=== PATIENT | female | born 1965 | race Caucasian/White ===

== ENCOUNTER → 2018-07-16 17:11 | Outpatient (CLI) | payer MEDICARE, MEDICAID, SELFPAY | PROVIDERS: Visit Provider Podiatrist | DX: B35.1 Tinea unguium (principal); M79.609 Pain in unspecified limb | CPT/HCPCS: 87102; 87206; 87220 ==

== ENCOUNTER → 2018-08-07 10:14 | Outpatient (CLI) | payer MEDICARE, SELFPAY ==
[2018-08-07 10:52] LABS: Basophils % 0.3 % (0.1-2.0); Eosinophils # 9.1 K/mm3 (0.0-0.4); Eosinophils % 65.6 % (0.1-12.0); Hematocrit 45.4 % (37.0-47.0); Hemoglobin 15.2 g/dL (12.2-16.2); Lymphocytes # 1.5 K/mm3 (0.7-4.5); Lymphocytes % 10.9 % (10-50); Mean Corpuscular HGB Conc 33.4 g/dL (31.8-35.4); Mean Corpuscular Volume 92.8 fl (81-99); Mean Platelet Volume 7.5 fl (7.4-10.4); Monocytes # 0.3 K/mm3 (0.1-1.0); Monocytes % 1.9 % (1.7-9.3); Neutrophils % 21.3 % (37.0-80.0); Platelet Count 271 K/mm3 (142-424); Red Cell Distribution Width 15.2 % (11.5-17.5); White Blood Count 13.9 K/mm3 (4.8-10.8)
[2018-08-07 11:43] LABS: Blood Urea Nitrogen 20 mg/dL (7-18); Calcium 9.1 mg/dL (8.5-10.1); Carbon Dioxide 28 mmol/L (21.0-32.0); Chloride 104 mmol/L (98-107); Creatinine,Serum 1.28 mg/dL (0.55-1.02); Estimated Glomerular Filt Rate 44 ml/min (>60); GFR (African American) 53 ML/MIN (>60); Glucose 157 mg/dL (74-106); Sodium 140 mmol/L (136-145)
== END ==
PROVIDERS: Visit Provider Nurse Practitioner Adult Health
DX: Q21.1 Atrial septal defect (principal); R06.09 Other forms of dyspnea
CPT/HCPCS: 36415; 80048; 83880; 85025

== ENCOUNTER → 2019-04-27 10:40 | Outpatient (POV) | payer MEDICARE, SELFPAY ==
[2019-04-27 11:08] VITALS: BP 133/68; PULSE 92; RESP 18; O2SAT 98; BMI 46.2
--- NOTE | 2019-04-27 12:56 | HMH.PMCON ---
Assessment and Plan (1) Degenerative disc disease Current visit: Yes Status: Chronic Qualifiers: Spinal region: lumbar Qualified Code(s): M51.36 - Other intervertebral disc degeneration, lumbar region Category: Medical - Assessment and plan all Dx Assessment and Plan for all problems:: We will see the patient can come off of her Eliquis for an L4-L5 lumbar epidural steroid injection. I do believe it would be beneficial for her. Patient has been instructed to call the office if she has any issues prior to her next appointment. I will follow-up with her after injection reassess her symptoms at that time. Dr. Wright has reviewed this note and agrees with this plan of care. This note was dictated using voice recognition software and may contain errors or omissions HPI - Data of Consult Consult date: 04/27/19 Requesting Physician: Ruby Austin APRN Primary Care Provider: Mali Rivera - Consult Narrative Reason for consult: Sciatica History of present illness: Ms. Dale is a 53 year old female who presents today with low back and radiating pain. Its radiating down her right leg. Patient has had several bouts of sciatica in the past. She rates her pain today at 7 out of 10 she is quite uncomfortable. She is currently on Lyrica and has had several rounds of steroids which have been slightly beneficial however it is not completely taken away her pain. Patient is on Eliquis. She has a Chemo-Port in place however she not currently doing chemo. At this point patient would like to just get some comfort in regards to her low back and her leg pain. CC: Ruby Austin APRN [facility] History I have reviewed the patient's past medical history: Yes Medical History: Reports:: Asthma, Cancer, Depression, Diabetes Mellitus Type 2, Hyperlipidemia, Hypertension *Have you ever received a pneumonia vaccine?: Yes *Have you received a flu vaccine this season?: Yes Other Medical History: Reports: Chemotherapy, Hypothyroidism Other Surgeries: Yes: BSO, Cardiac Catheterization, Colonoscopy, Hysterectomy-Total, Tubal Ligation, Other Amputation: No Fractures: No - *Social History Smoking Status: Never smoker Alcohol Intake: never Substance Use Type: denies use *Occupational Status:: disabled Housing: house Household Members: family *Travel in the last 8 weeks: None - Psychiatric History Pschychiatric History:: Reports:: Depression Family Hx:: Diabetes, Heart Attack, Hyperlipidemia, Hypertension, Cancer Review of Systems - Review of Systems ROS General: no recent weight change, no fever, no sleep disturbances Respiratory: no cough, no shortness of air, no recurring pulmonary infections Cardiovascular/Peripheral Vascular: No chest pain, No palpitations, no edema, no shortness of breath. Gastrointestinal: no new onset incontinence, normal bowel movements reported Genitourinary: no new onset incontinence Musculoskeletal: Back pain, leg pain Psychiatric: normal mood/ affect Neurological: [denies new onset weakness in extremities], [denies new onset balance issues] Meds Home Medications Medication Instructions Recorded Confirmed Type bupropion HCl 300 mg 24 hr tablet, PO 90 Days #90 08/30/17 04/12/19 History extended release canagliflozin 300 mg tablet PO 90 Days #90 08/30/17 04/12/19 History diltiazem HCl 120 mg PO 90 Days #90 08/30/17 04/12/19 History capsule,extended release 24 hr levothyroxine 125 mcg tablet PO 30 Days #30 08/30/17 04/12/19 History metformin 500 mg tablet PO BID 30 Days #60 tab 08/30/17 04/12/19 History potassium chloride 10 mEq PO 90 Days #180 08/30/17 04/12/19 History capsule,extended release pregabalin 150 mg capsule PO 30 Days #90 08/30/17 04/12/19 History rosuvastatin 20 mg tablet PO 30 Days #30 08/30/17 04/12/19 History atorvastatin 20 mg tablet 20 mg PO 90 Days tab 07/16/18 04/12/19 History bumetanide 2 mg tablet 2 mg PO 90 Days tab 07/16/18 04/12/19 Histor
== END ==
PROVIDERS: PCP Nurse Practitioner Family; Visit Provider Clinical Nurse Specialist Family Health
DX: M51.36 Other intervertebral disc degeneration, lumbar region (principal)
CPT/HCPCS: 99202

== ENCOUNTER → 2020-03-10 14:59 | Outpatient (CLI) | payer MEDICARE, SELFPAY ==
[2020-03-10 16:25] LABS: Anion Gap 15.2 mEq/L (5-15); Blood Urea Nitrogen 33 mg/dl (7-17); Calcium 9.5 mg/dl (8.4-10.2); Carbon Dioxide 33 mmol/L (22.0-30.0); Chloride 88 mmol/L (98-107); Estimated Glomerular Filt Rate 26 ml/min (>60); GFR (African American) 32 ML/MIN (>60); Glucose 79 mg/dl (74-100); Potassium 3.2 mmoL/L (3.5-5.1); Sodium 133 mmol/L (136-145)
== END ==
PROVIDERS: Visit Provider Nurse Practitioner Adult Health
DX: Q21.1 Atrial septal defect (principal)
CPT/HCPCS: 36415; 80048

== ENCOUNTER → 2020-03-27 12:41 | Outpatient (CLI) | payer MEDICARE, SELFPAY ==
[2020-03-27 14:20] LABS: Chloride 105 mmol/L (98-107)
[2020-03-27 14:21] LABS: Potassium 4.5 mmoL/L (3.5-5.1); Sodium 141 mmol/L (136-145)
[2020-03-27 14:24] LABS: Anion Gap 10.5 mEq/L (5-15); Blood Urea Nitrogen 15 mg/dl (7-17); Calcium 9.3 mg/dl (8.4-10.2); Carbon Dioxide 30 mmol/L (22.0-30.0); Estimated Glomerular Filt Rate 36 ml/min (>60); GFR (African American) 44 ML/MIN (>60); Glucose 68 mg/dl (74-100)
== END ==
PROVIDERS: Visit Provider Nurse Practitioner Adult Health
DX: Q21.1 Atrial septal defect (principal)
CPT/HCPCS: 36415; 80048

== ENCOUNTER 2020-09-09 20:37 | Emergency (ER) | payer MEDICARE, SELFPAY ==
[2020-09-09] VITALS (7 sets, daily range): BP systolic 129–155; BP diastolic 58–67; PULSE 72–78; RESP 19–20; TEMP 37; O2SAT 90–96; BMI 41.5
--- NOTE | 2020-09-09 21:11 | HMH.EDUTC ---
[facility] Disposition Clinical Impression: Nausea and vomiting Qualifiers: Vomiting type: unspecified Vomiting Intractability: non-intractable Qualified Code(s): R11.2 - Nausea with vomiting, unspecified Diabetes type 2, uncontrolled Qualifiers: Glycemic state: with hyperglycemia Qualified Code(s): E11.65 - Type 2 diabetes mellitus with hyperglycemia Leukemia Qualifiers: Leukemia type: unspecified Leukemia Active/Remission status: without remission Qualified Code(s): C95.90 - Leukemia, unspecified not having achieved remission Disposition: Still a Patient Condition on Discharge: Fair Referrals: Mali Rivera [Primary Care Provider] - Medical Decision Making - Medical Records Medical records reviewed: No: I reviewed the patient's medical records. - Enrique Inquiry Pt receiving controlled substance: No Vital Signs: 09/09/20 20:39 Temperature 98.6 F Temperature Source Oral Pulse Rate [Left] 78 Respiratory Rate 19 Blood Pressure [Right Arm] 135/66 Blood Pressure Mean [Right Arm] 89 02 Sat by Pulse Oximetry 95 Medical Decision Narrative: She was transferred to the ER due to her symptoms and her history of diabetes and leukemia. [facility] HPI - General Stated complaint: diarrhea vomitting Time Seen by Provider: 09/09/20 21:00 Mode of Arrival: Ambulatory Source of Information: Patient Limitations: No Limitations Description of Symptoms (Recalled from Triage Doc. by RN): Pt states that she has had diarrhea one day and vomiting the next for a week. Pt states that she has seem her PCP twice for it and her PCP tells her she doesn't know what it is . HEENT Symptoms (Recalled from RN notes): No Resp Symptoms (Recalled from RN notes): No Skin Symptoms (Recalled from RN notes): No MS Symptoms (Recalled from RN notes): No Functional Status (Recalled from RN notes): wnl - History of Present Illness Provider Complaint: She states that she has been having nausea/vomiting/diarrhea for the past 1 week. She has a history of leukemia. She was prescribed zofran by her Hemotologist. She states that this did not help. Then she was prescribed promethazine by her pcp. She states this has not helped either. She denies abdominal pain. She still has her appendix. She has history of diabetes type 2 also. - Related Data Home Medications Medication Instructions Recorded Confirmed bupropion HCl 300 mg 24 hr tablet, 300 mg PO DAILY 90 Days #90 08/30/17 07/04/19 extended release canagliflozin 300 mg tablet 300 mg PO DAILY 90 Days #90 08/30/17 07/04/19 diltiazem HCl 120 mg 120 mg PO DAILY 90 Days #90 08/30/17 07/04/19 capsule,extended release 24 hr levothyroxine 125 mcg tablet 125 meq PO DAILY 30 Days #30 08/30/17 07/04/19 metformin 500 mg tablet 500 mg PO BID 30 Days #60 tab 08/30/17 07/04/19 potassium chloride 10 mEq 10 meq PO DAILY 90 Days #180 08/30/17 07/04/19 capsule,extended release rosuvastatin 20 mg tablet 20 mg PO DAILY 30 Days #30 08/30/17 07/04/19 atorvastatin 20 mg tablet 20 mg PO DAILY 90 Days tab 07/16/18 07/04/19 bumetanide 2 mg tablet 2 mg PO DAILY 90 Days tab 07/16/18 07/04/19 insulin human U-100 NPH-regulr 52 unit SUB-Q BID 30 Days ml 07/16/18 07/04/19 70-30 mix 100 unit/mL subcutaneous susp losartan 25 mg tablet 25 mg PO DAILY 90 Days tab 07/16/18 07/04/19 metolazone 10 mg tablet 10 mg PO DAILY 07/16/18 07/04/19 sildenafil 25 mg tablet 25 mg PO DAILY PRN 09/24/18 07/04/19 Apixaban [Eliquis] 5 mg PO BID 05/07/19 07/04/19 albuterol sulfate 90 mcg/actuation INHALATION 07/04/19 07/04/19 aerosol inhaler fluoxetine 20 mg capsule mg PO 07/04/19 07/04/19 macitentan 10 mg tablet mg PO 07/04/19 07/04/19 potassium chloride 20 mEq meq PO 07/04/19 07/04/19 tablet,extended release(part/cryst) pregabalin 300 mg capsule PO 07/04/19 07/04/19 Previous Rx's Medication Instructions Recorded urea 39 % topical cream 39 % TOPICAL BID #227 g 07/16/18 cyclobenzaprine 10 mg tablet 10 mg PO TID PRN #90 tab 11
--- NOTE | 2020-09-09 21:15 | CT_ITS ---
PROCEDURE INFORMATION: Exam: CT Abdomen And Pelvis With Contrast Exam date and time: 09/09/2020 9:15 PM Age: 54 years old Clinical indication: Nausea and vomiting; Patient HX: N/v/d for 1 week; Additional info: N/v/d for one week TECHNIQUE: Imaging protocol: Computed tomography of the abdomen and pelvis with contrast. Total images: 353 Radiation optimization: All CT scans at this facility use at least one of these dose optimization techniques: automated exposure control; mA and/or kV adjustment per patient size (includes targeted exams where dose is matched to clinical indication); or iterative reconstruction. Contrast material: ISOVUE; Contrast volume: 75 ml; Contrast route: IV; COMPARISON: No relevant prior studies available. FINDINGS: Lungs: Visualized lung bases are clear. Heart: Heart size normal. There is mild calcification of the aortic valve. Prior ASD repair noted. Mediastinal space: The visualized distal esophagus is normal. Liver: Normal contour. No mass lesions. No intrahepatic biliary ductal dilatation. Granulomatous calcifications in the liver. Gallbladder and bile ducts: The gallbladder is contracted but otherwise unremarkable. Nondilated biliary system. Pancreas: Normal. No inflammatory changes or ductal dilation. Spleen: Granulomatous calcifications in the spleen without acute splenic abnormality. Adrenal glands: The right adrenal gland is normal. 18 mm fat density lesion in the left adrenal gland is consistent with an incidental myelolipoma that does not require further evaluation. Kidneys and ureters: No acute abnormalities. No hydronephrosis or hydroureter. No urinary tract stones are identified. There is a low-density circumscribed right renal cortical lesion suggesting renal cyst. No further imaging evaluation is required. Stomach and bowel: The stomach is unremarkable. The small bowel is nondilated with no gross abnormality. Question mild colonic wall thickening and adjacent stranding in the cecum and ascending colon suspicious for mild colitis. Submucosal fatty transformation in this region suggests underlying chronic changes of prior colitis as well. No evidence of perforation or abscess. Appendix: The appendix is normal in caliber and demonstrates no evidence of appendicitis. Intraperitoneal space: No free fluid or air. Vasculature: No acute process. No abdominal aortic aneurysm. Mild calcific atherosclerosis. Lymph nodes: No adenopathy. Urinary bladder: The urinary bladder is largely contracted without gross abnormality. Reproductive: Prior hysterectomy. Bones/joints: No acute osseous abnormalities. Soft tissues: Very small fatty umbilical hernia . No evidence of associated bowel herniation or strangulation. Mild soft tissue edema/stranding in the posterior and bilateral posterolateral subcutaneous tissues suggesting mild anasarca or volume overload. IMPRESSION: 1. Question mild colitis involving the proximal colon. No evidence of perforation or abscess. 2. Question mild anasarca or volume overload. 3. Additional non-emergent findings detailed above. COMMENTS: Consistent with the [employer]'s Incidental Findings Committee white paper (J Am Jenniffer Radiol 2018): Any incidental renal lesion less than 1 cm or classified as too small to characterize, or any incidental cystic renal lesion characterized as simple-appearing, is likely benign. No follow-up imaging is recommended for these lesions per consensus recommendations based on imaging criteria.
--- NOTE | 2020-09-09 21:20 | XR_ITS ---
PROCEDURE INFORMATION: Exam: XR Chest Exam date and time: 09/09/2020 9:20 PM Age: 54 years old Clinical indication: Prior surgery; Surgery date: 1-6 months; Patient HX: N/v/d, port in chest, no chest symptoms, nonsmoker; Additional info: Nausea/vomiting/diarrhea TECHNIQUE: Imaging protocol: XR of the chest. Views: 1 view. Total images: 1 COMPARISON: CR CXR CHEST(2 VIEWS-NOT PORTABLE) 08/06/2014 10:17 PM FINDINGS: Tubes, catheters and devices: Right jugular port with catheter tip in the mid to distal SVC unchanged. Lungs: Normal pulmonary expansion. Mild central vascular congestion. Question mild interstitial and alveolar density in the right base with mild indistinctness of the pulmonary vasculature and slight minor fissural thickening. This could relate to mild edema or pneumonia. Pleural spaces: No pleural effusion. No pneumothorax. Heart/Mediastinum: Heart size within normal limits for portable AP technique. No tracheal/mediastinal shift. Bones/joints: No acute osseous abnormalities are identified. IMPRESSION: Question faint interstitial and alveolar densities in the right base suspicious for mild pneumonia or edema.
[2020-09-09 21:27] LABS: POC Glucose,Bedside 106 (70-110)
[2020-09-09 21:38] LABS: Adenovirus,PCR Not Detected (NotDetected); Bordetella Pertussis Not Detected (NotDetected); Chlamydophila Pneumoniae, PCR Not Detected (NotDetected); Coronavirus 19, PCR Not Detected (NotDetected); Coronavirus 229E Not Detected (NotDetected); Coronavirus NL63 Not Detected (NotDetected); Coronavirus OC43 Not Detected (NotDetected); Coronovirus HKU1,PCR Not Detected (NotDetected); Human Metapneumovirus Not Detected (NotDetected); Influenza A, PCR Not Detected (NotDetected); Influenza AH1, 2009 Not Detected (NotDetected); Influenza AH1, PCR Not Detected (NotDetected); Influenza AH3,PCR Not Detected (NotDetected); Influenza B, PCR Not Detected (NotDetected); Mycoplasma Pneumoniae, PCR Not Detected (NotDetected); Parainfluenza 1, PCR Not Detected (NotDetected); Parainfluenza 2, PCR Not Detected (NotDetected); Parainfluenza 3, PCR Not Detected (NotDetected); Parainfluenza 4, PCR Not Detected (NotDetected); Respiratory Syncytial Virus Not Detected (NotDetected); Rhinovirus/Enterovirus Not Detected (NotDetected)
[2020-09-09 21:53] LABS: Basophils # 0.1 K/mm3 (0-0.2); Basophils % 0.6 % (0.1-2.0); Eosinophils # 15.2 K/mm3 (0.0-0.4); Hematocrit 41.3 % (37.0-47.0); Hemoglobin 13.5 g/dL (12.2-16.2); Lymphocytes # 2.4 K/mm3 (0.7-4.5); Lymphocytes % 10.1 % (10-50); Mean Corpuscular HGB Conc 32.7 g/dL (31.8-35.4); Mean Corpuscular Hemoglobin 28.9 pg (27.0-31.2); Mean Corpuscular Volume 88.4 fl (81-99); Mean Platelet Volume 7.2 fl (7.4-10.4); Monocytes # 0.7 K/mm3 (0.1-1.0); Monocytes % 2.9 % (1.7-9.3); Neutrophils % 21.4 % (37.0-80.0); Platelet Count 286 K/mm3 (142-424); Red Blood Count 4.68 M/mm3 (4.20-5.40); Red Cell Distribution Width 16.9 % (11.5-17.5)
[2020-09-09 21:54] LABS: White Blood Count 23.4 K/mm3 (4.8-10.8)
[2020-09-09 21:56] LABS: MANUAL DIFFERENTIAL MANUAL DIFFERENTIAL (MANUAL DIFF)
[2020-09-09 22:05] LABS: Microscopic, Urine URINE MICROSCOPIC (MICROSCOPIC)
[2020-09-09 22:06] LABS: Anion Gap 8.1 mEq/L (5-15); Blood Urea Nitrogen 16 mg/dl (7-17); Carbon Dioxide 31 mmol/L (22.0-30.0); Chloride 101 mmol/L (98-107); Creatinine Clearance Estimated 49 mL/min (50-200); Estimated Glomerular Filt Rate 47 ml/min (>60); Potassium 3.1 mmoL/L (3.5-5.1); Sodium 137 mmol/L (136-145)
[2020-09-09 22:07] LABS: Alanine Aminotransferase 10 U/L (12-78); Albumin Level 3.8 g/dl (3.5-5.0); Alkaline Phosphatase 150 U/L (38-126); Amylase 97 U/L (30-110); Aspartate Amino Transferase 18 U/L (14-36); Bilirubin,Direct 0.4 mg/dl (0.0-0.4); Bilirubin,Indirect 0.2 mg/dL (0.0-0.9); Bilirubin,Total 0.6 mg/dl (0.2-1.3); Bilirubin,Unconjugated 0.2 mg/dL (0.0-1.1); Calcium 8.6 mg/dl (8.4-10.2); GFR (African American) 57 ML/MIN (>60); Glucose 114 mg/dl (74-100); Lactic Acid 0.7 mmol/L (0.7-2.1); Lipase 197 U/L (23-300); Total Protein,Serum 6.4 g/dl (6.3-8.2)
[2020-09-09 22:10] LABS: Appearance,Urine CLEAR (Clear); Bilirubin,Urine Negative (Negative); Blood, Urine Negative (Negative); Color,Urine YELLOW (Yellow); Glucose,Urine (UA) 3+ (Negative); Ketones,Urine Negative (Negative); Leukocyte Esterase,Urine Negative (Negative); Nitrate,Urine Negative (Negative); Protein,Urine Negative (Negative); Urobilinogen,Urine 0.2 EU/dl (0.2)
[2020-09-09 22:12] LABS: C-Reactive Protein 2.3 mg/L (0-4)
[2020-09-09 22:23] LABS: Squamous Epithelial Cell,Urine Occasional #/hpf (0-5)
[2020-09-09 22:28] LABS: Erythrocyte Sedimentation Rate 11 mm/hr (0-30)
[2020-09-09 22:32] LABS: Troponin I < 0.01 ng/ml (0.00-0.034)
--- NOTE | 2020-09-09 22:32 | PC.NURSE ---
pt gone to radiology
[2020-09-09 22:53] LABS: Eosinophils % 65 % (0-3); Lymphocytes % 13 % (10-50); Monocytes % 3 % (2-9); Neutrophils % 19 % (42-76); Platelet Estimate Normal; RBC Morphology Normal; Total Cells Counted 100
--- NOTE | 2020-09-09 23:44 | HMH.EDNVD ---
ED Disposition Clinical Impression: Gastroenteritis Nausea and vomiting Qualifiers: Vomiting type: unspecified Vomiting Intractability: non-intractable Qualified Code(s): R11.2 - Nausea with vomiting, unspecified Diabetes type 2, uncontrolled Qualifiers: Glycemic state: with hyperglycemia Qualified Code(s): E11.65 - Type 2 diabetes mellitus with hyperglycemia Leukemia Qualifiers: Leukemia type: unspecified Leukemia Active/Remission status: without remission Qualified Code(s): C95.90 - Leukemia, unspecified not having achieved remission Disposition: Home, Self-Care Condition on Discharge: Good Instructions: DI for Nausea -- Adult Additional Instructions: fluids and see pcp for follow up Prescriptions: ondansetron HCL [Zofran 4mg Tab] 4 mg PO TID #21 tab Transmission Status: Pending to [id number] Referrals: Mali Rivera [Primary Care Provider] - - Critical Care Critical Care Time: No Attestation: On 09/09/20, the high probability of a clinically significant, sudden or life threatening deterioration of the following system(s) required my full and direct attention, intervention and personal management. The time I documented below is in addition to time spent performing reported procedures but includes the following listed in this critical care notation. Medical Decision Making - Medical Records Medical records reviewed: Yes: I reviewed the patient's medical records. - Enrique Inquiry Pt receiving controlled substance: No Vital Signs: 09/09/20 20:39 09/09/20 21:11 09/09/20 21:32 Temperature 98.6 F 98.6 F Temperature Source Oral Oral Pulse Rate 76 Pulse Rate [Left] 78 78 Respiratory Rate 19 19 Blood Pressure 136/67 Blood Pressure [Right Arm] 135/66 135/66 Blood Pressure Mean [Right Arm] 89 89 Blood Pressure Source [Right Arm] Automatic Cuff Blood Pressure Position [Right Arm] Sitting 02 Sat by Pulse Oximetry 95 95 91 L Oxygen Delivery Method Room Air 09/09/20 22:05 09/09/20 23:01 09/09/20 23:37 Temperature Temperature Source Pulse Rate 74 76 74 Pulse Rate [Left] Respiratory Rate Blood Pressure 129/61 133/58 L 135/62 Blood Pressure [Right Arm] Blood Pressure Mean [Right Arm] Blood Pressure Source [Right Arm] Blood Pressure Position [Right Arm] 02 Sat by Pulse Oximetry 90 L 96 96 Oxygen Delivery Method - Lab Data Lab results reviewed: Yes: I reviewed the patient's lab results. Lab Results 09/09/20 21:20: POC Glucose 106 09/09/20 21:26: Chlamy pneumoniae PCR Not detected, Adenovirus (PCR) Not detected, B. pertussis DNA (PCR) Not detected, Coronavirus OC43 (PCR) Not detected, Coronavirus HKU1 (PCR) Not detected, Coronavirus 229E (PCR) Not detected, SARS-CoV-2 (PCR) Not detected, Coronavirus NL63 (PCR) Not detected, Human Metapneumovir PCR Not detected, Influenza A (H1) PCR Not detected, Influ A (H1N1/09) PCR Not detected, Influenza A (H3) PCR Not detected, Influenza Type A (PCR) Not detected, Influenza Type B (PCR) Not detected, M. pneumoniae (PCR) Not detected, Parainfluenza 1 (PCR) Not detected, Parainfluenza 2 (PCR) Not detected, Parainfluenza 3 (PCR) Not detected, Parainfluenza 4 (PCR) Not detected, RSV (PCR) Not detected, Entero/Rhino (PCR) Not detected 09/09/20 21:30: WBC 23.4 H*, RBC 4.68, Hgb 13.5, Hct 41.3, MCV 88.4, MCH 28.9, MCHC 32.7, RDW 16.9, Plt Count 286, MPV 7.2 L, Neut % (Auto) 21.4 L, Lymph % (Auto) 10.1, [place] % (Auto) 2.9, Eos % (Auto) 65.0 H, Baso % (Auto) 0.6, Neut # (Auto) 5.0, Lymph # (Auto) 2.4, [place] # (Auto) 0.7, Eos # (Auto) 15.2 H, Baso # (Auto) 0.1, Total Counted 100, Neutrophils % (Manual) 19 L, Lymphocytes % (Manual) 13, Monocytes % (Manual) 3, Eosinophils % (Manual) 65 H, Platelet Estimate Normal, RBC Morphology Normal 09/09/20 21:30: Sodium 137, Potassium 3.1 L, Chloride 101, Carbon Dioxide 31 H, Anion Gap 8.1, BUN 16, Creatinine 1.20 H, Estimated Creat Clear 49, Estimated GFR 47 L, Est GFR ( Amer) 57
== END 2020-09-10 00:02 | disposition home or self-care (01) ==
LOC: UTC 20:39 → ER 21:09
PROVIDERS: Emergency Provider Emergency Medicine; PCP Nurse Practitioner Family
DX: K52.9 Noninfective gastroenteritis and colitis, unspecified (principal); E11.65 Type 2 diabetes mellitus with hyperglycemia; C95.90 Leukemia, unspecified not having achieved remission; I10 Essential (primary) hypertension; E78.5 Hyperlipidemia, unspecified; E03.9 Hypothyroidism, unspecified; Z79.899 Other long term (current) drug therapy
CPT/HCPCS: 71045; 74177; 80048; 80076; 81001; 82150; 82962; 83605; 83690; 84145; 84484; 85007; 85025; 85651; 86140; 87040; 87581; 87633; 87798; 93005; 96365; 96375; 99284; J2405; Q9967

== ENCOUNTER → 2020-09-15 10:15 | Outpatient (CLI) | payer MEDICARE, SELFPAY ==
[2020-09-15 10:45] LABS: Alanine Aminotransferase 15 U/L (12-78); Albumin Level 4.1 g/dl (3.5-5.0); Albumin/Globulin Ratio 1.6 (1.1-1.8); Alkaline Phosphatase 145 U/L (38-126); Anion Gap 12.2 mEq/L (5-15); Aspartate Amino Transferase 20 U/L (14-36); Bilirubin,Total 0.7 mg/dl (0.2-1.3); Blood Urea Nitrogen 16 mg/dl (7-17); Calcium 9.1 mg/dl (8.4-10.2); Carbon Dioxide 29 mmol/L (22.0-30.0); Chloride 96 mmol/L (98-107); Estimated Glomerular Filt Rate 39 ml/min (>60); GFR (African American) 48 ML/MIN (>60); Globulin 2.6 g/dL (1.3-3.2); Glucose 265 mg/dl (74-100); Potassium 3.2 mmoL/L (3.5-5.1); Sodium 134 mmol/L (136-145); Total Protein,Serum 6.7 g/dl (6.3-8.2)
== END ==
PROVIDERS: Visit Provider Nurse Practitioner Adult Health
DX: Q21.1 Atrial septal defect (principal); R11.0 Nausea
CPT/HCPCS: 36415; 80053

== ENCOUNTER → 2021-01-25 08:59 | Outpatient (CLI) | payer MEDICARE, SELFPAY | PROVIDERS: Visit Provider Internal Medicine | DX: Z01.812 Encounter for preprocedural laboratory examination (principal); Z11.52 Encounter for screening for COVID-19 | CPT/HCPCS: C9803; U0003; U0005 ==

== ENCOUNTER 2021-03-08 13:25 | Outpatient (CLI) | payer MEDICARE, SELFPAY | END 2021-03-08 13:40 | disposition home or self-care (01) | LOC: INF 13:26 | PROVIDERS: PCP Nurse Practitioner Family; Visit Provider Internal Medicine Medical Oncology | DX: Z45.2 Encounter for adjustment and management of vascular access device (principal); D72.10 Eosinophilia, unspecified | CPT/HCPCS: 96523; J1642 ==

== ENCOUNTER 2021-06-07 12:54 | Outpatient (CLI) | payer MEDICARE, SELFPAY | END 2021-06-07 13:08 | disposition home or self-care (01) | LOC: INF 12:56 | PROVIDERS: PCP Nurse Practitioner Family; Visit Provider Internal Medicine Medical Oncology | DX: Z45.2 Encounter for adjustment and management of vascular access device (principal); D72.10 Eosinophilia, unspecified | CPT/HCPCS: 96523; J1642 ==

== ENCOUNTER 2021-08-09 09:32 | Emergency (ER) | payer MEDICARE, SELFPAY ==
[2021-08-09 09:32] VITALS: BP 120/69; PULSE 85; RESP 17; TEMP 36.6; O2SAT 98; BMI 42.5
--- NOTE | 2021-08-09 10:40 | HMH.EDUTC ---
[facility] [place] Clinical Impression: Sinusitis Qualifiers: Sinusitis location: unspecified location Chronicity: unspecified Qualified Code(s): J32.9 - Chronic sinusitis, unspecified Disposition: Home, Self-Care Condition on Discharge: Good Instructions: Sinusitis, DI for Sinusitis, Azithromycin, DI for Thrush Additional Instructions: ? Start antibiotic today. Be sure to complete entire prescription even if feeling better ? Monitor temp. Tylenol every 4 hours as needed and / or ibuprofen every 6 hours as needed ( As long as your primary care physician has told you that it ok to take both. For fever/aches/pains ER if no less than 101 despite Tylenol or Motrin ? Humidifier/vaporizer or hot steamy shower ? Inhaler every 4-6 hours as needed like we discussed. If unsure how to use it, ask pharmacist to demonstrate how. Should help open airways and improve cough, wheezing, and shortness of breath *Tessalon Perles will not cause drowsiness but use at bedtime to help stop cough so that you may get some rest. Follow up IMMEDIATELY for new or worsening of symptoms OR no noticeable improvement over the next 48-72 hours. 911 immediately for any life threatening symptoms such as chest pain or difficulty breathing Prescriptions: Fluconazole [Diflucan 150mg tab] 150 mg PO DAILY 3 Days #3 tab [facility] Azithromycin [Z-Jarret 250mg Tab] 250 mg PO DIRECTED #6 tab [facility]: [facility] Ondansetron [Zofran 4mg ODT] 4 mg PO TIDP PRN #15 tab PRN Reason: Nausea Transmission Status[facility] Referrals: Mali Rivera [Primary Care Provider] - As needed Time of Disposition: 11:01 Medical Decision Making - Enrique Inquiry Pt receiving controlled substance: No Enrique was queried for this patient: No Vital Signs: 08/09/21 09:32 Temperature 98 F Temperature Source Oral Pulse Rate [Left Radial] 85 Respiratory Rate 17 Blood Pressure [Right Arm] 120/69 Blood Pressure Mean [Right Arm] 86 02 Sat by Pulse Oximetry 98 Oxygen Delivery Method Room Air Medical Decision Narrative: Patient states that she has taken azithromycin, diflucan and zofran in the past without complications or reactions [facility] [place] - General Stated complaint: chest congestion, cough Time Seen by Provider: 08/09/21 10:41 Mode of Arrival: Ambulatory Source of Information: Patient Limitations: No Limitations Description of Symptoms (Recalled from Triage Doc. by RN): COUGH, CONGESTION, NAUSEA, THRUSH, YEAST X 1 WEEK HEENT Symptoms (Recalled from RN notes): No Resp Symptoms (Recalled from RN notes): Yes Skin Symptoms (Recalled from RN notes): No MS Symptoms (Recalled from RN notes): Yes Functional Status (Recalled from RN notes): N/A - History of Present Illness Provider Complaint: Patient states that she has been having sinus congestion and drainage along with cough States that she feels like it is trying to move into her chest States that also she noticed she has a white film like area on her tongue like she gets when she gets oral thrush and she wanted to get it looked at too - Related Data Home Medications Medication Instructions Recorded Confirmed bupropion HCl 300 mg 24 hr tablet, 300 mg PO DAILY 90 Days #90 08/30/17 02/22/21 extended release canagliflozin 300 mg tablet 300 mg PO DAILY 90 Days #90 08/30/17 02/22/21 diltiazem HCl 120 mg 120 mg PO DAILY 90 Days #90 08/30/17 02/22/21 capsule,extended release 24 hr levothyroxine 125 mcg tablet 125 meq PO DAILY 30 Days #30 08/30/17 02/22/21 metformin 500 mg tablet 500 mg PO BID 30 Days #60 tab 08/30/17 02/22/21 potassium chloride 10 mEq 10 meq PO DAILY 90 Days #180 08/30/17 02/22/21 capsule,extended release rosuvastatin 20 mg tablet 20 mg PO DAILY 30 Days #30 08/30/17 02/22/21 atorvastatin 20 mg tablet 20 mg PO DAILY 90 Days tab 07/16/18 02/22/21 bumetanide 2 mg tablet 2 mg PO DAILY 90 Days tab 03
[2021-08-09 11:36] VITALS: BP 120/69; PULSE 85; RESP 17; TEMP 36.6; O2SAT 98
== END 2021-08-09 11:36 | disposition home or self-care (01) ==
PROVIDERS: Emergency Provider Nurse Practitioner; PCP Nurse Practitioner Family
DX: J32.9 Chronic sinusitis, unspecified (principal); I10 Essential (primary) hypertension; E78.5 Hyperlipidemia, unspecified; E11.9 Type 2 diabetes mellitus without complications; F32.A Depression, unspecified; F41.9 Anxiety disorder, unspecified; Z79.1 Long term (current) use of non-steroidal anti-inflammatories (NSAID); Z79.4 Long term (current) use of insulin; Z79.84 Long term (current) use of oral hypoglycemic drugs; Z79.51 Long term (current) use of inhaled steroids; Z79.899 Other long term (current) drug therapy; Z79.01 Long term (current) use of anticoagulants; Z85.9 Personal history of malignant neoplasm, unspecified; Z90.711 Acquired absence of uterus with remaining cervical stump; Z82.49 Family history of ischemic heart disease and other diseases of the circulatory system; Z83.438 Family history of other disorder of lipoprotein metabolism and other lipidemia; Z80.9 Family history of malignant neoplasm, unspecified; Z83.3 Family history of diabetes mellitus
CPT/HCPCS: 99213; G0463

== ENCOUNTER 2022-04-24 12:35 | Outpatient (CLI) | payer MEDICARE, SELFPAY | END 2022-04-24 12:45 | disposition home or self-care (01) | LOC: INF 12:37 | PROVIDERS: PCP Nurse Practitioner Family; Visit Provider Internal Medicine Medical Oncology | DX: Z45.2 Encounter for adjustment and management of vascular access device (principal) | CPT/HCPCS: 96523; J1642 ==

== ENCOUNTER 2022-05-13 10:48 | Emergency (ER) | payer MEDICARE, SELFPAY ==
[2022-05-13 11:05] VITALS: BP 139/66; PULSE 82; RESP 20; TEMP 36.8; O2SAT 94; BMI 48.4
--- NOTE | 2022-05-13 11:13 | EXP.UTC ---
Discharge Plan Disposition Patient Disposition: Home, Self-Care Condition: Good Prescriptions Prescriptions: New prednisone 10 mg tablet 10 mg PO BID 5 Days Qty: 10 0RF amoxicillin [amoxicillin] 500 mg tablet 500 mg PO TID 10 Days Qty: 30 0RF benzonatate [benzonatate] 100 mg capsule 100 mg PO TIDP PRN (Reason: Cough) Qty: 30 0RF ofloxacin 0.3 % drops See Rx Instructions .ROUTE .COMPLEX Qty: 5 0RF Rx Instructions: put 1 drp into both eyes every 4 h x 2 days, then 1 drp 4 times/day days 3-7 No Action atorvastatin 20 mg tablet 20 mg PO DAILY 90 Days bumetanide 2 mg tablet 2 mg PO DAILY 90 Days metolazone 10 mg tablet 10 mg PO DAILY sildenafil [Viagra] 25 mg tablet 25 mg PO DAILY albuterol sulfate 90 mcg/actuation HFA aerosol inhaler INHALATION potassium chloride 20 mEq tablet,ER particles/crystals PO pregabalin 300 mg capsule PO Label Comments: TAKE 1 CAPSULE BY MOUTH TWICE DAILY macitentan 10 mg tablet PO fluoxetine 20 mg capsule PO Label Comments: TAKE 1 CAPSULE BY MOUTH ONCE DAILY levothyroxine 125 mcg tablet 125 meq PO DAILY 30 Days Qty: 30 metformin 500 mg tablet 500 mg PO BID 30 Days Qty: 60 canagliflozin 300 mg tablet 300 mg PO DAILY 90 Days Qty: 90 bupropion HCl 300 mg tablet extended release 24 hr 300 mg PO DAILY 90 Days Qty: 90 diltiazem HCl 120 mg capsule,extended release 24hr 120 mg PO DAILY 90 Days Qty: 90 insulin NPH and regular human 100 unit/mL (70-30) suspension 31 unit SQ BID 30 Days Qty: 18.6 atenolol 50 mg tablet 50 mg PO DAILY omeprazole 10 mg capsule,delayed release(DR/EC) 10 mg PO DAILY spironolactone 50 mg tablet 50 mg PO DAILY fluconazole 150 MG tablet 150 mg PO DAILY 3 Days Qty: 3 0RF ondansetron 4 MG tablet,disintegrating 4 mg PO TIDP PRN (Reason: Nausea) Qty: 15 0RF apixaban 5 MG tablet 5 mg PO BID Label Comments: TAKE 1 TABLET BY MOUTH TWICE DAILY DIRECTED Referrals Follow up/Referrals: Mali Rivera [Primary Care Provider] - See instructions Activity Restrictions/Add. Instructions Additional Instructions/Restrictions: Take tylenol or ibuprofen for pain or fever. Take the medications as directed. Follow up with your regular doctor. GO TO THE ER FOR ANY WORSENING SYMPTOMS Clinical Impressions Clinical Impression: Pharyngitis, Bilateral conjunctivitis Instructions Patient Instructions: Sore Throat, DI for Pharyngitis/Tonsillopharyngitis -- Adult Discharge ED Provider: Cash Ly [facility] General Stated complaint: sore throat,fever Time Seen by Provider: 05/13/22 11:13 History of Present Illness Provider Complaint: She states that for the past 2 days she has had sore throat, ear pain, and sinus congestion. She has also had bilateral eye redness, irritation, and matting for the past 1 day. Related Data Home Medications Medication Instructions Recorded Confirmed bupropion HCl 300 mg 24 hr tablet, 300 mg PO DAILY fibromyalgia 90 08/30/17 10/03/21 extended release days ##90 canagliflozin 300 mg tablet 300 mg PO DAILY Diabetes 90 days 08/30/17 10/03/21 ##90 diltiazem HCl 120 mg 120 mg PO DAILY Heartburn 90 days 08/30/17 10/03/21 capsule,extended release 24 hr ##90 levothyroxine 125 mcg tablet 125 meq PO DAILY hypothyroidism 30 08/30/17 10/03/21 days ##30 metformin 500 mg tablet 500 mg PO BID Diabetes 30 days #60 08/30/17 10/03/21 tabs atorvastatin 20 mg tablet 20 mg PO DAILY Cholesterol 90 days 07/16/18 10/03/21 bumetanide 2 mg tablet 2 mg PO DAILY swelling 90 days 07/16/18 10/03/21 metolazone 10 mg tablet 10 mg PO DAILY Fluid 07/16/18 10/03/21 apixaban 5 mg tablet 5 mg PO BID Blood thinner 05/07/19 10/03/21 albuterol sulfate 90 mcg/actuation inhalation 07/04/19 10/03/21 aerosol inhaler fluoxetine 20 mg capsule mg PO 07/04/1910/03
[2022-05-13 11:23] LABS: UTC Strep Screen (Rapid) Negative (Negative)
[2022-05-13 11:43] VITALS: BP 139/66; PULSE 82; RESP 20; TEMP 36.8; O2SAT 94
== END 2022-05-13 11:43 | disposition home or self-care (01) ==
PROVIDERS: Emergency Provider Nurse Practitioner Family; PCP Nurse Practitioner Family
DX: H10.9 Unspecified conjunctivitis (principal); J02.9 Acute pharyngitis, unspecified
CPT/HCPCS: 87880; 99212; 99213; G0463

== ENCOUNTER 2022-08-22 11:04 | Outpatient (CLI) | payer MEDICARE, SELFPAY | END 2022-08-22 11:15 | disposition home or self-care (01) | LOC: INF 11:05 | PROVIDERS: PCP Nurse Practitioner Family; Visit Provider Physician Assistant Medical | DX: D72.19 Other eosinophilia (principal); Z45.2 Encounter for adjustment and management of vascular access device | CPT/HCPCS: 96523; J1642 ==

== ENCOUNTER → 2022-09-18 23:31 | Outpatient (CLI) | payer MEDICARE, SELFPAY | PROVIDERS: PCP Nurse Practitioner Family; Visit Provider Nurse Practitioner Family | DX: B35.1 Tinea unguium (principal); E11.40 Type 2 diabetes mellitus with diabetic neuropathy, unspecified; Z79.4 Long term (current) use of insulin | CPT/HCPCS: 87102; 87206; 87220 ==

== ENCOUNTER 2023-03-18 17:50 | Emergency (ER) | payer MEDICARE, SELFPAY ==
[2023-03-18 19:00] VITALS: BP 0/0; PULSE 0; RESP 0; TEMP -17.7; TEMP 0
== END 2023-03-18 19:00 | disposition home or self-care (01) ==
PROVIDERS: Emergency Provider Nurse Practitioner Family; PCP Nurse Practitioner Family
DX: Z53.21 Procedure and treatment not carried out due to patient leaving prior to being seen by health care provider (principal)

== ENCOUNTER 2023-07-21 14:42 | Emergency (ER) | payer MEDICARE, SELFPAY ==
[2023-07-21 15:00] VITALS: BP 155/69; PULSE 87; RESP 18; TEMP 36.8; O2SAT 95; BMI 49.2
--- NOTE | 2023-07-21 15:12 | ED_ITS ---
Discharge Plan Disposition Patient Disposition: Home, Self-Care Condition: Good Prescriptions Prescriptions: New fluconazole 150 mg tablet 150 mg PO ONCE Qty: 1 3RF cephalexin 500 mg capsule 500 mg PO QID Qty: 40 0RF mupirocin 2 % ointment 1 applic topical TID 7 Days Qty: 15 0RF No Action atorvastatin 20 mg tablet 20 mg PO DAILY 90 Days bumetanide 2 mg tablet 2 mg PO DAILY 90 Days metolazone 10 mg tablet 10 mg PO DAILY sildenafil [Viagra] 25 mg tablet 25 mg PO DAILY albuterol sulfate 90 mcg/actuation HFA aerosol inhaler See Rx Instructions .ROUTE .COMPLEX Rx Instructions: see rx potassium chloride 20 mEq tablet,ER particles/crystals 20 meq PO DAILY pregabalin 300 mg capsule 150 mg PO BID Patient Comments: TAKE 1 CAPSULE BY MOUTH TWICE DAILY Opsumit 10 mg tablet 10 mg PO DAILY fluoxetine 20 mg capsule 20 mg PO DAILY Patient Comments: TAKE 1 CAPSULE BY MOUTH ONCE DAILY levothyroxine 125 mcg tablet 125 meq PO DAILY 30 Days Qty: 30 metformin 500 mg tablet 500 mg PO BID 30 Days Qty: 60 bupropion HCl 300 mg tablet extended release 24 hr 300 mg PO DAILY 90 Days Qty: 90 diltiazem HCl 120 mg capsule,extended release 24hr 120 mg PO DAILY 90 Days Qty: 90 insulin NPH and regular human 100 unit/mL (70-30) suspension 31 unit SQ BID 30 Days Qty: 18.6 omeprazole 10 mg capsule,delayed release(DR/EC) 10 mg PO DAILY spironolactone 50 mg tablet 50 mg PO DAILY apixaban 5 MG tablet 5 mg PO BID Patient Comments: TAKE 1 TABLET BY MOUTH TWICE DAILY DIRECTED Referrals Follow up/Referrals: Mali Rivera [Primary Care Provider] - See instructions Activity Restrictions/Add. Instructions Additional Instructions/Restrictions: Keep the wound clean and dry. Keep a dressing on it if you are going to be getting it dirty. Watch the wound for signs of infection, such as redness, swelling, drainage, fever. etc. Take tylenol for pain. Follow up with your regular doctor for a wound recheck within the next 48 to 72 hours. GO TO THE ER FOR ANY WORSENING SYMPTOMS OR CONCERNS. Clinical Impressions Clinical Impression: Laceration of right leg excluding thigh, Diabetes, Need for Tdap vaccination Instructions Patient Instructions: DI for Avulsion Laceration (Not Requiring Sutures), Tetanus, Diphtheria, Pertussis (Tdap) Vaccine Discharge ED Provider: Cash Ly [facility] General Stated complaint: AO 07/19/23 Hit right calf with truck door Time Seen by Provider: 07/21/23 15:12 History of Present Illness Provider Complaint: She states that 2 days ago she was closing her truck door when the corner of the door hit her on the right lower leg. She has a skin tear in the area now. She is a diabetic. Her tetanus immunization is not up to date. Related Data Home Medications Medication Instructions Recorded Confirmed bupropion HCl 300 mg 24 hr tablet, 300 mg PO DAILY fibromyalgia 90 08/30/17 07/21/23 extended release days ##90 diltiazem HCl 120 mg 120 mg PO DAILY Heartburn 90 days 08/30/17 07/21/23 capsule,extended release 24 hr ##90 levothyroxine 125 mcg tablet 125 meq PO DAILY hypothyroidism 30 08/30/17 07/21/23 days ##30 metformin 500 mg tablet 500 mg PO BID Diabetes 30 days #60 08/30/17 07/21/23 tabs atorvastatin 20 mg tablet 20 mg PO DAILY Cholesterol 90 days 07/16/18 07/21/23 bumetanide 2 mg tablet 2 mg PO DAILY swelling 90 days 07/16/18 07/21/23 metolazone 10 mg tablet 10 mg PO DAILY Fluid 07/16/18 07/21/23 apixaban 5 mg tablet 5 mg PO BID Blood thinner 05/07/19 07/21/23 albuterol sulfate 90 mcg/actuation See Rx Instructions .Route .COMPLEX 07/04/19 07/21/23 aerosol inhaler fluoxetine 20 mg capsule 20 mg PO DAILY 07/04/19 07/21/23 macitentan 10 mg tablet (Opsumit) 10 mg PO DAILY 07/04/19 07/21/23 potassium chloride 20 mEq 20 meq PO DAILY 07/04/19 07/21/23 tablet,extended release(part/cryst) pregabalin 300 mg capsule 150 mg PO BID 07/04/19 07/21/23 insulin human U-100 NPH-regulr 31 unit SQ BID Diabetes 30 days 10/03/21 07/21/23 70-30 mix 100 unit/mL subcutaneous #18.6 mL susp omeprazole 10 mg capsule,delayed 10 mg PO DAILY 10/03/21 07/21/23 release sildenafil 25 mg tablet (Viagra) 25 mg PO DAILY Pulmonary HTN 10/03/21 07/21/23 spironolactone 50 mg tablet 50 mg PO DAILY 10/03/21 07/21/23 Previous Rx's Medication Instructions Recorded cephalexin 500 mg capsule 500 mg PO QID #40 caps 07/21/23 fluconazole 150 mg tablet 150 mg PO ONCE 1 dose #1 tab 07/21/23 mupirocin 2 % topical ointment 1 applic topical TID 7 days #15 07/21/23 grams Allergies Allergy/AdvReac Type Severity Reaction Status Date / Time No Known Allergies Allergy Verified 07/21/23 15:17 [facility] Disclaimer: The information contained in this section may have been updated after the patient was seen, as this information can be updated by other users. Social History Smoking Status: Never smoker second hand exposure: No alcohol intake: never substance use type: denies use current occupational status: other Travel in the last 8 weeks: None household members: family housing: house caffeine: Yes ROS Obtained: Yes All systems reviewed & no additional complaints except as documented Constitutional Constitutional: Denies chills and Denies fever(s) Eyes Eyes: Denies eye discharge ENT Ears, Nose, Mouth, and Throat: Denies dizziness, Denies otalgia and Denies sore throat Cardiovascular Cardiovascular: Denies chest pain Respiratory Respiratory: Denies shortness of breath, Denies chest congestion, Denies cough, Denies stridor and Denies wheezing Gastrointestinal Gastrointestingal: Denies nausea or vomiting Musculoskeletal Musculoskeletal: Reports system reviewed and no additional complaints, except as documented and Denies arthralgias Integumentary/Breasts Skin/Breast: Reports as per HPI and Reports wounds Neurologic Neurologic: Denies dizziness and Denies paresthesias Allergic/Immunologic Allergic/Immunologic: Denies wheezing Physical Exam General General appearance: alert and in no apparent distress Head Head exam: atraumatic, normocephalic and normal inspection Eye Eye exam: Present normal appearance, PERRL and EOMI ENT ENT exam: Present normal exam, normal oropharynx, mucous membranes moist, TM's normal bilaterally and normal external ear exam Neck Neck exam: Present normal inspection, full ROM and trachea midline; Absent meningismus or lymphadenopathy Chest Chest inspection: Present normal inspection and symmetric chest wall rise; Abs ent tenderness Respiratory Respiratory exam: Present normal lung sounds bilaterally; Absent respiratory distress Cardiovascular Cardiovascular exam: Present regular rate and normal rhythm; Absent JVD Abdominal Exam Abdominal exam: Present soft and normal bowel sounds; Absent distention, tenderness or guarding Extremities Exam Extremities exam: Present normal inspection, full ROM and normal capillary r efill; Absent calf tenderness Back Exam Back exam: Present normal inspection; Absent tenderness Neurological Exam Neurological exam: Present alert and oriented X3 Psychiatric Psychiatric exam: Present normal affect and normal mood Skin Skin exam: Present other (on the anterior surface of her right lower leg (mid- guzman area) there is a skin tear and abrasion that measures 1.5 cm length. no deep tissue damage, no foreign body noted. ) Lymphatic Lymphatic Findings: no adenopathy Medical Decision Making Medical Records Medical records reviewed: No I reviewed the patient's medical records. Enrique Inquiry Pt receiving controlled substance: No
[2023-07-21] MEDS: TET/DIPHTH/PERT-ADULT 0.5ML SYRINGE 0.5 ML IM (16:00)
[2023-07-21 16:15] VITALS: BP 155/69; PULSE 87; RESP 18; TEMP 36.8; O2SAT 95
== END 2023-07-21 16:14 | disposition home or self-care (01) ==
PROVIDERS: Emergency Provider Nurse Practitioner Family; PCP Nurse Practitioner Family
DX: S81.811A Laceration without foreign body, right lower leg, initial encounter (principal); E11.9 Type 2 diabetes mellitus without complications; E03.9 Hypothyroidism, unspecified; Z23 Encounter for immunization; Z79.4 Long term (current) use of insulin; Z79.84 Long term (current) use of oral hypoglycemic drugs
CPT/HCPCS: 90471; 90715; 99212; 99214; G0463

== ENCOUNTER 2023-11-04 11:44 | Outpatient (CLI) | payer MEDICARE, SELFPAY ==
[2023-11-04] MEDS: SODIUM CHLORIDE 0.9% 10ML FLUSH SYRINGE 10 ML IV (13:21)
== END 2023-11-04 13:35 | disposition home or self-care (01) ==
LOC: INF 11:45
PROVIDERS: PCP Physician Assistant Medical; Visit Provider Physician Assistant Medical
DX: Z45.2 Encounter for adjustment and management of vascular access device (principal)
CPT/HCPCS: 96523; J1642

== ENCOUNTER 2023-11-04 16:00 | Outpatient (CLI) | payer MEDICARE, SELFPAY | END 2023-11-04 23:59 | disposition home or self-care (01) | LOC: LAB.DROPOF 16:00 | PROVIDERS: PCP Nurse Practitioner; Visit Provider Nurse Practitioner | DX: B35.1 Tinea unguium (principal); Z45.2 Encounter for adjustment and management of vascular access device | CPT/HCPCS: 87102; 87206; 87220; 96523; J1642 ==

== ENCOUNTER 2023-12-07 15:00 | Emergency (ER) | payer MEDICARE, SELFPAY ==
[2023-12-07 15:40] VITALS: BP 124/70; PULSE 76; RESP 23; TEMP 36.5; O2SAT 95; BMI 49.1
--- NOTE | 2023-12-07 16:08 | EXP.UTC ---
Discharge Plan Disposition Patient Disposition: Home, Self-Care Condition: Good Prescriptions Prescriptions: New nystatin 100,000 unit/mL suspension 4 ml buccal Q6H 10 Days Qty: 160 0RF Rx Instructions: administer 1/2 of dose in each side of the mouth swish and spit No Action fluoxetine 40 mg capsule 40 mg PO DAILY metolazone 2.5 mg tablet 2.5 mg PO DAILY metformin 500 mg tablet 500 mg PO DAILY atorvastatin 20 mg tablet 20 mg PO DAILY bumetanide 2 mg tablet 2 mg PO DAILY Novolin 70/30 U-100 Insulin 100 unit/mL (70-30) suspension See Rx Instructions .ROUTE .COMPLEX Rx Instructions: . fexofenadine 180 mg tablet 180 mg PO DAILY omeprazole 40 mg capsule,delayed release(DR/EC) 40 mg PO DAILY potassium chloride 20 mEq tablet,ER particles/crystals 20 meq PO DAILY amitriptyline 10 mg tablet 10 mg PO DAILY levothyroxine 125 mcg tablet 125 mcg PO DAILY diltiazem HCl 120 mg capsule,extended release 24hr 120 mg PO DAILY spironolactone 50 mg tablet 50 mg PO DAILY aripiprazole 5 mg tablet 5 mg PO DAILY sildenafil (pulm.hypertension) 20 mg tablet 20 mg PO DAILY glucosamine stewart 2KCl-chondroit 500-400 mg tablet 1 tab PO DAILY Eliquis 5 mg tablet 5 mg PO DAILY Opsumit 10 mg tablet 10 mg PO DAILY Ozempic 1 mg/dose (4 mg/3 mL) pen injector 1 mg SQ WEEKLY Patient Comments: INJECT 1MG SUBCUTANEOUSLY ONCE WEEKLY Referrals Follow up/Referrals: Mali Rivera [Primary Care Provider] - See instructions Activity Restrictions/Add. Instructions Additional Instructions/Restrictions: Swish and spit medication as prescribed Follow up with your Family Doctor if no improvement or any worsening of symptoms Return if needed Straight to ER if any life threatening symptoms Clinical Impressions Clinical Impression: Oral thrush Instructions Patient Instructions: Nystatin, DI for Thrush Print Language Print Language: [place] Discharge ED Provider: Teena Andre [facility] [place] General Stated complaint: sore throat Mode of Arrival: Ambulatory Source of Information: Patient Limitations: No Limitations Time Seen by Provider: 12/07/23 16:08 Description of Symptoms (Recalled from Triage Doc. by RN): PATIENT C/O ORAL THRUSH THAT STARTED FRIDAY HEENT Symptoms (Recalled from RN notes): Yes Resp Symptoms (Recalled from RN notes): No Skin Symptoms (Recalled from RN notes): No MS Symptoms (Recalled from RN notes): No Functional Status (Recalled from RN notes): WNL History of Present Illness Provider Complaint: Patient states that she is a diabetic and she was recenlty on steriods and when she does that it causes her sugar to go up and then she gets thrush States that she has thrush on her tongue that started on Fri and continued to get worse Related Data Home Medications ?Medication ?Instructions ?Recorded ?Confirmed amitriptyline 10 mg tablet 10 mg PO DAILY 12/07/23 12/07/23 apixaban 5 mg tablet (Eliquis) 5 mg PO DAILY 12/07/23 12/07/23 aripiprazole 5 mg tablet 5 mg PO DAILY 12/07/23 12/07/23 atorvastatin 20 mg tablet 20 mg PO DAILY 12/07/23 12/07/23 bumetanide 2 mg tablet 2 mg PO DAILY 12/07/23 12/07/23 diltiazem HCl 120 mg 120 mg PO DAILY 12/07/23 12/07/23 capsule,extended release 24 hr fexofenadine 180 mg tablet 180 mg PO DAILY 12/07/23 12/07/23 fluoxetine 40 mg capsule 40 mg PO DAILY 12/07/23 12/07/23 glucosamine sulf dipotassium Cl 1 tab PO DAILY 12/07/23 12/07/23 500 mg-chondroitin sulf 400 mg tablet insulin human U-100 NPH-regulr See Rx Instructions .Route .COMPLEX 12/07/23 12/07/23 70-30 mix 100 unit/mL subcutaneous susp (Novolin 70/30 U-100 Insulin) levothyroxine 125 mcg tablet 125 mcg PO DAILY 12/07/23 12/07/23 macitentan 10 mg tablet (Opsumit) 10 mg PO DAILY 12/07/23 12/07/23 metformin 500 mg tablet 500 mg PO DAILY 12/07/23 12/07/23 metolazone 2.5 mg tablet 2.5 mg PO DAILY 12/07/23 12/07/23 omeprazole 40 mg capsule,delayed 40 mg PO DAILY 12/07/23 12/07/23 release potassium chloride 20 mEq 20 meq PO DAILY 12/07/23 12/07/23 tablet,extended release(part/cryst) semaglutide 1 mg/dose (4 mg/3 mL) 1 mg SQ WEEKLY 12/07/23 12/07/23 subcutaneous pen injector (Ozempic) sildenafil (pulm.hypertension) 20 20 mg PO DAILY 12/07/23 12/07/23 mg tablet spironolactone 50 mg tablet 50 mg PO DAILY 12/07/23 12/07/23 Previous Rx's ?Medication ?Instructions ?Recorded nystatin 100,000 unit/mL oral 4 ml buccal Q6H 10 days #160 mL 12/07/23 suspension Allergies Allergy/AdvReac Type Severity Reaction Status Date / Time No Known Allergies Allergy Verified 11/04/23 12:26 Worker's Comp Is this a Worker's Comp case?: [facility]: The information contained in this section may have been updated after the patient was seen, as this information can be updated by other users. Medical History (Updated 12/07/23 @ 16:20 by Teena Andre APRN) Thyroid disease UTI (urinary tract infection) Depression Asthma History of heart attack Hyperlipidemia Hypertension Surgical History (Updated 12/07/23 @ 15:49 by Carole Laurent RN) History of section History of hysterectomy History of tubal ligation History of cardiac cath Social History Smoking Status: Never smoker second hand exposure: No alcohol intake: never substance use type: denies use current occupational status: other Travel in the last 8 weeks: None household members: family housing: house caffeine: Yes ROS Obtained: Yes All systems reviewed & no additional complaints except as documented and Yes Systems reviewed as appropriate & no additional complaints except as documented Constitutional Constitutional: Reports system reviewed and no additional complaints, except as documented and Reports as per HPI ENT Ears, Nose, Mouth, and Throat: Reports system reviewed and no additional complaints, except as documented and Reports as per HPI Comments: thrush on his tongue Cardiovascular Cardiovascular: Reports system reviewed and no additional complaints, except as documented and Reports as per HPI Respiratory Respiratory: Reports system reviewed and no additional complaints, except as documented and Reports as per HPI Physical Exam General General appearance: alert and in no apparent distress ENT ENT exam: Present mucous membranes moist Expanded ENT Exam Mouth exam: Present other (thrush noted on tip of tongue) Respiratory Respiratory exam: Present normal lung sounds bilaterally; Absent respiratory distress or wheezes Cardiovascular Cardiovascular exam: Present regular rate, normal rhythm and normal heart sounds Neurological Exam Neurological exam: Present alert, oriented X3 and normal gait Medical Decision Making Enrique Inquiry Pt receiving controlled substance: No Enrique was queried for this patient: No Vital Signs: 12/07/23 15:40 Temperature 97.7 F Temperature Source Oral Pulse Rate [Left Brachial] 76 Respiratory Rate 23 Blood Pressure [Left Arm] 124/70 Blood Pressure Mean [Left Arm] 88 Blood Pressure Source [Left Arm] Automatic Cuff Blood Pressure Position [Left Arm] Sitting 02 Sat by Pulse Oximetry 95 Oxygen Delivery Method Room Air
[2023-12-07 16:26] VITALS: BP 124/70; PULSE 76; RESP 23; TEMP 36.5; O2SAT 95
== END 2023-12-07 16:28 | disposition home or self-care (01) ==
PROVIDERS: Emergency Provider Nurse Practitioner; PCP Nurse Practitioner Family
DX: B37.0 Candidal stomatitis (principal); E11.9 Type 2 diabetes mellitus without complications; Z79.4 Long term (current) use of insulin; Z79.84 Long term (current) use of oral hypoglycemic drugs; Z79.85 Long-term (current) use of injectable non-insulin antidiabetic drugs
CPT/HCPCS: 99212; 99214; G0463

== ENCOUNTER 2024-01-18 00:35 | Emergency (ER) | payer MEDICARE, SELFPAY ==
[2024-01-18 00:42] VITALS: BP 161/133; PULSE 89; RESP 16; O2SAT 93; BMI 49.1
--- NOTE | 2024-01-18 00:45 | ED_ITS ---
Discharge Plan Disposition Patient Disposition: Home, Self-Care Prescriptions Prescriptions: No Action fluoxetine 40 mg capsule 40 mg PO DAILY metolazone 2.5 mg tablet 2.5 mg PO DAILY metformin 500 mg tablet 500 mg PO DAILY atorvastatin 20 mg tablet 20 mg PO DAILY bumetanide 2 mg tablet 2 mg PO DAILY Novolin 70/30 U-100 Insulin 100 unit/mL (70-30) suspension See Rx Instructions .ROUTE .COMPLEX Rx Instructions: . fexofenadine 180 mg tablet 180 mg PO DAILY omeprazole 40 mg capsule,delayed release(DR/EC) 40 mg PO DAILY potassium chloride 20 mEq tablet,ER particles/crystals 20 meq PO DAILY amitriptyline 10 mg tablet 10 mg PO DAILY levothyroxine 125 mcg tablet 125 mcg PO DAILY diltiazem HCl 120 mg capsule,extended release 24hr 120 mg PO DAILY spironolactone 50 mg tablet 50 mg PO DAILY aripiprazole 5 mg tablet 5 mg PO DAILY sildenafil (pulm.hypertension) 20 mg tablet 20 mg PO DAILY glucosamine stewart 2KCl-chondroit 500-400 mg tablet 1 tab PO DAILY Eliquis 5 mg tablet 5 mg PO DAILY Opsumit 10 mg tablet 10 mg PO DAILY Ozempic 1 mg/dose (4 mg/3 mL) pen injector 1 mg SQ WEEKLY Patient Comments: INJECT 1MG SUBCUTANEOUSLY ONCE WEEKLY nystatin 100,000 unit/mL suspension 4 ml buccal Q6H 10 Days Qty: 160 0RF Rx Instructions: administer 1/2 of dose in each side of the mouth swish and spit Referrals Follow up/Referrals: Mali Rivera [Primary Care Provider] - See instructions Activity Restrictions/Add. Instructions Additional Instructions/Restrictions: Please use triple antibiotic ointment as discussed. Please follow-up with your primary care provider. Please return to the emergency department if you develop any new or worsening symptoms or become concerned for your health. Clinical Impressions Clinical Impression: Superficial burn of left hand Qualifiers: Encounter type: initial encounter Burn of hand location: multiple fingers including thumb Qualified Code(s): T23.142A - Burn of first degree of multiple left fingers (nail), including thumb, initial encounter Print Language Print Language: [place] Discharge ED Provider: Adriano Montiel Adult HPI General Stated complaint: [place] 0030 burn on left hand Time Seen by Provider: 01/18/24 00:40 History of Present Illness HPI narrative: 54-year-old female with a variety of comorbidities presents for a burn on the left hand. She reports that she was getting up some soup in the microwave when the lid popped and she got hot soup on her left hand. She reports no other injuries. It happened shortly prior to arrival. Related Data Home Medications ?Medication ?Instructions ?Recorded ?Confirmed amitriptyline 10 mg tablet 10 mg PO DAILY 12/07/23 12/07/23 apixaban 5 mg tablet (Eliquis) 5 mg PO DAILY 12/07/23 12/07/23 aripiprazole 5 mg tablet 5 mg PO DAILY 12/07/23 12/07/23 atorvastatin 20 mg tablet 20 mg PO DAILY 12/07/23 12/07/23 bumetanide 2 mg tablet 2 mg PO DAILY 12/07/23 12/07/23 diltiazem HCl 120 mg 120 mg PO DAILY 12/07/23 12/07/23 capsule,extended release 24 hr fexofenadine 180 mg tablet 180 mg PO DAILY 12/07/23 12/07/23 fluoxetine 40 mg capsule 40 mg PO DAILY 12/07/23 12/07/23 glucosamine sulf dipotassium Cl 1 tab PO DAILY 12/07/23 12/07/23 500 mg-chondroitin sulf 400 mg tablet insulin human U-100 NPH-regulr See Rx Instructions .Route .COMPLEX 12/07/23 12/07/23 70-30 mix 100 unit/mL subcutaneous susp (Novolin 70/30 U-100 Insulin) levothyroxine 125 mcg tablet 125 mcg PO DAILY 12/07/23 12/07/23 macitentan 10 mg tablet (Opsumit) 10 mg PO DAILY 12/07/23 12/07/23 metformin 500 mg tablet 500 mg PO DAILY 12/07/23 12/07/23 metolazone 2.5 mg tablet 2.5 mg PO DAILY 12/07/23 12/07/23 omeprazole 40 mg capsule,delayed 40 mg PO DAILY 12/07/23 12/07/23 release potassium chloride 20 mEq 20 meq PO DAILY 12/07/23 12/07/23 tablet,extended release(part/cryst) semaglutide 1 mg/dose (4 mg/3 mL) 1 mg SQ WEEKLY 12/07/23 12/07/23 subcutaneous pen injector (Ozempic) sildenafil (pulm.hypertension) 20 20 mg PO DAILY 12/07/23 12/07/23 mg tablet spironolactone 50 mg tablet 50 mg PO DAILY 12/07/23 12/07/23 Previous Rx's ?Medication ?Instructions ?Recorded nystatin 100,000 unit/mL oral 4 ml buccal Q6H 10 days #160 mL 12/07/23 suspension Allergies Allergy/AdvReac Type Severity Reaction Status Date / Time No Known Allergies Allergy Verified 11/04/23 12:26 [facility] Disclaimer: The information contained in this section may have been updated after the patient was seen, as this information can be updated by other users. Medical History (Updated 01/18/24 @ 00:45 by Adriano Montiel MD) Thyroid disease UTI (urinary tract infection) Depression Asthma History of heart attack Hyperlipidemia Hypertension Surgical History (Updated 12/07/23 @ 15:49 by Carole Laurent RN) History of section History of hysterectomy History of tubal ligation History of cardiac cath Social History Smoking Status: Never smoker second hand exposure: No alcohol intake: never substance use type: denies use current occupational status: other Travel in the last 8 weeks: None household members: family housing: house caffeine: Yes ROS Obtained: Yes All systems reviewed & no additional complaints except as documented Physical Exam General General appearance: alert and in no apparent distress Head Head exam: atraumatic and normocephalic Eye Eye exam: Present normal appearance, PERRL and EOMI ENT ENT exam: Present normal oropharynx and normal external ear exam Neck Neck exam: Present normal inspection and full ROM Chest Chest inspection: Present normal inspection and symmetric chest wall rise; Absent tenderness Respiratory Respiratory exam: Present normal lung sounds bilaterally; Absent respiratory distress Cardiovascular Cardiovascular exam: Present regular rate and normal rhythm Abdominal Exam Abdominal exam: Present soft; Absent distention, tenderness or guarding Extremities Exam Extremities exam: Present other (Mild erythema over the palmar surface of the left thumb, thenar eminence, second digit. No blisters, normal sensation with tenderness to palpation); Absent edema or joint swelling Back Exam Back exam: Present normal inspection; Absent tenderness Neurological Exam Neurological exam: Present alert and oriented X3; Absent motor sensory deficit Psychiatric Psychiatric exam: Present normal affect and normal mood Skin Skin exam: Present warm, dry and normal color Lymphatic Lymphatic Findings: no adenopathy Medical Decision Making Medical Records Medical records reviewed: Yes I reviewed the patient's medical records. Screening: Per USPSTF and CDC recommendations, given the prevalence of disease in our region, it is our hospital?s policy to screen for HIV and viral Hepatitis for all patients aged 18 and over and those with ongoing risk factors. Enrique Inquiry Pt receiving controlled substance: No Enrique was queried for this patient: No Lab Data Lab results reviewed: Yes I reviewed the patient's lab results. Medical Decision Narrative: 58-year-old female with a variety of medical conditions presents for burn to the left hand. History was obtained via interactive discussion with patient. On arrival, patient is [afebrile, hemodynamically stable, satting appropriately, alert, oriented x4, GCS 15], moving all extremities spontaneously. Full physical exam performed and significant for findings consistent with a superficial burn of the palm of the left hand. Differential includes but is not limited to superficial, partial-thickness, full-thickness burn. Given patient history, exam and workup, patient's presentation most likely represents superficial burn of the palmar surface of the left thumb and second digit. Patient was given instructions regarding symptomatic care and return precautions. Patient discharged in stable condition. Procedures Risk/Benefits of Procedure(s) Were Explained: Yes Critical Care Critical Care Time Critical Care Time: No
[2024-01-18 00:47] VITALS: BP 142/96; PULSE 82; RESP 16; TEMP 36.7; O2SAT 98
== END 2024-01-18 00:51 | disposition home or self-care (01) ==
LOC: ER 00:46
PROVIDERS: Emergency Provider Emergency Medicine; PCP Nurse Practitioner Family
DX: T23.142A Burn of first degree of multiple left fingers (nail), including thumb, initial encounter (principal); X10.1XXA Contact with hot food, initial encounter
CPT/HCPCS: 99283

== ENCOUNTER 2024-02-06 12:11 | Emergency (ER) | payer MEDICARE, SELFPAY ==
[2024-02-06 12:27] VITALS: BP 159/57; PULSE 76; RESP 20; TEMP 36.8; O2SAT 96; BMI 49.1
--- NOTE | 2024-02-06 12:27 | EXP.UTC ---
Discharge Plan Disposition Patient Disposition: Home, Self-Care Condition: Good Prescriptions Prescriptions: New benzonatate 100 mg capsule 100 mg PO TIDP PRN (Reason: Cough) Qty: 30 0RF azithromycin [Zithromax] 250 mg tablet 250 mg PO UD DOSE PK Qty: 6 0RF Rx Instructions: Take two (2) tablets today, then one (1) tablet days #2 thru #5 methylprednisolone 4 mg Tablets,Dose Pack 4 mg PO DIRECTED 6 Days Qty: 21 0RF Rx Instructions: Take 1 pack as directed for 6 days polymyxin B sulf-trimethoprim 10,000 unit- 1 mg/mL drops 1 drp Eye-Left Q3H 7 Days Qty: 10 0RF Rx Instructions: while awake; do not exceed 6 doses in 24 hours No Action fluoxetine 40 mg capsule 40 mg PO DAILY metolazone 2.5 mg tablet 2.5 mg PO DAILY metformin 500 mg tablet 500 mg PO DAILY atorvastatin 20 mg tablet 20 mg PO DAILY bumetanide 2 mg tablet 2 mg PO DAILY Novolin 70/30 U-100 Insulin 100 unit/mL (70-30) suspension See Rx Instructions .ROUTE .COMPLEX Rx Instructions: . fexofenadine 180 mg tablet 180 mg PO DAILY omeprazole 40 mg capsule,delayed release(DR/EC) 40 mg PO DAILY potassium chloride 20 mEq tablet,ER particles/crystals 20 meq PO DAILY amitriptyline 10 mg tablet 10 mg PO DAILY levothyroxine 125 mcg tablet 125 mcg PO DAILY diltiazem HCl 120 mg capsule,extended release 24hr 120 mg PO DAILY spironolactone 50 mg tablet 50 mg PO DAILY aripiprazole 5 mg tablet 5 mg PO DAILY sildenafil (pulm.hypertension) 20 mg tablet 20 mg PO DAILY glucosamine stewart 2KCl-chondroit 500-400 mg tablet 1 tab PO DAILY Eliquis 5 mg tablet 5 mg PO DAILY Opsumit 10 mg tablet 10 mg PO DAILY Ozempic 1 mg/dose (4 mg/3 mL) pen injector 1 mg SQ WEEKLY Patient Comments: INJECT 1MG SUBCUTANEOUSLY ONCE WEEKLY nystatin 100,000 unit/mL suspension 4 ml buccal Q6H 10 Days Qty: 160 0RF Rx Instructions: administer 1/2 of dose in each side of the mouth swish and spit Referrals Follow up/Referrals: Mali Rivera [Primary Care Provider] - See instructions Activity Restrictions/Add. Instructions Additional Instructions/Restrictions: Drink plenty of fluids. Take tylenol or ibuprofen for pain or fever. Take the medications as directed. Follow up with your regular doctor. GO TO THE ER FOR ANY WORSENING SYMPTOMS Clinical Impressions Clinical Impression: Allergic rhinitis, Conjunctivitis of left eye Instructions Patient Instructions: How to Instill Eye Drops, DI for Allergic Rhinitis Print Language Print Language: Yi Discharge ED Provider: Cash Ly [facility] General Stated complaint: body aches, diarrhea Time Seen by Provider: 02/06/24 12:27 History of Present Illness Provider Complaint: She states that for the past 2 days she has had sinus congestion, sinus pressure, sore throat. She has also had left eye redness with matting. She denies any eye injury or foreign body. Related Data Home Medications ?Medication ?Instructions ?Recorded ?Confirmed amitriptyline 10 mg tablet 10 mg PO DAILY 12/07/23 12/07/23 apixaban 5 mg tablet (Eliquis) 5 mg PO DAILY 12/07/23 12/07/23 aripiprazole 5 mg tablet 5 mg PO DAILY 12/07/23 12/07/23 atorvastatin 20 mg tablet 20 mg PO DAILY 12/07/23 12/07/23 bumetanide 2 mg tablet 2 mg PO DAILY 12/07/23 12/07/23 diltiazem HCl 120 mg 120 mg PO DAILY 12/07/23 12/07/23 capsule,extended release 24 hr fexofenadine 180 mg tablet 180 mg PO DAILY 12/07/23 12/07/23 fluoxetine 40 mg capsule 40 mg PO DAILY 12/07/23 12/07/23 glucosamine sulf dipotassium Cl 1 tab PO DAILY 12/07/23 12/07/23 500 mg-chondroitin sulf 400 mg tablet insulin human U-100 NPH-regulr See Rx Instructions .Route .COMPLEX 12/07/23 12/07/23 70-30 mix 100 unit/mL subcutaneous susp (Novolin 70/30 U-100 Insulin) levothyroxine 125 mcg tablet 125 mcg PO DAILY 12/07/23 12/07/23 macitentan 10 mg tablet (Opsumit) 10 mg PO DAILY 12/07/23 12/07/23 metformin 500 mg tablet 500 mg PO DAILY 12/07/23 12/07/23 metolazone 2.5 mg tablet 2.5 mg PO DAILY 12/07/23 12/07/23 omeprazole 40 mg capsule,delayed 40 mg PO DAILY 12/07/23 12/07/23 release potassium chloride 20 mEq 20 meq PO DAILY 12/07/23 12/07/23 tablet,extended release(part/cryst) semaglutide 1 mg/dose (4 mg/3 mL) 1 mg SQ WEEKLY 12/07/23 12/07/23 subcutaneous pen injector (Ozempic) sildenafil (pulm.hypertension) 20 20 mg PO DAILY 12/07/23 12/07/23 mg tablet spironolactone 50 mg tablet 50 mg PO DAILY 12/07/23 12/07/23 Previous Rx's ?Medication ?Instructions ?Recorded nystatin 100,000 unit/mL oral 4 ml buccal Q6H 10 days #160 mL 12/07/23 suspension azithromycin 250 mg tablet 250 mg PO UD DOSE PK #6 tabs 02/06/24 (Zithromax) benzonatate 100 mg capsule 100 mg PO TIDP PRN Cough #30 caps 02/06/24 methylprednisolone 4 mg tablets in 4 mg PO DIRECTED 6 days #21 tabs 02/06/24 a dose pack polymyxin B sulfate 10,000 1 drp Eye-Left Q3H 7 days #10 mL 02/06/24 unit-trimethoprim 1 mg/mL eye drops Allergies Allergy/AdvReac Type Severity Reaction Status Date / Time No Known Allergies Allergy Verified 11/04/23 12:26 [facility] Disclaimer: The information contained in this section may have been updated after the patient was seen, as this information can be updated by other users. Medical History (Updated 02/06/24 @ 13:02 by Cash Ly APRN) Thyroid disease UTI (urinary tract infection) Depression Asthma History of heart attack Hyperlipidemia Hypertension Surgical History (Updated 12/07/23 @ 15:49 by Carole Laurent RN) History of section History of hysterectomy History of tubal ligation History of cardiac cath Social History Smoking Status: Never smoker second hand exposure: No alcohol intake: never substance use type: denies use current occupational status: other Travel in the last 8 weeks: None household members: family housing: house caffeine: Yes ROS Obtained: Yes All systems reviewed & no additional complaints except as documented Constitutional Constitutional: Reports poor appetite Eyes Eyes: Reports as per HPI, Denies change in vision and Reports eye discharge ENT Ears, Nose, Mouth, and Throat: Reports as per HPI Cardiovascular Cardiovascular: Reports system reviewed and no additional complaints, except as documented and Denies chest pain Respiratory Respiratory: Denies shortness of breath, Denies chest congestion, Reports cough, Denies stridor and Denies wheezing Gastrointestinal Gastrointestingal: Reports system reviewed and no additional complaints, except as documented; Denies abdominal pain, diarrhea or vomiting Musculoskeletal Musculoskeletal: Reports system reviewed and no additional complaints, except as documented and Denies arthralgias Integumentary/Breasts Skin/Breast: Reports system reviewed and no additional complaints, except as documented and Denies rash Neurologic Neurologic: Denies paresthesias Allergic/Immunologic Allergic/Immunologic: Denies wheezing Physical Exam General General appearance: alert and in no apparent distress Eye Eye exam: Present PERRL, EOMI, conjunctival injection and discharge ENT ENT exam: Present mucous membranes moist and normal external ear exam Expanded ENT Exam External ear exam: Present normal external inspection TM/Canal exam: Bilateral TM: erythema and bulging Nose exam: Absent sinus tenderness Nasal speculum exam: Bilateral: normal Mouth exam: Present normal external inspection; Absent drooling Teeth exam: Present normal inspection Throat exam: Present tonsillar erythema and tonsillomegaly Neck Neck exam: Present normal inspection, full ROM and trachea midline; Absent tenderness, lymphadenopathy or thyromegaly Chest Chest inspection: Present normal inspection and symmetric chest wall rise; Absent tenderness or rash Respiratory Respiratory exam: Present normal lung sounds bilaterally; Absent respiratory distress, wheezes, stridor or accessory muscle use Cardiovascular Cardiovascular exam: Present regular rate, normal rhythm and normal heart sounds Abdominal Exam Abdominal exam: Present soft; Absent distention, tenderness, guarding, rebound or rigidity Extremities Exam Extremities exam: Present normal inspection, full ROM and normal capillary refill; Absent tenderness or calf tenderness Back Exam Back exam: Present normal inspection and full ROM; Absent tenderness Neurological Exam Neurological exam: Present alert and oriented X3 Psychiatric Psychiatric exam: Present normal affect and normal mood Skin Skin exam: Present warm, dry, intact and normal color Lymphatic Lymphatic Findings: no adenopathy Medical Decision Making Medical Records Medical records reviewed: No I reviewed the patient's medical records. Screening: Per USPSTF and CDC recommendations, given the prevalence of disease in our region, it is our hospital?s policy to screen for HIV and viral Hepatitis for all patients aged 18 and over and those with ongoing risk factors. Enrique Inquiry Pt receiving controlled substance: No
[2024-02-06 13:07] VITALS: BP 159/57; PULSE 76; RESP 20; TEMP 36.8
== END 2024-02-06 13:07 | disposition home or self-care (01) ==
PROVIDERS: Emergency Provider Nurse Practitioner Family; PCP Nurse Practitioner Family
DX: J30.9 Allergic rhinitis, unspecified (principal); H10.32 Unspecified acute conjunctivitis, left eye
CPT/HCPCS: 99213; G0381

== ENCOUNTER 2024-03-24 13:46 | Emergency (ER) | payer MEDICARE, SELFPAY ==
[2024-03-24 14:30] VITALS: BP 145/58; PULSE 80; RESP 18; TEMP 37.2; O2SAT 94; BMI 47.7
--- NOTE | 2024-03-24 14:40 | ED_ITS ---
Discharge Plan Disposition Patient Disposition: Home, Self-Care Condition: Good Prescriptions Prescriptions: New azithromycin [Zithromax] 250 mg tablet 250 mg PO UD DOSE PK Qty: 6 0RF Rx Instructions: Take two (2) tablets today, then one (1) tablet days #2 thru #5 methylprednisolone 4 mg Tablets,Dose Pack 4 mg PO DIRECTED 6 Days Qty: 21 0RF Rx Instructions: Take 1 pack as directed for 6 days cafpgjpenjajjch-lxduwumxo-SD [Bromfed DM] 2-30-10 mg/5 mL Syrup 5 ml PO Q6H PRN (Reason: Cough) Qty: 240 0RF No Action fluoxetine 40 mg capsule 40 mg PO DAILY metolazone 2.5 mg tablet 2.5 mg PO DAILY metformin 500 mg tablet 500 mg PO DAILY atorvastatin 20 mg tablet 20 mg PO DAILY bumetanide 2 mg tablet 2 mg PO DAILY Novolin 70/30 U-100 Insulin 100 unit/mL (70-30) suspension See Rx Instructions .ROUTE .COMPLEX Rx Instructions: . fexofenadine 180 mg tablet 180 mg PO DAILY omeprazole 40 mg capsule,delayed release(DR/EC) 40 mg PO DAILY potassium chloride 20 mEq tablet,ER particles/crystals 20 meq PO DAILY amitriptyline 10 mg tablet 10 mg PO DAILY levothyroxine 125 mcg tablet 125 mcg PO DAILY diltiazem HCl 120 mg capsule,extended release 24hr 120 mg PO DAILY ammonium lactate 12 % cream 1 applic TOPICAL BID Patient Comments: APPLY CREAM TOPICALLY TWICE DAILY spironolactone 50 mg tablet 50 mg PO DAILY aripiprazole 5 mg tablet 5 mg PO DAILY sildenafil (pulm.hypertension) 20 mg tablet 20 mg PO DAILY glucosamine stewart 2KCl-chondroit 500-400 mg tablet 1 tab PO DAILY Eliquis 5 mg tablet 5 mg PO DAILY Opsumit 10 mg tablet 10 mg PO DAILY Ozempic 1 mg/dose (4 mg/3 mL) pen injector 1 mg SQ WEEKLY Patient Comments: INJECT 1 MG SUBCUTANEOUSLY ONCE A WEEK Referrals Follow up/Referrals: Mali Rivera [Primary Care Provider] - See instructions Activity Restrictions/Add. Instructions Additional Instructions/Restrictions: Drink plenty of fluids. Take tylenol or ibuprofen for pain or fever. Take the medications as directed. Follow up with your regular doctor. GO TO THE ER FOR ANY WORSENING SYMPTOMS Clinical Impressions Clinical Impression: Sinusitis Instructions Patient Instructions: Sinusitis, DI for Sinusitis Print Language Print Language: Polish Discharge ED Provider: Cash Ly [facility] HPI General Stated complaint: drainage, stuffy head Mode of Arrival: Ambulatory Source of Information: Patient Limitations: No Limitations Time Seen by Provider: 03/24/24 14:39 Description of Symptoms (Recalled from Triage Doc. by RN): PATIENT C/O SINUS DRAINAGE SINCE FRIDAY HEENT Symptoms (Recalled from RN notes): Yes Resp Symptoms (Recalled from RN notes): No Skin Symptoms (Recalled from RN notes): No MS Symptoms (Recalled from RN notes): No Functional Status (Recalled from RN notes): WNL Related Data Home Medications ?Medication ?Instructions ?Recorded ?Confirmed amitriptyline 10 mg tablet 10 mg PO DAILY 03/24/24 03/24/24 ammonium lactate 12 % topical cream 1 applic topical BID 03/24/24 03/24/24 apixaban 5 mg tablet (Eliquis) 5 mg PO DAILY 03/24/24 03/24/24 aripiprazole 5 mg tablet 5 mg PO DAILY 03/24/24 03/24/24 atorvastatin 20 mg tablet 20 mg PO DAILY 03/24/24 03/24/24 bumetanide 2 mg tablet 2 mg PO DAILY 03/24/24 03/24/24 diltiazem HCl 120 mg 120 mg PO DAILY 03/24/24 03/24/24 capsule,extended release 24 hr fexofenadine 180 mg tablet 180 mg PO DAILY 03/24/24 03/24/24 fluoxetine 40 mg capsule 40 mg PO DAILY 03/24/24 03/24/24 glucosamine sulf dipotassium Cl 1 tab PO DAILY 03/24/24 03/24/24 500 mg-chondroitin sulf 400 mg tablet insulin human U-100 NPH-regulr See Rx Instructions .Route .COMPLEX 03/24/24 03/24/24 70-30 mix 100 unit/mL subcutaneous susp (Novolin 70/30 U-100 Insulin) levothyroxine 125 mcg tablet 125 mcg PO DAILY 03/24/24 03/24/24 macitentan 10 mg tablet (Opsumit) 10 mg PO DAILY 03/24/24 03/24/24 metformin 500 mg tablet 500 mg PO DAILY 03/24/24 03/24/24 metolazone 2.5 mg tablet 2.5 mg PO DAILY 03/24/24 03/24/24 omeprazole 40 mg capsule,delayed 40 mg PO DAILY 03/24/24 03/24/24 release potassium chloride 20 mEq 20 meq PO DAILY 03/24/24 03/24/24 tablet,extended release(part/cryst) semaglutide 1 mg/dose (4 mg/3 mL) 1 mg SQ WEEKLY 03/24/24 03/24/24 subcutaneous pen injector (Ozempic) sildenafil (pulm.hypertension) 20 20 mg PO DAILY 03/24/24 03/24/24 mg tablet spironolactone 50 mg tablet 50 mg PO DAILY 03/24/24 03/24/24 Previous Rx's ?Medication ?Instructions ?Recorded azithromycin 250 mg tablet 250 mg PO UD DOSE PK #6 tabs 03/24/24 (Zithromax) kdwzsodprnhvdyn-vaiadvzhitoqhrh-AV 5 ml PO Q6H PRN Cough #240 mL 03/24/24 2 mg-30 mg-10 mg/5 mL oral syrup (Bromfed DM) methylprednisolone 4 mg tablets in 4 mg PO DIRECTED 6 days #21 tabs 03/24/24 a dose pack Allergies Allergy/AdvReac Type Severity Reaction Status Date / Time No Known Allergies Allergy Verified 02/10/24 10:27 Worker's Comp Is this a Worker's Comp case?: No [facility] Disclaimer: The information contained in this section may have been updated after the patient was seen, as this information can be updated by other users. Medical History Thyroid disease UTI (urinary tract infection) Depression Asthma History of heart attack Hyperlipidemia Hypertension Surgical History History of section History of hysterectomy History of tubal ligation History of cardiac cath Social History Smoking Status: Never smoker second hand exposure: No alcohol intake: never substance use type: denies use current occupational status: other Travel in the last 8 weeks: None household members: family housing: house caffeine: Yes ROS Obtained: Yes All systems reviewed & no additional complaints except as documented Constitutional Constitutional: Reports poor appetite Eyes Eyes: Reports system reviewed and no additional complaints, except as documented ENT Ears, Nose, Mouth, and Throat: Reports as per HPI Cardiovascular Cardiovascular: Reports system reviewed and no additional complaints, except as documented and Denies chest pain Respiratory Respiratory: Denies shortness of breath, Denies chest congestion, Reports cough, Denies stridor and Denies wheezing Gastrointestinal Gastrointestingal: Reports system reviewed and no additional complaints, except as documented; Denies abdominal pain, diarrhea or vomiting Musculoskeletal Musculoskeletal: Reports system reviewed and no additional complaints, except as documented and Denies arthralgias Integumentary/Breasts Skin/Breast: Reports system reviewed and no additional complaints, except as documented and Denies rash Neurologic Neurologic: Denies paresthesias Allergic/Immunologic Allergic/Immunologic: Denies wheezing Physical Exam General General appearance: alert and in no apparent distress Eye Eye exam: Present normal appearance, PERRL and EOMI ENT ENT exam: Present mucous membranes moist and normal external ear exam Expanded ENT Exam External ear exam: Present normal external inspection TM/Canal exam: Bilateral TM: erythema and bulging Nose exam: Absent sinus tenderness Nasal speculum exam: Bilateral: normal Mouth exam: Present normal external inspection; Absent drooling Teeth exam: Present normal inspection Throat exam: Present tonsillar erythema and tonsillomegaly Neck Neck exam: Present normal inspection, full ROM and trachea midline; Absent tenderness, lymphadenopathy or thyromegaly Chest Chest inspection: Present normal inspection and symmetric chest wall rise; Absent tenderness or rash Respiratory Respiratory exam: Present normal lung sounds bilaterally; Absent respiratory distress, wheezes, stridor or accessory muscle use Cardiovascular Cardiovascular exam: Present regular rate, normal rhythm and normal heart sounds Abdominal Exam Abdominal exam: Present soft; Absent distention, tenderness, guarding, rebound or rigidity Extremities Exam Extremities exam: Present normal inspection, full ROM and normal capillary refill; Absent tenderness or calf tenderness Back Exam Back exam: Present normal inspection and full ROM; Absent tenderness Neurological Exam Neurological exam: Present alert and oriented X3 Psychiatric Psychiatric exam: Present normal affect and normal mood Skin Skin exam: Present warm, dry, intact and normal color Lymphatic Lymphatic Findings: no adenopathy Medical Decision Making Medical Records Medical records reviewed: No I reviewed the patient's medical records. Screening: Per USPSTF and CDC recommendations, given the prevalence of disease in our region, it is our hospital?s policy to screen for HIV and viral Hepatitis for all patients aged 18 and over and those with ongoing risk factors. Enrique Inquiry Pt receiving controlled substance: No Vital Signs: 03/24/24 14:30 Temperature 99.0 F Temperature Source Oral Pulse Rate [Left Brachial] 80 Respiratory Rate 18 Blood Pressure [Left Arm] 145/58 H Blood Pressure Mean [Left Arm] 87 Blood Pressure Source [Left Arm] Automatic Cuff Blood Pressure Position [Left Arm] Sitting 02 Sat by Pulse Oximetry 94 L Oxygen Delivery Method Room Air
[2024-03-24 15:11] VITALS: BP 145/58; PULSE 80; RESP 18; TEMP 37.2; O2SAT 94
== END 2024-03-24 15:13 | disposition home or self-care (01) ==
PROVIDERS: Emergency Provider Nurse Practitioner Family; PCP Nurse Practitioner Family
DX: J32.9 Chronic sinusitis, unspecified (principal); R05.9 Cough, unspecified; R09.81 Nasal congestion; R63.8 Other symptoms and signs concerning food and fluid intake
CPT/HCPCS: 99212; G0381

== ENCOUNTER 2024-04-30 10:58 | Emergency (ER) | payer MEDICARE, SELFPAY ==
[2024-04-30] VITALS (13 sets, daily range): BP systolic 150–188; BP diastolic 75–96; PULSE 64–78; RESP 18–19; TEMP 37.2; O2SAT 89–99; BMI 46.5
--- NOTE | 2024-04-30 11:32 | XR_ITS ---
FINAL REPORT CLINICAL HISTORY: RUQ and back pain COMPARISON: None FINDINGS: A single view of the chest was obtained. The heart size is normal. A chest port tip is in the SVC. The mediastinum is normal. Atelectasis is noted at the right base. There are no pleural effusions. There is no pneumothorax. There is no osseous abnormality. IMPRESSION: Right base atelectasis. Reviewed, Interpreted and Dictated by Solitario Lai MD Transcribed by Kemi Ochoa Authenticated and [facility]
[2024-04-30 11:37] LABS: Basophils % 0.5 % (0.1-2.0); Eosinophils # 2.3 K/mm3 (0.0-0.4); Eosinophils % 27.1 % (0.1-12.0); Hematocrit 39.6 % (37.0-47.0); Hemoglobin 11.8 g/dL (12.2-16.2); Lymphocytes # 1.3 K/mm3 (0.7-4.5); Mean Corpuscular HGB Conc 29.8 g/dL (31.8-35.4); Mean Corpuscular Hemoglobin 24.2 pg (27.0-31.2); Mean Corpuscular Volume 81.1 fl (81-99); Mean Platelet Volume 9.1 fl (7.4-10.4); Monocytes # 0.5 K/mm3 (0.1-1.0); Monocytes % 6.3 % (1.7-9.3); Neutrophils # 4.3 K/mm3 (1.8-7.8); Neutrophils % 50.7 % (37.0-80.0); Platelet Count 324 K/mm3 (142-424); Red Blood Count 4.88 M/mm3 (4.20-5.40); White Blood Count 8.5 K/mm3 (4.8-10.8)
--- NOTE | 2024-04-30 11:40 | ECG_ITS ---
APPROVED REPORT Exam: Resting ECG HR:67 bpm ECG Measurements Heart Rate 67 AXES KS 154 P 43 QRSd 144 QRS 72 QT 484 T 19 QTc 500 Conclusion SINUS RHYTHM RIGHT BUNDLE BRANCH BLOCK Electronically signed by : MAGED SMITH, 05/01/2024 10:00:06
[2024-04-30] MEDS: KETOROLAC 30MG/ML VIAL 15 MG IV (11:42)
[2024-04-30] MEDS: ONDANSETRON 4MG/2ML VIAL 4 MG IV (11:42)
[2024-04-30 11:48] LABS: Chloride 101 mmol/L (98-107)
[2024-04-30 11:49] LABS: Potassium 4.4 mmoL/L (3.5-5.1); Sodium 133 mmol/L (136-145)
[2024-04-30 11:50] LABS: Activated Partial Thrombo Time 23.7 seconds (22.5-28.5)
[2024-04-30 11:51] LABS: Alanine Aminotransferase 16 U/L (12-78); Anion Gap 8.4 mEq/L (5-15); Aspartate Amino Transferase 22 U/L (14-36); Blood Urea Nitrogen 20 mg/dl (7-17); Carbon Dioxide 28 mmol/L (22.0-30.0); Creatinine Clearance Estimated 56 mL/min (50-200); Estimated Glomerular Filt Rate 57 ml/min (>60); GFR (African American) 69 ML/MIN (>60)
[2024-04-30 11:52] LABS: Alkaline Phosphatase 109 U/L (38-126); Bilirubin,Total 0.8 mg/dl (0.2-1.3); Calcium 8.7 mg/dl (8.4-10.2); Cholesterol 181 mg/dl (140-200); Glucose 101 mg/dl (74-100); Lipase 132 U/L (23-300); Total Protein,Serum 6.3 g/dl (6.3-8.2); Triglycerides 114 mg/dl (30-150); VLDL Cholesterol 23 mg/dL (0-40)
[2024-04-30 12:01] LABS: Lactic Acid 0.8 mmol/L (0.7-2.1)
[2024-04-30 12:03] LABS: Direct LDL Cholesterol 113.21 mg/dL (100-129)
[2024-04-30 12:04] LABS: NT Pro Brain Natriuretic Pep. 342 pg/mL (0-125)
--- NOTE | 2024-04-30 12:04 | ED_ITS ---
Discharge Plan Disposition Patient Disposition: Home, Self-Care Condition: Good Prescriptions Prescriptions: New methocarbamol 750 mg tablet 750 mg PO Q8H Qty: 90 0RF oxycodone 5 mg tablet 5 mg PO Q8H PRN (Reason: pain) Qty: 7 0RF No Action fluoxetine 40 mg capsule 40 mg PO DAILY metolazone 2.5 mg tablet 2.5 mg PO DAILY metformin 500 mg tablet 500 mg PO DAILY atorvastatin 20 mg tablet 20 mg PO DAILY bumetanide 2 mg tablet 2 mg PO DAILY Novolin 70/30 U-100 Insulin 100 unit/mL (70-30) suspension See Rx Instructions .ROUTE .COMPLEX Rx Instructions: . fexofenadine 180 mg tablet 180 mg PO DAILY omeprazole 40 mg capsule,delayed release(DR/EC) 40 mg PO DAILY potassium chloride 20 mEq tablet,ER particles/crystals 20 meq PO DAILY amitriptyline 10 mg tablet 10 mg PO DAILY levothyroxine 125 mcg tablet 125 mcg PO DAILY diltiazem HCl 120 mg capsule,extended release 24hr 120 mg PO DAILY ammonium lactate 12 % cream 1 applic TOPICAL BID Patient Comments: APPLY CREAM TOPICALLY TWICE DAILY spironolactone 50 mg tablet 50 mg PO DAILY aripiprazole 5 mg tablet 5 mg PO DAILY sildenafil (pulm.hypertension) 20 mg tablet 20 mg PO DAILY glucosamine stewart 2KCl-chondroit 500-400 mg tablet 1 tab PO DAILY Eliquis 5 mg tablet 5 mg PO DAILY Opsumit 10 mg tablet 10 mg PO DAILY Ozempic 1 mg/dose (4 mg/3 mL) pen injector 1 mg SQ WEEKLY Patient Comments: INJECT 1 MG SUBCUTANEOUSLY ONCE A WEEK azithromycin [Zithromax] 250 mg tablet 250 mg PO UD DOSE PK Qty: 6 0RF Rx Instructions: Take two (2) tablets today, then one (1) tablet days #2 thru #5 methylprednisolone 4 mg Tablets,Dose Pack 4 mg PO DIRECTED 6 Days Qty: 21 0RF Rx Instructions: Take 1 pack as directed for 6 days eefibdxopzcovku-lfcxeptyi-LT [Bromfed DM] 2-30-10 mg/5 mL Syrup 5 ml PO Q6H PRN (Reason: Cough) Qty: 240 0RF Referrals Follow up/Referrals: Mali Rivera [Primary Care Provider] - See instructions Activity Restrictions/Add. Instructions Additional Instructions/Restrictions: As we discussed, your ultrasound and ct scan did no show any surgical problems, and your urinalysis did not show convincing evidence that your pain would be due to a kidney infection. We discussed that it is also unlikely that your pain is due to a blood clot in your lungs with your ongoing use of blood thinners, but please return with any new or worsening symptoms. Clinical Impressions Clinical Impression: Right-sided thoracic back pain Print Language Print Language: Tongan Discharge ED Provider: Jeffrey Warren General Adult HPI <Jeffrey Warren MD - Last Filed: 04/30/24 15:20> General Chief complaint: PAIN Stated complaint: Pain in middle back Time Seen by Provider: 04/30/24 11:09 Mode of Arrival: Ambulatory Source of Information: Patient Limitations: No Limitations Description of Symptoms (Recalled from ER Triage Doc. by RN): pt presents to ED with c/o right sided back/flank pain. and vomitting. pt reports symptoms ongoing for the past week. pt reports she thought it was msucle spasm in the begginning but otc medications have not been helping. History of Present Illness HPI narrative: Please note that above description of symptoms, in this electronic medical record under categorization of recalled from ER triage doctor by RN are reflective of an initial nursing assessment, however, is not reflective of my full history and physical exam that was personally taken and clarified. Consequentially, this preceding description of symptoms, which may include the patient's categorized chief complaint in the EMR, do not reflect my personal clinical impression, and the ultimate description of history of present illness and patient stated complaints should be deferred to this section of the note. Unless stated otherwise or congruent with this section of the note, additional signs, symptoms, or incongruence should be interpreted as inaccurate with my clinical impression. Related Data Home Medications ?Medication ?Instructions ?Recorded ?Confirmed amitriptyline 10 mg tablet 10 mg PO DAILY 03/24/24 03/24/24 ammonium lactate 12 % topical cream 1 applic topical BID 03/24/24 03/24/24 apixaban 5 mg tablet (Eliquis) 5 mg PO DAILY 03/24/24 03/24/24 aripiprazole 5 mg tablet 5 mg PO DAILY 03/24/24 03/24/24 atorvastatin 20 mg tablet 20 mg PO DAILY 03/24/24 03/24/24 bumetanide 2 mg tablet 2 mg PO DAILY 03/24/24 03/24/24 diltiazem HCl 120 mg 120 mg PO DAILY 03/24/24 03/24/24 capsule,extended release 24 hr fexofenadine 180 mg tablet 180 mg PO DAILY 03/24/24 03/24/24 fluoxetine 40 mg capsule 40 mg PO DAILY 03/24/24 03/24/24 glucosamine sulf dipotassium Cl 1 tab PO DAILY 03/24/24 03/24/24 500 mg-chondroitin sulf 400 mg tablet insulin human U-100 NPH-regulr See Rx Instructions .Route .COMPLEX 03/24/24 03/24/24 70-30 mix 100 unit/mL subcutaneous susp (Novolin 70/30 U-100 Insulin) levothyroxine 125 mcg tablet 125 mcg PO DAILY 03/24/24 03/24/24 macitentan 10 mg tablet (Opsumit) 10 mg PO DAILY 03/24/24 03/24/24 metformin 500 mg tablet 500 mg PO DAILY 03/24/24 03/24/24 metolazone 2.5 mg tablet 2.5 mg PO DAILY 03/24/24 03/24/24 omeprazole 40 mg capsule,delayed 40 mg PO DAILY 03/24/24 03/24/24 release potassium chloride 20 mEq 20 meq PO DAILY 03/24/24 03/24/24 tablet,extended release(part/cryst) semaglutide 1 mg/dose (4 mg/3 mL) 1 mg SQ WEEKLY 03/24/24 03/24/24 subcutaneous pen injector (Ozempic) sildenafil (pulm.hypertension) 20 20 mg PO DAILY 03/24/24 03/24/24 mg tablet spironolactone 50 mg tablet 50 mg PO DAILY 03/24/24 03/24/24 Previous Rx's ?Medication ?Instructions ?Recorded azithromycin 250 mg tablet 250 mg PO UD DOSE PK #6 tabs 03/24/24 (Zithromax) xkdywoixeiukbgc-useowjyuyviabfm-UX 5 ml PO Q6H PRN Cough #240 mL 03/24/24 2 mg-30 mg-10 mg/5 mL oral syrup (Bromfed DM) methylprednisolone 4 mg tablets in 4 mg PO DIRECTED 6 days #21 tabs 03/24/24 a dose pack methocarbamol 750 mg tablet 750 mg PO Q8H #90 tabs 04/30/24 oxycodone 5 mg tablet 5 mg PO Q8H PRN pain #7 tabs 04/30/24 Allergies Allergy/AdvReac Type Severity Reaction Status Date / Time No Known Allergies Allergy Verified 02/10/24 10:27 PFS <Jeffrey Warren MD - Last Filed: 04/30/24 15:20> [facility] Disclaimer: The information contained in this section may have been updated after the patient was seen, as this information can be updated by other users. Medical History Thyroid disease UTI (urinary tract infection) Depression Asthma History of heart attack Hyperlipidemia Hypertension Surgical History History of section History of hysterectomy History of tubal ligation History of cardiac cath Social History Smoking Status: Never smoker second hand exposure: No alcohol intake: never substance use type: denies use current occupational status: other Travel in the last 8 weeks: None household members: family housing: house caffeine: Yes Have you lived/traveled outside [place] in past 30 days?: No Contact w/someone who lives/traveled outside US past 30 days?: No Exposure to someone with infectious disease in past 14 days?: No Do you have a fever (greater than 100.4 F or 38 C)?: No Have you tested positive for COVID-19: No Exposed to someone with COVID-19 in past 14 days?: No Do you have a sore throat?: No Do you have a cough?: No Do you have any weakness?: No Do you have any diarrhea?: No Are you experiencing any unusual bleeding?: No Do you have any muscle aches/pain?: No Do you have any abdominal pain?: No Are you experiencing loss of taste or smell?: No Other Medical History Have you received the Flu Vaccine for this season: No Have you received the Pneumonia Vaccine: No <Jeffrey Warren MD - Last Filed: 04/30/24 15:20> ROS Obtained: Yes All systems reviewed & no additional complaints except as documented Physical Exam <Jeffrey Warren MD - Last Filed: 04/30/24 15:20> General General appearance: alert Head Head exam: atraumatic and normocephalic Eye Eye exam: Present normal appearance, PERRL and EOMI Neck Neck exam: Present normal inspection, full ROM and trachea midline Respiratory Respiratory exam: Absent respiratory distress, wheezes, stridor, accessory muscle use or prolonged expiratory phase Cardiovascular Cardiovascular exam: Present other (Pulses equal symmetric in upper and lower extremities) Abdominal Exam Abdominal exam: Present soft and tenderness; Absent distention, guarding, rebound or pulsatile mass Abdominal tenderness: Present RUQ Extremities Exam Extremities exam: Absent edema Back Exam Back exam: Present CVA tenderness (R); Absent CVA tenderness (L) Neurological Exam Neurological exam: Present alert, oriented X3 and CN II-XII intact; Absent motor sensory deficit Skin Skin exam: Present warm and dry; Absent diaphoresis or erythema Medical Decision Making <Jeffrey Warren MD - Last Filed: 04/30/24 15:20> Medical Records Medical records reviewed: Yes I reviewed the patient's medical records. Screening: Per USPSTF and CDC recommendations, given the prevalence of disease in our region, it is our hospital?s policy to screen for HIV and viral Hepatitis for all patients aged 18 and over and those with ongoing risk factors. Enrique Inquiry Pt receiving controlled substance: No Enrique was queried for this patient: No Vital Signs: 04/30/24 10:59 04/30/24 11:05 04/30/24 11:30 Temperature 98.9 F Temperature Source Oral Pulse Rate 71 64 Pulse Rate [Left Radial] 73 Respiratory Rate 19 Blood Pressure 182/75 H 158/83 H Blood Pressure [Right Arm] 182/75 H Blood Pressure Mean [Right Arm] 110 02 Sat by Pulse Oximetry 97 99 98 Oxygen Delivery Method Room Air Room Air Room Air 04/30/24 11:45 04/30/24 13:23 04/30/24 14:00 Temperature Temperature Source Pulse Rate 68 67 69 Pulse Rate [Left Radial] Respiratory Rate Blood Pressure 164/82 H 170/84 H 159/78 H Blood Pressure [Right Arm] Blood Pressure Mean [Right Arm] 02 Sat by Pulse Oximetry 98 95 94 L Oxygen Delivery Method Room Air Room Air Room Air 04/30/24 14:15 04/30/24 14:30 04/30/24 14:45 Temperature Temperature Source Pulse Rate 74 65 67 Pulse Rate [Left Radial] Respiratory Rate Blood Pressure 167/81 H 169/76 H 161/90 H Blood Pressure [Right Arm] Blood Pressure Mean [Right Arm] 02 Sat by Pulse Oximetry 93 L 94 L 91 L Oxygen Delivery Method Room Air Room Air Room Air 04/30/24 15:00 04/30/24 15:15 04/30/24 15:30 Temperature Temperature Source Pulse Rate 69 78 71 Pulse Rate [Left Radial] Respiratory Rate Blood Pressure 186/92 H 177/96 H 188/87 H Blood Pressure [Right Arm] Blood Pressure Mean [Right Arm] 02 Sat by Pulse Oximetry 89 L 97 98 Oxygen Delivery Method Room Air Room Air Room Air 04/30/24 15:56 Temperature 98.9 F Temperature Source Pulse Rate 72 Pulse Rate [Left Radial] Respiratory Rate 18 Blood Pressure 150/87 H Blood Pressure [Right Arm] Blood Pressure Mean [Right Arm] 02 Sat by Pulse Oximetry Oxygen Delivery Method Room Air Lab Data Lab Results 04/30/24 11:04: WBC 8.5, RBC 4.88, Hgb 11.8 L, Hct 39.6, MCV 81.1, MCH 24.2 L, M CHC 29.8 L, RDW 20.0 H, Plt Count 324, MPV 9.1, Neut % (Auto) 50.7, Lymph % (Auto) 15.0, [place] % (Auto) 6.3, Eos % (Auto) 27.1 H, Baso % (Auto) 0.5, Neut # (Auto) 4.3, Lymph # (Auto) 1.3, [place] # (Auto) 0.5, Eos # (Auto) 2.3 H, Baso # (Auto) 0.0, PT 11.0, INR 1.00, APTT 23.7, Sodium 133 L, Potassium 4.4, Chloride 101, Carbon Dioxide 28, Anion Gap 8.4, BUN 20 H, Creatinine 1.00, Estimated Creat Clear 56, Estimated GFR 57 L, Est GFR ( Amer) 69, Glucose 101 H, Calcium 8.7, Magnesium 2.0, Total Bilirubin 0.8, AST 22, ALT 16, Alkaline Phosphatase 109, Troponin I < 0.01, NT-Pro-B Natriuret Pep 342 H, Total Protein 6.3, Albumin 3.9, Globulin 2.4, Albumin/Globulin Ratio 1.6, Triglycerides 114, Cholesterol 181, LDL Cholesterol Direct 113.21, VLDL Cholesterol 23, HDL Cholesterol 42, Cholesterol/HDL Ratio 4.3 H, Lipase 132, HCV Ab BOB w/Rflx PCR Qn Negative, HIV Ag/Ab Combo Qual Negative 04/30/24 11:47: Lactate 0.8 04/30/24 : Urine Color Lilia, Urine Appearance Clear, Urine pH 6.0, Ur Specific [place] 1.025, Urine Protein Trace, Urine Glucose (UA) Negative, Urine Ketones Trace, Urine Blood Negative, Urine Nitrate Negative, Urine Bilirubin 1+ A, Urine Urobilinogen 0.2, Ur Leukocyte Esterase Negative, Urine RBC None, Urine WBC 3-5, Ur Squamous Epith Cells 3-5, Urine Bacteria Trace 04/30/24 11:04 04/30/24 11:04 Orders (Tests/Meds): ED MEDICATIONS Discontinued Medications Generic Name Dose Route Start Last Admin Trade Name Goq PRN Reason Stop Dose Admin Iopamidol 75 ml 04/30/24 13:30 04/30/24 13:36 Iopamidol-370 (76%);100ml Bottle IV 04/30/24 13:31 75 ml ONCE ONE Administration Ketorolac Tromethamine 15 mg 04/30/24 11:32 04/30/24 11:42 Ketorolac 30mg/Ml Vial IV 04/30/24 11:33 15 mg ONCE ONE Administration Morphine Sulfate 4 mg 04/30/24 13:24 04/30/24 13:33 Morphine 4mg/Ml Syringe IV 04/30/24 13:25 4 mg ONCE ONE Administration Ondansetron HCl 4 mg 04/30/24 11:32 04/30/24 11:42 Ondansetron 4mg/2ml Vial IV 04/30/24 11:33 4 mg ONCE ONE Administration Sodium Chloride 10 ml 04/30/24 13:30 04/30/24 13:36 Sodium Chloride 0.9% 10ml Syr (Rad Only) IV 04/30/24 13:31 10 ml ONCE ONE Administration ORDERS Category Date Time Status CT abdomen pelvis w con Stat Cat Scan 04/30/24 12:45 Completed POCUS Point of Care (ER Only) Stat Exams 04/30/24 11:31 Completed XR chest portable Stat Exams 04/30/24 11:32 Completed Complete Blood Count Auto Diff Stat Lab 04/30/24 11:04 Completed Comprehensive Metabolic Panel Stat Lab 04/30/24 11:04 Completed HIV Combo Stat Lab 04/30/24 11:04 Completed Hepatitis C Ab Qual. W/ RFX Stat Lab 04/30/24 11:04 Completed Lactic Acid Stat Lab 04/30/24 11:47 Completed Lipase Stat Lab 04/30/24 11:04 Completed Lipid Panel Stat Lab 04/30/24 11:04 Completed Magnesium Stat Lab 04/30/24 11:04 Completed NT Pro Brain Natriuretic Pep. 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 States it has been going on for 3 to 4 days at this point, getting worse. Not related to food intake, but associate with vomiting that is nonbloody, nonbilious. No fevers or chills, urinary symptoms. Has not had any abdominal surgeries. Last bowel movement yesterday, normal for her. Came in for further evaluation. Currently 4 out of 10 mostly in her right flank, but does intermittently have pains in her right upper quadrant. History was obtained via conversation with patient. On arrival, patient hemodynamically stable, alert, oriented x4, appropriate, GCS 15, moving all extremities spontaneously, pupils equal and reactive to light. Full physical exam performed and significant for very well-appearing female no acute distress right upper quadrant pain with very deep palpation, but no evidence of peritonitis. Howe sign positive. Patient does have right flank tenderness as well. No overlying skin changes, but she does have Delmi rash underneath right breast. Cardiopulmonary exam normal. Differential includes cholecystitis, nephrolithiasis, choledocholithiasis, PUD, gastritis, ACS NH, diabetic emergency, pancreatitis, among others. Patient placed on continuous cardiac monitoring and continuous pulse ox with initial blood pressure 182/75, heart rate 73, saturation 97% on room air. Independent interpretation of EKG shows sinus rhythm 67 bpm with right bundle branch block morphology. No NV prolonged with interval 154, QRS 144, QTc prolonged at 500. No acute ischemic change with rightward axis. Patient was given Toradol for symptomatic management and correction of underlying abnormalities. Workup independently interpreted and significant for nonactionable CBC or chemistry. Kidney function normal. Troponin and BNP nonactionable. Lipase negative. Bedside ynagi-rf-mmid ultrasound performed, negative for any acute findings of the right upper quadrant. On my reevaluation, patient still stating that she is having pain, morphine was ordered As well as ondansetron. On independent interpretation of imaging, patient has now acute intra-abdominal abnormality. I feel the gallbladder distention is secondary to the fact the patient has not eaten in over 14 hours at this point. See radiology read for full review of final results. Urinalysis pending at time of handoff to oncoming physician. Interactive Producer disclaimer Much of this encounter note is an electronic fancy packer spoken language to printed text. Electronic fancy packer of the spoken language may permit errors. Although I have reviewed the note, some errors may still exist. <Yimi Fowler MD - Last Filed: 04/30/24 22:12> Vital Signs: 04/30/24 10:59 04/30/24 11:05 04/30/24 11:30 Temperature 98.9 F Temperature Source Oral Pulse Rate 71 64 Pulse Rate [Left Radial] 73 Respiratory Rate 19 Blood Pressure 182/75 H 158/83 H Blood Pressure [Right Arm] 182/75 H Blood Pressure Mean [Right Arm] 110 02 Sat by Pulse Oximetry 97 99 98 Oxygen Delivery Method Room Air Room Air Room Air 04/30/24 11:45 04/30/24 13:23 04/30/24 14:00 Temperature Temperature Source Pulse Rate 68 67 69 Pulse Rate [Left Radial] Respiratory Rate Blood Pressure 164/82 H 170/84 H 159/78 H Blood Pressure [Right Arm] Blood Pressure Mean [Right Arm] 02 Sat by Pulse Oximetry 98 95 94 L Oxygen Delivery Method Room Air Room Air Room Air 04/30/24 14:15 04/30/24 14:30 04/30/24 14:45 Temperature Temperature Source Pulse Rate 74 65 67 Pulse Rate [Left Radial] Respiratory Rate Blood Pressure 167/81 H 169/76 H 161/90 H Blood Pressure [Right Arm] Blood Pressure Mean [Right Arm] 02 Sat by Pulse Oximetry 93 L 94 L 91 L Oxygen Delivery Method Room Air Room Air Room Air 04/30/24 15:00 04/30/24 15:15 04/30/24 15:30 Temperature Temperature Source Pulse Rate 69 78 71 Pulse Rate [Left Radial] Respiratory Rate Blood Pressure 186/92 H 177/96 H 188/87 H Blood Pressure [Right Arm] Blood Pressure Mean [Right Arm] 02 Sat by Pulse Oximetry 89 L 97 98 Oxygen Delivery Method Room Air Room Air Room Air 04/30/24 15:56 Temperature 98.9 F Temperature Source Pulse Rate 72 Pulse Rate [Left Radial] Respiratory Rate 18 Blood Pressure 150/87 H Blood Pressure [Right Arm] Blood Pressure Mean [Right Arm] 02 Sat by Pulse Oximetry Oxygen Delivery Method Room Air Lab Data Lab Results 04/30/24 11:04: WBC 8.5, RBC 4.88, Hgb 11.8 L, Hct 39.6, MCV 81.1, MCH 24.2 L, M CHC 29.8 L, RDW 20.0 H, Plt Count 324, MPV 9.1, Neut % (Auto) 50.7, Lymph % (Auto) 15.0, [place] % (Auto) 6.3, Eos % (Auto) 27.1 H, Baso % (Auto) 0.5, Neut # (Auto) 4.3, Lymph # (Auto) 1.3, [place] # (Auto) 0.5, Eos # (Auto) 2.3 H, Baso # (Auto) 0.0, PT 11.0, INR 1.00, APTT 23.7, Sodium 133 L, Potassium 4.4, Chloride 101, Carbon Dioxide 28, Anion Gap 8.4, BUN 20 H, Creatinine 1.00, Estimated Creat Clear 56, Estimated GFR 57 L, Est GFR ( Amer) 69, Glucose 101 H, Calcium 8.7, Magnesium 2.0, Total Bilirubin 0.8, AST 22, ALT 16, Alkaline Phosphatase 109, Troponin I < 0.01, NT-Pro-B Natriuret Pep 342 H, Total Protein 6.3, Albumin 3.9, Globulin 2.4, Albumin/Globulin Ratio 1.6, Triglycerides 114, Cholesterol 181, LDL Cholesterol Direct 113.21, VLDL Cholesterol 23, HDL Cholesterol 42, Cholesterol/HDL Ratio 4.3 H, Lipase 132, HCV Ab BOB w/Rflx PCR Qn Negative, HIV Ag/Ab Combo Qual Negative 04/30/24 11:47: Lactate 0.8 04/30/24 : Urine Color Lilia, Urine Appearance Clear, Urine pH 6.0, Ur Specific [place] 1.025, Urine Protein Trace, Urine Glucose (UA) Negative, Urine Ketones Trace, Urine Blood Negative, Urine Nitrate Negative, Urine Bilirubin 1+ A, Urine Urobilinogen 0.2, Ur Leukocyte Esterase Negative, Urine RBC None, Urine WBC 3-5, Ur Squamous Epith Cells 3-5, Urine Bacteria Trace Orders (Tests/Meds): ED MEDICATIONS Discontinued Medications Generic Name Dose Route Start Last Admin Trade Name Goq PRN Reason Stop Dose Admin Iopamidol 75 ml 04/30/24 13:30 04/30/24 13:36 Iopamidol-370 (76%);100ml Bottle IV 04/30/24 13:31 75 ml ONCE ONE Administration Ketorolac Tromethamine 15 mg 04/30/24 11:32 04/30/24 11:42 Ketorolac 30mg/Ml Vial IV 04/30/24 11:33 15 mg ONCE ONE Administration Morphine Sulfate 4 mg 04/30/24 13:24 04/30/24 13:33 Morphine 4mg/Ml Syringe IV 04/30/24 13:25 4 mg ONCE ONE Administration Ondansetron HCl 4 mg 04/30/24 11:32 04/30/24 11:42 Ondansetron 4mg/2ml Vial IV 04/30/24 11:33 4 mg ONCE ONE Administration Sodium Chloride 10 ml 04/30/24 13:30 04/30/24 13:36 Sodium Chloride 0.9% 10ml Syr (Rad Only) IV 04/30/24 13:31 10 ml ONCE ONE Administration ORDERS Category Date Time Status CT abdomen pelvis w con Stat Cat Scan 04/30/24 12:45 Completed POCUS Point of Care (ER Only) Stat Exams 04/30/24 11:31 Completed XR chest portable Stat Exams 04/30/24 11:32 Completed Complete Blood Count Auto Diff Stat Lab 04/30/24 11:04 Completed Comprehensive Metabolic Panel Stat Lab 04/30/24 11:04 Completed HIV Combo Stat Lab 04/30/24 11:04 Completed Hepatitis C Ab Qual. W/ RFX Stat Lab 04/30/24 11:04 Completed Lactic Acid Stat Lab 04/30/24 11:47 Completed Lipase Stat Lab 04/30/24 11:04 Completed Lipid Panel Stat Lab 04/30/24 11:04 Completed Magnesium Stat Lab 04/30/24 11:04 Completed NT Pro Brain Natriuretic Pep. 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 States it has been going on for 3 to 4 days at this point, getting worse. Not related to food intake, but associate with vomiting that is nonbloody, nonbilious. No fevers or chills, urinary symptoms. Has not had any abdominal surgeries. Last bowel movement yesterday, normal for her. Came in for further evaluation. Currently 4 out of 10 mostly in her right flank, but does intermittently have pains in her right upper quadrant. History was obtained via conversation with patient. On arrival, patient hemodynamically stable, alert, oriented x4, appropriate, GCS 15, moving all extremities spontaneously, pupils equal and reactive to light. Full physical exam performed and significant for very well-appearing female no acute distress right upper quadrant pain with very deep palpation, but no evidence of peritonitis. Howe sign positive. Patient does have right flank tenderness as well. No overlying skin changes, but she does have Delmi rash underneath right breast. Cardiopulmonary exam normal. Differential includes cholecystitis, nephrolithiasis, choledocholithiasis, PUD, gastritis, ACS NH, diabetic emergency, pancreatitis, among others. Patient placed on continuous cardiac monitoring and continuous pulse ox with initial blood pressure 182/75, heart rate 73, saturation 97% on room air. Independent interpretation of EKG shows sinus rhythm 67 bpm with right bundle branch block morphology. No NV prolonged with interval 154, QRS 144, QTc prolonged at 500. No acute ischemic change with rightward axis. Patient was given Toradol for symptomatic management and correction of underlying abnormalities. Workup independently interpreted and significant for nonactionable CBC or chemistry. Kidney function normal. Troponin and BNP nonactionable. Lipase negative. Bedside [id number]-[id number] ultrasound performed, negative for any acute findings of the right upper quadrant. On my reevaluation, patient still stating that she is having pain, morphine was ordered As well as ondansetron. On independent interpretation of imaging, patient has now acute intra-abdominal abnormality. I feel the gallbladder distention is secondary to the fact the patient has not eaten in over 14 hours at this point. See radiology read for full review of final results. Urinalysis pending at time of handoff to oncoming physician. Interactive Producer disclaimer Much of this encounter note is an electronic fancy packer spoken language to printed text. Electronic fancy packer of the spoken language may permit errors. Although I have reviewed the note, some errors may still exist. Yimi Fowler MD AUSTYN: I assumed care of this patient from the previous emergency medicine physician. Upon repeat evaluation patient reports some improvement of symptoms. Urinalysis with no evidence of acute cystitis when clinically correlated with symptoms. Ultrasound is distended on CT scan and reported to be without evidence of cholelithiasis or cholecystitis by previous physician. Pain is reproducible, with associated dyspnea. I have a low clinical index of suspicion for referred pain secondary to pulmonary embolism although I did discuss this possibility with the patient and after shared decision making we will forego further workup at this time. Return precautions were given. Procedures <Jeffrey Warren MD - Last Filed: 04/30/24 15:20> Limited Ultrasound Indication:: Limited RUQ ultrasound Indication: Abdominal/right flank pain Identified structures: -Gallbladder -Gallbladder wall -Common bile duct -Liver Findings: Sonographic Howe sign: Absent Gallstones: Absent Sludge: Absent Pericholecystic fluid: Absent Maximal GB wall thickness (mm) (normal is </= 3mm): Normal Common bile duct width (mm) (normal is </= 6mm): Normal Gallbladder width (cm) (normal is < 4cm): Normal Gallbladder length (cm) (normal is < 10cm): Just over 10 cm Impression: Mildly distended gallbladder, patient has not eaten in over 14 hours, likely secondary to that. Normal otherwise right upper quadrant ultrasound Images were saved to permanent archive The study was technically adequate CPT 42871-90 This study was performed by me, and I personally interpreted all images/videos. Based on my clinical judgement, these images were adequate and did not necessitate further imaging. Critical Care <Jeffrey Warren MD - Last Filed: 04/30/24 15:20> Critical Care Time Critical Care Time: No
[2024-04-30 12:07] LABS: Troponin I < 0.01 ng/ml (0.00-0.034)
[2024-04-30 12:36] LABS: HIV Combo NEGATIVE (Negative)
[2024-04-30 12:44] LABS: Hepatitis C Ab Qual. W/ RFX NEGATIVE (Negative)
[2024-04-30 12:45] LABS: Chol/HDL Ratio 4.3 (1-3.5)
--- NOTE | 2024-04-30 12:45 | CT_ITS ---
FINAL REPORT TECHNIQUE: After the administration of oral and intravenous contrast, axial images were obtained through the abdomen and pelvis by computed tomography. The study was performed with techniques to keep radiation dose as low as reasonably achievable, (ALARA). Individual dose reduction techniques using automated exposure control or adjustment of mA and/or kV according to the patient's size were employed. CLINICAL HISTORY: RUQ and R flank pain FINDINGS: Abdomen: The lung bases are clear. The liver parenchyma is homogeneous. The gallbladder is distended. The spleen, pancreas, adrenals and kidneys appear unremarkable. The aorta is normal in caliber. There is no free fluid or adenopathy. Pelvis: The appendix is unremarkable. The urinary bladder is decompressed. There is no free fluid or adenopathy. IMPRESSION: Distended gallbladder. Otherwise, no acute process. Reviewed, Interpreted and Dictated by Solitario Lai MD Transcribed by Luiza Brady Authenticated and [facility]
[2024-04-30 12:46] LABS: Albumin Level 3.9 g/dl (3.5-5.0); Albumin/Globulin Ratio 1.6 (1.1-1.8); Globulin 2.4 g/dL (1.3-3.2); HDL Cholesterol 42 mg/dl (40-60)
[2024-04-30] MEDS: MORPHINE 4MG/ML SYRINGE 4 MG IV (13:33)
[2024-04-30] MEDS: SODIUM CHLORIDE 0.9% 10ML SYR (RAD ONLY) 10 ML IV (13:36)
[2024-04-30] MEDS: IOPAMIDOL-370 (76%);100ML BOTTLE 75 ML IV (13:36)
--- NOTE | 2024-04-30 14:46 | PC.NURSE ---
Rounded on patient; lights turned off in room for patients comfort. pt watching tv and has no other needs at this time. Call juan within reach
[2024-04-30 15:07] LABS: Microscopic, Urine URINE MICROSCOPIC (MICROSCOPIC)
[2024-04-30 15:08] LABS: Appearance,Urine CLEAR (Clear); Blood, Urine Negative (Negative); Color,Urine AMBER (Yellow); Glucose,Urine (UA) Negative (Negative); Ketones,Urine TRACE (Negative); Leukocyte Esterase,Urine Negative (Negative); Nitrate,Urine Negative (Negative); Protein,Urine TRACE (Negative); Specific Gravity, Urine 1.025 (1.005-1.030); Urobilinogen,Urine 0.2 EU/dl (0.2)
[2024-04-30 15:22] LABS: Bilirubin,Urine 1+ (Negative)
[2024-04-30 15:28] LABS: Bacteria,Urine Trace /lpf
== END 2024-04-30 15:57 | disposition home or self-care (01) ==
PROVIDERS: Emergency Provider Emergency Medicine; PCP Nurse Practitioner Family
DX: M54.6 Pain in thoracic spine (principal); R11.10 Vomiting, unspecified
CPT/HCPCS: 71045; 74177; 80053; 80061; 81001; 83605; 83690; 83735; 83880; 84484; 85025; 85610; 85730; 86803; 87389; 93005; 96374; 96375; 99285; J1885; J2270; J2405; Q9967

== ENCOUNTER 2024-05-02 09:42 | Emergency (ER) | payer MEDICARE, SELFPAY ==
[2024-05-02 09:43] VITALS: BP 150/67; PULSE 88; RESP 17; TEMP 36.9; O2SAT 98; BMI 46.5
--- NOTE | 2024-05-02 09:46 | PC.NURSE ---
dr palacio at bedside
[2024-05-02] MEDS: ACYCLOVIR 400MG TAB 800 MG PO (10:02)
--- NOTE | 2024-05-02 10:02 | ED_ITS ---
Discharge Plan Disposition Patient Disposition: Home, Self-Care Prescriptions Prescriptions: New acyclovir 800 mg tablet 800 mg PO .Five times daily 10 Days Qty: 50 1RF lidocaine 5 % ointment 1 applic topical BID 7 Days Qty: 50 0RF No Action fluoxetine 40 mg capsule 40 mg PO DAILY metolazone 2.5 mg tablet 2.5 mg PO DAILY metformin 500 mg tablet 500 mg PO DAILY atorvastatin 20 mg tablet 20 mg PO DAILY bumetanide 2 mg tablet 2 mg PO DAILY Novolin 70/30 U-100 Insulin 100 unit/mL (70-30) suspension See Rx Instructions .ROUTE .COMPLEX Rx Instructions: . fexofenadine 180 mg tablet 180 mg PO DAILY omeprazole 40 mg capsule,delayed release(DR/EC) 40 mg PO DAILY potassium chloride 20 mEq tablet,ER particles/crystals 20 meq PO DAILY amitriptyline 10 mg tablet 10 mg PO DAILY levothyroxine 125 mcg tablet 125 mcg PO DAILY diltiazem HCl 120 mg capsule,extended release 24hr 120 mg PO DAILY ammonium lactate 12 % cream 1 applic TOPICAL BID Patient Comments: APPLY CREAM TOPICALLY TWICE DAILY spironolactone 50 mg tablet 50 mg PO DAILY aripiprazole 5 mg tablet 5 mg PO DAILY sildenafil (pulm.hypertension) 20 mg tablet 20 mg PO DAILY glucosamine stewart 2KCl-chondroit 500-400 mg tablet 1 tab PO DAILY Eliquis 5 mg tablet 5 mg PO DAILY Opsumit 10 mg tablet 10 mg PO DAILY Ozempic 1 mg/dose (4 mg/3 mL) pen injector 1 mg SQ WEEKLY Patient Comments: INJECT 1 MG SUBCUTANEOUSLY ONCE A WEEK azithromycin [Zithromax] 250 mg tablet 250 mg PO UD DOSE PK Qty: 6 0RF Rx Instructions: Take two (2) tablets today, then one (1) tablet days #2 thru #5 methylprednisolone 4 mg Tablets,Dose Pack 4 mg PO DIRECTED 6 Days Qty: 21 0RF Rx Instructions: Take 1 pack as directed for 6 days [id number]-fxuiojqzl-VF [Bromfed DM] 2-30-10 mg/5 mL Syrup 5 ml PO Q6H PRN (Reason: Cough) Qty: 240 0RF methocarbamol 750 mg tablet 750 mg PO Q8H Qty: 90 0RF oxycodone 5 mg tablet 5 mg PO Q8H PRN (Reason: pain) Qty: 7 0RF Referrals Follow up/Referrals: Sanya Wright MD [Staff Physician] - See instructions Mali Rivera [Primary Care Provider] - See instructions Activity Restrictions/Add. Instructions Additional Instructions/Restrictions: 800 mg of acyclovir 5 times daily for 10 days. Lidocaine ointment for symptomatic treatment. Be sure to avoid women and people at the extremes of age (very young or very old). Call your family doctor to establish care for this visit to the emergency department and schedule follow-up within 48 hours to ensure improvement. If you have any worsening of your condition or any other concerning signs or symptoms, return to the emergency department or your primary care doctor for further evaluation. If you continue having further pain, talk to your family doctor about referral to Dr. Wright for pain control. Information listed here if you need. Clinical Impressions Clinical Impression: Herpes zoster dermatitis Instructions Patient Instructions: DI for Shingles Print Language Print Language: Algerian Discharge ED Provider: Jeffrey Warren General Adult HPI General Chief complaint: Skin/Abscess/Foreign Body Stated complaint: pain in back/right side w/rash vomiting Time Seen by Provider: 05/02/24 09:46 History of Present Illness HPI narrative: Please note that above description of symptoms, in this electronic medical record under categorization of recalled from ER triage doctor by RN are reflective of an initial nursing assessment, however, is not reflective of my full history and physical exam that was personally taken and clarified. Consequentially, this preceding description of symptoms, which may include the patient's categorized chief complaint in the EMR, do not reflect my personal clinical impression, and the ultimate description of history of present illness and patient stated complaints should be deferred to this section of the note. Unless stated otherwise or congruent with this section of the note, additional signs, symptoms, or incongruence should be interpreted as inaccurate with my clinical impression. Related Data Home Medications ?Medication ?Instructions ?Recorded ?Confirmed amitriptyline 10 mg tablet 10 mg PO DAILY 03/24/24 03/24/24 ammonium lactate 12 % topical cream 1 applic topical BID 03/24/24 03/24/24 apixaban 5 mg tablet (Eliquis) 5 mg PO DAILY 03/24/24 03/24/24 aripiprazole 5 mg tablet 5 mg PO DAILY 03/24/24 03/24/24 atorvastatin 20 mg tablet 20 mg PO DAILY 03/24/24 03/24/24 bumetanide 2 mg tablet 2 mg PO DAILY 03/24/24 03/24/24 diltiazem HCl 120 mg 120 mg PO DAILY 03/24/24 03/24/24 capsule,extended release 24 hr fexofenadine 180 mg tablet 180 mg PO DAILY 03/24/24 03/24/24 fluoxetine 40 mg capsule 40 mg PO DAILY 03/24/24 03/24/24 glucosamine sulf dipotassium Cl 1 tab PO DAILY 03/24/24 03/24/24 500 mg-chondroitin sulf 400 mg tablet insulin human U-100 NPH-regulr See Rx Instructions .Route .COMPLEX 03/24/24 03/24/24 70-30 mix 100 unit/mL subcutaneous susp (Novolin 70/30 U-100 Insulin) levothyroxine 125 mcg tablet 125 mcg PO DAILY 03/24/24 03/24/24 macitentan 10 mg tablet (Opsumit) 10 mg PO DAILY 03/24/24 03/24/24 metformin 500 mg tablet 500 mg PO DAILY 03/24/24 03/24/24 metolazone 2.5 mg tablet 2.5 mg PO DAILY 03/24/24 03/24/24 omeprazole 40 mg capsule,delayed 40 mg PO DAILY 03/24/24 03/24/24 release potassium chloride 20 mEq 20 meq PO DAILY 03/24/24 03/24/24 tablet,extended release(part/cryst) semaglutide 1 mg/dose (4 mg/3 mL) 1 mg SQ WEEKLY 03/24/24 03/24/24 subcutaneous pen injector (Ozempic) sildenafil (pulm.hypertension) 20 20 mg PO DAILY 03/24/24 03/24/24 mg tablet spironolactone 50 mg tablet 50 mg PO DAILY 03/24/24 03/24/24 Previous Rx's ?Medication ?Instructions ?Recorded azithromycin 250 mg tablet 250 mg PO UD DOSE PK #6 tabs 03/24/24 (Zithromax) [id number]-PD 5 ml PO Q6H PRN Cough #240 mL 03/24/24 2 mg-30 mg-10 mg/5 mL oral syrup (Bromfed DM) methylprednisolone 4 mg tablets in 4 mg PO DIRECTED 6 days #21 tabs 03/24/24 a dose pack methocarbamol 750 mg tablet 750 mg PO Q8H #90 tabs 04/30/24 oxycodone 5 mg tablet 5 mg PO Q8H PRN pain #7 tabs 04/30/24 acyclovir 800 mg tablet 800 mg PO .Five times daily 10 05/02/24 days #50 tabs lidocaine 5 % topical ointment 1 applic topical BID 7 days #50 05/02/24 grams Allergies Allergy/AdvReac Type Severity Reaction Status Date / Time No Known Allergies Allergy Verified 02/10/24 10:27 [facility] Disclaimer: The information contained in this section may have been updated after the patient was seen, as this information can be updated by other users. Medical History Thyroid disease UTI (urinary tract infection) Depression Asthma History of heart attack Hyperlipidemia Hypertension Surgical History History of section History of hysterectomy History of tubal ligation History of cardiac cath Social History Smoking Status: Never smoker second hand exposure: No alcohol intake: never substance use type: denies use current occupational status: other Travel in the last 8 weeks: None household members: family housing: house caffeine: Yes Have you lived/traveled outside [place] in past 30 days?: No Contact w/someone who lives/traveled outside US past 30 days?: No Exposure to someone with infectious disease in past 14 days?: No Do you have a fever (greater than 100.4 F or 38 C)?: No Have you tested positive for COVID-19: No Exposed to someone with COVID-19 in past 14 days?: No Do you have a sore throat?: No Do you have a cough?: No Do you have any weakness?: No Do you have any diarrhea?: No Are you experiencing any unusual bleeding?: No Do you have any muscle aches/pain?: No Do you have any abdominal pain?: Yes Are you experiencing loss of taste or smell?: No Other Medical History Have you received the Flu Vaccine for this season: No Have you received the Pneumonia Vaccine: No ROS Obtained: Yes All systems reviewed & no additional complaints except as documented Physical Exam General General appearance: alert Head Head exam: atraumatic and normocephalic Eye Eye exam: Present normal appearance, PERRL and EOMI Neck Neck exam: Present normal inspection, full ROM and trachea midline Respiratory Respiratory exam: Absent respiratory distress, wheezes, stridor, accessory muscle use or prolonged expiratory phase Cardiovascular Cardiovascular exam: Present other (Pulses equal symmetric in upper and lower extremities) Abdominal Exam Abdominal exam: Present soft; Absent distention, tenderness or pulsatile mass Extremities Exam Extremities exam: Absent edema Neurological Exam Neurological exam: Present alert, oriented X3 and CN II-XII intact; Absent motor sensory deficit Skin Skin exam: Present warm, dry and rash; Absent diaphoresis or erythema Medical Decision Making Medical Records Medical records reviewed: Yes I reviewed the patient's medical records. Screening: Per USPSTF and CDC recommendations, given the prevalence of disease in our region, it is our hospital?s policy to screen for HIV and viral Hepatitis for all patients aged 18 and over and those with ongoing risk factors. Enrique Inquiry Pt receiving controlled substance: No Enrique was queried for this patient: No Vital Signs: 05/02/24 09:43 05/02/24 10:09 Temperature 98.5 F 98.5 F Temperature Source Oral Oral Pulse Rate 80 Pulse Rate [Right] 88 Respiratory Rate 17 18 Blood Pressure 140/65 Blood Pressure [Right Arm] 150/67 H Blood Pressure Mean [Right Arm] 94 Blood Pressure Source Automatic Cuff Blood Pressure Source [Right Arm] Automatic Cuff 02 Sat by Pulse Oximetry 98 Oxygen Delivery Method Room Air Room Air Orders (Tests/Meds): ED MEDICATIONS Discontinued Medications Generic Name Dose Route Start Last Admin Trade Name Freq PRN Reason Stop Dose Admin Acyclovir 800 mg 05/02/24 09:54 05/02/24 10:02 Acyclovir 400mg Tab PO 05/02/24 09:55 800 mg ONCE ONE Administration Medical Decision Narrative: 58-year-old female seen by me yesterday presenting with similar pain and rash. Patient states that pain got worse throughout the day yesterday. States that she noticed that she had a rash breaking out on her back and starting to come around to her breast. Came in for further evaluation given concern for shingles. Patient clinically has shingles on my evaluation. She has erythematous flat lesions that are starting to form raised papules versus pustules, no evidence of drainage or heads at this time. Because patient had large workup yesterday, I do not feel another large workup today is clinically appropriate. Patient was given first dose of acyclovir and sent home with acyclovir and pain management referral as well as topical lidocaine ointment. [employer] disclaimer Much of this encounter note is an electronic client care representative spoken language to printed text. Electronic client care representative of the spoken language may permit errors. Although I have reviewed the note, some errors may still exist. Critical Care Critical Care Time Critical Care Time: No
[2024-05-02 10:09] VITALS: BP 140/65; PULSE 80; RESP 18; TEMP 36.9; O2SAT 98
== END 2024-05-02 10:12 | disposition home or self-care (01) ==
PROVIDERS: Emergency Provider Emergency Medicine; PCP Nurse Practitioner Family
DX: B02.8 Zoster with other complications (principal); M54.9 Dorsalgia, unspecified; R21 Rash and other nonspecific skin eruption; R11.10 Vomiting, unspecified
CPT/HCPCS: 99283

== ENCOUNTER 2024-05-07 14:13 | Outpatient (POV) | payer MEDICARE, SELFPAY ==
--- NOTE | 2024-05-07 14:52 | EXP.PAIN.OV ---
HPI Data of Consult Patient: new to practice Consult date: 05/07/24 Requesting Physician: Lilia Villavicencio APRN Primary Care Provider: Mali Rivera Consult Narrative Reason for consult: Acute shingles outbreak History of present illness: Ms. Dale is a 58 year old female who presents today as a new patient. She rates her pain today a 5 out of 10. Patient states her pain is all related to an acute shingles outbreak along her right abdomen that does radiate to her mid back. She describes it as an aching, burning sensation. Patient states she has had shingles in the past and this episode just started this past Friday. Patient states that she does feel the burning sensation even where she does not have some of the rash. Patient denies any recent shingles vaccine. Patient states that she was given lidocaine patches and acyclovir from her PCP along with an oral steroid and IM steroid that has helped some. Patient is interested in any help we may be able to provide as it is interfering with her ability perform activities of daily living such as cooking and cleaning. Patient was also given an short-term dose of oral oxycodone for pain from an outside provider. Her Enrique has been reviewed and is appropriate. CC: Lilia Villavicencio APRN [facility] Disclaimer: The information contained in this section may have been updated after the patient was seen, as this information can be updated by other users. Medical History Thyroid disease UTI (urinary tract infection) Depression Asthma History of heart attack Hyperlipidemia Hypertension Surgical History History of section History of hysterectomy History of tubal ligation History of cardiac cath Social History Smoking Status: Never smoker second hand exposure: No alcohol intake: never substance use type: denies use current occupational status: other Travel in the last 8 weeks: None household members: family housing: house caffeine: Yes Review of Systems Review of Systems Review of systems:: pertinent systems reviewed and negative unless documented below Review of systems (narrative): Review of Systems: General: No recent weight changes, no fever, no sleep disturbances Respiratory: No cough, no shortness of air, no recurring pulmonary infections Cardiovascular/peripheral vascular: No chest pain, no palpitations, no edema, no shortness of breath Gastrointestinal: No new onset incontinence, normal bowel movements reported Genitourinary: No new onset incontinence Musculoskeletal: Right abdomen, right mid back pain Psychiatric: [Normal mood/affect] Neurological: [Denies weakness in extremities], [denies balance issues] Meds Home Medications and Allergies Home Medications ?Medication ?Instructions ?Recorded ?Confirmed ?Type amitriptyline 10 mg tablet 10 mg PO DAILY 03/24/24 03/24/24 History ammonium lactate 12 % topical cream 1 applic topical BID 03/24/24 03/24/24 History apixaban 5 mg tablet (Eliquis) 5 mg PO DAILY 03/24/24 03/24/24 History aripiprazole 5 mg tablet 5 mg PO DAILY 03/24/24 03/24/24 History atorvastatin 20 mg tablet 20 mg PO DAILY 03/24/24 03/24/24 History azithromycin 250 mg tablet 250 mg PO UD DOSE PK #6 tabs 03/24/24 Rx (Zithromax) [id number]-hhyejhcdgknhwxv-KX 5 ml PO Q6H PRN Cough #240 mL 03/24/24 Rx 2 mg-30 mg-10 mg/5 mL oral syrup (Bromfed DM) bumetanide 2 mg tablet 2 mg PO DAILY 03/24/24 03/24/24 History diltiazem HCl 120 mg 120 mg PO DAILY 03/24/24 03/24/24 History capsule,extended release 24 hr fexofenadine 180 mg tablet 180 mg PO DAILY 03/24/24 03/24/24 History fluoxetine 40 mg capsule 40 mg PO DAILY 03/24/24 03/24/24 History glucosamine sulf dipotassium Cl 1 tab PO DAILY 03/24/24 03/24/24 History 500 mg-chondroitin sulf 400 mg tablet insulin human U-100 NPH-regulr See Rx Instructions .Route .COMPLEX 03/24/24 03/24/24 History 70-30 mix 100 unit/mL subcutaneous susp (Novolin 70/30 U-100 Insulin) levothyroxine 125 mcg tablet 125 mcg PO DAILY 03/24/24 03/24/24 History macitentan 10 mg tablet (Opsumit) 10 mg PO DAILY 03/24/24 03/24/24 History metformin 500 mg tablet 500 mg PO DAILY 03/24/24 03/24/24 History methylprednisolone 4 mg tablets in 4 mg PO DIRECTED 6 days #21 tabs 03/24/24 Rx a dose pack metolazone 2.5 mg tablet 2.5 mg PO DAILY 03/24/24 03/24/24 History omeprazole 40 mg capsule,delayed 40 mg PO DAILY 03/24/24 03/24/24 History release potassium chloride 20 mEq 20 meq PO DAILY 03/24/24 03/24/24 History tablet,extended release(part/cryst) semaglutide 1 mg/dose (4 mg/3 mL) 1 mg SQ WEEKLY 03/24/24 03/24/24 History subcutaneous pen injector (Ozempic) sildenafil (pulm.hypertension) 20 20 mg PO DAILY 03/24/24 03/24/24 History mg tablet spironolactone 50 mg tablet 50 mg PO DAILY 03/24/24 03/24/24 History methocarbamol 750 mg tablet 750 mg PO Q8H #90 tabs 04/30/24 Rx oxycodone 5 mg tablet 5 mg PO Q8H PRN pain #7 tabs 04/30/24 Rx acyclovir 800 mg tablet 800 mg PO .Five times daily 05/02/24 Rx days #50 tabs lidocaine 5 % topical ointment 1 applic topical BID 7 days #50 05/02/24 Rx grams New Prescriptions to Start Prescriptions: Allergies Allergy/AdvReac Type Severity Reaction Status Date / Time No Known Allergies Allergy Verified 02/10/24 10:27 Objective Narrative: Physical Exam: General: Alert and oriented x3, no acute distress, pleasant and cooperative Lungs: Respirations even and unlabored, symmetrical chest expansion Eyes: PERRL Musculoskeletal: Flexion and extension of thoracic [spine] somewhat guarded secondary to pain, [antalgic gait noted] point tenderness around right abdomen following dermatome to right thoracic paraspinous muscles Neurological: Speech clear, no gross sensory deficit Skin: Diffuse rash across right abdomen with radiating rash to right thoracic paraspinous muscles Assessment and Plan *Assessment and plan (1) Herpes zoster dermatitis: Status: Acute Category: Medical Code(s): B02.8 - Zoster with other complications; L30.8 - Other specified dermatitis (2) Right-sided thoracic back pain: Status: Acute Category: Medical Code(s): M54.6 - Pain in thoracic spine (3) Myofascial pain on right side: Status: Acute Category: Medical Code(s): M79.18 - Myalgia, other site Plan Patient is experiencing an acute shingles outbreak along her right abdomen that does radiate to her right mid back. I did discuss with the patient that she may benefit from trigger point injections along the rash site. Risk and benefits were discussed with the patient and she would like to proceed forward with this plan of care. I will also order the patient a shingles compound cream and send in a prescription of gabapentin 100 mg 3 times daily. Patient will be scheduled for trigger point injections of her right abdomen and right thoracic paraspinous muscles. These will be done without fluoroscopic guidance or ultrasound. Patient has been instructed to contact the clinic with any concerns before the next appointment. Dr. Wright has reviewed this note and agrees with this plan of care. This note was dictated using voice recognition software and make contain errors or omissions. All injections are used with Lidocaine, Bupivacaine and Depo Medrol. Occasionally urine drug screen is needed to verify patient's compliance with our office pain contract. This is ordered based off specific treatments related to chronic pain with the potential to abuse certain medications.
[2024-05-07 15:48] VITALS: BP 173/76; PULSE 86; RESP 18; O2SAT 95; BMI 47.4
== END 2024-05-07 23:59 | disposition home or self-care (01) ==
PROVIDERS: PCP Nurse Practitioner Family; Visit Provider Nurse Practitioner Family
DX: B02.8 Zoster with other complications (principal); L30.8 Other specified dermatitis; M54.6 Pain in thoracic spine; M79.18 Myalgia, other site; Z73.89 Other problems related to life management difficulty; Z79.899 Other long term (current) drug therapy
CPT/HCPCS: 99202; G0463

== ENCOUNTER 2024-05-11 08:46 | Day surgery (SDC) | payer MEDICARE, SELFPAY ==
[2024-05-11 09:15] VITALS: BP 181/76; PULSE 67; RESP 18; O2SAT 96; BMI 47.4
[2024-05-11 10:00] VITALS: BP 175/85; PULSE 74; RESP 18; O2SAT 96
[2024-05-11] MEDS: LIDOCAINE 1% 5ML PF VIAL 5 ML (10:05)
[2024-05-11] MEDS: BUPIVACAINE 0.25% 10ML INJ 25 MG IJ (10:05)
[2024-05-11 10:06] VITALS: BP 170/77; PULSE 69; RESP 18; O2SAT 93
[2024-05-11] MEDS: methylPREDNISolone ACETATE 80MG/ML VIAL 80 MG (10:06)
[2024-05-11 10:07] VITALS: BP 170/77; PULSE 69; RESP 18; O2SAT 93
--- NOTE | 2024-05-11 10:14 | EXP.PAIN.PRO ---
Procedure Date: 05/11/24 Time: 10:00 Anesthesiologist:: Gus Scott CRNA Complications:: None Pre-procedure Diagnosis:: Herpes zoster. Postherpetic neuralgia. Right thoracolumbar spine. Right abdomen. Post-procedure Diagnosis:: Same. Indications for Procedure:: Patient is a pleasant 58-year-old female who comes our clinic today for trigger point injections of the right thoracolumbar area as well as right abdomen. This is due to herpes zoster outbreak. Patient has visible lesions in these areas. Procedure Details:: Details of procedure explained the patient. The patient taken procedure room placed in sitting position. The area over the right thoracolumbar was cleansed using chlorhexidine as a cleansing solution. Using a 25-gauge inch and half needle multiple areas were infiltrated in a fanning fashion with 0.25% Marcaine +1% lidocaine and Depo-Medrol. Also the right abdomen in the same fashion. Patient tolerated procedure without difficulty. No complications. Plan and Disposition:: I advised the patient to have this done weekly until her symptoms subside. She was discharged without incident.
== END 2024-05-11 10:00 | disposition home or self-care (01) ==
LOC: SC.PAINP 08:47
PROVIDERS: PCP Nurse Practitioner Family; Visit Provider Nurse Anesthetist, Certified Registered
DX: B02.8 Zoster with other complications (principal); M54.6 Pain in thoracic spine; M79.18 Myalgia, other site; B02.22 Postherpetic trigeminal neuralgia
CPT/HCPCS: 20552; J1010

== ENCOUNTER 2024-05-18 11:26 | Outpatient (POV) | payer MEDICARE, SELFPAY ==
[2024-05-18 11:54] VITALS: BP 139/87; PULSE 74; RESP 18; TEMP 36.6; O2SAT 95; BMI 47.4
[2024-05-18 12:08] VITALS: BP 135/64; PULSE 76; RESP 18; O2SAT 99
[2024-05-18] MEDS: BUPIVACAINE 0.25% 10ML INJ 25 MG IJ (12:08)
[2024-05-18] MEDS: LIDOCAINE 1% 5ML PF VIAL 5 ML (12:08)
[2024-05-18] MEDS: methylPREDNISolone ACETATE 80MG/ML VIAL 80 MG (12:08)
[2024-05-18 12:14] VITALS: BP 135/64; PULSE 76; RESP 18; O2SAT 99
[2024-05-18 12:21] VITALS: BP 148/77; PULSE 76; RESP 18; TEMP 36.6; O2SAT 93
--- NOTE | 2024-05-18 13:13 | EXP.PAIN.PRO ---
Procedure Date: 05/18/24 Time: 12:15 Anesthesiologist:: Gus Scott CRNA Complications:: None Pre-procedure Diagnosis:: Herpes zoster. Postherpetic neuralgia. Post-procedure Diagnosis:: Same Indications for Procedure:: Patient is a very pleasant 58-year-old female comes our clinic today for repeat right thoracolumbar and right side trigger point injections including the right upper abdomen due to postherpetic neuralgia and herpes zoster outbreak. Patient was injected 1 week ago today. She reports 50% improvement in terms of her postherpetic neuralgia symptoms. Procedure Details:: Details of procedure explained the patient. The patient taken procedure room placed in sitting position. The area over the right thoracolumbar was cleansed using chlorhexidine as a cleansing solution. Using a 25-gauge inch and half needle multiple areas were infiltrated in a fanning fashion with 0.25% Marcaine +1% lidocaine and Depo-Medrol. Also the right abdomen in the same fashion. Patient tolerated procedure without difficulty. No complications Plan and Disposition:: Patient was discharged without incident.
[2024-05-18] MEDS: SODIUM CHLORIDE 0.9% 10ML FLUSH SYRINGE 10 ML IV (13:15)
[2024-05-18 14:13] LABS: POC Glucose,Bedside 93 (70-110)
== END 2024-05-18 12:21 | disposition home or self-care (01) ==
LOC: SC.PAIN 11:27
PROVIDERS: Physician Assistant Medical; PCP Nurse Practitioner Family; Visit Provider Nurse Anesthetist, Certified Registered
DX: B02.8 Zoster with other complications (principal); M79.18 Myalgia, other site; B02.22 Postherpetic trigeminal neuralgia
CPT/HCPCS: 20552; 82962; 96523; 99212; G0463; J1010; J1642

== ENCOUNTER 2025-01-05 08:42 | Outpatient (CLI) | payer MEDICARE, SELFPAY ==
--- OUTSIDE RECORDS SUMMARY | 2024-12-15 15:00 | XMS_ITS | Encounter Summary ---
Author Organization [facility] Address [address] [place] [address] Care Team Providers Care Glove Maker Name Role Phone Mali Rivera INJURY/SAFETY HAZARD ASSESSMENT Primary Care Provider [phone] Cindi Shepherd RN Unavailable Unavailab Gema Lee RN Unavailable Unavailable Shraddha Paulson INJURY/SAFETY HAZARD ASSESSMENT Unavailable [phone] Shannan Oropeza RN Unavailable Unavailable Anibal Leahy MD Unavailable Harry Logan MD Unavailable [phone] Slime Clark RN Unavailable Unavailable Violette Ray Unavailable Unavaillucero e Reason for Visit * Reason Comments Depression Declines mammogram , declines colonoscopy Encounter Details Date Type Department Care Team (Late st Contact Info) Description 12/15/2024 3:00 PM EDT Office Visit [facility] [address] [place] [address] Mali Rivera, INJURY/SAFETY HAZARD ASSESSMENT [address] [place] [address] Severe episode of recurrent major depressive disorder, without psychotic features (CMS/HCC) (Primary Dx); Drug-induced insomnia (CMS/HCC) Social History Tobacco Use Types Packs/Day Years Used Date Smoking Tobacco: Former Cigarettes 0.5 10 1 998 - 2007 Passive Smoke Exposure: Past Smokeless Tobacco: Never Alcohol Use Standard Drinks/Week Comments Not Currently 0 (1 standard drink = 0.6 oz pur e alcohol) Social Social Connection and Isolation Panel Answer Date Recorded In a typical week, how many times do you talk on the phone with family, friends, or neighbors? More than three times a week 11/10/2023 How often do you get togethe r with friends or relatives? More than three times a week 11/10/2023 How often do you attend chur ch or rastafari services? More than 4 times per year 11/10/2023 Do you belong to any clubs o r organizations such as presybeterian groups, unions, fraternal or athletic groups, or school groups? Yes 11/10/2023 How often do you attend meet ings of the clubs or organizations you belong to? More than 4 times per year 11/10/2023 Are you , , di vorced, , never , or living with a partner? 11/10/2023 AUDIT-C Answer Date Recorded Q1: How often do you have a drink containing alcohol? Never 11/10/2023 Q2: How many drinks containi ng alcohol do you have on a typical day when you are drinking? Patient does not drink Q3: How often do you have si x or more drinks on one occasion? Never 11/10/2023 Overall Financial Resource Strain (CARDIA) Answe r Date Recorded How hard is it for you to pa y for the very basics like food, housing, medical care, and heating? Somewhat hard 01/02/2024 PHQ-2 Answer Date Recorded Patient Health Questionnaire-2 Score 6 12/15/2024 [facility] - Occupational Stress Questionnaire Answer Date Recorded Do you feel stress - tense, restless, nervous, or anxious, or unable to sleep at night because your mind is troubled all the time - these days? Not at all 11/10/2023 Exercise Vital Sign Answer Date Recorde d On average, how many days pe r week do you engage in moderate to strenuous exercise (like a brisk walk)? 0 days 11/10/2023 On average, how many minutes do you engage in exercise at this level? 0 min 11/10/2023 PHQ-9 Answer Date Recorded Patient Health Questionnaire-9 Score 18 12/15/2024 Humiliation, Afraid, Rape, and Kick questionnair e Answer Date Recorded Within the last year, have y ou been afraid of your partner or ex-partner? No 12/15/2024 Within the last year, have y ou been humiliated or emotionally abused in other ways by your partner or ex-partner? No Within the last year, have y ou been kicked, hit, slapped, or otherwise physically hurt by your partner or ex-partner? No 12/15/2024 Within the last year, have y ou been raped or forced to have any kind of sexual activity by your partner or ex-partner? No 12/15/2024 AUDIT-C Answer Date Recorded Q1: How often do you have a drink containing alcohol? Never 12/15/2024 Q2: How many drinks containi ng alcohol do you have on a typical day when you are drinking? Patient does not drink Q3: How often do you have si x or more drinks on one occasion? Never 12/15/2024 Hunger Vital Sign Answer Date Recorded Within the past 12 months, y ou worried that your food would run out before you got the money to buy more. Never true 12/16/19 25 Within the past 12 months, t he food you bought just didn't last and you didn't have money to get more. Never true 12/15/2024 [facility] - Transportation Answer Date Re corded In the past 12 months, has l ack of transportation kept you from medical appointments or from getting medications? No 11/20 In the past 12 months, has l ack of transportation kept you from meetings, work, or from getting things needed for daily living? No 12/15/2024 Housing Stability Vital Sign Answer Vipul e Recorded In the last 12 months, was t here a time when you were not able to pay the mortgage or rent on time? No 12/15/2024 In the past 12 months, how m any times have you moved where you were living? 0 12/15/2024 At any time in the past 12 m [facility], were you homeless or living in a skilled nursing (including now)? No 12/15/2024 [facility] Utilities Answer Date Recorded In the past 12 months has th e [employer], gas, oil, or water company threatened to shut off services in your home? No 12/15/2024 Safety and Environment Answer Date Bradly rded Do you worry that your child may have been physically abused? No 03/31/2024 Do you worry that your child may have been sexua lly abused? No 03/31/2024 Are there any guns kept in o r around your home or where your child spends time? No 03/31/2024 Guns Unloaded or Locked Away Not on file 02/2024 PHQ-2A Answer Date Recorded Patient Health Questionnaire-2 Score 2 12/11/2022 Comments No Sex and Gender Information Value Date Recorded Sex Assigned at Not on file Legal Sex Female 8:46 PM EDT Gender Identity Not on file Sexual Orientation Not on file documented as of this encounter Last Filed Vital Signs Vital Sign Reading Time Taken Comments Blood Pressure 112/64 12/15/2024 2:49 PM EDT Pulse 84 12/15/2024 2:49 PM EDT Temperature 37.4 C (99.3 F) 12/15/2024 2:49 PM EDT Respiratory Rate 18 12/15/2024 2:49 PM EDT Oxygen Saturation 95% 12/15/2024 2:49 PM EDT Inhaled Oxygen Concentration - - Weight 132 kg (290 lb) 12/15/2024 2:49 PM EDT Height 165.1 cm (5' 5 ) 12/15/2024 2:49 PM EDT Body Mass Index 48.26 12/15/2024 2:49 PM EDT documented in this encounter Functional Status * AUDIT-C Score Answer Date of Assessment Author 0 12/15/2024 2:53 PM EDT Simran Haley * Question Answer Date of Assessment Author Q1: How often do you have a drink containing alcohol? Never 12/15/2024 2:53 PM EDT Simran Haley Q2: How many drinks containing alcohol do you have on a typical day when you are drinking? Patient does not drink 12/15/2024 2:53 PM EDT Simran Haley Q3: How often do you have six or more drinks on one occasion? Never 12/15/2024 2:53 PM EDT Simran Haley * Over the past 2 weeks, how often have you been bothered by any of the following problems? Question Answer Date of Assessment Author Little interest or pleasure in doing things Nearly every day 12/15/2024 3:01 PM Simran Han Feeling down, depressed, or hopeless Nearly every day 12/15/2024 3:01 PM Simran aHn Patient Health Questionnaire-2 Score 6 12/15/2024 3:01 PM Simran Han * Question Answer Date of Assessment Author Trouble falling or staying asleep, or sleeping too much More than half the days 12/15/2024 3:01 PM Simran Han Feeling tired or having little energy Nearly every day 12/15/2024 3:01 PM Simran Han Poor appetite or overeating Nearly every day 12/15/2024 3:01 PM Simran Han Feeling bad about yourself - or that you are a failure or have let yourself or your family down Several days 12/15/2024 3:01 PM Simran Han Trouble concentrating on things, such as reading the newspaper or watching television More than half the days 12/15/2024 3:01 PM Simran Han Moving or speaking so slowly that other people could have noticed? Or the opposite - being so fidgety or restless that you have been moving around a lot more than usual. Several days 12/15/2024 3:01 PM Simran Han Thoughts that you would be better off or hurting yourself in some way Not at all 12/15/2024 3:01 PM Simran Han Patient Health Questionnaire-9 Score 18 12/15/2024 3:01 PM Simran Han * If you checked off any problems on this questionnaire so far, Question Answer Date of Assessment Author How difficult have these problems made it for you to do your work, take care of things at home, or get along with other people? Somewhat difficult 12/15/2024 3:01 PM Michael Han * How difficult have these problems made it for you to do your work, take care of things at home, or get along with other people? Answer Date of Assessment Author Somewhat difficult 12/15/2024 3:01 PM EDT Simran Dinh documented as of this encounter Miscellaneous Notes * Progress Notes - Mali Rivera, INJURY/SAFETY HAZARD ASSESSMENT - 12/15/2024 3:00 PM EDT Subjective Patient ID: Shannon Dale is a 59 y.o. female. History of Present Illness The patient presents for evaluation of depression and sleep issues. 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 She is currently on Wellbutrin 300 mg, Prozac 40 mg, and Abilify 10 mg, but these medications do not seem to alleviate her symptoms. She is not currently experiencing suicidal thoughts. Her sleep quality is poor, and she is not taking any medication to address this issue. She has been experiencing hoarseness in her voice since this morning, which she believes may be dueto allergies. HPI Review of Systems Constitutional: Positive for fatigue. Respiratory: Negative. Cardiovascular: Negative. Neurological: Negative. Psychiatric/Behavioral: Positive for decreased concentration and sleep disturbance. Objective Visit Vitals BP 112/64 (BP Location: Left arm, Patient Position: Sitting, BP Cuff Size: Adult) Pulse 84 Temp 37.4 ??C (99.3 ??F) (Oral) Ht 1.651 m (5' 5 ) Wt 132 kg (290 lb) SpO2 95% BMI 48.26 kg/m?? Physical Exam Vitals and nursing note reviewed. Constitutional: Appearance: She is obese. Cardiovascular: Rate and Rhythm: Normal rate and regular rhythm. Pulses: Normal pulses. Heart sounds: Normal heart sounds. Pulmonary: Effort: Pulmonary effort is normal. Breath sounds: Normal breath sounds. Neurological: General: No focal deficit present. Mental Status: She is alert and oriented to person, place, and time. Psychiatric: Mood and Affect: Mood normal. Behavior: Behavior normal. Thought Content: Thought content normal. Judgment: Judgment normal. Physical Exam General: Appears distressed. Mouth/Throat: Hoarse voice, vocal cords inflamed. Results Assessment/Plan Assessment & Plan 1. Moderate depressive episode: - Symptoms persist despite being on Wellbutrin 300 mg, Prozac 40 mg, and Abilify 10 mg. - Referral to a psychiatrist for further evaluation and potential adjustment of medication regimen.A list of psychiatrists who offer telehealth visits, including those at [facility] and [facility], will be provided. She is advised to check with her insurance for coverage options. 2. Sleep issues: - Trazodone will be added to her current regimen to help improve sleep quality. She is advised to take trazodone at bedtime until she sees the psychiatrist. 3. Hoarseness: - Vocal cords are inflamed, but it is unclear whether this is due to drainage or allergies. Occurs only occasionally. Verbal consent was obtained to use ambient listening technology to assist in the documentation of the encounter: yes documented in this encounter Plan of Treatment Upcoming Encounters Date Type Department Care Team (Late st Contact Info) Description 01/20/2025 8:00 AM EDT Office Visit [facility] [place] [address] [place] [address] Harry Villar MD [address] [place] [address] documented as of this encounter Visit Diagnoses Diagnosis Severe episode of recurrent major depressive disorder, without psychotic features (CMS/HCC)- Primary Drug-induced insomnia (CMS/HCC) documented in this encounter Additional Health Concerns Assessment Noted Time PHQ-9 Depression Total Score: 18 025 3:01 PM EDT A fall risk assessment has been complete d for the patient 11/11/2023 10:52 AM EDT A Body Mass Index follow-up plan has been documented for the patient 12/15/2024 3:16 PM EDT documented as of this encounter Care Teams Glove Maker Relationship Specialty Start Date End Date Mali Rivera APRN [address] [place] [address] PCP - General 09/01/20 Cindi Shepherd RN [facility] Registered Nurse Cardiology 11/05/21 Gema Walter RN [facility] Registered Nurse Cardiology 11/21/21 Shraddha Paulson APRN [address] [place] [address] Nurse Practitioner Internal Medicine 11/21/21 Shannan Oropeza, RN [facility] Registered Nurse 01/14/22 Anibal Leahy MD [address] [place] [address] Consulting Physician Pediatric Cardiology 02/21/22 Harry Logan MD [address] [place] [address] Consulting Physician Cardiology 07/02/22 Slime Clark, [place] [address] Registered Nurse Cardiology 04/17/23 Violette Ray Clinical Continuity Tester 12/07/24 documented as of this encounter
--- OUTSIDE RECORDS SUMMARY | 2025-01-05 09:07 | XMS_ITS | Encounter Summary ---
Author Organization [facility] Address [address] [place] [address] Care Team Providers Care Publication Designer Name Role Phone Mali Rivera APRN Primary Care Provider [phone] Cindi Shepherd RN Unavailable Unavailab Gema Lee RN Unavailable Unavailable Shraddha Paulson APRN Unavailable [phone] Shannan Oropeza RN Unavailable Unavailable Anibal Leahy MD Unavailable Harry Logan MD Unavailable [phone] Slime Clark RN Unavailable Unavailable Reason for Visit * Reason Comments Med Refill Encounter Details Date Type Department Care Team (Late st Contact Info) Description 12/03/2024 Refill [facility] [address] [place] [address] Mali Rivera APRN [address] [place] [address] Social History Tobacco Use Types Packs/Day Years Used Date Smoking Tobacco: Former Cigarettes 0.5 10 1 - 2007 Passive Smoke Exposure: Past Smokeless [...] 11/10/2023 How often do you attend chur or anabaptist services? More than 4 times per year 11/10/2023 Do you belong to any clubs o r organizations such as nondenominational groups, unions, fraternal or athletic groups, or [...] Answer Date Recorded Patient Health Questionnaire-2 Score 0 03/31/2024 [facility] - Occupational Stress Questionnaire Answer Date Recorded [...] Answer Date Recorded Patient Health Questionnaire-9 Score 0 03/31/2024 Humiliation, Afraid, Rape, and Kick questionnair e Answer Date Recorded Within the last year, have y ou been afraid of your partner or ex-partner? No 09/30/2024 Within the last year, have y ou been humiliated or emotionally abused in other ways by your partner or ex-partner? No Within the last year, have y ou been kicked, hit, slapped, or otherwise physically hurt by your partner or ex-partner? No 09/30/2024 Within the last year, have y ou been raped or forced to have any kind of sexual activity by your partner or ex-partner? No 09/30/2024 Hunger Vital Sign Answer Date Recorded Within the past 12 months, y ou worried that your food would run out before you got the money to buy more. Never true 10/01/19 25 Within the past 12 months, t he food you bought just didn't last and you didn't have money to get more. Never true 09/30/2024 PRAPARE - Transportation Answer Date Re corded In the past 12 months, has l ack of transportation kept you from medical appointments or from getting medications? No 09/19 In the past 12 months, has l ack of transportation kept you from meetings, work, or from getting things needed for daily living? No 09/30/2024 Housing Stability Vital Sign Answer Vipul e Recorded In the last 12 months, was t here a time when you were not able to pay the mortgage or rent on time? No 09/30/2024 In the past 12 months, how m any times have you moved where you were living? 1 09/30/2024 At any time in the past 12 m [facility], were you homeless or living in a half-way (including now)? No 09/30/2024 Safety and Environment Answer Date Bradly rded Do you worry that your child may have been physically abused? No 03/31/2024 Do you worry that your child may have been sexua lly abused? No 03/31/2024 Are there any guns kept in o r around your home or where your child spends time? No 03/31/2024 Guns Unloaded or Locked Away Not on file 02/2024 Utilities Answer Date Recorded In the past 12 months has th e electric, gas, oil, or water company threatened to shut off services in your home? No 09/30/2024 PHQ-2A Answer Date Recorded Patient Health Questionnaire-2 Score 2 12/11/2022 Comments No Sex and Gender Information Value Date Recorded Sex Assigned at Not on file Legal Sex Female 8:46 PM EDT Gender Identity Not on file Sexual Orientation Not on file documented as of this encounter Miscellaneous Notes * Telephone Encounter - Cecile Rodriguez, PharmD - 12/06/2024 1:54 PM EDT 1 medication(s) has been approved per protocol. documented in this encounter Plan of Treatment Upcoming Encounters Date Type Department Care Team (Late st Contact Info) Description 01/20/2025 8:00 AM EDT Office Visit [facility] [place] [address] [facility] [place] [address] Harry Villar MD [address] [place] [address] documented as of this encounter Visit Diagnoses Not on filedocumented in this encounter Additional Health Concerns Assessment Noted Time PHQ-9 Depression Total Score: 0 03/31/20 24 10:59 AM EST A fall risk assessment has been complete d for the patient 11/11/2023 10:52 AM EDT A Body Mass Index follow-up plan has been documented for the patient 03/31/2024 11:51 AM EST documented as of this encounter Care Teams Publication Designer Relationship Specialty Start Date End Date Mali Rivera APRN [address] [place] [address] PCP - General 09/01/20 Cindi Shpeherd, RN [facility] Registered Nurse Cardiology 11/05/21 Gema Walter, RN [facility] Registered Nurse Cardiology 11/21/21 Shraddha Paulson APRN [address] [place] [phone] Nurse Practitioner Internal Medicine 11/21/21 Shannan Oropeza RN [facility] Registered Nurse 01/14/22 Anibal Leahy MD [address] [place] [address] Consulting Physician Pediatric Cardiology 02/21/22 Harry Logan MD [address] [place] [address] Consulting Physician Cardiology 07/02/22 Slime Clark, [place] [address] Registered Nurse Cardiology 04/17/23 documented as of this encounter
--- OUTSIDE RECORDS SUMMARY | 2025-01-05 09:07 | XMS_ITS | Encounter Summary ---
Author Organization [facility] Address [address] [place] [address] Care Team Providers Care Ecosystem Ecology Professor Name Role Phone Mali Rivera ERIC Primary Care Provider [phone] Cindi Shepherd RN Unavailable Unavailab Gema Lee RN Unavailable Unavailable Shraddha Paulson APRN Unavailable [phone] Shannan Oropeza RN Unavailable Unavailable Anibal Leahy MD Unavailable Harry Logan MD Unavailable [phone] Slime Clark RN Unavailable Unavailable Reason for Visit * Reason Comments Med Refill Encounter Details Date Type Department Care Team (Late st Contact Info) Description 11/25/2024 Refill [facility] [place] [address] [facility] [place] [address] Harry Villar MD [address] [place] [address] Hyperlipidemia, unspecified hyperlipidemia type Social History Tobacco Use Types Packs/Day Years [...] How often do you attend chur or protestant services? More than 4 times per year 11/10/2023 Do you belong to any clubs o r organizations such as druze groups, unions, fraternal or athletic groups, or [...] Recorded Patient Health Questionnaire-2 Score 0 03/31/2024 [facility] [place] [facility] - Occupational Stress [...] any time in the past 12 m [facility], were you homeless or living in a nursing home (including now)? No 09/30/2024 Safety and Environment [...] encounter Miscellaneous Notes * Telephone Encounter - Samantha Cordova - 11/30/2024 10:20 AM EDT Patient scheduled for 01/20/25 at 8 am. 1 month supply sent. documented in this encounter Plan of Treatment Upcoming Encounters Date Type Department Care Team (Late st Contact Info) Description 01/20/2025 8:00 AM EDT Office Visit [facility] [place] [address] [facility] [place] [address] Harry Villar MD [address] [place] [phone] documented as of this encounter Visit Diagnoses Diagnosis Hyperlipidemia, unspecified hyperlipidemia type documented in this encounter Additional Health Concerns Assessment Noted Time PHQ-9 Depression Total Score: 0 03/31/20 24 10:59 AM EST A fall risk assessment has been complete d for the patient 11/11/2023 10:52 AM EDT A Body Mass Index follow-up plan has been documented for the patient 03/31/2024 11:51 AM EST documented as of this encounter Care Teams Ecosystem Ecology Professor Relationship Specialty Start Date End Date Mali Rivera APRN [address] [place] [address] PCP - General 09/01/20 Cindi Shepherd, RN [facility] Registered Nurse Cardiology 11/05/21 Gema Walter, RN [facility] Registered Nurse Cardiology 11/21/21 Shraddha Paulson APRN [address] [place] [phone] Nurse Practitioner Internal Medicine 11/21/21 Shannan Oropeza, RN [facility] Registered Nurse 01/14/22 Anibal Leahy MD [address] [place] [address] Consulting Physician Pediatric Cardiology 02/21/22 Harry Logan MD [address] [place] [address] Consulting Physician Cardiology 07/02/22 [place] [address] Registered Nurse Cardiology 04/17/23 documented as of this encounter
--- OUTSIDE RECORDS SUMMARY | 2025-01-05 09:07 | XMS_ITS | Encounter Summary ---
Author Organization [facility] Address [address] [place] [address] Care Team Providers Care Diffuser Operator Name Role Phone Mali Rivera RADIO MECHANIC APPRENTICE Primary Care Provider [phone] Cindi Shepherd RN Unavailable Unavailab Gema Lee RN Unavailable Unavailable Shraddha Paulson RADIO MECHANIC APPRENTICE Unavailable [phone] Shannan Oropeza RN Unavailable Unavailable Anibal Leahy MD Unavailable Harry Logan MD Unavailable [phone] Slime Clark RN Unavailable Unavailable Violette Ray Unavailable Unavailabl e Reason for Visit * Reason Comments Med Refill Encounter Details Date Type Department Care Team (Late st Contact Info) Description 08/17/2024 Refill [facility] [address] [place] [address] Evangelina Bello, RADIO MECHANIC APPRENTICE [address] [place] [address] Social History Tobacco Use Types Packs/Day Years Used Date Smoking Tobacco: Former Cigarettes 0.5 10 1 998 - 2007 Passive Smoke Exposure: Past Smokeless Tobacco: Never Alcohol Use Standard Drinks/Week Comments Not Currently 0 (1 standard drink = 0.6 oz pur e alcohol) Social Humiliation, Afraid, Rape, and Kick questionnair e Answer Date Recorded Within the last year, have y ou been afraid of your partner or ex-partner? No 03/31/2024 Within the last year, have y ou been humiliated or emotionally abused in other ways by your partner or ex-partner? No Within the last year, have y ou been kicked, hit, slapped, or otherwise physically hurt by your partner or ex-partner? No 03/31/2024 Within the last year, have y ou been raped or forced to have any kind of sexual activity by your partner or ex-partner? No 03/31/2024 Social Connection and Isolation Panel Answer Date Recorded In a typical week, how many times do you talk on the phone with family, friends, or neighbors? More than three times a week 11/10/2023 How often do you get togethe r with friends or relatives? More than three times a week 11/10/2023 How often do you attend chur or roman catholic services? More than 4 times per year 11/10/2023 Do you belong to any clubs o r organizations such as cheondoism groups, unions, fraternal or athletic groups, or [...] Recorded Patient Health Questionnaire-2 Score 0 03/31/2024 [facility] - Occupational Stress Questionnaire Answer Date Recorded [...] exercise at this level? 0 min 11/10/2023 Hunger Vital Sign Answer Date Recorded Within the past 12 months, y ou worried that your food would run out before you got the money to buy more. Never true 03/31/20 24 Within the past 12 months, t he food you bought just didn't last and you didn't have money to get more. Never true 03/31/2024 PRAPARE - Transportation Answer Date Re corded In the past 12 months, has l ack of transportation kept you from medical appointments or from getting medications? No 03/21 In the past 12 months, has l ack of transportation kept you from meetings, work, or from getting things needed for daily living? No 03/31/2024 Housing Stability Vital Sign Answer Vipul e Recorded In the last 12 months, was t here a time when you were not able to pay the mortgage or rent on time? No 11/10/2023 In the last 12 months, how many places have you lived? 1 11/10/2023 In the last 12 months, was t here a time when you did not have a steady place to sleep or slept in a snf (including now)? No 11/10/2023 PHQ-9 Answer Date Recorded Patient Health Questionnaire-9 Score 0 03/31/2024 Housing Stability Vital Sign Answer Vipul e Recorded In the last 12 months, was t here a time when you were not able to pay the mortgage or rent on time? No 03/31/2024 In the past 12 months, how m any times have you moved where you were living? 1 03/31/2024 At any time in the past [address] [facility], were you homeless or living in a snf (including now)? No 03/31/2024 Safety and Environment Answer Date Bradly rded [...] shut off services in your home? No 03/31/2024 PHQ-2A Answer Date Recorded Patient Health Questionnaire-2 Score 2 12/11/2022 Comments No Sex and Gender Information Value Date Recorded Sex Assigned at Not on file Legal Sex Female 8:46 PM EDT Gender Identity Not on file Sexual Orientation Not on file documented as of this encounter Plan of Treatment Upcoming Encounters Date Type Department Care Team (Late st Contact Info) Description 01/20/2025 8:00 AM EDT Office Visit [facility] [place] [address] [facility] [place] [address] Harry Villar MD [address] [place] [address] documented as of this encounter Visit Diagnoses Not on filedocumented in this encounter Additional Health Concerns Assessment Noted Time PHQ-9 Depression Total Score: 0 03/31/20 10:59 AM EST A fall risk assessment has been complete d for the patient 11/11/2023 10:52 AM EDT A Body Mass Index follow-up plan has been documented for the patient 03/31/2024 11:51 AM EST documented as of this encounter Care Teams Diffuser Operator Relationship Specialty Start Date End Date Mali Rivera APRN [address] [place] [phone] PCP - General 09/01/20 Cindi Shepherd, RN [facility] Registered Nurse Cardiology 11/05/21 Gema Walter RN [facility] Registered Nurse Cardiology 11/21/21 Shraddha Paulson APRN [address] [place] [address] Nurse Practitioner Internal Medicine 11/21/21 Shannan Oropeza, [facility] Registered Nurse 01/14/22 Anibal Leahy MD [address] [place] [address] Consulting Physician Pediatric Cardiology 02/21/22 Harry Logan MD [address] [place] [address] Consulting Physician Cardiology 07/02/22 Slime Clark, [place] [address] Registered Nurse Cardiology 04/17/23 Violette Ray Clinical Site Specialist 12/07/24 documented as of this encounter
--- OUTSIDE RECORDS SUMMARY | 2025-01-05 09:07 | XMS_ITS | Encounter Summary ---
Author Organization [facility] Address [address] [place] [address] Care Team Providers Care Packaging Clerk Name Role Phone Mali Rivera Liz REYES Primary Care Provider [phone] Cindi Shepherd RN Unavailable Unavailab Gema Lee RN Unavailable Unavailable Shraddha Paulson APRN Unavailable [phone] Shannan Oropeza RN Unavailable Unavailable Anibal Leahy MD Unavailable Harry Logan MD Unavailable [phone] Slime Clark RN Unavailable Unavailable Reason for Visit * Reason Comments Med Refill Encounter Details Date Type Department Care Team (Late st Contact Info) Description 11/30/2024 Refill [facility] [place] [address] [facility] [place] [address] Harry Villar MD [address] [place] [address] Social History Tobacco Use Types Packs/Day Years [...] How often do you attend chur or religion services? More than 4 times per year 11/10/2023 Do you belong to any clubs o r organizations such as faith groups, unions, fraternal or athletic groups, or [...] Recorded Patient Health Questionnaire-2 Score 0 03/31/2024 [facility] of Occupat ional [facility] - Occupational Stress Questionnaire Answer Date Recorded [...] any time in the past [address] [facility], were you homeless or living in a custodial (including now)? No 09/30/2024 Safety and Environment [...] Description 01/20/2025 8:00 AM EDT Office Visit [facility] [place] [address] [facility] [place] [address] Harry Villar MD [address] [place] [address] documented as of this encounter [...] documented as of this encounter Care Teams Packaging Clerk Relationship Specialty Start Date End Date Mali Rivera, LOCAL DRIVER [address] [place] [address] PCP - General 09/01/20 Cindi Shepherd RN [facility] Registered Nurse Cardiology 11/05/21 Gema Walter RN [facility] Registered Nurse Cardiology 11/21/21 Shraddha Paulson, LOCAL DRIVER [address] [place] [address] Nurse Practitioner Internal Medicine 11/21/21 Shannan Oropeza RN [facility] Registered Nurse 01/14/22 Anibal Leahy MD [address] [place] [address] Consulting Physician Pediatric Cardiology 02/21/22 Harry Logna MD [address] [place] [address] Consulting Physician Cardiology 07/02/22 Slime Clark, [place] [address] Registered Nurse Cardiology 04/17/23 documented as of this encounter
--- OUTSIDE RECORDS SUMMARY | 2025-01-05 09:07 | XMS_ITS | Encounter Summary ---
Author Organization [facility] Address [address] [place] [address] Care Team Providers Care [employer] Division Manager Name Role Phone Mali Rivera EMERGENCY MANAGEMENT CONSULTANT Primary Care Provider [phone] Cindi Shepherd RN Unavailable Unavailab Gema Lee RN Unavailable Unavailable Shraddha Paulson EMERGENCY MANAGEMENT CONSULTANT Unavailable [phone] Shannan Oropeza RN Unavailable Unavailable Anibal Leahy MD Unavailable Harry Logan MD Unavailable [phone] Slime Clark RN Unavailable Unavailable Violette Ray Unavailable Unavaillucero e Reason for Visit * Reason Comments Med Refill Encounter Details Date Type Department Care Team (Late st Contact Info) Description 12/25/2024 Refill [facility] [address] [place] [address] Mali Rivera, EMERGENCY MANAGEMENT CONSULTANT [address] [place] [address] Social History Tobacco Use Types [...] How often do you attend chur or scientology services? More than 4 times per year 11/10/2023 Do you belong to any clubs o r organizations such as sikhism groups, unions, fraternal or athletic groups, or [...] Recorded Patient Health Questionnaire-2 Score 6 12/15/2024 [facility] - Occupational [...] any time in the past 12 m [facility], were you homeless or living in a detention (including now)? No 12/15/2024 [facility] Utilities Answer Date Recorded In the [...] encounter Miscellaneous Notes * Telephone Encounter - Marce Gonzalez RP - 12/25/2024 3:43 PM EDT 1 medication(s) has been approved per protocol. documented in this encounter Plan of Treatment Upcoming Encounters Date Type Department Care Team (Late st Contact Info) Description 01/20/2025 8:00 AM EDT Office Visit [facility] [place] [address] [facility] [place] [address] Harry Villar MD [address] [place] [address] documented as of this encounter [...] documented as of this encounter Care Teams [employer] Division Manager Relationship Specialty Start Date End Date Mali Rivera APRN [address] [place] [phone] PCP - General 09/01/20 Cindi Shepherd RN [facility] Registered Nurse Cardiology 11/05/21 Gema Walter, RN [facility] Registered Nurse Cardiology 11/21/21 Shraddha Paulson APRN [address] [place] [address] Nurse Practitioner Internal Medicine 11/21/21 Shannan Oropeza RN [facility] Registered Nurse 01/14/22 Anibal Leahy MD [address] [place] [address] Consulting Physician Pediatric Cardiology 02/21/22 Harry Logan MD [address] [place] [address] Consulting Physician Cardiology 07/02/22 Slime Clark, [place] [address] Registered Nurse Cardiology 04/17/23 Violette Ray Clinical Manager Administration 12/07/24 documented as of this encounter
--- OUTSIDE RECORDS SUMMARY | 2025-01-05 09:07 | XMS_ITS | Encounter Summary ---
Author Organization [facility] Address [address] [place] [address] Care Team Providers Care Light Industrial Name Role Phone Mali Rivera VFX ARTIST Primary Care Provider [phone] Cindi Shepherd RN Unavailable Unavailab Gema Lee RN Unavailable Unavailable Shraddha Paulson VFX ARTIST Unavailable [phone] Shannan Oropeza RN Unavailable Unavailable Anibal Leahy MD Unavailable Harry Logan MD Unavailable [phone] Slime Clark RN Unavailable Unavailable Violette Ray Unavailable Unavailabl e Reason for Visit * Reason Comments Med Refill Encounter Details Date Type Department Care Team (Late st Contact Info) Description 08/17/2024 [facility]ill [facility] [address] [place] [address] Mali Rivera, VFX ARTIST [address] [place] [address] Depression, unspecified depression type Social History Tobacco Use Types Packs/Day [...] week 11/10/2023 How often do you attend [facility] or orthodoxy services? More than 4 times per year 11/10/2023 Do you belong to any clubs o r organizations such as holiness groups, unions, fraternal or athletic groups, or [...] Recorded Patient Health Questionnaire-2 Score 0 03/31/2024 [facility] - Occupational Stress Questionnaire Answer Date [...] place to sleep or slept in a halfway (including now)? No 11/10/2023 PHQ-9 Answer Date [...] any time in the past 12 m [facility], were you homeless or living in a halfway (including now)? No 03/31/2024 Safety and Environment [...] encounter Miscellaneous Notes * Telephone Encounter - Mikayla Castañeda, PharmD - 08/19/2024 9:58 AM EDT 1 medication(s) has been approved per protocol. documented in this encounter Plan of Treatment Upcoming Encounters Date Type Department Care Team (Late st Contact Info) Description 01/20/2025 8:00 AM EDT Office Visit [facility] [place] [address] [facility] [place] [address] Harry Villar MD [address] [place] [address] documented as of this encounter Visit Diagnoses Diagnosis Depression, unspecified depression type documented in this encounter Additional Health Concerns Assessment Noted Time PHQ-9 Depression Total Score: 0 03/31/20 10:59 AM EST A fall risk assessment has been complete d for the patient 11/11/2023 10:52 AM EDT A Body Mass Index follow-up plan has been documented for the patient 03/31/2024 11:51 AM EST documented as of this encounter Care Teams Light Industrial Relationship Specialty Start Date End Date Mali Rivera APRN [address] [place] [address] [place] [address] PCP - General 09/01/20 Cindi Shepherd, RN [facility] Registered Nurse Cardiology 11/05/21 Gema Walter, RN [facility] Registered Nurse Cardiology 11/21/21 Shraddha Paulson APRN [address] [place] [address] Nurse Practitioner Internal Medicine 11/21/21 Shannan Oropeza, RN [facility] Registered Nurse 01/14/22 Anibal Leahy MD [address] [place] [address] Consulting Physician Pediatric Cardiology 02/21/22 Harry Logan MD [address] [place] [address] Consulting Physician Cardiology 07/02/22 Slime Clark, [place] [address] Registered Nurse Cardiology 04/17/23 Violette Ray Clinical Optomechanical Technician 12/07/24 documented as of this encounter
--- OUTSIDE RECORDS SUMMARY | 2025-01-05 09:07 | XMS_ITS | Encounter Summary ---
Author Organization [facility] Address [address] [place] [address] Care Team Providers Care Mcat Tutor Name Role Phone Mali Rivera ERIC Primary Care Provider [phone] Cindi Shepherd RN Unavailable Unavailab Gema Lee RN Unavailable Unavailable Shraddha Paulson APRN Unavailable [phone] Shannan Oropeza RN Unavailable Unavailable Anibal Leahy MD Unavailable Harry Logan MD Unavailable [phone] Slime Clark RN Unavailable Unavailable Violette Ray Unavailable Unavailabl e Reason for Visit * Reason Onset Date Comments Medication Therapy Management 12/23/2024 Encounter Details Date Type Department Care Team (Late st Contact Info) Description 12/23/2024 Telephone [facility] [address] [place] [address] Lissette Fay, [place] [address] Medication Therapy Management Social History Tobacco Use Types Packs/Day Years Used Date Smoking Tobacco: Former Cigarettes 0.5 10 1 8 - 2007 Passive Smoke Exposure: Past Smokeless [...] any clubs o r organizations such as judaism groups, unions, fraternal or athletic groups, or [...] Recorded Patient Health Questionnaire-2 Score 6 12/15/2024 [facility] Occupat ional Health - Occupational [...] any time in the past [address] [facility], were you homeless or living in a fci (including now)? No 12/15/2024 [facility] Utilities Answer Date Recorded In the past [...] encounter Miscellaneous Notes * Telephone Encounter - Lissette Fay, PharmD - 01/04/2025 9:08 AM EDT Medication Therapy Management team attempted to reach Patient, however unable to reach patient after 3 attempts MT Platform: [place] Adherence documented in this encounter Plan of Treatment Upcoming Encounters Date Type Department Care Team (Late st Contact Info) Description 01/20/2025 8:00 AM EDT Office Visit [facility] [place] [address] [facility] [place] [address] Harry Villar MD [address] [place] [address] documented as of this encounter [...] documented as of this encounter Care Teams Mcat Tutor Relationship Specialty Start Date End Date Mali Rivera [place]N [facility] [place] [phone] PCP - General 09/01/20 Cindi Shepherd RN [facility] Registered Nurse Cardiology 11/05/21 Gema Walter, RN [facility] Registered Nurse Cardiology 11/21/21 Shraddha Paulson APRN [address] [place] [address] Nurse Practitioner Internal Medicine 11/21/21 hSannan Oropeza RN [facility] Registered Nurse 01/14/22 Anibal Leahy MD [address] [place] [address] Consulting Physician Pediatric Cardiology 02/21/22 Harry Logan MD [address] [place] [address] Consulting Physician Cardiology 07/02/22 Slime Clark, [place] [address] Registered Nurse Cardiology 04/17/23 Violette Ray Clinical Network Associate 12/07/24 documented as of this encounter
--- OUTSIDE RECORDS SUMMARY | 2025-01-05 09:07 | XMS_ITS | Encounter Summary ---
Author Organization [facility] Address [address] [place] [address] Care Team Providers Care Purification Director Name Role Phone Mali Rivera SET DESIGNER Primary Care Provider [phone] Cindi Shepherd RN Unavailable Unavailab Gema Lee RN Unavailable Unavailable Shraddha Paulson SET DESIGNER Unavailable [phone] Shannan Oropeza RN Unavailable Unavailable Anibal Leahy MD Unavailable Harry Logan MD Unavailable [phone] Slime Clark RN Unavailable Unavailable Mellisa Byrnes LPN Unavailable Unavailab Violette Caraballo Unavailable Unavailabl e Reason for Visit * Reason Comments Med Refill Encounter Details Date Type Department Care Team (Late st Contact Info) Description 02/05/2023 Refill [facility] [place] [address] [facility] [place] [address] Harry Villar MD [address] [place] [phone] Hyperlipidemia, unspecified hyperlipidemia type Social History Tobacco Use Types Packs/Day Years Used Date Smoking Tobacco: Former Cigarettes 0.5 10 - 2007 Passive Smoke Exposure: Past Smokeless Tobacco: Never Alcohol Use Standard Drinks/Week Comments Not Currently 0 (1 standard drink = 0.6 oz pur e alcohol) Social PHQ-2 Answer Date Recorded Patient Health Questionnaire-2 Score 2 12/11/2022 PHQ-9 Answer Date Recorded Patient Health Questionnaire-9 Score 16 12/09/2022 PHQ-2A Answer Date Recorded Patient Health Questionnaire-2 [...] Description 01/20/2025 8:00 AM EDT Office Visit [facility] [place] [address] [facility] [place] [address] Harry Villar MD [address] [place] [address] documented as of this encounter Visit Diagnoses Diagnosis Hyperlipidemia, unspecified hyperlipidemia type documented in this encounter Additional Health Concerns Assessment Noted Time PHQ-9 Depression Total Score: 16 023 2:11 PM EDT A fall risk assessment has been complete d for the patient 04/17/2022 9:19 AM EST A Body Mass Index follow-up plan has been documented for the patient 12/11/2022 4:48 PM EDT documented as of this encounter Care Teams Purification Director Relationship Specialty Start Date End Date Mali Rivera APRN [address] [place] [address] PCP - General 09/01/20 Cindi Shepherd, RN [facility] Registered Nurse Cardiology 11/05/21 Gema Walter, RN [facility] Registered Nurse Cardiology 11/21/21 Shraddha Paulson, SET DESIGNER [address] [place] [address] Nurse Practitioner Internal Medicine 11/21/21 Shannan Oropeza RN [facility] Registered Nurse 01/14/22 Anibal Leahy MD [address] [place] [address] Consulting Physician Pediatric Cardiology 02/21/22 Harry Logan MD [address] [place] [address] Consulting Physician Cardiology 07/02/22 Slime Clark, [place] [address] Registered Nurse Cardiology 04/17/23 Mellisa Byrnes LPN VALUE-BASED TRANSFORMATION PROGRAM Licensed Practical Nurse 11/03/23 12/12/23 Violette Ray Clinical Iron Melter 12/07/24 documented as of this encounter
--- OUTSIDE RECORDS SUMMARY | 2025-01-05 09:07 | XMS_ITS | Encounter Summary ---
Author Organization [facility] Address [address] [place] [address] Care Team Providers Care Technical Assistance Consultant Name Role Phone Mali Rivera Liz REYES Primary Care Provider [phone] Cindi Shepherd RN Unavailable Unavailab Gema Lee RN Unavailable Unavailable Shraddha Paulson APRN Unavailable [phone] Shannan Oropeza RN Unavailable Unavailable Anibal Leahy MD Unavailable Harry Logan MD Unavailable [phone] Slime Clark RN Unavailable Unavailable Encounter Details Date Type Department Care Team (Late st Contact Info) Description 11/09/2024 Orders Only [facility] Hematology/BMT and Cellular Therapy Program [address] [place] [phone] Hortensia Brooke APRN 800 [facility] Lelo Cadena [facility] [address] [place] [address] Leukocytosis, unspecified type (Primary Dx) Social History Tobacco Use Types Packs/Day Years [...] How often do you attend chur or catholic services? More than 4 times per year 11/10/2023 Do you belong to any clubs o r organizations such as worship groups, unions, fraternal or athletic groups, or [...] Recorded Patient Health Questionnaire-2 Score 0 03/31/2024 [facility] of Occupat ional Health - Occupational Stress [...] time in the past 12 m [facility], were you homeless or living in a group home (including now)? No 09/30/2024 Safety and [...] Description 01/20/2025 8:00 AM EDT Office Visit [facility] [place] [address] [facility]. [address] [place] [address] Harry Villar MD [address] [place] [phone] documented as of this encounter Visit Diagnoses Diagnosis Leukocytosis, unspecified type- Primary documented in this encounter Additional Health Concerns Assessment Noted Time PHQ-9 Depression Total Score: 0 03/31/20 10:59 AM EST A fall risk assessment has been complete d for the patient 11/11/2023 10:52 AM EDT A Body Mass Index follow-up plan has been documented for the patient 03/31/2024 11:51 AM EST documented as of this encounter Care Teams Technical Assistance Consultant Relationship Specialty Start Date End Date Mali Rivera TRANSIT SPECIALIST [address] [place] [address] PCP - General 09/01/20 Cindi Shepherd RN [facility] Registered Nurse Cardiology 11/05/21 Gema Walter RN [facility] Registered Nurse Cardiology 11/21/21 Shraddha Paulson, TRANSIT SPECIALIST [address] [place] [phone] Nurse Practitioner Internal Medicine 11/21/21 hSannan Oropeza, RN [facility] Registered Nurse 01/14/22 Anibal Leahy MD [address] [place] [phone] Consulting Physician Pediatric Cardiology 02/21/22 Harry Logan MD [address] [place] [address] Consulting Physician Cardiology 07/02/22 Slime Clark, [place] [address] Registered Nurse Cardiology 04/17/23 documented as of this encounter
--- OUTSIDE RECORDS SUMMARY | 2025-01-05 09:07 | XMS_ITS | Encounter Summary ---
Author Organization [facility] Address [address] [place] [address] Care Team Providers Care Manager Zone Name Role Phone Mali Rivera Liz REYES Primary Care Provider [phone] Cindi Shepherd RN Unavailable Unavailab Gema Lee RN Unavailable Unavailable Shraddha Paulson APRN Unavailable [phone] Shannan Oropeza RN Unavailable Unavailable Anibal Leahy MD Unavailable Harry Logan MD Unavailable [phone] Slime Clark RN Unavailable Unavailable Reason for Visit * Reason Comments Med Refill Encounter Details Date Type Department Care Team (Late st Contact Info) Description 11/12/2024 Refill [facility] Endocrinology [address] [place] [address] Gisselle Carmona MD [address] [place] [address] Type 2 diabetes mellitus with diabetic polyneuropathy, with long-term current use of insulin ([facility]) Social History Tobacco Use Types Packs/Day Years [...] any clubs o r organizations such as pentecostalism groups, unions, fraternal or athletic groups, or [...] Recorded Patient Health Questionnaire-2 Score 0 03/31/2024 [facility] [place] of Occupat ional Health - Occupational Stress [...] time in the past 12 m [facility], were you homeless or living in a long term (including now)? No 09/30/2024 Safety and Environment [...] encounter Miscellaneous Notes * Telephone Encounter - Eva Lema, Gurwinder - 11/12/2024 10:31 AM EDT Refill request does not meet protocol. Sending to clinic for review. Additional info: Appointment compliance - Patient hasn't been seen in clinic in > 1.5 years. Please review for scheduling and if refills are appropriate. documented in this encounter Plan of Treatment Upcoming Encounters Date Type Department Care Team (Late st Contact Info) Description 01/20/2025 8:00 AM EDT Office Visit [facility] [place] [address] [facility]. [address] [place] [address] Harry Villar MD [address] [place] [address] documented as of this encounter Visit Diagnoses Diagnosis Type 2 diabetes mellitus with diabetic polyneuropathy, with long-term current use of insulin ([facility]) documented in this encounter Additional Health Concerns Assessment Noted Time PHQ-9 Depression Total Score: 0 03/31/20 24 10:59 AM EST A fall risk assessment has been complete d for the patient 11/11/2023 10:52 AM EDT A Body Mass Index follow-up plan has been documented for the patient 03/31/2024 11:51 AM EST documented as of this encounter Care Teams Manager Zone Relationship Specialty Start Date End Date Mali Rivera [facility]N [facility] [place] [address] PCP - General 09/01/20 Cindi Shepherd RN [facility] Registered Nurse Cardiology 11/05/21 Gema Walter RN [facility] Registered Nurse Cardiology 11/21/21 Shraddha Paulson APRN [address] [place] [address] Nurse Practitioner Internal Medicine 11/21/21 Shannan Oropeza RN [facility] Registered Nurse 01/14/22 Anibal Leahy MD [address] [place] [address] Consulting Physician Pediatric Cardiology 02/21/22 Harry Logan MD [address] [place] [address] Consulting Physician Cardiology 07/02/22 Slime Clark, [place] [address] Registered Nurse Cardiology 04/17/23 documented as of this encounter
--- OUTSIDE RECORDS SUMMARY | 2025-01-05 09:07 | XMS_ITS | Encounter Summary ---
Author Organization [facility] Address [address] [place] [address] Care Team Providers Care Business Advisor Name Role Phone Mali Rivera ERIC Primary Care Provider [phone] Cindi Shepherd RN Unavailable Unavailab Gema Lee RN Unavailable Unavailable Shraddha Paulson APRN Unavailable [phone] Shannan Oropeza RN Unavailable Unavailable Anibal Leahy MD Unavailable Harry Logan MD Unavailable [phone] Slime Clark RN Unavailable Unavailable Violette Ray Unavailable Unavailabl e Reason for Visit * Reason Comments Health Maint. Care Gaps Encounter Details Date Type Department Care Team (Late st Contact Info) Description 12/22/2024 Patient Outreach POPULATION HEALTH [address] [place] [address] Violette Ray Health Maint. (Care Gaps) Social History Tobacco Use Types Packs/Day Years [...] Recorded Patient Health Questionnaire-2 Score 6 12/15/2024 [facility] [place] of Occupat ional Health - Occupational Stress [...] any time in the past 12 m [facility], were you homeless or living in a prison (including now)? No 12/15/2024 [facility] Utilities Answer Date Recorded In the past [...] encounter Miscellaneous Notes * Progress Notes - Violette Ray - 12/22/2024 8:27 AM EDT Care Gap Outreach Chart reviewed on 12/22/2024 Shannon Dale is due/overdue for the following preventive services:Colorectal Cancer Screening,Mammography Screening Compliance Auditor Needed: No Compliance Auditor ID: [Insert] Action Plan Outreach completed:3rd Attempt Outcome: Reminder Letter sent Contact again in 1 - 3 months Additional information: Colorectal testing due. No order in place. Not completed. Cologuard Eligible Mammography testing due. No order in place. Not completed. Follow-up scheduled for 01/25/2025 For transportation questions, concerns, and/or assistance, please contact our main Population Health line at [phone]. Completed by: Violette Ray [facility] - Population Health [address] [facility], [address] [place] [id number] documented in this encounter Plan of Treatment Upcoming Encounters Date Type Department Care Team (Late st Contact Info) Description 01/20/2025 8:00 AM EDT Office Visit [facility] [place] [address] [facility]. [address] [place] [address] Harry Villar MD [address] [place] [address] documented as of this encounter Visit Diagnoses Not on filedocumented in this encounter Additional Health Concerns Assessment Noted Time PHQ-9 Depression Total Score: 18 2 025 3:01 PM EDT A fall risk assessment has been complete d for the patient 11/11/2023 10:52 AM EDT A Body Mass Index follow-up plan has been documented for the patient 12/15/2024 3:16 PM EDT documented as of this encounter Care Teams Business Advisor Relationship Specialty Start Date End Date Mali Rivera, NEUROBIOLOGIST [address] [place] [address] PCP - General 09/01/20 Cindi Shepherd, RN [facility] Registered Nurse Cardiology 11/05/21 Gema Walter, RN [facility] Registered Nurse Cardiology 11/21/21 Shraddha Paulson, NEUROBIOLOGIST [address] [place] [address] Nurse Practitioner Internal Medicine 11/21/21 Shannan Oropeza RN [facility] Registered Nurse 01/14/22 Anibal Leahy MD [address] [place] [address] Consulting Physician Pediatric Cardiology 02/21/22 Harry Logan MD [address] [place] [address] Consulting Physician Cardiology 07/02/22 Slime Clark, [place] [address] Registered Nurse Cardiology 04/17/23 Violette Ray Clinical Core Machine Operator 12/07/24 documented as of this encounter
--- OUTSIDE RECORDS SUMMARY | 2025-01-05 09:07 | XMS_ITS | Encounter Summary ---
Author Organization [facility] Address [address] [place] [address] Care Team Providers Care Coat Checker Name Role Phone Mali Rivera ERIC Primary Care Provider [phone] Cindi Shepherd RN Unavailable Unavailab Gema Lee RN Unavailable Unavailable Shraddha Paulson APRN Unavailable [phone] Shannan Oropeza RN Unavailable Unavailable Anibal Leahy MD Unavailable Harry Logan MD Unavailable [phone] Slime Clark RN Unavailable Unavailable Reason for Visit * Reason Onset Date Comments Med Refill 11/09/2024 Encounter Details Date Type Department Care Team (Late st Contact Info) Description 11/09/2024 [facility] End[facility]ology [address] [place] [address] Gisselle Carmona MD [address] [place] [address] Type 2 diabetes mellitus with diabetic polyneuropathy, with long-term current use of insulin ([facility]) (Primary Dx) Social History Tobacco Use Types [...] How often do you attend chur or amish services? More than 4 times per year 11/10/2023 Do you belong to any clubs o r organizations such as caodaism groups, unions, fraternal or athletic groups, or [...] Recorded Patient Health Questionnaire-2 Score 0 03/31/2024 [facility] - Occupational Stress Questionnaire Answer [...] any time in the past 12 m [facility], were you homeless or living in a chcf (including now)? No 09/30/2024 Safety and Environment [...] encounter Miscellaneous Notes * Telephone Encounter - vEa Lema PharmD - 11/09/2024 11:38 AM EDT 1 medication(s) has been denied per protocol due to: Duplicate request documented in this encounter Plan of Treatment Upcoming Encounters Date Type Department Care Team (Late st Contact Info) Description 01/20/2025 8:00 AM EDT Office Visit [facility] [place] [address] [facility] [place] [address] Harry Villar MD [address] [place] [address] documented as of this encounter Visit Diagnoses Diagnosis Type 2 diabetes mellitus with diabetic polyneuropathy, with long-term current use of insulin ([facility])- Primary documented in this encounter Additional Health Concerns Assessment Noted Time PHQ-9 Depression Total Score: 0 03/31/20 24 10:59 AM EST A fall risk assessment has been complete d for the patient 11/11/2023 10:52 AM EDT A Body Mass Index follow-up plan has been documented for the patient 03/31/2024 11:51 AM EST documented as of this encounter Care Teams Coat Checker Relationship Specialty Start Date End Date Mali Rivera APRN [address] [place] [phone] PCP - General 09/01/20 Cindi Shepherd RN [facility] Registered Nurse Cardiology 11/05/21 Gema Walter RN [facility] Registered Nurse Cardiology 11/21/21 Shraddha Paulson APRN [address] [place] [address] Nurse Practitioner Internal Medicine 11/21/21 Shannan Oropeza RN [facility] Registered Nurse 01/14/22 Anibal Leahy MD [address] [place] [address] Consulting Physician Pediatric Cardiology 02/21/22 Harry Logan MD [address] [place] [address] Consulting Physician Cardiology 07/02/22 Slime Clark, [place] [address] Registered Nurse Cardiology 04/17/23 documented as of this encounter
--- OUTSIDE RECORDS SUMMARY | 2025-01-05 09:07 | XMS_ITS | Encounter Summary ---
Author Organization [facility] Address [address] [place] [address] Care Team Providers Care Guyline Operator Name Role Phone Mali Rivera ERIC Primary Care Provider [phone] Cindi Shepherd RN Unavailable Unavailab Gema Lee RN Unavailable Unavailable Shraddha Paulson APRN Unavailable [phone] Shannan Oropeza RN Unavailable Unavailable Anibal Leahy MD Unavailable Harry Logan MD Unavailable [phone] Slime Clark RN Unavailable Unavailable Violette Ray Unavailable Unavailabl e Reason for Visit * Reason Comments Med Refill Encounter Details Date Type Department Care Team (Late st Contact Info) Description 12/05/2024 Refill [facility] Endocrinology [address] [place] [address] Gisselle Carmona MD [address] [place] [address] Type 2 diabetes mellitus with diabetic polyneuropathy, with long-term current use of insulin ([facility]) Social History Tobacco Use Types Packs/Day Years [...] How often do you attend chur or zoroastrian services? More than 4 times per year 11/10/2023 Do you belong to any clubs o r organizations such as muslim groups, unions, fraternal or athletic groups, or [...] Recorded Patient Health Questionnaire-2 Score 0 03/31/2024 [facility] - Occupational Stress Questionnaire Answer Date [...] any time in the past 12 m [facility], were you homeless or living in [...] encounter Miscellaneous Notes * Telephone Encounter - Sanaz Montelongo - 12/07/2024 10:28 AM EDT 1 medication(s) has been approved per protocol. documented in this encounter Plan of Treatment Upcoming Encounters Date Type Department Care Team (Late st Contact Info) Description 01/20/2025 8:00 AM EDT Office Visit [facility] [place] [address] [facility] [place] [address] Harry Villar MD [address] [place] [address] documented as of this encounter Visit Diagnoses Diagnosis Type 2 diabetes mellitus with diabetic polyneuropathy, with long-term current use of insulin ([facility]) documented in this encounter Additional Health Concerns Assessment Noted Time PHQ-9 Depression Total Score: 0 03/31/20 10:59 AM EST A fall risk assessment has been complete d for the patient 11/11/2023 10:52 AM EDT A Body Mass Index follow-up plan has been documented for the patient 03/31/2024 11:51 AM EST documented as of this encounter Care Teams Guyline Operator Relationship Specialty Start Date End Date Mali Rivera APRN [address] [place] [phone] PCP - General 09/01/20 Cindi Shepherd RN [facility] Registered Nurse Cardiology 11/05/21 Gema Walter RN [facility] Registered Nurse Cardiology 11/21/21 Shraddha Paulson APRN [address] [place] [address] Nurse Practitioner Internal Medicine 11/21/21 Shannan Oropeza, [facility] Registered Nurse 01/14/22 Anibal Leahy MD [address] [place] [address] Consulting Physician Pediatric Cardiology 02/21/22 Harry Logan MD [address] [place] [address] Consulting Physician Cardiology 07/02/22 Slime Clark, [place] [address] Registered Nurse Cardiology 04/17/23 Violette Ray Clinical Agriculture Worker 12/07/24 documented as of this encounter
--- OUTSIDE RECORDS SUMMARY | 2025-01-05 09:07 | XMS_ITS | Clinical Summary ---
Author Organization [facility] Address [address] [place] [address] Care Team Providers Care Head Mixer Name Role Phone Mali Rivera CAREER TRANSITION SPECIALIST Primary Care Provider [phone] Cindi Shepherd RN Unavailable Unavailab Gema Lee RN Unavailable Unavailable Shraddha Paulson APRN Unavailable [phone] Shannan Oropeza RN Unavailable Unavailable Anibal Leahy MD Unavailable Haryr Logan MD Unavailable [phone] Slime Clark RN Unavailable Unavailable Violette Ray Unavailable Unavailabl e Allergies Active Allergy Reactions Criticality Noted Date Comments Oxycodone-Acetaminoph en Unknown - Patient states they do not know rxn details Low 11/07/2020 Vomiting per pt Medications Blood Glucose Monitoring Suppl (Blood Glucose Monitor System) w/Device kit USE DIRECTED DX Code E 11.9 for testing 3 times a day 020 Active Lancets Thin misc 3 per day Dx E 11.9 020 Active pregabalin (Lyrica) 150 MG capsule Take 1 capsule (150 mg) by mouth 2 (two) times a day. 018 Active Blood Glucose Monitoring Suppl (Blood Glucose Monitor System) w/Device kitIndications:Ty pe 2 diabetes mellitus with diabetic polyneuropathy, with long-term current use of insulin ([facility]) Use as directed twice daily 1 kit 10/26/2 021 Active fluticasone (Flonase) 50 MCG/ACT nasal sprayIndications: Allergic rhinitis, unspecified seasonality, unspecified trigger Administer 1 spray into each nostril 1 (one) time each day. Shake gently. Before first use, prime pump. After use, clean tip and replace cap. 16 g 12 023 Active Additional Information Patient not taking.Reported on 12/15/2024 omeprazole (PriLOSEC) [address] capsuleIndication s:Gastroesophagea l reflux disease with esophagitis without hemorrhage TAKE 1 CAPSULE ONE TIME DAILY. DO NOT CRUSH OR CHEW 90 capsule 3 024 Active atorvastatin (Lipitor) 20 MG tablet TAKE 1 TABLET AT BEDTIME 90 tablet 3 024 Active FLUoxetine (PROzac) 40 MG capsule TAKE 1 CAPSULE EVERY DAY 90 capsule 3 024 Active spironolactone (Aldactone) 50 MG tablet TAKE 1 TABLET EVERY DAY 90 tablet 3 024 Active sildenafil (Revatio) 20 MG tablet TAKE 3 TABLETS THREE TIMES DAILY 810 tablet 3 024 Active Eliquis 5 MG tablet TAKE 1 TABLET TWICE DAILY 180 tablet 3 024 Active ketoconazole (NIZOral) 2 % shampooIndication s:Seborrheic dermatitis of scalp Apply shampoo 2x/week x 8 weeks then prn. 120 mL 2 024 Active metOLazone (Zaroxolyn) 2.5 MG tablet TAKE 1 TABLET ONE TIME DAILY IF NEEDED FOR WEIGHT GAIN 30 tablet 11 Active metFORMIN (Glucophage) 500 MG tabletIndications :Type 2 diabetes mellitus with diabetic polyneuropathy, with long-term current use of insulin ([facility]) Take 1 tablet (500 mg) by mouth 2 (two) times a day with meals. TAKE 1 TABLET TWICE DAILY PATIENT NEEDS TO SCHEDULE AN APPOINTMENT TO RECEIVE FURTHER REFILLS 180 tablet 024 Active glucose blood (Accu-Chek Erika Plus) test stripIndications: Type 2 diabetes mellitus with diabetic polyneuropathy, with long-term current use of insulin (CMS/HCC) TEST BLOOD SUGAR THREE TIMES DAILY 300 strip Active ammonium lactate (Amlactin) 12 % cream Apply topically 2 (two) times a day. Active ondansetron ODT (Zofran-ODT) 4 MG disintegrating tabletIndications :Nausea and vomiting, unspecified vomiting type Take 1 tablet (4 mg) by mouth every 8 (eight) hours if needed for nausea or vomiting. 20 tablet Active amitriptyline (Elavil) 10 MG tabletIndications :Depression, unspecified depression type TAKE 1 TABLET EVERY NIGHT 90 tablet 1 Active buPROPion XL (Wellbutrin XL) 300 MG 24 hr tabletIndications :Severe episode of recurrent major depressive disorder, without psychotic features (CMS/HCC) Take 1 tablet by mouth daily. Do not crush, chew, or split. 90 tablet 3 025 2025 Active ARIPiprazole (Abilify) 5 MG tabletIndications :Severe episode of recurrent major depressive disorder, without psychotic features (CMS/HCC) Take 2 tablets by mouth daily. 90 tablet 3 Active glucosamine-chond roitin (Max Glucosamine Chondroitin) 500-400 MG tablet Take 1 tablet by mouth 2 times a day. 180 tablet 025 Active potassium chloride CR (Klor-Con M20) 20 MEQ ER tablet TAKE 3 TABLETS THREE TIMES DAILY. DO NOT CRUSH OR CHEW OR SPLIT. 810 tablet 2 Active insulin NPH-insulin regular (INSULIN NPH ISOPHANE & REGULAR HUMAN INJ) (70-30) 100 UNIT/ML SC injection vialIndications:T ype 2 diabetes mellitus with diabetic polyneuropathy, with long-term current use of insulin ([facility]) INJECT 32 UNITS UNDER THE SKIN BEFORE BREAKFAST AND 32 UNITS BEFORE DINNER (NEEDS TO ATTEND 12/14/24 APPOINTMENT FOR REFILLS) 30 mL Active Droplet Insulin Syringe 31G X 16 1 ML miscIndications:T ype 2 diabetes mellitus with diabetic polyneuropathy, with long-term current use of insulin ([facility]) USE DIRECTED TWICE DAILY 100 each Active Opsumit 10 MG tablet TAKE 1 TABLET (10MG) BY MOUTH ONCE DAILY 30 tablet 2 Active dilTIAZem CD (Cardizem CD) 120 MG 24 hr capsule Take 1 capsule by mouth daily. 90 capsule 2 Active levothyroxine (Synthroid, Levoxyl) 125 MCG tabletIndications :Type 2 diabetes mellitus with diabetic polyneuropathy, with long-term current use of insulin (CMS/HCC) TAKE 1 TABLET EVERY DAY BEFORE BREAKFAST 34 tablet Active folic acid (Folvite) 1 MG tablet Take 1 tablet by mouth daily. Active cyanocobalamin 1000 MCG tablet Take 1 tablet by mouth daily. Active traZODone (Desyrel) 50 MG tabletIndications :Drug-induced insomnia (CMS/HCC) Take 1 tablet by mouth at night as needed for sleep. 30 tablet 5 025 2025 Active famotidine (Pepcid) 20 MG tabletIndications :Gastroesophageal reflux disease without esophagitis Take 1 tablet by mouth 2 times a day. 180 tablet 3 Active bumetanide (Bumex) 2 MG tabletIndications :Hyperlipidemia, unspecified hyperlipidemia type Take 1 tablet by mouth 2 times a day. Patient must be seen for further refills. 60 tablet Active fexofenadine (Julieta) 180 MG tablet Take 1 tablet by mouth daily as needed (allergies). 90 tablet 3 025 2025 Active fluconazole (Diflucan) 150 MG tabletIndications :Delmi infection Take one now repeat in 4 days and then weekly for 12 weekly 5 tablet 3 022 2024 Discontinued atenolol (Tenormin) 50 MG tablet 1 (one) time each day. 2024 Discontinued albuterol 108 (90 Base) MCG/ACT inhaler INHALE 2 PUFFS EVERY 4 TO 6 HOURS NEEDED (SPACED 60 SECONDS APART) 3 each 1 024 2024 Discontinued Semaglutide, 1 MG/DOSE, (Ozempic, 1 MG/DOSE,) 4 MG/3ML solution pen-injector INJECT 1 MG SUBCUTANEOUSLY ONCE A WEEK Must have appointment for further refills 3 mL 2024 Discontinued trimethoprim-poly myxin b (Polytrim) ophthalmic solution Administer 1 drop into the left eye every 4 (four) hours. 2024 Discontinued acyclovir (Zovirax) 5 % ointmentIndicatio ns:Fever blister APPLY OINTMENT TO AFFECTED AREA 5 TIMES DAILY FOR 4 DAYS 30 g 11 025 2024 Discontinued famotidine (Pepcid) 20 MG tabletIndications :Gastroesophageal reflux disease without esophagitis Take 1 tablet by mouth 2 times a day. 60 tablet 2 025 2024 Discontinued fexofenadine (Julieta) 180 MG tablet Take 1 tablet by mouth daily as needed (allergies). 90 tablet 025 2024 Discontinued levothyroxine (Synthroid, Levoxyl) 125 MCG tabletIndications :Type 2 diabetes mellitus with diabetic polyneuropathy, with long-term current use of insulin ([facility]) Take 1 tablet by mouth daily before breakfast. 34 tablet 025 2024 Discontinued bumetanide (Bumex) 2 MG tabletIndications :Hyperlipidemia, unspecified hyperlipidemia type TAKE 1 TABLET TWICE DAILY 60 tablet 025 2024 Discontinued Cyanocobalamin (VITAMIN B 12 PO) Take by mouth. 2024 Discontinued Active Problems Problem Noted Date Diagnosed Date Daytime sleepiness 04/29/2022 Class 3 severe obesity due t o excess calories with serious comorbidity and body mass index (BMI) of 45.0 to 49.9 in adult 04/29/2022 Morbid obesity with body mass index (BMI) of 40. 0 or higher 09/11/2021 Acute bronchitis 03/14/2020 Candidiasis 03/14/2020 GERD (gastroesophageal reflux disease) 0 Function kidney decreased 01/20/2020 Hypokalemia 01/19/2020 Bilateral low back pain with right-sided sciatic a 12/09/2019 Cervical radicular pain 12/09/2019 Generalized anxiety disorder 12/09/2019 Constipation, chronic 06/11/2019 Right ventricular dilation 07/10/2018 ASD (atrial septal defect) 02/09/2018 Pulmonary hypertension 12/23/2017 Controlled type 2 diabetes mellitus without comp lication 03/26/2017 Fibromyalgia syndrome 12/05/2015 Asthma, moderate persistent 01/02/2015 Depression 01/02/2015 Hypothyroidism 01/02/2015 HTN (hypertension) 09/23/2014 Hyperlipidemia 09/23/2014 Obesity 09/23/2014 Eosinophilic syndrome 09/07/2014 Peripheral neuropathy 07/16/2014 Sleep apnea 07/16/2014 Encounters Date Type Department Care Team Description 01/01/2025 Refill [facility] [address] [place] [address] Gisselle Carmona MD Type 2 diabetes mellitus with diabetic polyneuropathy, with long-term current use of insulin ([facility]) 12/30/2024 Refill [facility] [address] [place] [address] Gisselle Carmona MD Type 2 diabetes mellitus with diabetic polyneuropathy, with long-term current use of insulin ([facility]) 12/25/2024 Refill [facility] [address] [place] [address] Mali Rivera APRN 12/23/2024 Telephone [facility] [address] [place] [phone] Lissette Fay, PharmD Medication Therapy Management 12/22/2024 Patient Outreach [facility] [address] [place], [address] [place] [address] Violette Ray [facility] (Care Gaps) 12/21/2024 Refill [facility] [address] [place] [address] Harry Villar MD Hyperlipidemia, unspecified hyperlipidemia type 12/19/2024 Refill [facility] [address] [place] [address] Sherri Means APRN, DNP Gastroesophageal reflux disease without esophagitis 12/15/2024 3:00 PM EDT Office Visit [facility] [address] [place] [address] Mali Rivera APRN Severe episode of recurrent major depressive disorder, without psychotic features ([facility]) (Primary Dx); Drug-induced insomnia (CMS/HCC) 12/15/2024 Travel 12/13/2024 Patient Outreach [address], [address] [place] [address] Violette Ray [facility]. (Care Gaps) 12/07/2024 Telephone [facility] [address] [place] [address] Gisselle Carmoan MD 12/07/2024 Patient Outreach [facility] [address], [address] [place] [address] Violette Ray [facility]. (Care Gaps) 12/07/2024 Orders Only [facility] [address] [place] [address] Mali Rivera APRN Controlled type 2 diabetes mellitus without complication, with long-term current use of insulin (Primary Dx) 12/06/2024 Telephone [facility] [address] [place] [address] Gisselle Carmona MD 12/06/2024 Telephone [facility] [address] [place] [address] Mali Rivera APRN HCN Clinical Concern/Question 12/05/2024 Refill [facility] [address] [place] [address] Gisselle Carmona MD Type 2 diabetes mellitus with diabetic polyneuropathy, with long-term current use of insulin ([facility]) 12/03/2024 Refill [facility] [address] [place] [address] Mali Rivera APRN 11/30/2024 Refill [facility] [place] [address] [place] [address] Harry Villar MD 11/25/2024 Refill [facility] [place] [address] [facility] [place] [address] Harry Villar MD Hyperlipidemia, unspecified hyperlipidemia type 11/12/2024 Refill [facility] [address] [place] [address] Gisselle Carmona MD Type 2 diabetes mellitus with diabetic polyneuropathy, with long-term current use of insulin ([facility]) 11/09/2024 Orders Only [facility] Cellular Therapy [facility] [address] [facility] [place] [address] Hortensia Brooke, CAREER TRANSITION SPECIALIST Leukocytosis, unspecified type (Primary Dx) 11/09/2024 Refill [facility] [address] [place] [address] Gisselle Carmona MD Type 2 diabetes mellitus with diabetic polyneuropathy, with long-term current use of insulin ([facility]) (Primary Dx) 11/04/2024 Refill [facility] [place] [address] [facility] [place] [address] Hrary Villar MD 11/04/2024 Refill [facility] [address] [place] [address] Gisselle Carmona MD 10/13/2024 Orders Only External Location [address] [place] [address] Christopher Paiz MD 10/08/2024 Telephone [facility] [address] [place] [address] Gisselle Carmona MD 10/08/2024 Refill [facility] [address] [place] [address] Mali Rivera APRN 10/05/2024 Refill [facility] [address] [place] [address] Mali Rivera APRN Gastroesophageal reflux disease with esophagitis without hemorrhage from Last 3 Months Immunizations Immunization Administration Dates Next Due Tdap 07/21/2023 Family History Medical History Relation Name Comments Lung disease Father Arthritis Maternal Grandmother Breast cancer Maternal Grandmother Cirrhosis Mother Diabetes Mother Cardiac disorder Other 1 Hypertension Other 2 Obesity Other 3 Thyroid disease Other 4 Hyperlipidemia Other 5 Relation Name Status Comments Father Maternal Grandmother Mother Other 1 Other 2 Other 3 Other 4 Other 5 Social History Tobacco Use Types Packs/Day Years Used Date Smoking Tobacco: Former Cigarettes 0.5 10 1 2007 Passive Smoke Exposure: Past Smokeless Tobacco: Never Tobacco Cessation:Counseling Given: Not Answered Alcohol Use Standard Drinks/Week Comments Not Currently [...] often do you attend chur ch or yarsanism services? More than 4 times per year 11/10/2023 Do you belong to any clubs o r organizations such as sabianist groups, unions, fraternal or athletic groups, or [...] Recorded Patient Health Questionnaire-2 Score 6 12/15/2024 [facility] - Occupational Stress Questionnaire Answer Date [...] any time in the past 12 m [facility], were you homeless or living in a residential (including now)? No 12/15/2024 [facility] Utilities Answer Date Recorded In the [...] on file Sexual Orientation Not on file Last Filed Vital Signs Vital Sign Reading [...] Mass Index 48.26 12/15/2024 2:49 PM EDT Plan of Treatment Upcoming Encounters Date Type Department Care Team (Late st Contact Info) Description 01/20/2025 8:00 AM EDT Office Visit [facility] [place] [address] [place] [address] Harry Villar MD [address] [place] [address] Health Maintenance Due Date Last Done Comments [facility]-HIV Screening 1966 [facility]-Hepatitis C Screening 1966 OCM-UTXOP-10 Vaccine (#1) 11/30/1971 Diabetes: Dental Exam 1976 [facility]-Hepatitis B Vaccines (1 of 3 - 19+ 3-dose series) 1985 [facility]-Pneumococcal Vaccine: 50+ Years (1 of 2 - PCV) 1985 CT Colonography 11/30/2011 FIT-DNA 11/30/2011 FIT 11/30/2011 FOBT 11/30/2011 Sigmoidoscopy 11/30/2011 [facility]-Breast Cancer Screening 11/27/2020 08/0 12/2018, 11/27/2017, 11/27/2017, Additional history exists Colonoscopy 04/06/2024 04/06/2014 [facility]-Colorectal Cancer Screening 04/06/2024 [facility]-Diabetes: Hemoglobin A1C 05/10/2024 11/11/2023, 05/21/2023, 12/11/2022, Additional history exists [facility]-/Child/Adol SDOH Screenings 09/29/2024 03/31/2024 [facility]-Medicare Annual Wellness (AWV) 11/10/2024 11/11/2023 [facility]-Influenza Vaccine (#1) 2024 [facility]-Zoster Vaccines (1 of 2) 03/31/2025 Postponed from 2016 (Patient Refused) [facility]- SDOH Screenings 06/17/2025 [facility]-Adult SDOH Screenings 06/17/2025 12/15/2024 [facility]-Depression Screening 12/15/2025 12/15/2024, 11/20 [facility]-DTaP,Tdap,and Td Vaccines (2 - Td or Tdap) 07/20/2033 07/21/2023 [facility]-Obesity Intervention Completed 025, 03/31/2024, 01/02/2024, Additional history exists HPV Vaccines Aged Out No longer eligi ble based on patient's age to complete this topic [facility]-HIB Vaccines Aged Out No longer e ligible based on patient's age to complete this topic [facility]-Hepatitis A Vaccines Aged Out No longer eligible based on patient's age to complete this topic [facility]-IPV Vaccines Aged Out No longer e ligible based on patient's age to complete this topic [facility]-Rotavirus Vaccines Aged Out No lo nger eligible based on patient's age to complete this topic Procedures Procedure Name Priority Date/Time Associated Diagnosis Comments EXTERNAL BCR-ABL1 RT-PCR Routine 10/13/2024 1:55 PM EDT IMMUNOFIXATION ELECTROPHORESIS Routine 10/13/2024 1:55 PM EDT STRONGYLOIDES ANTIBODY, IGG BY BRIANA, SERUM (SO) Routine 10/13/2024 1:55 PM EDT TRYPTASE (SO) Routine 10/13/2024 1:55 PM EDT LACTATE DEHYDROGENASE, PLASMA Routine 10/13/2024 1:55 PM EDT VITAMIN B12, SERUM Routine 10/13/2024 1: 55 PM EDT C-REACTIVE PROTEIN, PLASMA Routine 10/13/2024 1:55 PM EDT COMPREHENSIVE METABOLIC PANEL, PLASMA Routine 10/13/2024 1:55 PM EDT CBC WITH AUTO DIFFERENTIAL Routine 10/13/2024 1:55 PM EDT HEMOGLOBIN A1C Routine 11/11/2023 11:30 AM EDT Controlled type 2 diabetes mellitus without complication, with long-term current use of insulin ([facility]) MAMMOGRAPHY EXTERNAL RESULTS 11/27/2018 COLONOSCOPY Routine 04/06/2014 Encounter for screening for malignant neoplasm of colon from Last 3 Months or Most Recently Relevant to Health Maintenance Results * External BCR-ABL1 RT-PCR (10/13/2024 1:55 PM EDT) EXTERNAL METHOD Comment [facility] Comment: . Total RNA is isolated from the sample and subject to a real-time, reverse transcriptase polymerase chain reaction (RT-PCR). The PCR primers and probes are specific for BCR- ABL1 e13a2, e14a2 and e1a2 fusion transcripts. The ABL1 transcript is amplified as the control for cDNA quantity and quality. Serial dilutions of a validated positive control RNA with known t(9;22) BCR-ABL1 are used as reference for quantification of BCR-ABL1 relative to ABL1. The numeric BCR-ABL1 level is reported as % BCR- ABL1/ABL1 and the detection sensitivity is 4.5 log below the standard baseline (<0.0032%). . This test was developed and its performance characteristics determined by [employer]. It has not been cleared or approved by the Food and Drug Administration. External Interpretation Negative [facility] Comment: NEGATIVE for the BCR-ABL1 e1a2 (p190), e13a2 (b2a2, p210) and e14a2 (b3a2, p210) fusion transcripts. These results do not rule out the presence of rare BCR-ABL1 transcripts not detected by this assay. External B2A2 Transcript <0.0032 % % [facility] External B3A2 Transcript <0.0032 % % [facility] External E1A2 Transcript <0.0032 % % [facility] External PDF Image . [facility] Comment: Performed at: [place] - [facility] [place] [address] [facility], [place], [place] [id number] Oil Field Worker: Vish Mao [facility], Phone: [phone] Performed at: - [facility] [place] [address], [place], [place] [id number] Oil Field Worker: Vish Mao [facility], Phone: [phone] EXTERNAL BACKGROUND Comment [facility] Comment: . This assay can detect three different types of BCR-ABL1 fusion transcripts associated with CML, ALL, and AML: e13a2 (previously b2a2) and e14a2 (previously b3a2) (major breakpoint, p210), as well as e1a2 (minor breakpoint, p190). The e13a2 and e14a2 transcript values are titrated to the current International Scale (IS). The standardized baseline is 100% BCR-ABL1 (IS) and major molecular response (MMR) is equivalent to 0.1% BCR-ABL1 (IS) corresponding to a 3-log reduction. Results should be correlated with appropriate clinical and laboratory information as indicated. External References: Comment [facility] Comment: . 1) Zbigniew Cho. Molecular monitoring of chronic myeloid leukemia. Semin Hematol. 2003 Apr; 40(2 Suppl 2):62-68. . 2) NCCN Clinical Practice Guidelines in Oncology Chronic Myeloid Leukemia Version 1.2024 - November 27, 2023 . 3) Pepper Carranza, Enrico P, et al. Establishment of the of the first World Health Organization International Genetic Reference Panel for quantitation of BCR-ABL mRNA. Blood. 2010 25; 116(22):d783-816. EXTERNAL DIRECTOR REVIEW Comment [facility] Comment: Ariel Campbell, PhD, FACMG Director, Molecular Oncology [facility] [place] [address] 10/13/2024 1:55 PM EDT 10/13/2024 4:31 PM EDT us Christopher Paiz MD LAB REF LAB BLOOD AND FLUID ORD Final Result [facility] * Strongyloides Antibody (10/13/2024 1:55 PM EDT) External Strongyloides Antibody Negative Negative [facility] Comment: Performed at: [address] [id number] Oil Field Worker: Brandt Dominguez MD, Phone: [phone] 10/13/2024 1:55 PM EDT 10/13/2024 4:31 PM EDT us Christopher Paiz MD LAB BLOOD ORDERABLES Final Resu lt [facility] * Tryptase (10/13/2024 1:55 PM EDT) Pathologist [facility] External Tryptase 10.1 2.2 - 13.2 ug/L [facility] Comment: Performed at: [address] [id number] Oil Field Worker: Brandt Dominguez MD, Phone: [phone] 10/13/2024 1:55 PM EDT 10/13/2024 4:31 PM EDT us Christopher Paiz MD LAB BLOOD ORDERABLES Final Resu lt Performing Organization Address City/[facility]/ZIP Co de Phone Number [facility] * (ABNORMAL) CBC and Differential (10/13/2024 1:55 PM EDT) Pathologist [facility] External WBC 11.8(H) 4.0 - 10.5 K/ul [facility] External Red Blood Cell (RBC) 4.6 4.2 - 6.4 M/mm3 [facility] External Hemoglobin 11.1(L) 12.5 - 16.0 gm/dl [facility] External Hematocrit 38.5 37.0 - 47.0 % [facility] External MCV 83.3 78 - 100 fl [facility] External MCH 24.0(L) 27 - 31 pg [facility] External MCHC 28.8(L) 32 - 36 g/dl [facility] External RDW 17.0(H) 11.5 - 14.0 % [facility] External Platelets 385 150 - 450 K/ul [facility] External MPV 9.1 6 - 9.5 [facility] External Neutrophils % 48.8 43 - 65 % [facility] External Lymphocyte % 10.4(L) 20.5 - 45.5 % [facility] External Monocyte % 4.7(L) 5.5 - 11.7 % [facility] External Eosinophil% 35.5(H) 0.9 - 2.9 % [facility] External Basophil % 0.3 0.2 - 1.0 % [facility] External Immature Granulocyte% 0.3 0.0 - 0.8 % [facility] External Nucleated RBC % 0.0 % [facility] External Neutrophil# 5.8(H) 2.2 - 4.8 K/uL [facility] External Lymphocyte# 1.2(L) 1.3 - 2.9 [facility] External Monocyte# 0.6 0.3 - 0.8 [facility] External Eosinophils# 4.2(H) 0 - 0.2 [facility] External Baso# 0.0 0.0 - 1.0 [facility] External Immature Granulocyte Abs 0.03 K/ul [facility] External Nucleated RBC Absolute 0.00 K/uL [facility] External Manual Differential NO [facility] 10/13/2024 1:55 PM EDT 10/13/2024 4:31 PM EDT us Christopher Paiz MD LAB BLOOD ORDERABLES Final Resu lt [facility] * Immunofixation Electrophoresis (10/13/2024 1:55 PM EDT) External IgA Quant 160 87 - 352 mg/dL [facility] External IgM Quant 28 26 - 217 mg/dL [facility] Comment: Performed at: [facility] [address] [id number] Oil Field Worker: Jose Lopez PhD, Phone: [phone] External IgG, Serum 622 586 - 1602 mg/dL [facility] External Immunofixation Interpretation Comment [facility] Comment:No monoclonality det ected. 10/13/2024 1:55 PM EDT 10/13/2024 4:31 PM EDT us Christopher Paiz MD LAB BLOOD ORDERABLES Final Resu lt Performing Organization Address [facility] Phone Number [facility] * (ABNORMAL) C-Reactive Protein, Plasma (10/13/2024 1:55 PM EDT) External C-Reactive Protein 0.4(H) 0.05 - 0.300 mg/dL [facility] 10/13/2024 1:55 PM EDT 10/13/2024 4:31 PM EDT us Christopher Paiz MD LAB BLOOD ORDERABLES Final Resu Performing Organization Address [place] Phone Number [facility] * Lactate Dehydrogenase, Plasma (10/13/2024 1:55 PM EDT) External LDH Lactate Dehydrogenase 186 0 - 190 U/L [facility] 10/13/2024 1:55 PM EDT 10/13/2024 4:31 PM EDT us Christopher Paiz MD LAB BLOOD ORDERABLES Final Resu Performing Organization Address [place] Phone Number [facility] * (ABNORMAL) Vitamin B12, Serum (10/13/2024 1:55 PM EDT) External Vitamin B12 265 193 - 986 pg/mL [facility] Comment:*Note: Reference Int erval Change. New Test Method in use. External Folate, Serum 5.4(L) 8.6 - 58.9 ng/mL [facility] Comment:*Note: Reference Int erval Change. New Test Method in use. 10/13/2024 1:55 PM EDT 10/13/2024 4:31 PM EDT us Christopher Paiz MD LAB BLOOD ORDERABLES Final Resu lt [facility] * (ABNORMAL) Comprehensive Metabolic Panel, Plasma (10/13/2024 1:55 PM EDT) External Sodium 140 136 - 145 mmol/L [facility] External Potassium 4.2 3.6 - 5.0 mmol/L [facility] External Chloride 101 98 - 107 mmol/L [facility] External Carbon Dioxide 30.7 21.0 - 32.0 mmol/L [facility] External Anion Gap (AG) 12.5 [facility] External Glucose 149(H) 70 - 120 mg/dl [facility] External BUN 14 7 - 18 mg/dL [facility] External Creatinine Blood 1.3 0.6 - 1.3 mg/dL [facility] External Estimated GFR 48(L) 60- mlpermin [facility] Comment: GFR LIMITATION: The eGFR equation CKD-EPI 2020 is not applicable for pediatric patients or greater than 90 years of age. The following conditions may alter the GFR result: extremes in body size, malnutrition or obesity, skeletal muscle disease, paraplegia or quadriplegia, vegetarian diet or rapidly changing kiney function. External Osmolality (Calculated) 294 275 - 301 mosm/kg [facility] Comment: OSMOLALITY IS A CALCULATION UTILIZING THE SERUM/PLASMA SODIUM, GLUCOSE AND UREA NITROGEN (BUN) LEVELS. FOR THE MOST ACCURATE RESULT A MEASURED SERUM OSMOLALITY IS SUGGESTED. External Total Protein 7.0 6.4 - 8.2 g/dl [facility] External Albumin 3.4 3.4 - 5.0 g/dl [facility] External Globulin 3.6 [facility] External Albumin/Globuli n Ratio 0.9 0.7 - 2 [facility] External Calcium 9.1 8.5 - 10.5 mg/dl [facility] External Bilirubin Total 0.50 0.10 - 1.00 mg/dL [facility] External AST (SGOT) 6 0 - 37 U/L [facility] External ALT (SGPT) 15 0 - 65 U/L [facility] External Alkaline Phosphatase 176(H) 46 - 116 U/L [facility] 10/13/2024 1:55 PM EDT 10/13/2024 4:31 PM EDT us Christopher Paiz MD LAB BLOOD ORDERABLES Final Resu lt [facility] * (ABNORMAL) Hemoglobin A1c (11/11/2023 11:30 AM EDT) Hemoglobin A1c 6.3(H) <5.7 % 11/11/2023 8:31 PM EDT [facility] Blood Venous blood specimen / Unknown Venipuncture / Unknown 11/11/2023 11:30 AM EDT 11/11/2023 11:30 AM EDT Narrative [facility] - 11/11/2023 8:31 PM EDT HA1C Interpretive Data: Diagnosis of Diabetes: Diabetic > or = 6.5% Pre-diabetic 5.7 to 6.4% Non-diabetic < or = 5.6% Glycemic Targets for Type I and Type II Diabetics: Non- Adults <7.0% Adults <6.0% Children and Adolescents <7.5% Source: [place] [employer]. Standards of medical care in diabetes,2017. Diabetes Care.2017:40 (suppl 1):S1-S135. HbA1c assay performed by an ion-exchange chromatography method that is certified traceable to the DCCT. us Mali Rivera APRN LAB BLOOD ORDERABLES Final Result [facility] [address] [place] [address] * MAMMOGRAPHY EXTERNAL RESULTS (11/27/2018) Anatomical Region Laterality Modality Mammography Narrative 11/27/2018 Ordered by an unspecified provider. us External Provider IMG BI PROCEDURES Final Result * Colonoscopy (04/06/2014) Anatomical Region Laterality Modality Endoscopy 04/06/2014 Impressions 11/30/2020 3:07 PM EDT Outside records from [facility] dated 04/06/2014. Diagnosis: A. Duodenum Biopsy - Preserved villous architecture with no significant histopathologic change. No parasites noted. No increase in intraepithelial lymphocytes or villous blunting suggestive of Celiac Disease. B. Gastric Biopsy - Chronic gastritis without activity. C. Bone Marrow Core Biopsy - Hypercellular bone marrow with marked eosinophilia. D. Biopsies from Colonoscopy show normal Tissue. Mild inflammation in the stomach not concerning. Mali Rivera APRN GI PROCEDURE ORDERABLES Fin al Result from Last 3 Months or Most Recently Relevant to Health Maintenance Insurance [place] [address] [employer] Care Teams Head Mixer Relationship Specialty Start Date End Date Mali Rivera APRN [facility] [place] [address] PCP - General 09/01/20 Cindi Shepherd, RN [facility] Registered Nurse Cardiology 11/05/21 Gema Walter, RN [facility] Registered Nurse Cardiology 11/21/21 Shraddha Paulson, CAREER TRANSITION SPECIALIST [address] [place] [address] Nurse Practitioner Internal Medicine 11/21/21 Shannan Oropeza RN [facility] Registered Nurse 01/14/22 Anibal Leahy MD [address] [place] [address] Consulting Physician Pediatric Cardiology 02/21/22 Harry Logan MD [address] [place] [address] Consulting Physician Cardiology 07/02/22 Slime Clark, [place] [address] Registered Nurse Cardiology 04/17/23 Violette Ray Clinical Director Workers Compensation 12/07/24
--- OUTSIDE RECORDS SUMMARY | 2025-01-05 09:07 | XMS_ITS | Encounter Summary ---
Author Organization [facility] Address [address] [place] [address] Care Team Providers Care Cafe Manager Name Role Phone Mali Rivera ERIC Primary Care Provider [phone] Cindi Shepherd RN Unavailable Unavailab Gema Lee RN Unavailable Unavailable Shraddha Paulson APRN Unavailable [phone] Shannan Oropeza RN Unavailable Unavailable Anibal Leahy MD Unavailable Harry Logan MD Unavailable [phone] Slime Clark RN Unavailable Unavailable Violette Ray Unavailable Unavailabl e Reason for Visit * Reason Comments Med Refill Encounter Details Date Type Department Care Team (Late st Contact Info) Description 11/04/2024 Refill [facility] Education [address] [place] [address] Gisselle Carmona MD [address] [place] [address] Social History Tobacco Use Types Packs/Day Years [...] How often do you attend chur or bahai services? More than 4 times per year [...] Recorded Patient Health Questionnaire-2 Score 0 03/31/2024 [employer] of Occupat ional Health - Occupational Stress [...] any time in the past 12 m [facility], were you homeless or living in a fdc (including now)? No 09/30/2024 Safety and Environment [...] encounter Miscellaneous Notes * Telephone Encounter - Tatiana Cao PharmD - 11/04/2024 10:17 AM EDT Refill request does not meet protocol. Sending to clinic for review. Additional info: Appointment compliance - Patient has not followed up in clinic as requested. Please review for scheduling and if refills are appropriate. documented in this encounter Plan of Treatment Upcoming Encounters Date Type Department Care Team (Late st Contact Info) Description 01/20/2025 8:00 AM EDT Office Visit [facility] [place] [address] [facility] [place] [address] Harry Villar MD [address] [place] [address] documented as of this encounter [...] documented as of this encounter Care Teams Cafe Manager Relationship Specialty Start Date End Date Mali Rivera APRN [address] [place] [phone] PCP - General 09/01/20 Cindi Shepherd, RN [facility] Registered Nurse Cardiology 11/05/21 Gema Walter RN [facility] Registered Nurse Cardiology 11/21/21 Shraddha Paulson APRN [address] [place] [address] Nurse Practitioner Internal Medicine 11/21/21 Shannan Oropeza, RN [facility] Registered Nurse 01/14/22 Anibal Leahy MD [address] [place] [address] Consulting Physician Pediatric Cardiology 02/21/22 Harry Logan MD [address] [place] [address] Consulting Physician Cardiology 07/02/22 [place] [address] Registered Nurse Cardiology 04/17/23 Violette Ray Clinical Calibration Specialist 12/07/24 documented as of this encounter
--- OUTSIDE RECORDS SUMMARY | 2025-01-05 09:07 | XMS_ITS | Encounter Summary ---
Author Organization [facility] Address [address] [place] [address] Care Team Providers Care Director Enterprise Systems Name Role Phone Mali Rivera APRN Primary Care Provider [phone] Cindi Shepherd RN Unavailable Unavailab Gema Lee RN Unavailable Unavailable Shraddha Paulson APRN Unavailable [phone] Shannan Oropeza RN Unavailable Unavailable Anibal Leahy MD Unavailable Harry Logan MD Unavailable [phone] Slime Clark RN Unavailable Unavailable Violette Ray Unavailable Unavailabl e Reason for Referral * Consultation (Routine) - Authorized Specialty Diagnoses / Procedures Referred By Jose jean-baptiste Referred To Contact Endocrinology Diagnoses Controlled type 2 diabetes mellitus without complication, with long-term current use of insulin Mali Rivera APRN [address] [place] [address] Phone: tel: fax: Referral ID Status Reason Start Date Expiration Date Visits Requested Visits Authorized [id number] Authorized Specialty Services Required 12/07/2024 06/08/20[address] mian Singh Encounter Details Date Type Department Care Team (Late st Contact Info) Description 12/07/2024 Orders Only [facility] Medicine [address] [address] Miguel Mali Hill, MANAGER SUPPLY CHAIN [address] [address] Controlled type 2 diabetes mellitus without complication, with long-term current use of insulin (Primary Dx) Social History Tobacco Use Types [...] week 11/10/2023 How often do you attend [facility] or confucianist services? More than 4 times per year [...] Recorded Patient Health Questionnaire-2 Score 0 03/31/2024 [facility] of Occupat ional Health - Occupational Stress [...] any time in the past 12 m [facility], were you homeless or living [...] Recorded In the past 12 months has [employer] electric, gas, oil, or water company threatened [...] Description 01/20/2025 8:00 AM EDT Office Visit [facility] [address] [facility] [place] [address] Harry Villar MD [address] [place] [address] Scheduled Referrals Name Type Priority Associated Diagnoses Order Schedule Ambulatory referral to Endocrinology Outpatient Referral Routine Controlled type 2 diabetes mellitus without complication, with long-term current use of insulin 1 Occurrences starting 12/07/2024 until 06/10/2026 documented as of this encounter Visit Diagnoses Diagnosis Controlled type 2 diabetes mellitus without complication, with long-term current use of insulin- Primary documented in this encounter Additional Health Concerns Assessment Noted Time PHQ-9 Depression Total Score: 0 03/31/20 10:59 AM EST A fall risk assessment has been complete d for the patient 11/11/2023 10:52 AM EDT A Body Mass Index follow-up plan has been documented for the patient 03/31/2024 11:51 AM EST documented as of this encounter Care Teams Director Enterprise Systems Relationship Specialty Start Date End Date Mali Rivera APRN [address] [place] [address] PCP - General 09/01/20 Cindi Shepherd, RN [facility] Registered Nurse Cardiology 11/05/21 Gema Walter, RN [facility] Registered Nurse Cardiology 11/21/21 Shraddha Paulson, MANAGER SUPPLY CHAIN [address] [place] [address] Nurse Practitioner Internal Medicine 11/21/21 Shannan Oropeza RN [facility] Registered Nurse 01/14/22 Anibal Leahy MD [address] [place] [address] Consulting Physician Pediatric Cardiology 02/21/22 Harry Logan MD [address] [place] [address] Consulting Physician Cardiology 07/02/22 Slime Clark, [place] [address] Registered Nurse Cardiology 04/17/23 Violette Ray Clinical [place] Clerk 12/07/24 documented as of this encounter
--- OUTSIDE RECORDS SUMMARY | 2025-01-05 09:07 | XMS_ITS | Encounter Summary ---
Author Organization [facility] Address [address] [place] [address] Care Team Providers Care Fusing Machine Feeder Name Role Phone Mali Rivera HEDIS REVIEW NURSE Primary Care Provider [phone] Cindi Shepherd RN Unavailable Unavailab Gema Lee RN Unavailable Unavailable Shraddha Paulson HEDIS REVIEW NURSE Unavailable [phone] Shannan Oropeza RN Unavailable Unavailable Anibal Leahy MD Unavailable Harry Logan MD Unavailable [phone] Slime Clark RN Unavailable Unavailable Violette Ray Unavailable Unavaillucero e Reason for Visit * Reason Onset Date Comments HCN Clinical Concern/Question 12/06/2024 Encounter Details Date Type Department Care Team (Late st Contact Info) Description 12/06/2024 Telephone [facility] Medicine [address] [place] [address] Mali Rivera, HEDIS REVIEW NURSE [address] [place] [address] HCN Clinical Concern/Question Social History Tobacco Use Types Packs/Day Years [...] often do you attend chur ch or episcopalian services? 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 . Thanks Best contact number: [phone] (home) Optimal time of day to reach caller: ANYTIME Additional comments/information from caller: None Note: Please do not reply to this message. Follow-up communication and further actions as a result of this message need to be communicated with the patient directly, if the patient is not active onMyChart. If the patient is active on MyChart, they will receive notification of the communication/outcome via MyChart. documented in this encounter Plan of Treatment Upcoming Encounters Date Type Department Care Team (Late st Contact Info) Description 01/20/2025 8:00 AM EDT Office Visit [facility] [place] [address] [facility] [place] [address] Harry Villar MD [address] [place] [address] documented as of this encounter Visit Diagnoses [...] documented as of this encounter Care Teams Fusing Machine Feeder Relationship Specialty Start Date End Date Mali Rivera, HEDIS REVIEW NURSE [address] [place] [address] PCP - General 09/01/20 Cindi Shepherd, RN [facility] Registered Nurse Cardiology 11/05/21 Gema Walter, RN [facility] Registered Nurse Cardiology 11/21/21 Shraddha Paulson, HEDIS REVIEW NURSE [address] [place] [address] Nurse Practitioner Internal Medicine 11/21/21 Shannan Oropeza RN [facility] Registered Nurse 01/14/22 Anibal Leahy MD [address] [place] [address] Consulting Physician Pediatric Cardiology 02/21/22 Harry Logan MD [address] [place] [address] Consulting Physician Cardiology 07/02/22 Slime Clark, [place] [address] Registered Nurse Cardiology 04/17/23 Violette Ray Clinical Quick Sketch Artist 12/07/24 documented as of this encounter
--- OUTSIDE RECORDS SUMMARY | 2025-01-05 09:08 | XMS_ITS | Encounter Summary ---
Author Organization [facility] Address [address] [place] [address] Care Team Providers Care Supervisory Forester Name Role Phone Mali Rivera APRN Primary Care Provider [phone] Cindi Shepherd RN Unavailable Unavailab Gema Lee RN Unavailable Unavailable Shraddha Paulson PREPRESS TECHNICIAN Unavailable [phone] Shannan Oropeza RN Unavailable Unavailable Anibal Leahy MD Unavailable Harry Logan MD Unavailable [phone] Slime Clark RN Unavailable Unavailable Mellisa Byrnes LPN Unavailable Unavailab Violette Caraballo Unavailable Unavaillucero e Encounter Details Date Type Department Care Team (Late st Contact Info) Description 09/11/2021 Outside Procedure External Location [address] [place] [address] Mali Rivera, PREPRESS TECHNICIAN [address] [place] [address] Social History Tobacco Use Types Packs/Day Years Used Date Smoking Tobacco: Former Cigarettes Q uit: 2008 Smokeless Tobacco: Never Alcohol Use Standard Drinks/Week Comments Yes 0 (1 standard drink = 0.6 oz pur e alcohol) Social PHQ-2 Answer Date Recorded Patient Health Questionnaire-2 Score 0 03/26/2021 Comments Unknown Sex and Gender Information Value Date Recorded Sex Assigned at Not on file Legal Sex Female 8:46 PM EDT Gender Identity Not on file Sexual Orientation Not on file COVID-19 Exposure Response Date Recorded In the last 10 days, have yo u been in contact with someone who was confirmed or suspected to have Coronavirus/COVID-19? No / Unsure 09/11/2021 10:30 AM EDT documented as of this encounter Plan of Treatment Upcoming Encounters Date Type Department Care Team (Late st Contact Info) Description 01/20/2025 8:00 AM EDT Office Visit [facility] [place] [address] [place] [address] Harry Villar MD [address] [place] [address] documented as of this encounter Procedures Procedure Name Priority Date/Time Associated Diagnosis Comments XR KNEE LEFT 1 OR 2 VIEWS 09/11/2021 3:06 PM EDT documented in this encounter Results * XR Knee Left 1 or 2 Views (09/11/2021 3:06 PM EDT) Anatomical Region Laterality Modality Lower Extremities, Knee Left Radiogra phic Imaging 09/11/2021 3:06 PM EDT Narrative 09/11/2021 4:30 PM EDT [address] [address] Name: MAYTE SCHMITT Exam Date: 09/11/2021 : 1965 Age 55 Gender: F Physician: MALI RIVERA [facility] Facility HSV: Outpatient Exam: KNEE 1 TO 2V LT LEFT KNEE SERIES HISTORY: Chronic left knee pain. COMPARISON: None. FINDINGS: 2 views of the left knee were performed. There is no acute, displaced fracture or dislocation of the visualized bony structures. There is minimal tricompartmental degenerative change. No soft tissue abnormality is identified. There is no joint effusion. IMPRESSION: Minimal degenerative change without evidence of acute process. The films were reviewed, interpreted, and dictated by Dr. Darian Garduno Transcribed by Anna Calderon PA-C Dictated By: DARIAN GARDUNO Transcribed By: Iam Garduno Transcribed On: 09/11/2021 4:18 PM Electronically signed by: DARIAN GARDUNO 09/11/2021 Thank you for referring MAYTE SCHMITT to [facility]. Legally authenticated by LAUREEN COX 2021-09-11 16:18:20 Procedure Note Provider, [facility] 09/11/2021 [place] [address] Name: MAYTE SCHMITT Exam Date: 09/11/2021 : 1965 Age 55 Gender: F Physician: MALI RIVERA Facility: [facility] Facility HSV: Outpatient Exam: KNEE 1 TO 2V LT LEFT KNEE SERIES HISTORY: Chronic left knee pain. COMPARISON: None. FINDINGS: 2 views of the left knee were performed. There is no acute, displaced fracture or dislocation of the visualized bony structures. Thereis minimal tricompartmental degenerative change. No soft tissue abnormalityis identified. There is no joint effusion. IMPRESSION: Minimal degenerative change without evidence of acuteprocess. The films were reviewed, interpreted, and dictated by Dr. Darian Garduno Transcribed by Anna Calderon PA-C Dictated By: DARIAN GARDUNO Transcribed By: Iam Garduno Transcribed On: 09/11/2021 4:18 PM Electronically signed by: DARIAN GARDUNO 09/11/2021 Thank you for referring MAYTE SCHMITT to [facility]. Legally authenticated by LAUREEN COX 2021-09-11 16:18:20 Mali Rivera PREPRESS TECHNICIAN IMG XR PROCEDURES Final Res ult documented in this encounter Visit Diagnoses Not on filedocumented in this encounter Additional Health Concerns Infection Onset Date Last Indicated Resolved Time COVID-19 Rule-Out 06/06/2022 06/06/2022 06/06/2022 10:02 PM EST Assessment Noted Time PHQ-9 Depression Total Score: 0 03/26/20 8:58 AM EST A fall risk assessment has been complete d for the patient 09/11/2021 11:01 AM EDT documented as of this encounter Care Teams Supervisory Forester Relationship Specialty Start Date End Date Miguel Mali Hill, PREPRESS TECHNICIAN [address] [place] [address] PCP - General 09/01/20 Cindi Shepherd, RN [facility] Registered Nurse Cardiology 11/05/21 Gema Walter, RN [facility] Registered Nurse Cardiology 11/21/21 Shraddha Paulson, PREPRESS TECHNICIAN [address] [place] [address] Nurse Practitioner Internal Medicine 11/21/21 Shannan Oropeza, RN [facility] Registered Nurse 01/14/22 Anibal Leahy MD [address] [place] [address] Consulting Physician Pediatric Cardiology 02/21/22 Harry Logan MD [address] [place] [address] Consulting Physician Cardiology 07/02/22 Slime Clark, [place] [address] Registered Nurse Cardiology 04/17/23 Mellisa Byrnes LPN VALUE-BASED TRANSFORMATION PROGRAM Licensed Practical Nurse 11/03/23 12/12/23 Violette Ray Clinical Decision Support Analyst 12/07/24 documented as of this encounter
--- OUTSIDE RECORDS SUMMARY | 2025-01-05 09:08 | XMS_ITS | Encounter Summary ---
Author Organization [facility] Address [address] [place] [address] Care Team Providers Care Technical Operations Vice President Name Role Phone Mali Rivera MARKETING EFFECTIVENESS MANAGER Primary Care Provider [phone] Cindi Shepherd RN Unavailable Unavailab Gema Lee RN Unavailable Unavailable Shraddha Paulson APRN Unavailable [phone] Shannan Oropeza RN Unavailable Unavailable Anibal Leahy MD Unavailable Harry Logan MD Unavailable [phone] Slime Clark RN Unavailable Unavailable Mellisa Byrnes LPN Unavailable Unavailab Violette Caraballo Unavailable Unavailabl e Reason for Visit * Reason Comments Med Refill Encounter Details Date Type Department Care Team (Late st Contact Info) Description 03/12/2022 Refill [facility] [place] [address] [facility] [place] [address] Enio Mohr MD [address] [place] [address] Social History Tobacco Use Types Packs/Day Years Used Date Smoking Tobacco: Former Cigarettes Q uit: 2008 Smokeless Tobacco: Never Alcohol Use Standard Drinks/Week Comments Yes 0 (1 standard drink = 0.6 oz pur e alcohol) Social PHQ-2 Answer Date Recorded Patient Health Questionnaire-2 Score 0 10/10/2021 Comments Unknown Sex and Gender Information Value Date Recorded Sex Assigned at Not on file Legal Sex Female 8:46 PM EDT Gender Identity Not on file Sexual Orientation Not on file documented as of this encounter Plan of Treatment Upcoming Encounters Date Type Department Care Team (Late st Contact Info) Description 01/20/2025 8:00 AM EDT Office Visit [facility] [place] [address] [place] [address] Harry Villar MD [address] [place] [address] documented as of this encounter Visit Diagnoses Not on filedocumented in this encounter Additional Health Concerns Infection Onset Date Last Indicated Resolved Time COVID-19 Rule-Out 06/06/2022 06/06/2022 06/06/2022 10:02 PM EST Assessment Noted Time PHQ-9 Depression Total Score: 0 03/26/20 8:58 AM EST A fall risk assessment has been complete d for the patient 10/10/2021 11:34 AM EDT documented as of this encounter Care Teams Technical Operations Vice President Relationship Specialty Start Date End Date Mali Rivera APRN [address] [place] [address] PCP - General 09/01/20 Cindi Shepherd RN [facility] Registered Nurse Cardiology 11/05/21 Gema Walter RN [facility] Registered Nurse Cardiology 11/21/21 Shraddha Paulson, MARKETING EFFECTIVENESS MANAGER [address] [place] [phone] Nurse Practitioner Internal Medicine 11/21/21 Shannan Oropeza RN [facility] Registered Nurse 01/14/22 Anibal Leahy MD [address] [place] [phone] Consulting Physician Pediatric Cardiology 02/21/22 Harry Logan MD [address] [place] [phone] Consulting Physician Cardiology 07/02/22 Slime Clark, [place] [address] Registered Nurse Cardiology 04/17/23 Mellisa Byrnes LPN VALUE-BASED TRANSFORMATION PROGRAM Licensed Practical Nurse 11/03/23 12/12/23 Violette Ray Clinical Reliability Technicians 12/07/24 documented as of this encounter
--- OUTSIDE RECORDS SUMMARY | 2025-01-05 09:08 | XMS_ITS | Encounter Summary ---
Author Organization [facility] Address [address] [place] [address] Care Team Providers Care Typewriters Functional Tester Name Role Phone Mali Rivera SAND BOBBER Primary Care Provider [phone] Cindi Shepherd RN Unavailable Unavailab Gema Lee RN Unavailable Unavailable Shraddha Paulson SAND BOBBER Unavailable [phone] Shannan Oropeza RN Unavailable Unavailable Anibal Leahy MD Unavailable Harry Logan MD Unavailable [phone] Silme Clark RN Unavailable Unavailable Mellisa Byrnes LPN Unavailable Unavailab Violette Caraballo Unavailable Unavaillucero e Reason for Visit * Reason Comments Med Refill Encounter Details Date Type Department Care Team (Late st Contact Info) Description 02/12/2022 Refill [facility] [address] [place] [address] Mali Rivera, SAND BOBBER [address] [place] [address] Acute bronchitis, unspecified organism Social History Tobacco Use Types Packs/Day Years [...] encounter Miscellaneous Notes * Telephone Encounter - Tiki Botello - 02/14/2022 7:24 AM EDT Per protocol, 2 medication(s), Linzess and Albuterol, has been approved for 90 day supply with 1 refill(s). The medication refill request(s) has been sent to [facility] pharmacy. Per protocol, 1 medication(s), Diltiazem, has been refused due to: Refill requested too soon-1year sent in on 09/11 documented in this encounter Plan of Treatment Upcoming Encounters Date Type Department Care Team (Late st Contact Info) Description 01/20/2025 8:00 AM EDT Office Visit [facility] [place] [address] [place] [address] Harry Villar MD [address] [place] [address] documented as of this encounter Visit Diagnoses Diagnosis Acute bronchitis, unspecified organism documented in this encounter Additional Health Concerns Infection Onset Date Last Indicated Resolved Time COVID-19 Rule-Out 06/06/2022 06/06/2022 06/06/2022 10:02 PM EST Assessment Noted Time PHQ-9 Depression Total Score: 0 03/26/20 21 8:58 AM EST A fall risk assessment has been complete d for the patient 10/10/2021 11:34 AM EDT documented as of this encounter Care Teams Typewriters Functional Tester Relationship Specialty Start Date End Date Mali Rivera APRN [address] [place] [address] PCP - General 09/01/20 Cindi Shepherd RN [facility] Registered Nurse Cardiology 11/05/21 Gema Walter RN [facility] Registered Nurse Cardiology 11/21/21 Shraddha Paulson APRN [address] [place] [address] Nurse Practitioner Internal Medicine 11/21/21 Shannan Oropeza RN [facility] Registered Nurse 01/14/22 Anibal Leahy MD [address] [place] [address] Consulting Physician Pediatric Cardiology 02/21/22 Harry Logan MD [address] [place] [address] Consulting Physician Cardiology 07/02/22 [place] [address] Registered Nurse Cardiology 04/17/23 Mellisa Byrnes, INFORMATION TECHNOLOGY SECURITY ANALYST VALUE-BASED TRANSFORMATION PROGRAM Licensed Practical Nurse 11/03/23 12/12/23 Violette Ray Clinical Hatchery Helper 12/07/24 documented as of this encounter
--- OUTSIDE RECORDS SUMMARY | 2025-01-05 09:08 | XMS_ITS | Encounter Summary ---
Author Organization [facility] Address [address] [place] [address] Care Team Providers Care Industrial Hygiene Engineer Name Role Phone RiveraMali cuello Liz TOUR DRIVER Primary Care Provider [phone] Cindi Shepherd RN Unavailable Unavailab Gema Lee RN Unavailable Unavailable Shraddha Paulson APRN Unavailable [phone] Shannan Oropeza RN Unavailable Unavailable Anibal Leahy MD Unavailable Harry Logan MD Unavailable [phone] Slime Clark RN Unavailable Unavailable Violette Ray Unavailable Unavailabl e Reason for Visit * Reason Comments Med Refill Encounter Details Date Type Department Care Team (Late st Contact Info) Description 12/19/2024 Refill [facility] [address] [place] [address] Sherri Means, TOUR DRIVER, [facility] [address] [place] [address] Gastroesophageal reflux disease without esophagitis Social History Tobacco Use Types Packs/Day Years [...] How often do you attend chur or christian services? More than 4 times per year 11/10/2023 Do you belong to any clubs o r organizations such as religious groups, unions, fraternal or athletic groups, or [...] Recorded Patient Health Questionnaire-2 Score 6 12/15/2024 [facility] of Occupat ional [facility] - Occupational Stress Questionnaire Answer Date [...] in the past 12 m [facility], were you homeless or living in a jail (including now)? No 12/15/2024 [facility] Utilities Answer Date Recorded In the past [...] encounter Miscellaneous Notes * Telephone Encounter - Elsi Sheffield PharmD - 12/22/2024 2:09 PM EDT 1 medication(s) has been approved per protocol. documented in this encounter Plan of Treatment Upcoming Encounters Date Type Department Care Team (Late st Contact Info) Description 01/20/2025 8:00 AM EDT Office Visit [facility] [place] [address] [facility] [place] [address] Harry Villra MD [address] [place] [address] documented as of this encounter Visit Diagnoses Diagnosis Gastroesophageal reflux disease without esophagitis Esophageal reflux documented in this encounter Additional Health Concerns Assessment Noted Time PHQ-9 Depression Total Score: 18 025 3:01 PM EDT A fall risk assessment has been complete d for the patient 11/11/2023 10:52 AM EDT A Body Mass Index follow-up plan has been documented for the patient 12/15/2024 3:16 PM EDT documented as of this encounter Care Teams Industrial Hygiene Engineer Relationship Specialty Start Date End Date Mali Rivera APRN [address] [place] [address] PCP - General 09/01/20 Cindi Shepherd RN [facility] Registered Nurse Cardiology 11/05/21 Gema Walter, RN [facility] Registered Nurse Cardiology 11/21/21 Shraddha Paulson APRN [address] [place] [address] Nurse Practitioner Internal Medicine 11/21/21 Shannan Oropeza, RN [facility] Registered Nurse 01/14/22 Anibal Leahy MD [address] [place] [address] Consulting Physician Pediatric Cardiology 02/21/22 Harry Logan MD [address] [place] [address] Consulting Physician Cardiology 07/02/22 Slime Clark, WIRE WRAPPING [place] [address] Registered Nurse Cardiology 04/17/23 Violette Ray Clinical Drilling Field Professional 12/07/24 documented as of this encounter
--- OUTSIDE RECORDS SUMMARY | 2025-01-05 09:08 | XMS_ITS | Encounter Summary ---
Author Organization [facility] Address [address] [place] [address] Care Team Providers Care Bottom Saw Operator Name Role Phone Mali Rivera ERIC Primary Care Provider [phone] Cindi Shepherd RN Unavailable Unavailab Gema Lee RN Unavailable Unavailable Shraddha Paulson APRN Unavailable [phone] Shannan Oropeza RN Unavailable Unavailable Anibal Leahy MD Unavailable Harry Logan MD Unavailable [phone] Slime Clark RN Unavailable Unavailable Violette Ray Unavailable Unavailabl e Encounter Details Date Type Department Care Team (Late st Contact Info) Description 12/06/2024 [facility]phone [facility] [address] [place] [address] Gisselle Carmona MD [address] [place] [address] Social History Tobacco Use Types [...] How often do you attend chur or adventism services? More than 4 times per year 11/10/2023 Do you belong to any clubs o r organizations such as synagogue groups, unions, fraternal or athletic groups, or [...] Recorded Patient Health Questionnaire-2 Score 0 03/31/2024 [facility] of Occupat ional Health - Occupational [...] any time in the past 12 m [facility], were you homeless or living in a [...] encounter Miscellaneous Notes * Telephone Encounter - Teena Daniels - 12/06/2024 3:48 PM EDT Paperwork/Documentation Request Patient Name: Shannon Dale Type: Healthcare Authorization for Release of Medical Records Due Date: 12/06/24 Send To: [place] [address] Best contact number: [phone] (home) Optimal time of day to reach caller: ANYTIME Additional comments/information from caller: Pt will not be able to continue to come to [place] for care and is needing to get her records so she can go to an r&d lab technician closer to home. Pleasenot that she is trying to arrange a ride for her 12/14/24 OV though. Note: Please do not reply to this message. Follow-up communication and further actions as a result of this message need to be communicated with the patient directly, if the patient is not active onMyChart. If the patient is active on MyChart, they will receive notification of the communication/outcome via Nymirum. documented in this encounter Plan of Treatment Upcoming Encounters Date Type Department Care Team (Late st Contact Info) Description 01/20/2025 8:00 AM EDT Office Visit [facility] [place] [address] [facility] [place] [address] Harry Villar MD [address] [place] [address] documented as of this encounter Visit Diagnoses [...] documented as of this encounter Care Teams Bottom Saw Operator Relationship Specialty Start Date End Date Mali Rivera, DISPENSARY TECHNIC[place] [address] PCP - General 09/01/20 Cindi Shepherd, RN [facility] Registered Nurse Cardiology 11/05/21 Gema Walter, RN [facility] Registered Nurse Cardiology 11/21/21 Shraddha Paulson, DISPENSARY TECHNICIAN [address] [place] [address] Nurse Practitioner Internal Medicine 11/21/21 Shannan Oropeza RN [facility] Registered Nurse 01/14/22 Anibal Leahy MD [address] [place] [address] Consulting Physician Pediatric Cardiology 02/21/22 Harry Logan MD [address] [place] [address] Consulting Physician Cardiology 07/02/22 Slime Clark, [place] [address] Registered Nurse Cardiology 04/17/23 Violette Ray Clinical Tandem Mill Sticker 12/07/24 documented as of this encounter
--- OUTSIDE RECORDS SUMMARY | 2025-01-05 09:08 | XMS_ITS | Encounter Summary ---
Author Organization [facility] Address [address] [place] [address] Care Team Providers Care Ton Container Filler Name Role Phone Mali Rivera LUMBER LOADER Primary Care Provider [phone] Cindi Shepherd RN Unavailable Unavailab Gema Lee RN Unavailable Unavailable Shraddha Paulson LUMBER LOADER Unavailable [phone] Shannan Oropeza RN Unavailable Unavailable Anibal Leahy MD Unavailable Harry Logan MD Unavailable [phone] Slime Clark RN Unavailable Unavailable Mellisa Byrnes LPN Unavailable Unavailab Violette Caraballo Unavailable Unavailabl e Reason for Visit * Reason Comments Med Refill Encounter Details Date Type Department Care Team (Late st Contact Info) Description 04/12/2022 Refill [facility] [place] [address] [facility] [place] [address] Harry Villar MD [address] [place] [address] Social History Tobacco Use Types Packs/Day Years Used Date Smoking Tobacco: Former Cigarettes Q uit: 2008 Smokeless Tobacco: Never Alcohol Use Standard Drinks/Week Comments Not Currently 0 (1 standard drink = 0.6 oz pur e alcohol) Social PHQ-2 Answer Date Recorded Patient Health Questionnaire-2 Score 6 03/21/2022 Comments Unknown Sex and Gender Information Value Date Recorded Sex Assigned at Not on file Legal Sex Female 8:46 PM EDT Gender Identity Not on file Sexual Orientation Not on file COVID-19 Exposure Response Date Recorded In the last 10 days, have yo u been in contact with someone who was confirmed or suspected to have Coronavirus/COVID-19? No / Unsure 04/05/2022 7:36 AM EST documented as of this encounter Plan of Treatment Upcoming Encounters Date Type Department Care Team (Late st Contact Info) Description 01/20/2025 8:00 AM EDT Office Visit [facility] [place] [address] [facility] [place] [address] Harry Villar MD [address] [place] [address] documented as of this encounter Visit Diagnoses Not on filedocumented in this encounter Additional Health Concerns Infection Onset Date Last Indicated Resolved Time COVID-19 Rule-Out 06/06/2022 06/06/2022 06/06/2022 10:02 PM EST Assessment Noted Time PHQ-9 Depression Total Score: 18 022 2:32 PM EST A fall risk assessment has been complete d for the patient 10/10/2021 11:34 AM EDT documented as of this encounter Care Teams Ton Container Filler Relationship Specialty Start Date End Date Mali Rivera APRN [address] [place] [address] PCP - General 09/01/[address] [facility] Registered Nurse Cardiology 11/05/21 Gema Walter RN [facility] Registered Nurse Cardiology 11/21/21 Shraddha Paulson APRN [address] [place] [address] Nurse Practitioner Internal Medicine 11/21/21 Shannan Oropeza RN [facility] Registered Nurse 01/14/22 Anibal Leahy MD [address] [place] [address] Consulting Physician Pediatric Cardiology 02/21/22 Harry Logan MD [address] [place] [address] Consulting Physician Cardiology 07/02/22 Slime Clark, [place] [address] Registered Nurse Cardiology 04/17/23 Mellisa Byrnes LPN VALUE-BASED TRANSFORMATION PROGRAM Licensed Practical Nurse 11/03/23 12/12/23 Violette Ray Clinical Automobile Brakes Bonder 12/07/24 documented as of this encounter
--- OUTSIDE RECORDS SUMMARY | 2025-01-05 09:08 | XMS_ITS | Encounter Summary ---
Author Organization [facility] Address [address] [place] [address] Care Team Providers Care Physical Therapy Nurse Name Role Phone Mali Rivera ERIC Primary Care Provider [phone] Cindi Shepherd RN Unavailable Unavailab Gema Lee RN Unavailable Unavailable Shraddha Paulson APRN Unavailable [phone] Shannan Oropeza RN Unavailable Unavailable Anibal Leahy MD Unavailable Harry Logan MD Unavailable [phone] Slime Clark RN Unavailable Unavailable Violette Ray Unavailable Unavailabl e Reason for Visit * Reason Comments Health Maint. Care Gaps Encounter Details Date Type Department Care Team (Late st Contact Info) Description 12/07/2024 Patient Outreach POPULATION [facility]ALTH [address] [place] [address] [place] [address] Violette Ray Health Maint. (Care [...] How often do you attend chur or shinto services? More than 4 times per year 11/10/2023 Do you belong to any clubs o r organizations such as gnosticism groups, unions, fraternal or athletic groups, or [...] Recorded Patient Health Questionnaire-2 Score 0 03/31/2024 [facility] [place] of Occupat ional Health - Occupational Stress [...] the past [address] [facility], were you homeless or living in a retirement (including now)? No 09/30/2024 Safety and Environment [...] Recorded In the past 12 months has e [employer], gas, oil, or water company threatened to [...] * Progress Notes - Violette Ray - 12/07/2024 4:07 PM EDT Care Gap Outreach Chart reviewed on 12/07/2024 Shannon Dale is due/overdue for the following preventive services: Open Care Gaps (check all that are OPEN): [x] CRC [x] Mammogram [] PAP [] Immunizations [] Other: Interpretor Needed: No Interpretor ID: [Insert] Action Plan Outreach completed:1st Attempt Outcome: VitalFieldshart message sent Program Enrollment and tasks set for additional outreach Additional information: Colorectal testing due. No order in place. Not completed. Cologuard Eligible Mammography testing due. No order in place. Not completed. Follow-up scheduled for 12/13/2024 For transportation questions, concerns, and/or assistance, please contact our main [facility] line at [phone]. Completed by: Violette Ray [facility] Population [facility] [address], [address] [place] [address] documented in this encounter Plan of Treatment Upcoming Encounters Date Type Department Care Team (Late st Contact Info) Description 01/20/2025 8:00 AM EDT Office Visit [facility] [place] [address] [facility] [place] [address] Harry Villar MD [address] [place] [address] documented as of this encounter Visit Diagnoses [...] documented as of this encounter Care Teams Physical Therapy Nurse Relationship Specialty Start Date End Date MiguelFroylanll Liz, SUPERVISOR PAINT DEPARTMENT [facility] [place] [address] PCP - General 09/01/20 Cindi Shepherd, RN [facility] Registered Nurse Cardiology 11/05/21 Gema Walter, RN [facility] Registered Nurse Cardiology 11/21/21 Shraddha Paulson, SUPERVISOR PAINT DEPARTMENT [address] [place] [address] Nurse Practitioner Internal Medicine 11/21/21 Shannan Oropeza RN [facility] Registered Nurse 01/14/22 Anibal Leahy MD [address] [place] [address] Consulting Physician Pediatric Cardiology 02/21/22 Harry Logan MD [address] [place] [address] Consulting Physician Cardiology 07/02/22 Slime Clark, [place] [address] Registered Nurse Cardiology 04/17/23 Violette Ray Clinical Quality Associate 12/07/24 documented as of this encounter
--- OUTSIDE RECORDS SUMMARY | 2025-01-05 09:08 | XMS_ITS | Encounter Summary ---
Author Organization [facility] Address [address] [place] [address] Care Team Providers Care Engagement Director Name Role Phone Mail Rivera GAS ATTENDANT Primary Care Provider [phone] Cindi Shepherd RN Unavailable Unavailab Gema Lee RN Unavailable Unavailable Shraddha Paulson GAS ATTENDANT Unavailable [phone] Shannan Oropeza RN Unavailable Unavailable Anibal Leahy MD Unavailable Harry Logan MD Unavailable [phone] Slime Clark RN Unavailable Unavailable Mellisa Byrnes LPN Unavailable Unavailab Violette Caraballo Unavailable Unavailabl e Reason for Visit * Reason Comments Med Refill Encounter Details Date Type Department Care Team (Late st Contact Info) Description 12/07/2020 Refill [facility] [place] [address] [facility] [place] [address] Shraddha Paulson, GAS ATTENDANT [address] [place] [address] Social History Tobacco Use Types Packs/Day Years Used Date Smoking Tobacco: Former Smokeless Tobacco: Never Alcohol Use Standard Drinks/Week Comments Yes 0 (1 standard drink = 0.6 oz pur e alcohol) Social Comments Unknown Sex and Gender Information Value Date Recorded Sex Assigned at Not on file Legal Sex Female 8:46 PM EDT Gender Identity Not on file Sexual Orientation Not on file COVID-19 Exposure Response Date Recorded In the last month, have you been in contact with someone who was confirmed or suspected to have Coronavirus / COVID-19? No / Unsure 11/07/2020 12:51 PM EDT documented as of this encounter Plan of Treatment Upcoming Encounters Date Type Department Care Team ([facility] st Contact Info) Description 01/20/2025 8:00 AM EDT Office Visit [facility] [place] [address] [facility] [place] [address] Harry Villar MD [address] [place] [address] documented as of this encounter Visit Diagnoses Not on filedocumented in this encounter Additional Health Concerns Infection Onset Date Last Indicated Resolved Time COVID-19 Rule-Out 03/26/2021 03/26/2021 03/26/2021 5:53 PM EST COVID 19 (Confirmed) Comment:[facility] has contacted the patient regarding their positive COVID-19 test. Patient instructed that the local Health Dept. will be contacting them with a quarantine notice and to discuss contact tracing and should remain at home/isolated until notified. Patient was educated that if symptoms progress and they become short of air to proceed to the nearest ED. [facility] Hides And Skins Colorer: Chikis William 03/26/2021 03/26/2021 04/16/20 5:23 AM EST COVID-19 Rule-Out 06/06/2022 06/06/2022 06/06/2022 10:02 PM EST Assessment Noted Time A fall risk assessment has been complete d for the patient 10/10/2020 4:21 PM EDT documented as of this encounter Care Teams Engagement Director Relationship Specialty Start Date End Date Mali Rivera APRN [address] [place] [address] PCP - General 09/01/20 Cindi Shepherd RN [facility] Registered Nurse Cardiology 11/05/21 Gema Walter RN [facility] Registered Nurse Cardiology 11/21/21 Shraddha Paulson APRN [address] [place] [address] Nurse Practitioner Internal Medicine 11/21/21 Shannan Oropeza, RN [facility] Registered Nurse 01/14/22 Anibal Leahy MD [address] [place] [address] Consulting Physician Pediatric Cardiology 02/21/22 Harry Logan MD [address] [place] [address] Consulting Physician Cardiology 07/02/22 Slime Clark, [place] [address] Registered Nurse Cardiology 04/17/23 Mellisa Byrnes, HOSPICE AIDE VALUE-BASED TRANSFORMATION PROGRAM Licensed Practical Nurse 11/03/23 12/12/23 Violette Ray Clinical Escort Patients 12/07/24 documented as of this encounter
--- OUTSIDE RECORDS SUMMARY | 2025-01-05 09:08 | XMS_ITS | Encounter Summary ---
Author Organization [facility] Address [address] [place] [address] Care Team Providers Care Building Rental Superintendent Name Role Phone Mali Rivera ERIC Primary Care Provider [phone] Cindi Shepherd RN Unavailable Unavailab Gema Lee RN Unavailable Unavailable Shraddha Paulson APRN Unavailable [phone] Shannan Oropeza RN Unavailable Unavailable Anibal Leahy MD Unavailable Harry Logan MD Unavailable [phone] Slime Clark RN Unavailable Unavailable Violette Ray Unavailable Unavailabl e Reason for Visit * Reason Comments Med Refill Encounter Details Date Type Department Care Team (Late st Contact Info) Description 12/21/2024 Refill [facility] [place] [address] [facility] [place] [address] Harry Villar MD [address] [place] [address] Hyperlipidemia, unspecified hyperlipidemia type Social History Tobacco [...] How often do you attend chur or gnosticism services? More than 4 times per year 11/10/2023 Do you belong to any clubs o r organizations such as mu-ism groups, unions, fraternal or athletic groups, or [...] Recorded Patient Health Questionnaire-2 Score 6 12/15/2024 [facility] - [...] in the past 12 m [facility], were you homeless or living in a care home (including now)? No 12/15/2024 [facility] Utilities Answer Date Recorded In [...] Description 01/20/2025 8:00 AM EDT Office Visit [facility] [place] [address] [facility] [place] [address] Harry Villar MD [address] [place] [address] documented as of this encounter [...] documented as of this encounter Care Teams Building Rental Superintendent Relationship Specialty Start Date End Date Mali Rivera APRN [address] [place] [phone] PCP - General 09/01/20 Cidni Shepherd RN [facility] Registered Nurse Cardiology 11/05/21 Gema Walter RN [facility] Registered Nurse Cardiology 11/21/21 Shraddha Paulson APRN [address] [place] [address] Nurse Practitioner Internal Medicine 11/21/21 Shannan Oropeza, RN [facility] Registered Nurse 01/14/22 Anibal Leahy MD [address] [place] [address] Consulting Physician Pediatric Cardiology 02/21/22 Harry Logan MD [address] [place] [address] Consulting Physician Cardiology 07/02/22 [place] [address] Registered Nurse Cardiology 04/17/23 Violette Ray Clinical Plastic Extrusion Operator 12/07/24 documented as of this encounter
--- OUTSIDE RECORDS SUMMARY | 2025-01-05 09:08 | XMS_ITS | Encounter Summary ---
Author Organization [facility] Address [address] [place] [address] Care Team Providers Care Ammonium Hydroxide Operator Name Role Phone Mali Rivera CANDY PULLER Primary Care Provider [phone] Cindi Shepherd RN Unavailable Unavailab Gema Lee RN Unavailable Unavailable Shraddha Paulson CANDY PULLER Unavailable [phone] Shannan Oropeza RN Unavailable Unavailable Anibal Leahy MD Unavailable Harry Logan MD Unavailable [phone] Slime Clark RN Unavailable Unavailable Mellisa Byrnes LPN Unavailable Unavailab Violette Caraballo Unavailable Unavaillucero sparks Reason for Visit * Reason Comments Med Refill Encounter Details Date Type Department Care Team (Late st Contact Info) Description 06/13/2021 Refill [facility] [address] [place] [address] Mali Rivera, CANDY PULLER [address] [place] [address] Candidiasis Social History Tobacco Use Types Packs/Day Years [...] encounter Miscellaneous Notes * Telephone Encounter - Ana Barrios - 06/14/2021 5:07 PM EST Pt stated she told the pharmacy that she didn't need this. * Telephone Encounter - Amelia Stock - 06/14/2021 4:46 PM EST Per protocol, 1 medication(s), diltiazem, has been approved for 90 day supply with 0 refill(s). Themedication refill request(s) has been sent to [facility]. documented in this encounter Plan of Treatment Upcoming Encounters Date Type Department Care Team (Late st Contact Info) Description 01/20/2025 8:00 AM EDT Office Visit [facility] [place] [address] [facility] [place] [address] Harry Villar MD [address] [place] [address] documented as of this encounter Visit Diagnoses Diagnosis Candidiasis documented in this encounter Additional Health Concerns Infection Onset Date Last Indicated Resolved Time COVID-19 Rule-Out 06/06/2022 06/06/2022 06/06/2022 10:02 PM EST Assessment Noted Time PHQ-9 Depression Total Score: 0 03/26/20 21 8:58 AM EST A fall risk assessment has been complete d for the patient 10/10/2020 4:21 PM EDT documented as of this encounter Care Teams Ammonium Hydroxide Operator Relationship Specialty Start Date End Date Mali Rivera APRN [address] [place] [phone] PCP - General 09/01/20 Cindi Shepherd RN [facility] Registered Nurse Cardiology 11/05/21 Gema Walter, RN [facility] Registered Nurse Cardiology 11/21/21 Shraddha Paulson APRN [address] [place] [address] Nurse Practitioner Internal Medicine 11/21/21 Shannan Oropeza, RN [facility] Registered Nurse 01/14/22 Anibal Leahy MD [address] [place] [address] Consulting Physician Pediatric Cardiology 02/21/22 Harry Logan MD [address] [place] [address] Consulting Physician Cardiology 07/02/22 Slime Clark, [place] [address] Registered Nurse Cardiology 04/17/23 Mellisa Byrnes LPN VALUE-BASED TRANSFORMATION PROGRAM Licensed Practical Nurse 11/03/23 12/12/23 Violette Ray Clinical Actuarial Internship 12/07/24 documented as of this encounter
--- OUTSIDE RECORDS SUMMARY | 2025-01-05 09:08 | XMS_ITS | Encounter Summary ---
Author Organization [facility] Address [address] [place] [address] Care Team Providers Care Trailhead Maintenance Worker Name Role Phone Mali Rivera SUBSTATION OPERATOR CONVERSION Primary Care Provider [phone] Cindi Shepherd RN Unavailable Unavailab Gema Lee RN Unavailable Unavailable Shraddha Paulson SUBSTATION OPERATOR CONVERSION Unavailable [phone] Shannan Oropeza RN Unavailable Unavailable Anibal Leahy MD Unavailable Harry Logan MD Unavailable [phone] Slime Clark RN Unavailable Unavailable Mellisa Byrnes LPN Unavailable Unavailab Violette Caraballo Unavailable Unavailabl e Reason for Visit * Reason Comments Med Refill Encounter Details Date Type Department Care Team (Late st Contact Info) Description 12/29/2020 Refill [facility] [place] [address] [facility] [place] [address] Shraddha Paulson, SUBSTATION OPERATOR CONVERSION [address] [place] [address] Social History Tobacco Use Types Packs/Day Years [...] Description 01/20/2025 8:00 AM EDT Office Visit [facility] [place] [address] [facility] [place] [address] Harry Villar MD [address] [place] [address] documented as of this encounter Visit Diagnoses Not on filedocumented in this encounter Additional Health Concerns Infection Onset Date Last Indicated Resolved Time COVID-19 Rule-Out 03/26/2021 03/26/2021 03/26/2021 5:53 PM EST COVID 19 (Confirmed) Comment:[facility] has contacted the patient regarding their positive COVID-19 test. Patient instructed that the local Health Dept. will be contacting them with a quarantine notice and to discuss contact tracing and should remain at home/isolated until notified. Patient was educated that if symptoms progress and they become short of air to proceed to the nearest ED. [facility] Used Car Lot Attendant: Chikis William 03/26/2021 03/26/2021 04/16/20 5:23 AM EST COVID-19 Rule-Out 06/06/2022 06/06/2022 06/06/2022 10:02 PM EST Assessment Noted Time A fall risk assessment has been complete d for the patient 10/10/2020 4:21 PM EDT documented as of this encounter Care Teams Trailhead Maintenance Worker Relationship Specialty Start Date End Date Mali Rivera APRN [address] [place] [phone] PCP - General 09/01/20 Cindi Shepherd, RN [facility] Registered Nurse Cardiology 11/05/21 Gema Walter, RN [facility] Registered Nurse Cardiology 11/21/21 Shraddha Paulson APRN [address] [place] [address] Nurse Practitioner Internal Medicine 11/21/21 Shannan Oropeza, RN [facility] Registered Nurse 01/14/22 Anibal Leahy MD [address] [place] [address] Consulting Physician Pediatric Cardiology 02/21/22 Harry Logan MD [address] [place] [address] Consulting Physician Cardiology 07/02/22 [place] [address] Registered Nurse Cardiology 04/17/23 Mellisa Byrnes LPN VALUE-BASED TRANSFORMATION PROGRAM Licensed Practical Nurse 11/03/23 12/12/23 Violette Ray Clinical Maintenance And Repair Worker 12/07/24 documented as of this encounter
--- OUTSIDE RECORDS SUMMARY | 2025-01-05 09:08 | XMS_ITS | Encounter Summary ---
Author Organization [facility] Address [address] [place] [address] Care Team Providers Care Information Lead Name Role Phone Mali Rivera ERIC Primary Care Provider [phone] Cindi Shepherd RN Unavailable Unavailab Gema Lee RN Unavailable Unavailable Shraddha Paulson APRN Unavailable [phone] Shannan Oropeza RN Unavailable Unavailable Anibal Leahy MD Unavailable Harry Logan MD Unavailable [phone] Slime Clark RN Unavailable Unavailable Violette Ray Unavailable Unavailabl e Encounter Details Date Type Department Care Team (Late st Contact Info) Description 12/07/2024 [facility] [address] [place] [address] Gisselle Carmona MD [address] [place] [address] Social History Tobacco Use Types [...] How often do you attend chur or samaritan services? More than 4 times per year 11/10/2023 Do you belong to any clubs o r organizations such as buddhist groups, unions, fraternal or athletic groups, or [...] Recorded Patient Health Questionnaire-2 Score 0 03/31/2024 [facility] Health - Occupational [...] any time in the past 12 m [facility], were you homeless or living in a residential (including now)? No 09/30/2024 Safety and Environment [...] * Telephone Encounter - Teena Daniels - 12/07/2024 4:31 PM EDT Paperwork/Documentation Request Patient Name: Shannon Dale Type: Office note from 05/21/23 OV and most recents lab report Due Date: 12/07/24 Send To: Darci [phone] atn: Anna Best contact number: [phone] Optimal time of day to reach caller: ANYTIME Additional comments/information from caller: [facility] is requesting the records and is faxing a release of info. Note: Please do not reply to this message. Follow-up communication and further actions as a result of this message need to be communicated with the patient directly, if the patient is not active onMyChart. If the patient is active on MyChart, they will receive notification of the communication/outcome via [employer]now [employer] documented in this encounter Plan of Treatment Upcoming Encounters Date Type Department Care Team (Late st Contact Info) Description 01/20/2025 8:00 AM EDT Office Visit [facility] [place] [address] [facility] [place] [address] Harry Villar MD [address] [place] [address] documented as of this encounter Visit Diagnoses [...] documented as of this encounter Care Teams Information Lead Relationship Specialty Start Date End Date Mali [place] [address] PCP - General 09/01/20 Cindi Shepherd, RN [facility] Registered Nurse Cardiology 11/05/21 Gema Walter, RN [facility] Registered Nurse Cardiology 11/21/21 Shraddha Paulson, NEWSPAPER STUFFER [address] [place] [address] Nurse Practitioner Internal Medicine 11/21/21 Shannan Oropeza, RN [facility] Registered Nurse 01/14/22 Anibal Leahy MD [address] [place] [address] Consulting Physician Pediatric Cardiology 02/21/22 Harry Logan MD [address] [place] [address] Consulting Physician Cardiology 07/02/22 Slime Clark, [place] [address] Registered Nurse Cardiology 04/17/23 Violette Ray Clinical Tnt Line Supervisor 12/07/24 documented as of this encounter
--- OUTSIDE RECORDS SUMMARY | 2025-01-05 09:08 | XMS_ITS | Encounter Summary ---
Author Organization [facility] Address [address] [place] [address] Care Team Providers Care Foot Worker Name Role Phone Mali Rivera ELECTROMECHANICAL ASSEMBLY TECHNICIAN Primary Care Provider [phone] Cindi Shepherd RN Unavailable Unavailab Gema Lee RN Unavailable Unavailable Shraddha Paulson APRN Unavailable [phone] Shannan Oropeza RN Unavailable Unavailable Anibal Leahy MD Unavailable Harry Logan MD Unavailable [phone] Slime Clark RN Unavailable Unavailable Mellisa Byrnes LPN Unavailable Unavailab Violette Caraballo Unavailable Unavailabl e Reason for Visit * Reason Comments Med Refill Encounter Details Date Type Department Care Team (Late st Contact Info) Description 09/12/2021 Refill [facility] [place] [address] [facility] [place] [address] Enio Mohr MD [address] [place] [address] Social History Tobacco Use Types Packs/Day Years [...] Description 01/20/2025 8:00 AM EDT Office Visit [facility] [place] [address] [facility] [place] [address] Harry Villar MD [address] [place] [address] documented as of this encounter [...] documented as of this encounter Care Teams Foot Worker Relationship Specialty Start Date End Date Mali Rivera APRN [address] [place] [address] PCP - General 09/01/20 Cindi Shepherd, RN [facility] Registered Nurse Cardiology 11/05/21 Gema Walter RN [facility] Registered Nurse Cardiology 11/21/21 Shraddha Paulson APRN [address] [place] [address] Nurse Practitioner Internal Medicine 11/21/21 Shannan Oropeza RN [facility] Registered Nurse 01/14/22 Anibal Leahy MD [address] [place] [address] Consulting Physician Pediatric Cardiology 02/21/22 Harry Logan MD [address] [place] [address] Consulting Physician Cardiology 07/02/22 Slime Clark, [place] [address] Registered Nurse Cardiology 04/17/23 Mellisa Byrnes LPN VALUE-BASED TRANSFORMATION PROGRAM Licensed Practical Nurse 11/03/23 12/12/23 Violette Ray Clinical Professor Of Art 12/07/24 documented as of this encounter
--- OUTSIDE RECORDS SUMMARY | 2025-01-05 09:08 | XMS_ITS ---
Author Organization [facility] Address [address] [place] [address] Care Team Providers Care Rn Unit Manager Name Role Phone Mali Rivera APRN Primary Care Provider [phone] Cindi Shepherd RN Unavailable Unavailab Gema Lee RN Unavailable Unavailable Shraddha Paulson APRN Unavailable [phone] Shannan Oropeza RN Unavailable Unavailable Anibal Leahy MD Unavailable Harry Logan MD Unavailable [phone] Slime Clark RN Unavailable Unavailable Violette Ray Unavailable Unavaillucero e [facility] Program Status:Identified (Enrolling) Start date:12/07/2024 Enrollment reason:Identified using referral data Overview This episode type is for outpatient [facility] enrolling patients in their program. Case Team Name Relationship Phone Violette Ray(Responsible Staff) [facility] Continued Care and Services Coordination
--- OUTSIDE RECORDS SUMMARY | 2025-01-05 09:08 | XMS_ITS | Encounter Summary ---
Author Organization [facility] Address [address] [place] [address] Care Team Providers Care Pad Tufter Name Role Phone Mali Rivera ADDICTIONS COUNSELOR Primary Care Provider [phone] Cindi Shepherd RN Unavailable Unavailab Gema Lee RN Unavailable Unavailable Shraddha Paulson ADDICTIONS COUNSELOR Unavailable [phone] Shannan Oropeza RN Unavailable Unavailable Anibal Leahy MD Unavailable Harry Logan MD Unavailable [phone] Slime Clark RN Unavailable Unavailable Mellisa Byrnes LPN Unavailable Unavailab Violette Caraballo Unavailable Unavailabl e Reason for Visit * Reason Comments Med Refill Encounter Details Date Type Department Care Team (Late st Contact Info) Description 03/17/2022 [facility] [address] [place] [address] Edwige Mitchell, ADDICTIONS COUNSELOR [address] [place] [address] Type 2 diabetes mellitus with diabetic polyneuropathy, with long-term current use of insulin ([facility]) Social History Tobacco Use Types Packs/Day Years Used Date Smoking Tobacco: Former Cigarettes Q uit: 2007 Smokeless Tobacco: Never Alcohol Use Standard Drinks/Week [...] Description 01/20/2025 8:00 AM EDT Office Visit [facility] [place] [address] [facility] [place] [address] Harry Villar MD [address] [place] [address] documented as of this encounter Visit Diagnoses Diagnosis Type 2 diabetes mellitus with diabetic polyneuropathy, with long-term current use of insulin ([facility]) documented in this encounter Additional Health Concerns Infection Onset Date Last Indicated Resolved Time COVID-19 Rule-Out 06/06/2022 06/06/2022 06/06/2022 10:02 PM EST Assessment Noted Time PHQ-9 Depression Total Score: 0 03/26/20 8:58 AM EST A fall risk assessment has been complete d for the patient 10/10/2021 11:34 AM EDT documented as of this encounter Care Teams Pad Tufter Relationship Specialty Start Date End Date Mali Rivera APRN [address] [place] [address] PCP - General 09/01/20 Cindi Shepherd, RN [facility] Registered Nurse Cardiology 11/05/21 Gema Walter, RN [facility] Registered Nurse Cardiology 11/21/21 Shraddha Paulson, ADDICTIONS COUNSELOR [address] [place] [address] Nurse Practitioner Internal Medicine 11/21/21 Shannan Oropeza, RN [facility] Registered Nurse 01/14/22 Anibal Leahy MD [address] [place] [address] Consulting Physician Pediatric Cardiology 02/21/22 Harry Logan MD [address] [place] [address] Consulting Physician Cardiology 07/02/22 Slime Clark, [place] [address] Registered Nurse Cardiology 04/17/23 Mellisa Byrnse LPN VALUE-BASED TRANSFORMATION PROGRAM Licensed Practical Nurse 11/03/23 12/12/23 Violette Ray Clinical Tire Curer 12/07/24 documented as of this encounter
--- OUTSIDE RECORDS SUMMARY | 2025-01-05 09:08 | XMS_ITS | Encounter Summary ---
Author Organization [facility] Address [address] [place] [address] Care Team Providers Care Boiler Coverer Name Role Phone Mali Rivera ALUMINUM SHINGLE ROOFER Primary Care Provider [phone] Cindi Shepherd RN Unavailable Unavailab Gema Lee RN Unavailable Unavailable Shraddha Paulson ALUMINUM SHINGLE ROOFER Unavailable [phone] Shannan Oropeza RN Unavailable Unavailable Anibal Leahy MD Unavailable Harry Logan MD Unavailable [phone] Slime Clark RN Unavailable Unavailable Mellisa Byrnes LPN Unavailable Unavailab Violette Caraballo Unavailable Unavailabl e Reason for Visit * Reason Comments Med Refill Encounter Details Date Type Department Care Team (Late st Contact Info) Description 02/18/2022 Refill [facility] [address] [place] [address] Evangelina Bello, ALUMINUM SHINGLE ROOFER [address] [place] [address] Depression, unspecified depression type (Primary Dx) Social History Tobacco Use [...] Description 01/20/2025 8:00 AM EDT Office Visit [facility] [place] [address] [facility] [place] [address] Harry Villar MD [address] [place] [address] documented as of this encounter Visit Diagnoses Diagnosis Depression, unspecified depression type- Primary documented in this encounter Additional Health Concerns Infection Onset Date Last Indicated Resolved Time COVID-19 Rule-Out 06/06/2022 06/06/2022 06/06/2022 10:02 PM EST Assessment Noted Time PHQ-9 Depression Total Score: 0 03/26/20 8:58 AM EST A fall risk assessment has been complete d for the patient 10/10/2021 11:34 AM EDT documented as of this encounter Care Teams Boiler Coverer Relationship Specialty Start Date End Date Mali Rivera, ALUMINUM SHINGLE ROOFER [address] [place] [phone] PCP - General 09/01/20 Cindi Shepherd RN [facility] Registered Nurse Cardiology 11/05/21 Gema Walter RN [facility] Registered Nurse Cardiology 11/21/21 Shraddha Paulson, ALUMINUM SHINGLE ROOFER [address] [place] [address] Nurse Practitioner Internal Medicine 11/21/21 Shannna Oropeza RN [facility] Registered Nurse 01/14/22 Anibal Leahy MD [address] [place] [address] Consulting Physician Pediatric Cardiology 02/21/22 Harry Logan MD [address] [place] [address] Consulting Physician Cardiology 07/02/22 Slime Clark, [place] [address] Registered Nurse Cardiology 04/17/23 Mellisa Byrnes LPN VALUE-BASED TRANSFORMATION PROGRAM Licensed Practical Nurse 11/03/23 12/12/23 Violette Ray Clinical Operating Room Assistant 12/07/24 documented as of this encounter
--- OUTSIDE RECORDS SUMMARY | 2025-01-05 09:08 | XMS_ITS | Clinical Summary ---
Author Organization [facility] Address [address] [place] [address] Care Team Providers Care Group Exercise Manager Name Role Phone Mali Rivera APRN Primary Care Provider Social History Tobacco Use Types Packs/Day Years Used Date Smoking Tobacco: Never Assessed Abuse Screen Answer Date Recorded Unsafe at Home or Work/School Not on file Feels Threatened by Someone? Not on file 12/2022 Does Anyone Keep You from Co ntacting Others or Doint Things Outside the Home? Not on file 01/27/2023 Physical Sign of Abuse Present Not on file 1 Housing Stability Answer Date Recorded Current Living Arrangements Not on file 12/2022 Potentially Unsafe Housing Conditions Not on kiley e 01/27/2023 Family and Community Support Answer Vipul e Recorded Help with Day-to-Day Activities Not on file 01/27/2023 Lonely or Isolated Not on file 01/27/2023 Employment Answer Date Recorded Do you want help finding or keeping work or a sunshine b? Not on file 01/27/2023 Disabilities Answer Date Recorded Concentrating, Remembering, or Making Decisions Difficulty Not on file 01/27/2023 Doing Errands Independently Difficulty Not on fi le 01/27/2023 Education Answer Date Recorded Help with school or training? Not on file Preferred Language Not on file 01/27/2023 Comments Unknown Sex and Gender Information Value Date Recorded Sex Assigned at Not on file Legal Sex Female 11:52 AM EDT Gender Identity Not on file Sexual Orientation Not on file Plan of Treatment Health Maintenance Due Date Last Done Comments Annual Gynecologic Pelvic and Breast Exam 1966 TDAP/TD VACCINES (1 - Tdap) 1985 MAMMOGRAM 2006 COLOGUARD 11/30/2011 COLON CANCER SCREENING 5 YEAR SIGMOIDOSCOPY 11/30/2011 CT COLONOGRAPHY 11/30/2011 FECAL OCCULT BLOOD TEST 11/30/2011 FIT Testing (1 year) 11/30/2011 Pneumococcal Vaccine 50+ (1 of 1 - PCV) 2016 ZOSTER VACCINE (1 of 2) 2016 ANNUAL PHYSICAL 02/12/2022 HEPATITIS C SCREENING 02/12/2022 COLONOSCOPY 04/06/2024 04/06/2014 COLORECTAL CANCER SCREENING 04/06/2024 COVID-19 Vaccine ( - 2023- season) 2024 INFLUENZA VACCINE 01/19/2025 Insurance [facility] MEDICARE ADVANTAGE Care Teams Group Exercise Manager Relationship Specialty Start Date End Date Mali Rivera APRN [address] [place] [address] PCP - General 06/16/15
--- OUTSIDE RECORDS SUMMARY | 2025-01-05 09:08 | XMS_ITS | Encounter Summary ---
Author Organization [facility] Address [address] [place] [address] Care Team Providers Care Upholstery Trimmer Name Role Phone Mali Rivera CHIEF OF SAFETY AND PROTECTION Primary Care Provider [phone] Cindi Shepherd RN Unavailable Unavailab Gema Lee RN Unavailable Unavailable Shraddha Paulson APRN Unavailable [phone] Shannan Oropeza RN Unavailable Unavailable Anibal Leahy MD Unavailable Harry Logan MD Unavailable [phone] Slime Clark RN Unavailable Unavailable Mellisa Byrnes LPN Unavailable Unavailab Violette Caraballo Unavailable Unavailabl e Encounter Details Date Type Department Care Team (Late st Contact Info) Description 06/05/2023 [facility] [address] [place] [address] Susie Ray MD [address] [place] [address] Social History Tobacco Use Types Packs/Day Years Used Date Smoking Tobacco: Former Cigarettes 0.5 10 1 8 - 2007 Passive Smoke Exposure: Past Smokeless Tobacco: Never Alcohol Use Standard Drinks/Week Comments Not Currently 0 (1 standard drink = 0.6 oz pur e alcohol) Social PHQ-2 Answer Date Recorded Patient Health Questionnaire-2 Score 0 05/29/2023 PHQ-9 Answer Date Recorded Patient Health Questionnaire-9 [...] Description 01/20/2025 8:00 AM EDT Office Visit [facility] [place] [address] [facility] [place] [address] Harry Villar MD [address] [place] [address] documented as of this encounter Visit Diagnoses Not on filedocumented in this encounter Additional Health Concerns Assessment Noted Time PHQ-9 Depression Total Score: 16 023 2:11 PM EDT A fall risk assessment has been complete d for the patient 05/21/2023 8:57 AM EST A Body Mass Index follow-up plan has been documented for the patient 05/29/2023 4:23 PM EST documented as of this encounter Care Teams Upholstery Trimmer Relationship Specialty Start Date End Date Mali Rivera, CHIEF OF SAFETY AND PROTECTION [address] [place] [address] PCP - General 09/01/20 Cindi Shepherd RN [facility] Registered Nurse Cardiology 11/05/21 Gema Walter RN [facility] Registered Nurse Cardiology 11/21/21 Shraddha Paulson, CHIEF OF SAFETY AND PROTECTION [address] [place] [phone] Nurse Practitioner Internal Medicine 11/21/21 Shannan Oropeza, RN [facility] Registered Nurse 01/14/22 Anibal Leahy MD [address] [place] [address] Consulting Physician Pediatric Cardiology 02/21/22 Hrary Logan MD [address] [place] [address] Consulting Physician Cardiology 07/02/22 Slime Clark, [place]ICAL [place] [address] Registered Nurse Cardiology 04/17/23 Mellisa Byrnes LPN VALUE-BASED TRANSFORMATION PROGRAM Licensed Practical Nurse 11/03/23 12/12/23 Violette Ray Clinical Computer Equipment Repairer 12/07/24 documented as of this encounter
--- OUTSIDE RECORDS SUMMARY | 2025-01-05 09:08 | XMS_ITS | Encounter Summary ---
Author Organization [facility] Address [address] [place] [address] Care Team Providers Care Hand I Thermal Cutter Name Role Phone Mali Rivera ERIC Primary Care Provider [phone] Cindi Shepherd RN Unavailable Unavailab Gema Lee RN Unavailable Unavailable Shraddha Paulson APRN Unavailable [phone] Shannan Oropeza RN Unavailable Unavailable Anibal Leahy MD Unavailable Harry Logan MD Unavailable [phone] Slime Clark RN Unavailable Unavailable Violette Ray Unavailable Unavailabl e Encounter Details Date Type Department Care Team (Latest Contact Info) Description 12/15/2024 Travel Social History Tobacco Use Types Packs/Day Years [...] often do you attend chur ch or sabianism services? More than 4 times per year 11/10/2023 Do you belong to any clubs o r organizations such as yarsani groups, unions, fraternal or athletic groups, or [...] [facility]at [facility] - Occupational Stress [...] any time in the past 12 m [facility], were you homeless or living in a senior living (including now)? No 12/15/2024 [facility] Utilities Answer Date Recorded In the past 12 months has e [employer], gas, oil, or water [employer] threatened to shut off services in your [...] on file documented as of this encounter Functional Status * AUDIT-C Score Answer Date of Assessment Author 0 12/15/2024 2:53 PM Simran Han * Question Answer Date of Assessment Author Q1: How often do you have a drink containing alcohol? Never 12/15/2024 2:53 PM Simran Han Q2: How many drinks containing alcohol do you have on a typical day when you are drinking? Patient does not drink 12/15/2024 2:53 PM Simran Han Q3: How often do you have six or more drinks on one occasion? Never 12/15/2024 2:53 PM Simran Han * Over the past 2 weeks, how often have you been bothered by any of the following problems? Question Answer Date of Assessment Author Little interest or pleasure in doing things Nearly every day 12/15/2024 3:01 PM Simran Han Feeling down, depressed, or hopeless Nearly every day 12/15/2024 3:01 PM Simran Han Patient Health Questionnaire-2 Score 6 12/15/2024 3:01 [...] than usual. Several days 12/15/2024 3:01 PM EDT Simran Haley Thoughts that you would be better off or hurting yourself in some way Not at all 12/15/2024 3:01 PM EDT Simran Haley Patient Health Questionnaire-9 Score 18 12/15/2024 3:01 PM EDT Simran Haley * If you checked off any problems on this questionnaire so far, Question Answer Date of Assessment Author How difficult have these problems made it for you to do your work, take care of things at home, or get along with other people? Somewhat difficult 12/15/2024 3:01 PM EDT Michael Haley * How difficult have these problems made it for you to do your work, take care of things at home, or get along with other people? Answer Date of Assessment Author Somewhat difficult 12/15/2024 3:01 PM EDT Simran Dinh documented as of this encounter Plan of Treatment Upcoming Encounters Date Type Department Care Team (Late st Contact Info) Description 01/20/2025 8:00 AM EDT Office Visit [facility] [place] [address] [facility] [place] [address] Harry Villar MD [address] [place] [address] documented as of this encounter [...] documented as of this encounter Care Teams Hand I Thermal Cutter Relationship Specialty Start Date End Date Mali Rivera APRN [address] [place] [address] PCP - General 09/01/20 Cindi Shepherd RN [facility] Registered Nurse Cardiology 11/05/21 Gema Walter, RN [facility] Registered Nurse Cardiology 11/21/21 Shraddha Paulson APRN [address] [place] [address] Nurse Practitioner Internal Medicine 11/21/21 Shannan Oropeza, RN [facility] Registered Nurse 01/14/22 Anibal Leahy MD [address] [place] [address] Consulting Physician Pediatric Cardiology 02/21/22 Harry Logan MD [address] [place] [address] Consulting Physician Cardiology 07/02/22 Slime Clark, [place] [address] Registered Nurse Cardiology 04/17/23 Violette Ray Clinical Excel Developer 12/07/24 documented as of this encounter
--- OUTSIDE RECORDS SUMMARY | 2025-01-05 09:08 | XMS_ITS | Encounter Summary ---
Author Organization [facility] Address [address] [place] [address] Care Team Providers Care Health Club Manager Name Role Phone Mali Rivera ERIC Primary Care Provider [phone] Cindi Shepherd RN Unavailable Unavailab Gema Lee RN Unavailable Unavailable Shraddha Paulson APRN Unavailable [phone] Shannan Oropeza RN Unavailable Unavailable Anibal Leahy MD Unavailable Harry Logan MD Unavailable [phone] Slime Clark RN Unavailable Unavailable Violette Ray Unavailable Unavailabl e Reason for Visit * Reason Comments Med Refill Encounter Details Date Type Department Care Team (Late st Contact Info) Description 01/01/2025 Refill [facility] Endocrinology [address] [place] [address] Gisselle Carmona MD [address] [place] [address] Type 2 diabetes mellitus with diabetic polyneuropathy, with long-term current use of insulin ([facility]) Social History Tobacco Use Types [...] How often do you attend chur or buddhism services? More than 4 times per year 11/10/2023 Do you belong to any clubs o r organizations such as evangelical groups, unions, fraternal or athletic groups, or [...] Recorded Patient Health Questionnaire-2 Score 6 12/15/2024 [facility] - Occupational Stress Questionnaire Answer Date [...] any time in the past 12 m [facility], were you homeless or living in a jail (including now)? No 12/15/2024 [facility] Utilities Answer Date Recorded In the [...] Description 01/20/2025 8:00 AM EDT Office Visit [facility] [place] [address] [facility] [place] [address] Harry Villar MD [address] [place] [address] documented as of this encounter Visit Diagnoses Diagnosis Type 2 diabetes mellitus with diabetic polyneuropathy, with long-term current use of insulin ([facility]) documented in this encounter Additional Health Concerns Assessment Noted Time PHQ-9 Depression Total Score: 18 025 3:01 PM EDT A fall risk assessment has been complete d for the patient 11/11/2023 10:52 AM EDT A Body Mass Index follow-up plan has been documented for the patient 12/15/2024 3:16 PM EDT documented as of this encounter Care Teams Health Club Manager Relationship Specialty Start Date End Date Mali Rivera APRN [address] [place] [address] PCP - General 09/01/20 Cindi Shepherd RN [facility] Registered Nurse Cardiology 11/05/21 Gema Walter RN [facility] Registered Nurse Cardiology 11/21/21 Shraddha Paulson APRN [address] [place] [address] Nurse Practitioner Internal Medicine 11/21/21 Shannan Oropeza RN [facility] Registered Nurse 01/14/22 Anibal Leahy MD [address] [place] [address] Consulting Physician Pediatric Cardiology 02/21/22 Harry Logan MD [address] [place] [address] Consulting Physician Cardiology 07/02/22 Slime Clark, [place] [address] Registered Nurse Cardiology 04/17/23 Violette Ray Clinical Director Bioinformatics 12/07/24 documented as of this encounter
--- OUTSIDE RECORDS SUMMARY | 2025-01-05 09:08 | XMS_ITS | Encounter Summary ---
Author Organization [facility] Address [address] [place] [address] Care Team Providers Care Mine Patrol Name Role Phone Mali Rivera ERIC Primary Care Provider [phone] Cindi Shepherd RN Unavailable Unavailab Gema Lee RN Unavailable Unavailable Shraddha Paulson APRN Unavailable [phone] Shannan Oropeza RN Unavailable Unavailable Anibal Leahy MD Unavailable Harry Logan MD Unavailable [phone] Slime Clark RN Unavailable Unavailable Mellisa Byrnes LPN Unavailable Unavailab Violette Caraballo Unavailable Unavailabl e Reason for Visit * Reason Comments Med Refill Encounter Details Date Type Department Care Team (Late st Contact Info) Description 10/01/2022 Refill [facility] [address] [place] [address] Arina Juarez MD [address] [place] [address] Social History Tobacco Use Types Packs/Day Years Used Date Smoking Tobacco: Former Cigarettes 0.5 10 1 2007 Passive Smoke Exposure: Past Smokeless Tobacco: Never Alcohol Use Standard Drinks/Week Comments Not Currently 0 (1 standard drink = 0.6 oz pur e alcohol) Social PHQ-2 Answer Date Recorded Patient Health Questionnaire-2 Score 0 06/06/2022 Comments Unknown Sex and Gender Information Value Date Recorded Sex Assigned at Not on file Legal Sex Female 8:46 PM EDT Gender Identity Not on file Sexual Orientation Not on file documented as of this encounter Miscellaneous Notes * Telephone Encounter - Ana Burch - 10/03/2022 12:18 PM EDT Advised pt that we do not have anyone here that has prescribed it and the pt is unaware of it also.Will deny. documented in this encounter Plan of Treatment Upcoming Encounters Date Type Department Care Team (Late st Contact Info) Description 01/20/2025 8:00 AM EDT Office Visit [facility] [place] [address] [facility] [place] [address] Harry Villar MD [address] [place] [address] documented as of this encounter Visit Diagnoses Not on filedocumented in this encounter Additional Health Concerns Assessment Noted Time PHQ-9 Depression Total Score: 18 022 2:32 PM EST A fall risk assessment has been complete d for the patient 04/17/2022 9:19 AM EST A Body Mass Index follow-up plan has been documented for the patient 08/20/2022 12:53 PM EDT documented as of this encounter Care Teams Mine Patrol Relationship Specialty Start Date End Date Mali Rivera APRN [address] [place] [address] PCP - General 09/01/20 Cindi Shepherd, RN [facility] Registered Nurse Cardiology 11/05/21 Gema Walter RN [facility] Registered Nurse Cardiology 11/21/21 Shraddha Paulson APRN [address] [place] [address] Nurse Practitioner Internal Medicine 11/21/21 Shannan Oropeza, RN [facility] Registered Nurse 01/14/22 Anibal Leahy MD [address] [place] [address] Consulting Physician Pediatric Cardiology 02/21/22 Harry Logan MD [address] [place] [address] Consulting Physician Cardiology 07/02/22 [place] [address] Registered Nurse Cardiology 04/17/23 Mellisa Byrnes LPN VALUE-BASED TRANSFORMATION PROGRAM Licensed Practical Nurse 11/03/23 12/12/23 Violette Ray Clinical Rubber Goods Cutter Finisher 12/07/24 documented as of this encounter
--- OUTSIDE RECORDS SUMMARY | 2025-01-05 09:08 | XMS_ITS | Encounter Summary ---
Author Organization [facility] Address [address] [place] [address] Care Team Providers Care Senior Housekeeper Name Role Phone Mali Rivera WHALE FISHERMAN Primary Care Provider [phone] Cindi Shepherd RN Unavailable Unavailab Gema Lee RN Unavailable Unavailable Shraddha Paulson APRN Unavailable [phone] Shannan Oropeza RN Unavailable Unavailable Anibal Leahy MD Unavailable Harry Logan MD Unavailable [phone] Slime Clark RN Unavailable Unavailable Mellisa Byrnes LPN Unavailable Unavailab Violette Caraballo Unavailable Unavailabl e Reason for Visit * Reason Comments Med Refill Encounter Details Date Type Department Care Team (Late st Contact Info) Description 01/09/2022 Refill [facility] [place] [address] [facility] [place] [address] Enoi Mohr MD [address] [place] [address] Social History Tobacco Use Types Packs/Day Years [...] Description 01/20/2025 8:00 AM EDT Office Visit [facility] [place] [address] [facility] [place] [address] Harry Villar MD [address] [place] [address] documented as of this encounter Visit Diagnoses [...] documented as of this encounter Care Teams Senior Housekeeper Relationship Specialty Start Date End Date Mali Rivera APRN [address] [place] [address] PCP - General 09/01/20 Cindi Shepherd RN [facility] Registered Nurse Cardiology 11/05/21 Gema Walter RN [facility] Registered Nurse Cardiology 11/21/21 Shraddha Paulson, WHALE FISHERMAN [address] [place] [phone] Nurse Practitioner Internal Medicine 11/21/21 Shannan Oropeza RN [facility] Registered Nurse 01/14/22 Anibal Leahy MD [address] [place] [phone] Consulting Physician Pediatric Cardiology 02/21/22 Harry Logan MD [address] [place] [phone] Consulting Physician Cardiology 07/02/22 Slime Clark, [place] [address] Registered Nurse Cardiology 04/17/23 Mellisa Byrnes LPN VALUE-BASED TRANSFORMATION PROGRAM Licensed Practical Nurse 11/03/23 12/12/23 Violette Ray Clinical Yacht Captain 12/07/24 documented as of this encounter
--- OUTSIDE RECORDS SUMMARY | 2025-01-05 09:08 | XMS_ITS | Encounter Summary ---
Author Organization [facility] Address [address] [place] [address] Care Team Providers Care Water Softener Servicer Name Role Phone Mali Rivera DOCUMENT MANAGEMENT ANALYST Primary Care Provider [phone] Cindi Shepherd RN Unavailable Unavailab Gema Lee RN Unavailable Unavailable Shraddha Paulson DOCUMENT MANAGEMENT ANALYST Unavailable [phone] Shannan Oropeza RN Unavailable Unavailable Anibal Leahy MD Unavailable Harry Logan MD Unavailable [phone] Slime Clark RN Unavailable Unavailable Mellisa Byrnes LPN Unavailable Unavailab Violette Caraballo Unavailable Unavailabl e Encounter Details Date Type Department Care Team (Late st Contact Info) Description 11/21/2021 Outside Procedure External Location [address] [place] [address] Gokul Milligan, DOCUMENT MANAGEMENT ANALYST [address] [place] [address] Social History Tobacco Use Types [...] suspected to have Coronavirus/COVID-19? No / Unsure 11/16/2021 11:08 AM EDT documented as of this encounter Plan of Treatment Upcoming Encounters Date Type Department Care Team (Late st Contact Info) Description 01/20/2025 8:00 AM EDT Office Visit [facility] [place] [address] [place] [address] Harry Villar MD [address] [place] [address] documented as of this encounter Procedures Procedure Name Priority Date/Time Associated Diagnosis Comments CT HEAD WO IV CONTRAST 11/21/2021 1:29 PM EDT documented in this encounter Results * CT Head wo IV Contrast (11/21/2021 1:29 PM EDT) Anatomical Region Laterality Modality Head Computed Tomogra phy 11/21/2021 1:29 PM EDT Narrative 11/21/2021 2:19 [place] [address] Name: MAYTE SCHMITT Exam Date: 11/21/2021 : 1965 Age 55 Gender: F Physician: GOKUL MILLIGAN Facility: [facility] Facility HSV: Outpatient Exam: CT BRAIN W/O EXAMINATION: CT HEAD WITHOUT IV CONTRAST INDICATION: Left-sided headache. TECHNIQUE: Contiguous axial noncontrast CT images of the head. Coronal and sagittal reformatted images were generated and reviewed. COMPARISON: None FINDINGS: No evidence of acute hemorrhage. No evidence of brain parenchymal ischemia. No extra-axial collection. No mass effect, midline shift, or herniation. Normal ventricular configuration. Basal cisterns are patent. Visualized orbital structures are unremarkable. Visualized paranasal sinuses are clear No abnormality of the scalp soft tissues. No evidence of skull fracture. IMPRESSION: No acute intracranial abnormality. Dictated By: Osiris Hobbs Transcribed By: Osiris Soliz Transcribed On: 11/21/2021 2:07 PM Electronically signed by: Osiris Hobbs 11/21/2021 Thank you for referring MAYTE SCHMITT to [facility]. Legally authenticated by CIRILO SAUNDERS 2021-11-21 14:07:55 Procedure Note Provider, [facility] - 11/21/2021 [place] [address] Name: MAYTE SCHMITT Exam Date: 11/21/2021 : 1965 Age 55 Gender: F Physician: GOKUL MILLIGAN Facility: [facility] Facility HSV: Outpatient Exam: CT BRAIN W/O EXAMINATION: CT HEAD WITHOUT IV CONTRAST INDICATION: Left-sided headache. TECHNIQUE: Contiguous axial noncontrast CT images of the head. Coronaland sagittal reformatted images were generated and reviewed. COMPARISON: None FINDINGS: No evidence of acute hemorrhage. No evidence of brain parenchymalischemia. No extra-axial collection. No mass effect, midline shift, or herniation. Normal ventricular configuration. Basal cisterns are patent. Visualized orbital structures are unremarkable. Visualized paranasalsinuses are clear No abnormality of the scalp soft tissues. No evidence of skull fracture. IMPRESSION: No acute intracranial abnormality. Dictated By: Osiris Hobbs Transcribed By: Osiris Soliz Transcribed On: 11/21/2021 2:07 PM Electronically signed by: Osiris Hobbs 11/21/2021 Thank you for referring MAYTE SCHMITT to [facility]. Legally authenticated by CIRILO SAUNDERS 2021-11-21 14:07:55 Gokul Milligan DOCUMENT MANAGEMENT ANALYST IMG CT PROCEDURES Final Result documented in this encounter Visit Diagnoses Not [...] documented as of this encounter Care Teams Water Softener Servicer Relationship Specialty Start Date End Date Mali Rivera, DOCUMENT MANAGEMENT ANALYST [address] [place] [address] PCP - General 09/01/20 Cindi Shepherd, RN [facility] Registered Nurse Cardiology 11/05/21 Gema Walter, RN [facility] Registered Nurse Cardiology 11/21/21 Shraddha Paulson, DOCUMENT MANAGEMENT ANALYST [address] [place] [address] Nurse Practitioner Internal Medicine 11/21/21 Shannan Oropeza RN [facility] Registered Nurse 01/14/22 Anibal Leahy MD [address] [place] [address] Consulting Physician Pediatric Cardiology 02/21/22 Harry Logan MD [address] [place] [address] Consulting Physician Cardiology 07/02/22 Slime Clark, OFFSET [place] [address] Registered Nurse Cardiology 04/17/23 Mellisa Byrnes LPN VALUE-BASED TRANSFORMATION PROGRAM Licensed Practical Nurse 11/03/23 12/12/23 Violette Ray Clinical Preschool Principal 12/07/24 documented as of this encounter
--- OUTSIDE RECORDS SUMMARY | 2025-01-05 09:08 | XMS_ITS | Encounter Summary ---
Author Organization [facility] Address [address] [place] [address] Care Team Providers Care Underground Mine Superintendent Name Role Phone Mali Rivera ERIC Primary Care Provider [phone] Cindi Shepherd RN Unavailable Unavailab Gema Lee RN Unavailable Unavailable Shraddha Paulson APRN Unavailable [phone] Shannan Oropeza RN Unavailable Unavailable Anibal Leahy MD Unavailable Harry Logan MD Unavailable [phone] Slime Clark RN Unavailable Unavailable Violette Ray Unavailable Unavailabl e Reason for Visit * Reason Comments Med Refill Encounter Details Date Type Department Care Team (Late st Contact Info) Description 12/30/2024 Refill [facility] Endocrinology [address] [place] [address] Gisselle Carmona MD [address] [place] [address] Type 2 diabetes mellitus with diabetic polyneuropathy, with long-term current use of insulin ([facility]) Social History Tobacco Use Types Packs/Day Years [...] How often do you attend chur or pentecostal services? More than 4 times per year 11/10/2023 Do you belong to any clubs o r organizations such as pentecostal groups, unions, fraternal or athletic groups, or [...] Recorded Patient Health Questionnaire-2 Score 6 12/15/2024 [facility] - Occupational Stress Questionnaire Answer Date [...] any time in the past 12 m [place], were you homeless or living in a intermediate (including now)? No 12/15/2024 [facility] Utilities Answer Date Recorded In [...] Description 01/20/2025 8:00 AM EDT Office Visit [facility] [place] [address] [place] [address] Harry Villar MD [address] [place] [address] documented as of this encounter Visit Diagnoses Diagnosis Type 2 diabetes mellitus with diabetic polyneuropathy, with long-term current use of insulin ([facility]) documented in this encounter Additional Health Concerns Assessment Noted Time PHQ-9 Depression Total Score: 18 025 3:01 PM EDT A fall risk assessment has been complete d for the patient 11/11/2023 10:52 AM EDT A Body Mass Index follow-up plan has been documented for the patient 12/15/2024 3:16 PM EDT documented as of this encounter Care Teams Underground Mine Superintendent Relationship Specialty Start Date End Date Mali Rivera APRN [address] [place] [address] PCP - General 09/01/20 Cindi Shepherd RN [facility] Registered Nurse Cardiology 11/05/21 Gema Walter RN [facility] Registered Nurse Cardiology 11/21/21 Shraddha Paulson APRN [address] [place] [address] Nurse Practitioner Internal Medicine 11/21/21 Shannan Oropeza RN [facility] Registered Nurse 01/14/22 Anibal Leahy MD [address] [place] [address] Consulting Physician Pediatric Cardiology 02/21/22 Harry Logan MD [address] [place] [address] Consulting Physician Cardiology 07/02/22 Slime Clark[place] [address] Registered Nurse Cardiology 04/17/23 Violette Ray Clinical Slip Box Changer 12/07/24 documented as of this encounter
--- OUTSIDE RECORDS SUMMARY | 2025-01-05 09:08 | XMS_ITS | Encounter Summary ---
Author Organization [facility] Address [address] [place] [address] Care Team Providers Care Business Operations Analyst Name Role Phone Mali Rivera DENTAL RECEPTIONIST Primary Care Provider [phone] Cindi Shepherd RN Unavailable Unavailab eGma Lee RN Unavailable Unavailable Shraddha Paulson DENTAL RECEPTIONIST Unavailable [phone] Shannan Oropeza RN Unavailable Unavailable Anibal Leahy MD Unavailable Harry Logan MD Unavailable [phone] Slime Clark RN Unavailable Unavailable Mellisa Byrnes LPN Unavailable Unavailab Violette Caraballo Unavailable Unavailabl e Reason for Visit * Reason Comments Med Refill Encounter Details Date Type Department Care Team (Late st Contact Info) Description 12/07/2020 Refill [facility] Endocrinology [address] [place] [address] Edwige Mitchell, DENTAL RECEPTIONIST [address] [place] [address] Social History Tobacco Use Types [...] PM EDT documented as of this encounter Miscellaneous Notes * Telephone Encounter - Edwige Mitchell NP - 12/07/2020 2:29 PM EDT Pt needs an appointment. She has not been seen since 08/06/2019. She h as [facility] 01/2020 and again 09/11/2020. * Telephone Encounter - Edwige Mitchell NP - 12/07/2020 2:25 PM EDT This pt must have an appointment. I have no recent labs. I am happy to order labs at her next visit. I wrote on her last refill that she needed an appointment and that was her final refill for 30 days. documented in this encounter Plan of Treatment Upcoming Encounters Date Type Department Care Team (Late st Contact Info) Description 01/20/2025 8:00 AM EDT Office Visit [facility] [place] [address] [facility] [place] [address] Harry Villar MD [address] [place] [address] documented as of this encounter Visit Diagnoses Not on filedocumented in this encounter Additional Health Concerns Infection Onset Date Last Indicated Resolved Time COVID-19 Rule-Out 03/26/2021 03/26/2021 03/26/2021 5:53 PM EST COVID 19 (Confirmed) Comment:[facility] has contacted the patient regarding their positive COVID-19 test. Patient instructed that the local Health Dept. will be contacting them with a quarantine notice and to discuss contact tracing and should remain at home/isolated until notified. Patient was educated that if symptoms progress and they become short of air to proceed to the nearest ED. [facility] Operator Vacuum: Chikis Thomas 03/26/2021 03/26/2021 04/16/20 5:23 AM EST COVID-19 Rule-Out 06/06/2022 06/06/2022 06/06/2022 10:02 PM EST Assessment Noted Time A fall risk assessment has been complete d for the patient 10/10/2020 4:21 PM EDT documented as of this encounter Care Teams Business Operations Analyst Relationship Specialty Start Date End Date Mali Rivera, DENTAL RECEPTIONIST [address] [place] [address] PCP - General 09/01/20 Cindi Shepherd, RN [facility] Registered Nurse Cardiology 11/05/21 Gema Walter, RN [facility] Registered Nurse Cardiology 11/21/21 Shraddha Paulson, DENTAL RECEPTIONIST [address] [place] [address] Nurse Practitioner Internal Medicine 11/21/21 Shannan Oropeza, RN [facility] Registered Nurse 01/14/22 Anibal Leahy MD [address] [place] [address] Consulting Physician Pediatric Cardiology 02/21/22 Harry Logan MD [address] [place] [address] Consulting Physician Cardiology 07/02/22 Slime Clark, [place] [address] Registered Nurse Cardiology 04/17/23 Mellisa Byrnes LPN VALUE-BASED TRANSFORMATION PROGRAM Licensed Practical Nurse 11/03/23 12/12/23 Violette Ray Clinical Emery Wheel Worker 12/07/24 documented as of this encounter
--- OUTSIDE RECORDS SUMMARY | 2025-01-05 09:08 | XMS_ITS | Encounter Summary ---
Author Organization [facility] Address [address] [place] [address] Care Team Providers Care Communications Assistant Name Role Phone Mali Rivera ERIC Primary Care Provider [phone] Cindi Shepherd RN Unavailable Unavailab Gema Lee RN Unavailable Unavailable Shraddha Paulson APRN Unavailable [phone] Shannan Oropeza RN Unavailable Unavailable Anibal Leahy MD Unavailable Harry Logan MD Unavailable [phone] Slime Clark RN Unavailable Unavailable Violette Ray Unavailable Unavailabl e Reason for Visit * Reason Comments Health Maint. Care Gaps Encounter Details Date Type Department Care Team (Late st Contact Info) Description 12/13/2024 Patient Outreach POPULATION [facility]ALTH [address] [place] [address] Violette Ray Health Maint. (Care [...] How often do you attend chur or nondenominational services? More than 4 times per year 11/10/2023 Do you belong to any clubs o r organizations such as spiritism groups, unions, fraternal or athletic groups, or [...] Recorded Patient Health Questionnaire-2 Score 0 03/31/2024 [facility] [place] [facility] Occupat ional Health - Occupational Stress [...] living in a fci (including now)? No 09/30/2024 Safety and Environment [...] In the past 12 months has e [employer], gas, oil, or water company threatened to [...] * Progress Notes - Violette Ray - 12/13/2024 9:42 AM EDT Care Gap Outreach Chart reviewed on 12/13/2024 Shannon Dale is due/overdue for the following preventive services:Colorectal Cancer Screening,Mammography Cancer Screening Interpretor Needed: No Interpretor ID: [Insert] Action Plan Outreach completed:2nd Attempt Outcome: Left voice message Tasks set for appointment review/ patient reminder? Yes Additional information: Colorectal testing due. No order in place. Not completed. Cologuard Eligible Mammography testing due. No order in place. Not completed. Follow-up scheduled for 12/22/2024 For transportation questions, concerns, and/or assistance, please contact our main [facility] Achievers line at [phone]. Completed by: Violette Ray [facility] Population [facility] [address] [facility], [address] [place] [id number] documented in this encounter Plan of Treatment Upcoming Encounters Date Type Department Care Team (Late st Contact Info) Description 01/20/2025 8:00 AM EDT Office Visit [facility] [place] [address] [facility] [place] [address] Harry Villar MD [address] [place] [address] documented as of this encounter [...] documented as of this encounter Care Teams Communications Assistant Relationship Specialty Start Date End Date Mali Rivera APRN [facility] [place] [address] PCP - General 09/01/20 Cindi Shepherd, RN [facility] Registered Nurse Cardiology 11/05/21 Gema Walter, RN [facility] Registered Nurse Cardiology 11/21/21 Shraddha Paulson APRN [address] [place] [address] Nurse Practitioner Internal Medicine 11/21/21 Shannan Oropeza, RN [facility] Registered Nurse 01/14/22 Anibal Leahy MD [address] [place] [address] Consulting Physician Pediatric Cardiology 02/21/22 Harry Logan MD [address] [place] [address] Consulting Physician Cardiology 07/02/22 Slime Clark, [place] [address] Registered Nurse Cardiology 04/17/23 Violette Ray Clinical Braided Rug Maker 12/07/24 documented as of this encounter
[2025-01-05 09:37] LABS: Alanine Aminotransferase 11 U/L (12-78); Albumin Level 3.7 g/dl (3.5-5.0); Albumin/Globulin Ratio 1.7 (1.1-1.8); Alkaline Phosphatase 131 U/L (38-126); Anion Gap 10.4 mEq/L (5-15); Aspartate Amino Transferase 13 U/L (14-36); Bilirubin,Total 0.7 mg/dl (0.2-1.3); Blood Urea Nitrogen 19 mg/dl (7-17); Calcium 8.6 mg/dl (8.4-10.2); Carbon Dioxide 27 mmol/L (22.0-30.0); Chloride 103 mmol/L (98-107); Cholesterol 134 mg/dl (140-200); Creatinine,Serum 1.00 mg/dl (0.52-1.04); Estimated Glomerular Filt Rate 57 ml/min (>60); GFR (African American) 69 ML/MIN (>60); Globulin 2.2 g/dL (1.3-3.2); Glucose 175 mg/dl (74-100); HDL Cholesterol 34 mg/dl (40-60); Potassium 4.4 mmoL/L (3.5-5.1); Sodium 136 mmol/L (136-145); Total Protein,Serum 5.9 g/dl (6.3-8.2); Triglycerides 115 mg/dl (30-150)
[2025-01-05 09:51] LABS: 25-OH Vitamin D, Total 13.8 ng/mL (30-100); Free T4 (Free Thyroxine) 1.52 ng/dl (0.78-2.19)
[2025-01-05 10:05] LABS: Thyroid Stimulating Hormone 3.17 uIU/mL (0.465-4.68)
[2025-01-05 10:09] LABS: Hemoglobin A1C 8.3 % (4.0-6.0)
[2025-01-05 10:24] LABS: Vitamin B12 677 pg/mL (239-931)
== END 2025-01-05 23:59 | disposition home or self-care (01) ==
LOC: LAB 08:43
PROVIDERS: PCP Nurse Practitioner Family; Visit Provider Student in an Organized Health Care Education/Training Program
DX: E11.65 Type 2 diabetes mellitus with hyperglycemia (principal)
CPT/HCPCS: 36415; 80053; 80061; 82043; 82306; 82607; 83036; 84439; 84443

== ENCOUNTER 2025-02-22 12:07 | Outpatient (CLI) | payer MEDICARE, SELFPAY ==
[2025-02-22 13:21] LABS: Chloride 101 mmol/L (98-107); Sodium 138 mmol/L (136-145)
[2025-02-22 13:22] LABS: Potassium 4.7 mmoL/L (3.5-5.1)
[2025-02-22 13:24] LABS: Blood Urea Nitrogen 18 mg/dl (7-17); Creatinine,Serum 1.40 mg/dl (0.52-1.04); Estimated Glomerular Filt Rate 39 ml/min (>60); GFR (African American) 47 ML/MIN (>60)
[2025-02-22 13:25] LABS: Anion Gap 11.7 mEq/L (5-15); Calcium 8.5 mg/dl (8.4-10.2); Carbon Dioxide 30 mmol/L (22.0-30.0); Glucose 119 mg/dl (74-100)
== END 2025-02-22 23:59 | disposition home or self-care (01) ==
LOC: LAB 12:07
PROVIDERS: PCP Nurse Practitioner Family; Visit Provider Student in an Organized Health Care Education/Training Program
DX: E11.9 Type 2 diabetes mellitus without complications (principal)
CPT/HCPCS: 36415; 80048

== ENCOUNTER 2025-02-25 11:59 | Observation (INO) | payer MEDICARE, SELFPAY ==
--- OUTSIDE RECORDS SUMMARY | 2025-02-10 14:00 | XMS_ITS | Encounter Summary ---
Author Organization [facility] Address [address] [place] [address] Care Team Providers Care Sales Representative Sales Manager Name Role Phone Mali Rivera ERIC Primary Care Provider [phone] Cindi Shepherd RN Unavailable Unavailab Gema Lee RN Unavailable Unavailable Shraddha Paulson APRN Unavailable [phone] Shannan Oropeza RN Unavailable Unavailable Anibal Leahy MD Unavailable Harry Logan MD Unavailable [phone] Slime Clark RN Unavailable Unavailable Encounter Details Date Type Department Care Team (Latest Contact Info) Description 02/10/2025 3:00 PM EDT Office Visit [facility] [place] [address] [facility] [address] [facility] [place] [address] Harry Villar MD [address] [place] [address] Pulmonary hypertension (CMS/HCC) (Primary Dx); TARIQ (dyspnea on exertion); Hyperlipidemia, unspecified hyperlipidemia type; Class 3 severe obesity due to excess calories with serious comorbidity and body mass index (BMI) of 45.0 to 49.9 in adult; SIM (obstructive sleep apnea) Social History Tobacco Use Types Packs/Day Years [...] How often do you attend chur or hoahaoism services? More than 4 times per year 11/10/2023 Do you belong to any clubs o r organizations such as catholic groups, unions, fraternal or athletic groups, or [...] Date Recorded Patient Health Questionnaire-2 Score 0 02/10/2025 [facility] - Occupational Stress Questionnaire Answer Date [...] any time in the past 12 [facility], were you homeless or living in a correction (including now)? No 12/15/2024 [facility] Utilities Answer Date Recorded In the past 12 months has th e [employer], gas, oil, or water company threatened to [...] Sign Reading Time Taken Comments Blood Pressure 89/53 02/10/2025 3:18 PM EDT Pulse 86 02/10/2025 3:18 PM EDT Temperature - - Respiratory Rate 18 02/10/2025 3:18 PM EDT Oxygen Saturation 96% 02/10/2025 3:18 PM EDT RA Inhaled Oxygen Concentration - - Weight 132 kg (291 lb 0.1 oz) 02/10/2025 3:18 PM EDT Height 165.1 cm (5' 5 ) 02/10/2025 3:18 PM EDT Body Mass Index 48.43 02/10/2025 3:18 PM EDT documented in this encounter Functional Status * Over the past 2 weeks, how often have you been bothered by any of the following problems? Question Answer Date of Assessment Author Little interest or pleasure in doing things Not at all 02/10/2025 3:34 PM EDT Disha Hyde Feeling down, depressed, or hopeless Not at all 02/10/2025 3:34 PM EDT Disha Hyde Patient Health Questionnaire -2 Score 0 02/10/2025 3:34 PM EDT Disha Hyde * Calculated C-SSRS Risk Score (Lifetime/Recent) Answer Date of Assessment Author No Risk Indicated 02/10/2025 3:34 PM EDT Lorin Ruiz * Question Answer Date of Assessment Author 1. Wish to be (Past 1 Month) No 025 3:34 PM EDT Lorin Hyde 2. Non-Specific Active Suici susanne Thoughts (Past 1 Month) No 02/10/2025 3:34 PM EDT Raegan Hyde 6. Suicidal Behavior (Lifetime) No 5 3:34 PM EDT Lorin Hyde documented as of this encounter Miscellaneous Notes * Progress Notes - Savannah Villaseñor, JEEP MECHANIC, DNP - 02/10/2025 3:00 PM EDT Images from the original note were not included. Pulmonary Hypertension Routine Follow Up Shannon Dale is a 59 y.o. female who presents today for routine follow up for pulmonary hypertension with Dr. Harry Villar Past medical history: WHO Group 1 PAH, chronic eosinophilic syndrome/leukemia s/p chemo (2009), RUEDVT at port site, ASD s/p closure 01/10/20, DM2, HTN, HLD, SIM and HFpEF. Last clinic visit 05/29/2023 she was doing well from the cardiac standpoint. No changes to medical therapy at that time. Referred to sleep medicine for SIM. Today in clinic she is doing well. No changes to medical care or hospitalizations since last visit.Her daughter accompanies her during her visit. Since seeing us last, her has become home bound and she is is sole caregiver. He has end stage COPD. This creates a lot of life stress for her. O therwise she feels she is doing well. Denies chest pain, shortness of breath, orthopnea, palpitations, LE/abd swelling, lightheadedness, dizziness, and syncope. Tolerates her normal ADLs without CV symptoms. BP low today, does not take at home. 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 Compliant with and tolerating medications well without issue. Diagnostics: RHC: 01/29/21: RA 16, PA 56/30 (39), PCWP 23, PA sat 65%, CO 6.07, CI 2.6, PVR 2.14 Review of symptoms 14 Point ROS reviewed and is otherwise negative except as per HPI. Past Medical History Past Medical History[1] Surgical History Surgical History[2] Family History family history includes Arthritis in her maternal grandmother; Breast cancer in her maternal grandmother; Cardiac disorder in an other family member; Cirrhosis in her mother; Diabetes in her mother; Hyperlipidemia in an other family member; Hypertension in an other family member; Lung disease in her father; Obesity in an other family member; Thyroid disease in an other family member. Social History reports that she quit smoking about 17 years ago. Her smoking use included cigarettes. She started smoking about 27 years ago. She has a 5 pack-year smoking history. She has been exposed to tobacco smoke. She has never used smokeless tobacco. She reports that she does not currently use alcohol. She reports that she does not use drugs. Medications Current Medications[3] Physical Exam Physical Exam Vitals reviewed. Constitutional: Appearance: She is obese. HENT: Head: Normocephalic. Mouth/Throat: Mouth: Mucous membranes are moist. Neck: Vascular: No JVD. Cardiovascular: Rate and Rhythm: Normal rate and regular rhythm. Pulses: Normal pulses. Heart sounds: Normal heart sounds. No murmur heard. No gallop. Pulmonary: Effort: Pulmonary effort is normal. No respiratory distress. Breath sounds: Normal breath sounds. Abdominal: Palpations: Abdomen is soft. Musculoskeletal: Right lower leg: No edema. Left lower leg: No edema. Skin: General: Skin is warm and dry. Neurological: Mental Status: She is alert and oriented to person, place, and time. Psychiatric: Mood and Affect: Mood normal. Behavior: Behavior normal. Visit Vitals BP 89/53 Pulse 86 Ht 1.651 m (5' 5 ) Wt 132 kg (291 lb 0.1 oz) SpO2 96% Comment: RA BMI 48.43 kg/m?? Labs Lab Results Component Value Date HGB 11.1 (L) 10/13/2024 HCT 38.5 10/13/2024 PLT 383 (H) 09/30/2024 CHOL 158 11/11/2023 TRIG 68 11/11/2023 HDL 41 (L) 11/11/2023 LDLCALC 104 (H) 11/11/2023 ALT 15 10/13/2024 AST 6 10/13/2024 NA 140 10/13/2024 K 4.2 10/13/2024 CREATININE 1.3 10/13/2024 BUN 14 10/13/2024 CO2 25 09/30/2024 TSH 5.65 (H) 09/30/2024 HGBA1C 6.3 (H) 11/11/2023 Visit Diagnoses and Orders 1. Pulmonary hypertension (CMS/HCC) 2. TARIQ (dyspnea on exertion) 3. Hyperlipidemia, unspecified hyperlipidemia type 4. Class 3 severe obesity due to excess calories with serious comorbidity and body mass index (BMI)of 45.0 to 49.9 in adult 5. SIM (obstructive sleep apnea) Assessment and Plan WHO Group 1 PAH & Group 2 -Functional Class II -Today's 6MWT: 274 meters, start O2 sat 96% end O2 sat 95% on room air -Continue current medical therapy: Sildenafil 60 mg TID, Opsumit 10 mg daily, Bumex 2 mg BID, Spironolactone 50 mg daily Obesity -Today's BMI 48 (previous 47) -Currently on Ozempic SIM -Previously diagnosed with SIM, but not using CPAP -Re-referred to sleep med at last visit -- has not had time to address this Follow up: 1 year or sooner as needed Patient was seen and assessed in collaboration with Dr. Harry Villar who agrees with the above plan of care. Savannah Villaseñor, DNP, JEEP MECHANIC, MAIL SORTING SUPERVISOR-C I personally spent a total of 31 minutes on this encounter. This time includes face to face with patient, counseling and discussion and/or coordination of care. [1] Past Medical History: Diagnosis Date Atherosclerotic heart disease of [place] coronary artery without angina pectoris Coronary artery disease Leukemia, unspecified not having achieved remission ([facility]/HCC) Leukemia Type 2 diabetes mellitus [2] Past Surgical History: Procedure Laterality Date BLADDER SURGERY N/A Bladder Fistula Repair from [employer] CENTRAL [employer]EN[employer]HETER INSERTION N/A venous access port placement from [employer] HYSTERECTOMY N/A Hysterectomy from [employer] ORAL SURGERY N/A Oral Surgery Tooth Extraction from [facility] TUBAL LIGATION N/A Tubal Ligation from [facility] WISDOM TOOTH EXTRACTION N/A Oral Surgery Tooth Extraction Kyle Tooth from [employer] [3] Current Outpatient Medications Medication Sig Dispense Refill amitriptyline (Elavil) 10 MG tablet Take 1 tablet by mouth nightly. 90 tablet 1 ARIPiprazole (Abilify) 5 MG tablet Take 2 tablets by mouth daily. 90 tablet 3 atorvastatin (Lipitor) 20 MG tablet TAKE 1 TABLET AT BEDTIME 90 tablet 3 Blood Glucose Monitoring Suppl (Blood Glucose Monitor System) w/Device kit USE DIRECTED DX Code E 11.9 for testing 3 times a day Blood Glucose Monitoring Suppl (Blood Glucose Monitor System) w/Device kit Use as directed twice daily 1 kit 0 bumetanide (Bumex) 2 MG tablet Take 1 tablet by mouth 2 times a day. Patient must be seen for further refills. (Patient taking differently: Take 1 tablet by mouth daily. 1 mg in PM) 60 tablet 0 buPROPion XL (Wellbutrin XL) 300 MG 24 hr tablet Take 1 tablet by mouth daily. Do not crush, chew, or split. 90 tablet 3 Cholecalciferol (VITAMIN D-3 PO) Take 1,250 mcg by mouth daily. cyanocobalamin 1000 MCG tablet Take 1 tablet by mouth daily. dilTIAZem CD (Cardizem CD) 120 MG 24 hr capsule Take 1 capsule by mouth daily. 90 capsule 2 Droplet Insulin Syringe 31G X 5/16 1 ML misc USE DIRECTED TWICE DAILY 100 each 0 Eliquis 5 MG tablet TAKE 1 TABLET TWICE DAILY 180 tablet 3 famotidine (Pepcid) 20 MG tablet Take 1 tablet by mouth 2 times a day. 180 tablet 3 fexofenadine (Julieta) 180 MG tablet Take 1 tablet by mouth daily as needed (allergies). (Patient taking differently: Take 1 tablet by mouth daily.) 90 tablet 3 FLUoxetine (PROzac) 40 MG capsule TAKE 1 CAPSULE EVERY DAY 90 capsule 3 fluticasone (Flonase) 50 MCG/ACT nasal spray Administer 1 spray into each nostril 1 (one) time eachday. Shake gently. Before first use, prime pump. After use, clean tip and replace cap. (Patient taking differently: Administer 1 spray into each nostril as needed. Shake gently. Before first use, prime pump. After use, clean tip and replace cap.) 16 g 12 folic acid (Folvite) 1 MG tablet Take 1 tablet by mouth daily. glucosamine-chondroitin (Glucosamine-Chondroitin DS) 500-400 MG tablet TAKE 1 TABLET TWICE DAILY 180 tablet 2 glucose blood (Accu-Chek Erika Plus) test strip TEST BLOOD SUGAR THREE TIMES DAILY 300 strip 0 insulin NPH-insulin regular (INSULIN NPH ISOPHANE & REGULAR HUMAN INJ) (70-30) 100 UNIT/ML SC injection vial INJECT 32 UNITS UNDER THE SKIN BEFORE BREAKFAST AND 32 UNITS BEFORE DINNER (NEEDS TO ATTEND 12/14/24 APPOINTMENT FOR REFILLS) 30 mL 0 Lancets Thin misc 3 per day Dx E 11.9 levothyroxine (Synthroid, Levoxyl) 125 MCG tablet TAKE 1 TABLET EVERY DAY BEFORE BREAKFAST 34 tablet 0 lisinopril 10 MG tablet Take 1 tablet by mouth nightly. metFORMIN (Glucophage) 500 MG tablet Take 1 tablet (500 mg) by mouth 2 (two) times a day with meals. TAKE 1 TABLET TWICE DAILY PATIENT NEEDS TO SCHEDULE AN APPOINTMENT TO RECEIVE FURTHER REFILLS 180 tablet 0 metOLazone (Zaroxolyn) 2.5 MG tablet TAKE 1 TABLET ONE TIME DAILY IF NEEDED FOR WEIGHT GAIN (Patient taking differently: Take 1 tablet by mouth as needed.) 30 tablet 0 omeprazole (PriLOSEC) [address] capsule TAKE 1 CAPSULE ONE TIME DAILY. DO NOT CRUSH OR CHEW 90 capsule 3 Opsumit 10 MG tablet TAKE 1 TABLET (10MG) BY MOUTH ONCE DAILY 30 tablet 2 Ozempic, 0.25 or 0.5 MG/DOSE, 2 MG/3ML solution pen-injector 0.25 mg 1 time per week. potassium chloride CR (Klor-Con M20) 20 MEQ ER tablet TAKE 3 TABLETS THREE TIMES DAILY. DO NOT CRUSH OR CHEW OR SPLIT. 810 tablet 2 sildenafil (Revatio) 20 MG tablet TAKE 3 TABLETS THREE TIMES DAILY 810 tablet 3 spironolactone (Aldactone) 50 MG tablet TAKE 1 TABLET EVERY DAY 90 tablet 3 traZODone (Desyrel) 50 MG tablet Take 1 tablet by mouth at night as needed for sleep. 30 tablet 5 No current facility-administered medications for this visit. documented in this encounter Plan of Treatment Scheduled Orders Name Type Priority Associated Diagnoses Orde r Schedule Six-Minute Walk Test PFT Routine Pulmonary hypertension (CMS/HCC) Ordered: 02/10/2025 documented as of this encounter Procedures Procedure Name Priority Date/Time Associated Diagnosis Comments N-TERMINAL PROBNP, PLASMA Routine 02/10/2025 4:05 PM EDT Pulmonary hypertension (CMS/HCC) TARIQ (dyspnea on exertion) documented in this encounter Results * N-Terminal Probnp (02/10/2025 4:05 PM EDT) N-Terminal, PROBNP, Plasma 150 0 - 899 pg/mL 02/10/2025 4:52 PM EDT [facility] Blood Venous blood specimen / Unknown Venipuncture / Unknown 02/10/2025 4:05 PM EDT 02/10/2025 4:23 PM EDT Savannah Villaseñor APRN, DNP LAB BLOOD ORDERABLES Final Result [facility] [address] [place] [address] documented in this encounter Visit Diagnoses Diagnosis Pulmonary hypertension (CMS/HCC)- Primary Other chronic pulmonary heart diseases TARIQ (dyspnea on exertion) Other dyspnea and respiratory abnormality Hyperlipidemia, unspecified hyperlipidemia type Class 3 severe obesity due to excess calories with serious comorbidity and body mass index (BMI) of 45.0 to 49.9 in adult SIM (obstructive sleep apnea) Obstructive sleep apnea (adult) (pediatric) documented in this encounter Additional Health Concerns Assessment Noted Time PHQ-9 Depression Total Score: 18 025 3:01 PM EDT A fall risk assessment has been complete d for the patient 02/10/2025 3:34 PM EDT A Body Mass Index follow-up plan has been documented for the patient 02/10/2025 4:10 PM EDT documented as of this encounter Care Teams Sales Representative Sales Manager Relationship Specialty Start Date End Date Mali Rivera APRN [address] [place] [address] [phone] PCP - General 09/01/20 Cindi Shepherd, RN [facility] Registered Nurse Cardiology 11/05/21 Gema Walter, RN [facility] Registered Nurse Cardiology 11/21/21 Shraddha Paulson APRN [address] [place] [address] Nurse Practitioner Internal Medicine 11/21/21 Shannan Oropeza RN [facility] Registered Nurse 01/14/22 Anibal Leahy MD [address] [place] [address] Consulting Physician Pediatric Cardiology 02/21/22 Harry Logan MD [address] [place] [address] Consulting Physician Cardiology 07/02/22 Slime Clark, [place] [address] Registered Nurse Cardiology 04/17/23 documented as of this encounter
--- OUTSIDE RECORDS SUMMARY | 2025-02-15 08:00 | XMS_ITS | Encounter Summary ---
Author Organization [facility] Address [address] [place] [address] Care Team Providers Care [employer] Officer Name Role Phone Mali Rivera APRN Primary Care Provider [phone] Cindi Shepherd RN Unavailable Unavailab Gema Lee RN Unavailable Unavailable Shraddha Paulson APRN Unavailable [phone] Shannan Oropeza RN Unavailable Unavailable Anibal Leahy MD Unavailable Harry Logan MD Unavailable [phone] Slime Clark RN Unavailable Unavailable Encounter Details Date Type Department Care Team (Late st Contact Info) Description 02/15/2025 9:00 AM EDT Office Visit [facility] [address] [place] [address] Mali Rivera APRN [address] [place] [address] Depression, unspecified depression type (Primary Dx); Screening mammogram for breast cancer; Gastroesophageal reflux disease with esophagitis without hemorrhage Social History Tobacco Use Types Packs/Day Years [...] often do you attend chur ch or methodist services? More than 4 times per year 11/10/2023 Do you belong to any clubs o r organizations such as scientologist groups, unions, fraternal or athletic groups, or [...] Date Recorded Patient Health Questionnaire-2 Score 0 02/15/2025 [facility] - Occupational [...] Answer Date Recorded Patient Health Questionnaire-9 Score 12 02/15/2025 Humiliation, Afraid, Rape, and Kick questionnair e Answer Date Recorded Within the last year, have y ou been afraid of your partner or ex-partner? No 02/15/2025 Within the last year, have y ou been humiliated or emotionally abused in other ways by your partner or ex-partner? No Within the last year, have y ou been kicked, hit, slapped, or otherwise physically hurt by your partner or ex-partner? No 02/15/2025 Within the last year, have y ou been raped or forced to have any kind of sexual activity by your partner or ex-partner? No 02/15/2025 AUDIT-C Answer Date Recorded Q1: How often [...] the money to buy more. Never true 02/16/20 Within the past 12 months, t he food you bought just didn't last and you didn't have money to get more. Never true 02/15/2025 PRAPARE - Transportation Answer Date Re corded In the past 12 months, has l ack of transportation kept you from medical appointments or from getting medications? No 01/20 In the past 12 months, has l ack of transportation kept you from meetings, work, or from getting things needed for daily living? No 02/15/2025 Housing Stability Vital Sign Answer Vipul e Recorded In the last 12 months, was t here a time when you were not able to pay the mortgage or rent on time? No 02/15/2025 In the past 12 months, how m any times have you moved where you were living? 0 02/15/2025 At any time in the past 12 m [facility], were you homeless or living in a mcc (including now)? No 02/15/2025 [facility] Utilities Answer Date Recorded In the past 12 months has th e electric, gas, oil, or water company threatened to shut off services in your home? No 02/15/2025 Safety and Environment Answer Date Bradly rded [...] Sign Reading Time Taken Comments Blood Pressure 110/60 02/15/2025 9:03 AM EDT Pulse - - Temperature 36.8 C (98.2 F) 02/15/2025 9:03 AM EDT Respiratory Rate 16 02/15/2025 9:03 AM EDT Oxygen Saturation - - Inhaled Oxygen Concentration - - Weight 132 kg (291 lb) 02/15/2025 9:03 AM EDT Height 165.1 cm (5' 5 ) 02/15/2025 9:03 AM EDT Body Mass Index 48.42 02/15/2025 9:03 AM EDT documented in this encounter Functional Status * Over the past 2 weeks, how often have you been bothered by any of the following problems? Question Answer Date of Assessment Author Little interest or pleasure in doing things Not at all 02/15/2025 9:10 AM EDT Simran Haley Feeling down, depressed, or hopeless Not at all 02/15/2025 9:10 AM KASIAT Simran Haley Patient Health Questionnaire -2 Score 0 02/15/2025 9:10 AM KASIAT Simran Haley * Question Answer Date of Assessment Author Trouble falling or staying asleep, or sleeping too much More than half the days 02/15/2025 9:10 AM KASIAT Simran Haley Feeling tired or having little energy Nearly every day 02/15/2025 9:10 AM KASIAT Simran Haley Poor appetite or overeating Nearly every day 02/15/2025 9:10 AM KASIAT Simran Haley Feeling bad about yourself - or that you are a failure or have let yourself or your family down Several days 02/15/2025 9:10 AM Simran Han Trouble concentrating on things, such as reading the newspaper or watching television More than half the days 02/15/2025 9:10 AM Simran Han Moving or speaking so slowly that other people could have noticed? Or the opposite - being so fidgety or restless that you have been moving around a lot more than usual. Several days 02/15/2025 9:10 AM Simran Han Thoughts that you would be better off or hurting yourself in some way Not at all 02/15/2025 9:10 AM Simran Han Patient Health Questionnaire-9 Score 12 02/15/2025 9:10 AM Simran Han * Calculated C-SSRS Risk Score (Lifetime/Recent) Answer Date of Assessment Author No Risk Indicated 02/15/2025 9:08 AM Simran Perry * How difficult have these problems made it for you to do your work, take care of things at home, or get along with other people? Answer Date of Assessment Author Somewhat difficult 02/15/2025 9:10 AM Simran Lake * Question Answer Date of Assessment Author 1. Wish to be (Past 1 Month) No 025 9:08 AM Simran Han 2. Non-Specific Active Suici susanne Thoughts (Past 1 Month) No 02/15/2025 9:08 AM Simran Han 6. Suicidal Behavior (Lifetime) No 9:08 AM Simran Han documented as of this encounter Miscellaneous Notes * Progress Notes - Mali Rivera, ERIC - 02/15/2025 9:00 AM EDT Office Progress Note Subjective Shannon Dale is a 59 y.o. female who presents for No chief complaint on file.. History of Present Illness The patient is a 59-year-old female who presents to discuss her medications. She has been experiencing depression and was previously advised to consult a psychiatrist. However,she was informed that a therapist's consultation is necessary before seeing a psychiatrist. She attended one therapy session where she was told that her current medications would be discontinued and new ones would be initiated. This approach has caused her and her some concern due to a pastfamily tragedy related to medication change. Despite this, she reports feeling stable on her current regimen and is seeking refills for her medications. She had been on Ozempic but started gaining weight and got very frustrated with it. She went to a new diabetes doctor who put her back on Ozempic, and she is starting to see a difference. She is requesting refills for her medications, including Premasol, fluoxetine, diltiazem, and glucosamine chondroitin, which she takes twice daily. FAMILY HISTORY Her grandmother of breast cancer. The following sections have been reviewed and updated during this encounter: Tobacco Allergies Meds Problems Med Hx Surg Hx Fam Hx Objective Blood pressure 110/60, temperature 36.8 ??C (98.2 ??F), temperature source Oral, resp. rate 16, height 1.651 m (5' 5 ), weight 132 kg (291 lb). Body mass index is 48.42 kg/m??. Physical Exam Vitals and nursing note reviewed. [...] Content: Thought content normal. Judgment: Judgment normal. Assessment/Plan Diagnoses and all orders for this visit: Depression, unspecified depression type Has seen therapist prefers to just get meds here feels stable Screening mammogram for breast cancer - Mammography Breast Screening Tomosynthesis Bilateral; Future Gastroesophageal reflux disease with esophagitis without hemorrhage - omeprazole (PriLOSEC) [address] capsule; TAKE 1 CAPSULE ONE TIME DAILY DO NOT CRUSH OR CHEW Other orders - glucosamine-chondroitin (Glucosamine-Chondroitin DS) 500-400 MG tablet; Take 1 tablet by mouth 2 times a day. - dilTIAZem CD (Cardizem CD) 120 MG 24 hr capsule; Take 1 capsule by mouth daily. - FLUoxetine (PROzac) 40 MG capsule; Take 1 capsule by mouth daily. Assessment & Plan 1. Depression: - She reports feeling stable on her current medication regimen. - She prefers to continue with her current medications rather than switching to new medications as suggested by the therapist. - Fluoxetine will be continued. 2. Diabetes Mellitus: - She had previously stopped taking Ozempic due to frustration with initial weight gain but has resumed it. - She is starting to see a difference with the medication. - She will continue with Ozempic as it is expected to help with weight loss as the dosage is titrated up. 3. Medication Management: - Refills for omapramzole, fluoxetine, diltiazem, and glucosamine chondroitin have been provided. - Prescriptions will be sent to pharmacy. 4. Health Maintenance: - A mammogram has been ordered due to her family history of breast cancer (grandmother). Verbal consent was obtained to use ambient listening technology to assist in the documentation of the encounter: yes documented in this encounter Plan of Treatment Scheduled Orders Name Type Priority Associated Diagnoses Orde r Schedule Mammography Breast Screening Tomosynthesis Bilateral Imaging Routine Screening mammogram for breast cancer Expected: 02/15/2025 (Approximate), Expires: 08/19/2026 documented as of this encounter Visit Diagnoses Diagnosis Depression, unspecified depression type- Primary Screening mammogram for breast cancer Gastroesophageal reflux disease with esophagitis without hemorrhage documented in this encounter Additional Health Concerns Assessment Noted Time PHQ-9 Depression Total Score: 12 025 9:10 AM EDT A fall risk assessment has been complete d for the patient 02/10/2025 3:34 PM EDT A Body Mass Index follow-up plan has been documented for the patient 02/15/2025 9:24 AM EDT documented as of this encounter Care Teams [employer] Officer Relationship Specialty Start Date End Date Mali Rivera APRN [address] [place] [phone] PCP - General 09/01/20 Cindi Shepherd RN [facility] Registered Nurse Cardiology 11/05/21 Gema Walter RN [facility] Registered Nurse Cardiology 11/21/21 Shraddha Paulson APRN [address] [place] [address] Nurse Practitioner Internal Medicine 11/21/21 Shannan Oropeza RN [facility] Registered Nurse 01/14/22 Anibal Leahy MD [address] [place] [phone] Consulting Physician Pediatric Cardiology 02/21/22 Harry Logan MD [address] [place] [phone] Consulting Physician Cardiology 07/02/22 Slime [place] [address] Registered Nurse Cardiology 04/17/23 documented as of this encounter
[2025-02-25] VITALS (12 sets, daily range): BP systolic 102–146; BP diastolic 31–75; PULSE 80–97; RESP 14–20; TEMP 36.8–37.1; O2SAT 90–94; BMI 48.1; BMI 45.4
--- NOTE | 2025-02-25 12:07 | XR_ITS ---
FINAL REPORT CLINICAL HISTORY: short of breath COMPARISON: 05/10/2024 FINDINGS: Mild cardiomegaly is present. A chest port is present with its tip in the superior vena cava. The mediastinum is normal. There is no focal infiltrate or edema. There are no pleural effusions. There is no pneumothorax. There is no osseous abnormality. No significant changes noted since the prior exam of 04/30/2024. IMPRESSION: No acute cardiopulmonary process Reviewed, Interpreted and Dictated by Solitario Lai MD Transcribed by Hanna Olmstead Authenticated and . [facility]
--- NOTE | 2025-02-25 12:09 | ED_ITS ---
<Statement entered by Bk Aceves MD - 02/25/25 15:54> I was consulted by the DARI, and we discussed the complexity of problems being addressed. I approved the treatment and management plan for this patient's care in the emergency department, thus performing a substantial portion of the medical decision making. Bk Aceves MD Discharge Plan Disposition Patient Disposition: Admitted Prescriptions Prescriptions: No Action ammonium lactate 12 % cream 1 applic topical BID 30 Days Qty: 385 2RF famotidine 20 mg tablet PO Patient Comments: TAKE 1 TABLET BY MOUTH TWICE DAILY bupropion HCl 300 mg tablet extended release 24 hr PO Patient Comments: TAKE 1 TABLET BY MOUTH ONCE DAILY DO NOT CRUSH,CHEW OR SPLIT pregabalin 150 mg capsule 150 mg PO BID trazodone 50 mg tablet PO cyanocobalamin (vitamin B-12) 1,000 mcg tablet PO Patient Comments: TAKE 1 TABLET BY MOUTH ONCE DAILY acyclovir 5 % ointment topical Patient Comments: APPLY OINTMENT TO AFFECTED AREA 5 TIMES A DAY FOR 4 DAYS folic acid 1 mg tablet PO Patient Comments: TAKE 1 TABLET BY MOUTH ONCE DAILY (DME) Dexcom G7 Sensor Device See Rx Instructions miscellaneous .MEDSUPPLY Qty: 1 0RF Rx Instructions: As directed (DME) Dexcom G7 Marble Worker Misc See Rx Instructions miscellaneous .MEDSUPPLY Qty: 1 0RF Rx Instructions: As directed lisinopril 10 mg tablet 10 mg PO DAILY Qty: 90 3RF cholecalciferol (vitamin D3) 1,250 mcg (50,000 unit) capsule 50,000 unit PO WEEKLY Qty: 5 3RF Ozempic 0.25 mg or 0.5 mg (2 mg/3 mL) pen injector 0.25 mg SQ WEEKLY Qty: 3 3RF Rx Instructions: Take 0.25mg weekly for 4 weeks and increase dose to 0.5mg weekly metformin 1,000 mg tablet 1,000 mg PO BID Qty: 60 3RF (DME) Dexcom G7 Sensor Device See Rx Instructions .MEDSUPPLY Qty: 3 3RF Rx Instructions: Use 1 sensor for every 10 days fluoxetine 40 mg capsule 40 mg PO DAILY metolazone 2.5 mg tablet 2.5 mg PO DAILY atorvastatin 20 mg tablet 20 mg PO DAILY bumetanide 2 mg tablet 2 mg PO DAILY fexofenadine 180 mg tablet 180 mg PO DAILY omeprazole 40 mg capsule,delayed release(DR/EC) 40 mg PO DAILY potassium chloride 20 mEq tablet,ER particles/crystals 20 meq PO DAILY amitriptyline 10 mg tablet 10 mg PO DAILY levothyroxine 125 mcg tablet 125 mcg PO DAILY diltiazem HCl 120 mg capsule,extended release 24hr 120 mg PO DAILY spironolactone 50 mg tablet 50 mg PO DAILY sildenafil (pulm.hypertension) 20 mg tablet 20 mg PO DAILY glucosamine stewart 2KCl-chondroit 500-400 mg tablet 1 tab PO DAILY Eliquis 5 mg tablet 5 mg PO DAILY Opsumit 10 mg tablet 10 mg PO DAILY aripiprazole 5 mg tablet 10 mg PO DAILY Novolin 70/30 U-100 Insulin 100 unit/mL (70-30) suspension 32 unit .ROUTE BID Rx Instructions: 32 units twice a day; Referrals Follow up/Referrals: Mali Rivera [Primary Care Provider, Medical] - See instructions Clinical Impressions Clinical Impression: COPD exacerbation, Hypoxia Print Language Print Language: Cypriot Discharge ED Provider: Bk Aceves HPI <Preethi Rosado (ED), STITCHER SET UP OPERATOR AUTOMATIC - Last Filed: 02/25/25 14:17> General Chief Complaint: Shortness of Breath/Dyspnea Stated Complaint: SOA, cough Time Seen by Provider: 02/25/25 12:02 History of Present Illness HPI narrative: 59-year-old female presents to the ED today for complaint of shortness of breath, yellow sputum is slimy, coughing for the past few days. She went to the urgent treatment center and they sent her here for low O2. Patient says she is angry that she is here because she has bronchitis and she is used to her O2 being in the high 80s low 90s. She denies recent fevers, chills, nausea or vomiting. She says she has coughed up sputum but no vomiting. She appears well. She has no other associated signs or symptoms at this time. Patient feels like this is the same as when she has had bronchitis in the past. Patient has history of thyroid disease, depression, asthma, CT, hyperlipidemia and hypertension. Related Data Home Medications ?Medication ?Instructions ?Recorded ?Confirmed amitriptyline 10 mg tablet 10 mg PO DAILY 03/24/2411/12 apixaban 5 mg tablet (Eliquis) 5 mg PO DAILY 03/24/24 02/25/25 atorvastatin 20 mg tablet 20 mg PO DAILY 03/24/2411/12 bumetanide 2 mg tablet 2 mg PO DAILY 03/24/2402/25 diltiazem HCl 120 mg 120 mg PO DAILY 03/24/2411/12 capsule,extended release 24 hr fexofenadine 180 mg tablet 180 mg PO DAILY 03/24/24 fluoxetine 40 mg capsule 40 mg PO DAILY 03/24/2411/12 glucosamine sulf dipotassium Cl 1 tab PO DAILY 4 02/25/25 500 mg-chondroitin sulf 400 mg tablet levothyroxine 125 mcg tablet 125 mcg PO DAILY 03/24/24 02/25/25 macitentan 10 mg tablet (Opsumit) 10 mg PO DAILY 03/2402/25/25 metolazone 2.5 mg tablet 2.5 mg PO DAILY 03/24/2411/12 omeprazole 40 mg capsule,delayed 40 mg PO DAILY 02/25/25 release potassium chloride 20 mEq 20 meq PO DAILY 03/24/2411/12 tablet,extended release(part/cryst) sildenafil (pulm.hypertension) 20 20 mg PO DAILY 03/2402/25/25 mg tablet spironolactone 50 mg tablet 50 mg PO DAILY 03/24/24 acyclovir 5 % topical ointment topical 01/04/25 aripiprazole 5 mg tablet 10 mg PO DAILY 01/04/2511/12 bupropion HCl 300 mg 24 hr tablet, mg PO 01/04/2511/12 extended release cyanocobalamin (vitamin B-12) mcg PO 01/04/25 02/25/25 1,000 mcg tablet famotidine 20 mg tablet mg PO 01/04/25 02/25/25 folic acid 1 mg tablet PO 01/04/25 02/25/25 insulin human U-100 NPH-regulr 32 unit .Route BID 12/2002/25/25 70-30 mix 100 unit/mL subcutaneous susp (Novolin 70/30 U-100 Insulin) pregabalin 150 mg capsule 150 mg PO BID 01/04/2502/25 trazodone 50 mg tablet mg PO 01/04/25 02/25/25 Previous Rx's ?Medication ?Instructions ?Recorded blood-glucose sensor (Dexcom G7 #1 ea 01/04/25 Sensor device) blood-glucose,water registrar,cont #1 ea 01/04/25 (Dexcom G7 Marble Worker) ammonium lactate 12 % topical cream 1 applic topical B ID dry skin, 01/12/25 callus care 30 days #385 grams blood-glucose sensor (Dexcom G7 #3 ea 01/18/25 Sensor device) cholecalciferol (vitamin D3) 1,250 50,000 unit PO WEEK LY #5 caps 01/18/25 mcg (50,000 unit) capsule lisinopril 10 mg tablet 10 mg PO DAILY #90 tabs 12/22 0 metformin 1,000 mg tablet 1,000 mg PO BID #60 tabs semaglutide 0.25 mg or 0.5 mg (2 0.25 mg (0.368 mL) SQ WEEKLY #3 mL 01/18/25 mg/3 mL) subcutaneous pen injector ([employer]) Allergies Allergy/AdvReac Type Severity Reaction Status Date / Time No Known Allergies Allergy Verified 02/25/25 11:50 [facility] <Preethi Rosado (ED), STITCHER SET UP OPERATOR AUTOMATIC - Last Filed: 02/25/25 14:17> [facility] Disclaimer: The information contained in this section may have been updated after the patient was seen, as this information can be updated by other users. Medical History Thyroid disease UTI (urinary tract infection) Depression Asthma History of heart attack Hyperlipidemia Hypertension Surgical History History of section History of hysterectomy History of tubal ligation History of cardiac cath Family History Other Unknown family medical history Social History Smoking Status: Former smoker second hand exposure: No alcohol intake: never substance use type: denies use current occupational status: other Travel in the last 8 weeks?: None household members: family housing: house caffeine: Yes Have you lived/traveled outside US in past 30 days?: No Contact w/someone who lives/traveled outside US past 30 days?: No Exposure to someone with infectious disease in past 14 days?: No Do you have a fever (greater than 100.4 F or 38 C)?: No Have you tested positive for COVID-19?: No Exposed to someone with COVID-19 in past 14 days?: No Do you have a sore throat?: No Do you have a cough?: No Do you have any weakness?: No Do you have any diarrhea?: No Are you experiencing any unusual bleeding?: No Do you have any muscle aches/pain?: No Do you have any abdominal pain?: No Are you experiencing loss of taste or smell?: No Other Medical History Have you received the Flu Vaccine for this season: No Have you received the Pneumonia Vaccine: No <Preethi Rosado (ED), STITCHER SET UP OPERATOR AUTOMATIC - Last Filed: 02/25/25 14:17> ROS Obtained: Yes Systems reviewed as appropriate & no additional complaints except as documented Constitutional Constitutional: Reports as per HPI Physical Exam <Preethicarter Rosado (ED), STITCHER SET UP OPERATOR AUTOMATIC - Last Filed: 02/25/25 14:17> General General appearance: alert and in no apparent distress Head Head exam: atraumatic and normocephalic Eye Eye exam: Present PERRL and EOMI ENT ENT exam: Present normal oropharynx and mucous membranes moist Neck Neck exam: Present full ROM and trachea midline Respiratory Respiratory exam: Present wheezes Cardiovascular Cardiovascular exam: Present regular rate, normal rhythm, normal heart sounds, +S1 and +S2 Extremities Exam Extremities exam: Present normal inspection, full ROM and normal capillary refill Neurological Exam Neurological exam: Present alert, oriented X3 and normal gait Skin Skin exam: Present warm and dry HEART Score <Preethi Rosado (ED), STITCHER SET UP OPERATOR AUTOMATIC - Last Filed: 02/25/25 14:17> HEART Score HEART Score assessment performed?: Yes History (anamnesis): Slightly suspicious ECG: Non-specific disturbance Age: 45-65 years Risk factors: 1-2 risk factors Troponin: </= normal limit HEART Score: 3 Critical Care <Preethicarter Rosado (ED), STITCHER SET UP OPERATOR AUTOMATIC - Last Filed: 02/25/25 14:17> Critical Care Time Critical Care Time: No Medical Decision Making <Preethicarter Rosado (ED), STITCHER SET UP OPERATOR AUTOMATIC - Last Filed: 02/25/25 14:17> Enrique Inquiry Pt receiving controlled substance: No Enrique was queried for this patient: No Vital Signs Vital Signs: 02/25/25 12:05 02/25/25 12:05 02/25/25 12:05 Temperature 98.6 F 98.6 F Temperature Source Oral Pulse Rate 92 H 88 Pulse Rate [Right] 92 H Respiratory Rate 20 20 Blood Pressure 146/69 H 146/69 H Blood Pressure [Right Arm] 146/69 H Blood Pressure Mean [Right Arm] 94 02 Sat by Pulse Oximetry 93 L 93 L 90 L Oxygen Delivery Method Room Air 02/25/25 12:15 02/25/25 12:30 02/25/25 13:00 Temperature Temperature Source Pulse Rate 80 85 Pulse Rate [Right] Respiratory Rate Blood Pressure 119/52 L 102/31 L Blood Pressure [Right Arm] Blood Pressure Mean [Right Arm] 02 Sat by Pulse Oximetry 93 L 91 L 92 L Oxygen Delivery Method Room Air 02/25/25 13:30 02/25/25 14:00 Temperature Temperature Source Pulse Rate 97 H 82 Pulse Rate [Right] Respiratory Rate Blood Pressure 102/75 L 121/53 L Blood Pressure [Right Arm] Blood Pressure Mean [Right Arm] 02 Sat by Pulse Oximetry 90 L 90 L Oxygen Delivery Method Nasal Cannula Lab Data Labs: Lab Results 02/25/25 12:15: WBC 10.0, RBC 4.18 L, Hgb 10.7 L, Hct 34.9 L, MCV 83.5, MCH 25.6 L, MCHC 30.7 L, RDW 19.7 H, Plt Count 289, MPV 9.1, Neut % (Auto) 39.1, Lymph % (Auto) 12.6, [place] % (Auto) 5.8, Eos % (Auto) 41.9 H, Baso % (Auto) 0.3, Neut # (Auto) 3.9, Lymph # (Auto) 1.3, [place] # (Auto) 0.6, Eos # (Auto) 4.2 H, Baso # (Auto) 0.0, Total Counted 100, Neutrophils % (Manual) 41 L, Lymphocytes % (Manual) 10, Monocytes % (Manual) 3, Eosinophils % (Manual) 46 H, Platelet Estimate Normal, RBC Morphology Normal, Sodium 133 L, Potassium 4.7, Chloride 99, Carbon Dioxide 28, Anion Gap 10.7, BUN 23 H, Creatinine 1.50 H, Estimated Creat Clear 37, Estimated GFR 36 L, Est GFR ( Amer) 43 L, Glucose 105 H, Calcium 9.2, Magnesium 1.7, Total Bilirubin 0.6, AST 18, ALT 12, Alkaline Phosphatase 118, Troponin I < 0.01, Total Protein 6.6, Albumin 3.9, Globulin 2.7, Albumin/Globulin Ratio 1.4, Lipase 201 02/25/25 12:19: SARS-CoV-2 (PCR) Not detected, Influenza A Untype (PCR) Not detected, Influenza Type B (PCR) Not detected 02/25/25 12:15 02/25/25 12:15 Response Orders (Tests/Meds): ED MEDICATIONS Generic Name Dose Route Start Last Admin Trade Name Freq PRN Reason Stop Dose Admin Ceftriaxone Sodium 2 gm/ 100 mls @ 200 mls/hr 02/25/25 13:45 02/25/25 14:07 Sodium Chloride IV 03/07/25 13:44 200 mls/hr Q24H SALMA Administration Discontinued Medications Generic Name Dose Route Start Last Admin Trade Name Freq PRN Reason Stop Dose Admin Albuterol/Ipratropium 9 ml 02/25/25 12:07 02/25/25 12:29 Ipratropium/Albuterol 3 Ml Neb IH 02/25/25 12:08 9 ml ONCE ONE Administration Magnesium Sulfate 2 gm in 50 mls @ 50 mls/hr 02/25/25 12:07 02/25/25 13:36 Magnesium Sulfate 2gm/50ml Premix IV 02/25/25 13:06 Infused ONCE ONE Infusion Methylprednisolone Sodium Succinate 125 mg 02/25/25 12:07 02/25/25 12:26 Methylprednisolone Sod Succ 125mg Vial IV 02/25/25 12:08 125 mg ONCE ONE Administration ORDERS Category Date Time Status Chest XR -- portable [XR chest portable] Stat Exams 02/25/25 12:07 Completed BNP [NT Pro Brain Natriuretic Pep.] Stat Lab 02/25/25 12:15 Received CBC [Complete Blood Count Auto Diff] Stat Lab 02/25/25 12:15 Completed Comprehensive Metabolic Panel Stat Lab 02/25/25 12:15 Completed Lipase Stat Lab 02/25/25 12:15 Completed Magnesium Stat Lab 02/25/25 12:15 Completed Rapid PCR Covid and Flu A/B Stat Lab 02/25/25 12:19 Completed Trop I [Troponin I] Stat Lab 02/25/25 12:15 Completed Troponin I Q3H Lab 02/25/25 15:15 Ordered Troponin I Q3H Lab 02/25/25 18:15 Ordered VBG [Venous Blood Gas] Stat RT 02/25/25 13:38 Ordered MDM Narrative Medical Decision Narrative: patient is a 59-year-old female presenting to the emergency department for evaluation of shortness of breath and bronchitis with productive sputum. Patient is hemodynamically stable and nontoxic-appearing upon arrival, afebrile. Differential diagnosis includes bronchitis, pneumonia, COPD exacerbation, among others. Workup will be conducted with hematologic labs, specific imaging. Initial inventions include steroid,analgesics, antibiotics, and DuoNebs. Initial workup reviewed by nd hematologic labs are remarkable for White blood cell count of 10, sodium 133, BUN 23 creatinine 1.50, glucose of 105 mag of 1.7 AST ALT normal, troponin less than 0.01 otherwise nonactionable labs. Imaging today showed no acute cardiopulmonary process. Patient was hypoxic just talking to us and dropped down to 84%. We placed her on 2 L nasal cannula and her O2 was 94%. Patient will be admitted after talking to to hospital for hypoxia and COPD exacerbation. Patient stable at this time. <Bk Aceves MD - Last Filed: 02/25/25 12:23> Vital Signs Vital Signs: 02/25/25 12:05 02/25/25 12:05 02/25/25 12:05 Temperature 98.6 F 98.6 F Temperature Source Oral Pulse Rate 92 H 88 Pulse Rate [Right] 92 H Respiratory Rate 20 20 Blood Pressure 146/69 H 146/69 H Blood Pressure [Right Arm] 146/69 H Blood Pressure Mean [Right Arm] 94 02 Sat by Pulse Oximetry 93 L 93 L 90 L Oxygen Delivery Method Room Air 02/25/25 12:15 02/25/25 12:30 02/25/25 13:00 Temperature Temperature Source Pulse Rate 80 85 Pulse Rate [Right] Respiratory Rate Blood Pressure 119/52 L 102/31 L Blood Pressure [Right Arm] Blood Pressure Mean [Right Arm] 02 Sat by Pulse Oximetry 93 L 91 L 92 L Oxygen Delivery Method Room Air 02/25/25 13:30 02/25/25 14:00 Temperature Temperature Source Pulse Rate 97 H 82 Pulse Rate [Right] Respiratory Rate Blood Pressure 102/75 L 121/53 L Blood Pressure [Right Arm] Blood Pressure Mean [Right Arm] 02 Sat by Pulse Oximetry 90 L 90 L Oxygen Delivery Method Nasal Cannula Lab Data Labs: Lab Results 02/25/25 12:15: WBC 10.0, RBC 4.18 L, Hgb 10.7 L, Hct 34.9 L, MCV 83.5, MCH 25.6 L, MCHC 30.7 L, RDW 19.7 H, Plt Count 289, MPV 9.1, Neut % (Auto) 39.1, Lymph % (Auto) 12.6, [place] % (Auto) 5.8, Eos % (Auto) 41.9 H, Baso % (Auto) 0.3, Neut # (Auto) 3.9, Lymph # (Auto) 1.3, [place] # (Auto) 0.6, Eos # (Auto) 4.2 H, Baso # (Auto) 0.0, Total Counted 100, Neutrophils % (Manual) 41 L, Lymphocytes % (Manual) 10, Monocytes % (Manual) 3, Eosinophils % (Manual) 46 H, Platelet Estimate Normal, RBC Morphology Normal, Sodium 133 L, Potassium 4.7, Chloride 99, Carbon Dioxide 28, Anion Gap 10.7, BUN 23 H, Creatinine 1.50 H, Estimated Creat Clear 37, Estimated GFR 36 L, Est GFR ( Amer) 43 L, Glucose 105 H, Calcium 9.2, Magnesium 1.7, Total Bilirubin 0.6, AST 18, ALT 12, Alkaline Phosphatase 118, Troponin I < 0.01, Total Protein 6.6, Albumin 3.9, Globulin 2.7, Albumin/Globulin Ratio 1.4, Lipase 201 02/25/25 12:19: SARS-CoV-2 (PCR) Not detected, Influenza A Untype (PCR) Not detected, Influenza Type B (PCR) Not detected Response Orders (Tests/Meds): ED MEDICATIONS Generic Name Dose Route Start Last Admin Trade Name Freq PRN Reason Stop Dose Admin Ceftriaxone Sodium 2 gm/ 100 mls @ 200 mls/hr 02/25/25 13:45 02/25/25 14:07 Sodium Chloride IV 03/07/25 13:44 200 mls/hr Q24H SALMA Administration Discontinued Medications Generic Name Dose Route Start Last Admin Trade Name Aiden PRN Reason Stop Dose Admin Albuterol/Ipratropium 9 ml 02/25/25 12:07 02/25/25 12:29 Ipratropium/Albuterol 3 Ml Neb IH 02/25/25 12:08 9 ml ONCE ONE Administration Magnesium Sulfate 2 gm in 50 mls @ 50 mls/hr 02/25/25 12:07 02/25/25 13:36 Magnesium Sulfate 2gm/50ml Premix IV 02/25/25 13:06 Infused ONCE ONE Infusion Methylprednisolone Sodium Succinate 125 mg 02/25/25 12:07 02/25/25 12:26 Methylprednisolone Sod Succ 125mg Vial IV 02/25/25 12:08 125 mg ONCE ONE Administration ORDERS Category Date Time Status Chest XR -- portable [XR chest portable] Stat Exams 02/25/25 12:07 Completed BNP [NT Pro Brain Natriuretic Pep.] Stat Lab 02/25/25 12:15 Received CBC [Complete Blood Count Auto Diff] Stat Lab 02/25/25 12:15 Completed Comprehensive Metabolic Panel Stat Lab 02/25/25 12:15 Completed Lipase Stat Lab 02/25/25 12:15 Completed Magnesium Stat Lab 02/25/25 12:15 Completed Rapid PCR Covid and Flu A/B Stat Lab 02/25/25 12:19 Completed Trop I [Troponin I] Stat Lab 02/25/25 12:15 Completed Troponin I Q3H Lab 02/25/25 15:15 Ordered Troponin I Q3H Lab 02/25/25 18:15 Ordered VBG [Venous Blood Gas] Stat RT 02/25/25 13:38 Ordered ECG Data Tracing #1: ECG Narrative: Independently interpreted by myself demonstrate normal sinus rhythm with a right bundle branch block, no obvious acute ischemic ST changes.
--- NOTE | 2025-02-25 12:19 | ECG_ITS ---
APPROVED REPORT Exam: Resting ECG HR:79 bpm ECG Measurements Heart Rate 79 AXES MD 152 P 56 QRSd 150 QRS 89 QT 406 T 40 QTc 441 Conclusion SINUS RHYTHM RIGHT BUNDLE BRANCH BLOCK [120+ ms QRS DURATION, UPRIGHT V1, 40+ ms S IN I/aVL/V4/V5/V6] ABNORMAL ECG UNCONFIRMED REPORT Electronically signed by : Bk Aceves, 02/25/2025 15:59:56
[2025-02-25 12:24] LABS: Coronavirus 19, PCR Not Detected (NotDetected); Influenza A, PCR Not Detected (NotDetected); Influenza B, PCR Not Detected (NotDetected)
[2025-02-25] MEDS: METHYLPREDNISOLONE SOD SUCC 125MG VIAL 125 MG IV (12:26)
[2025-02-25] MEDS: MAGNESIUM SULFATE IN WATER 2 GM/50 ML PIGGYBACK IV (12:27)
--- OUTSIDE RECORDS SUMMARY | 2025-02-25 12:28 | XMS_ITS | Encounter Summary ---
Author Organization [facility] Address [address] [place] [address] Care Team Providers Care Refrigerator Room Clerk Name Role Phone Mali Rivera ECCLESIASTICAL WORKER Primary Care Provider [phone] Cindi Shepherd RN Unavailable Unavailab Gema Lee RN Unavailable Unavailable Shraddha Paulson ECCLESIASTICAL WORKER Unavailable [phone] Shannan Oropeza RN Unavailable Unavailable Anibal Leahy MD Unavailable Harry Logan MD Unavailable [phone] Slime Clark RN Unavailable Unavailable Mellisa Byrnes LPN Unavailable Unavailab Violette Caraballo Unavailable Unavailabl e Reason for Visit * Reason Comments Med Refill Encounter Details Date Type Department Care Team (Late st Contact Info) Description 12/07/2020 Refill [place] [facility] Endocrinology [address] [place] [address] Edwige Mitchell, ECCLESIASTICAL WORKER [address] [place] [address] Social History Tobacco Use Types [...] been seen since 08/06/2019. She h as [facility] 01/2020 and again 09/11/2020. * Telephone Encounter [...] documented in this encounter Plan of Treatment Not on file documented as of this encounter Visit Diagnoses Not on filedocumented in this encounter Additional Health Concerns Infection Onset Date Last Indicated Resolved Time COVID-19 Rule-Out 03/26/2021 03/26/2021 03/26/2021 5:53 PM EST COVID 19 (Confirmed) Comment:[facility] has contacted the patient regarding their positive COVID-19 test. Patient instructed that the local Health Dept. will be contacting them with a quarantine notice and to discuss contact tracing and should remain at home/isolated until notified. Patient was educated that if symptoms progress and they become short of air to proceed to the nearest ED. [facility] Nursery Teacher: Chikis Thomas 03/26/2021 03/26/2021 04/16/20 5:23 AM EST COVID-19 Rule-Out 06/06/2022 06/06/2022 06/06/2022 10:02 PM EST Assessment Noted Time A fall risk assessment has been complete d for the patient 10/10/2020 4:21 PM EDT documented as of this encounter Care Teams Refrigerator Room Clerk Relationship Specialty Start Date End Date RiveraMali, ECCLESIASTICAL WORKER [address] [place] [id number] PCP - General 09/01/20 Cindi Shepherd, RN [facility] Registered Nurse Cardiology 11/05/21 Gema Walter, RN [facility] Registered Nurse Cardiology 11/21/21 Shraddha Paulson, ECCLESIASTICAL WORKER [address] [place] [address] Nurse Practitioner Internal Medicine 11/21/21 Shannan Oropeza, RN [facility] Registered Nurse 01/14/22 Anibal Leahy MD [address] [place] [address] Consulting Physician Pediatric Cardiology 02/21/22 Harry Logan MD [address] [place] [address] Consulting Physician Cardiology 07/02/22 Slime Clark, [place] [address] Registered Nurse Cardiology 04/17/23 Mellisa Byrnes, GARMENT INSPECTOR VALUE[employer]BASED TRANSFORMATION PROGRAM Licensed Practical Nurse 11/03/23 12/12/23 Violette Ray Clinical Mushroom Growth Media Mixer 12/07/24 02/04/25 documented as of this encounter
--- OUTSIDE RECORDS SUMMARY | 2025-02-25 12:28 | XMS_ITS | Encounter Summary ---
Author Organization [facility] Address [address] [place] [address] Care Team Providers Care Coroner/Medical Examiner Name Role Phone MiguelFroylanabigail Hill APRN Primary Care Provider [phone] Cindi Shepherd RN Unavailable Unavailab Gema Lee RN Unavailable Unavailable Shraddha Paulson APRN Unavailable [phone] Shannan Oropeza RN Unavailable Unavailable Anibal Leahy MD Unavailable Harry Logan MD Unavailable [phone] Slime Clark RN Unavailable Unavailable Encounter Details Date Type Department Care Team (Late st Contact Info) Description 02/14/2025 Results Follow-Up [facility] [place] [address] [facility]. [address] [place] [phone] Savannah Villaseñor APRN, [facility] [address] [place] [address] Social History Tobacco Use Types Packs/Day Years [...] often do you attend chur ch or taoism services? More than 4 times per year 11/10/2023 Do you belong to any clubs o r organizations such as jainism groups, unions, fraternal or athletic groups, or [...] Recorded Patient Health Questionnaire-2 Score 0 02/15/2025 [facility] of Occupat ional Health - Occupational Stress [...] money to buy more. Never true 02/16/20 25 Within the past 12 months, t [...] time in the past 12 m [facility], were you homeless or living in a chcf (including now)? No 02/15/2025 [facility] Utilities Answer Date Recorded In the past [...] as of this encounter Functional Status * Over the past 2 weeks, how often have you been bothered by any of the following problems? Question Answer Date of Assessment Author Little interest or pleasure in doing things Not at all 02/15/2025 9:10 AM Simran Han Feeling down, depressed, or hopeless Not at all 02/15/2025 9:10 AM Simran Han Patient Health Questionnaire -2 Score 0 02/15/2025 9:10 AM Simran Han * Question Answer Date of Assessment Author Trouble falling or staying asleep, or sleeping too much More than half the days 02/15/2025 9:10 AM Simran Han Feeling tired or having little energy Nearly every day 02/15/2025 9:10 AM Simran Han Poor appetite or overeating Nearly every day 02/15/2025 9:10 AM Simran Han Feeling bad about yourself - [...] Health Questionnaire-9 Score 12 02/15/2025 9:10 AM EDT Simran Haley * Calculated C-SSRS Risk Score (Lifetime/Recent) Answer Date of Assessment Author No Risk Indicated 02/15/2025 9:08 AM EDT Simran Chavis * How difficult have these problems made it for you to do your work, take care of things at home, or get along with other people? Answer Date of Assessment Author Somewhat difficult 02/15/2025 9:10 AM EDT Simran Dinh * Question Answer Date of Assessment Author 1. Wish to be (Past 1 Month) No 025 9:08 AM EDT Simran Haley 2. Non-Specific Active Suici susanne Thoughts (Past 1 Month) No 02/15/2025 9:08 AM EDT Simran Haley 6. Suicidal Behavior (Lifetime) No 9:08 AM EDT Simran Haley documented as of this encounter Plan of Treatment Not on [...] documented as of this encounter Care Teams Coroner/Medical Examiner Relationship Specialty Start Date End Date Mali Rivera APRN [address] [place] [phone] PCP - General 09/01/20 Cindi Shepherd RN [facility] Registered Nurse Cardiology 11/05/21 Gema Walter, RN [facility] Registered Nurse Cardiology 11/21/21 Shraddha Paulson APRN [address] [place] [phone] Nurse Practitioner Internal Medicine 11/21/21 Shannan Oropeza RN [facility] Registered Nurse 01/14/22 Anibal Leahy MD [address] [place] [address] Consulting Physician Pediatric Cardiology 02/21/22 Harry Logan MD [address] [place] [address] Consulting Physician Cardiology 07/02/22 Slime Clark, [place] [address] Registered Nurse Cardiology 04/17/23 documented as of this encounter
--- OUTSIDE RECORDS SUMMARY | 2025-02-25 12:28 | XMS_ITS | Encounter Summary ---
Author Organization [facility] Address [address] [place] [address] Care Team Providers Care Pillowcase Cutter Name Role Phone Mali Rivera ERIC Primary Care Provider +[phone] Cindi Shepherd RN Unavailable Unavailab Gema Lee RN Unavailable Unavailable Shraddha Paulson APRN Unavailable [phone] Shannan Oropeza RN Unavailable Unavailable Anibal Leahy MD Unavailable Harry Logan MD Unavailable [phone] Slime Clark RN Unavailable Unavailable Violette Ray Unavailable Unavailabl e Reason for Visit * Reason Comments Med Refill Encounter Details Date Type Department Care Team (Late st Contact Info) Description 01/13/2025 Refill [facility] [place] [address] [facility]. [address] [place] [address] Harry Villar MD [address] [place] [address] Hyperlipidemia, unspecified hyperlipidemia type Social [...] any clubs o r organizations such as islam groups, unions, fraternal or athletic groups, or [...] Recorded Patient Health Questionnaire-2 Score 6 12/15/2024 [facility] of Occupat ional Health - Occupational [...] any time in the past 12 m [facility], were you homeless or living in a intermediate (including now)? No 12/15/2024 [facility] Utilities Answer Date Recorded In the [...] * Telephone Encounter - Samantha Cordova - 01/13/2025 9:03 AM EDT Patient has not been seen since 05/2023. Needs to be seen. Spoke to patient before regarding this but appointments keep getting r/s. documented in this encounter Plan of Treatment [...] documented as of this encounter Care Teams Pillowcase Cutter Relationship Specialty Start Date End Date Mali Rivera APRN [address] [place] [phone] PCP - General 09/01/20 Cindi Shepherd RN [facility] Registered Nurse Cardiology 11/05/21 Gema Walter RN [facility] Registered Nurse Cardiology 11/21/21 Shraddha Paulson APRN [address] [place] [phone] Nurse Practitioner Internal Medicine 11/21/21 Shannan Oropeza, RN [facility] Registered Nurse 01/14/22 Anibal Leahy MD [address] [place] [address] Consulting Physician Pediatric Cardiology 02/21/22 Harry Logan MD [address] [place] [address] Consulting Physician Cardiology 07/02/22 [place] [address] Registered Nurse Cardiology 04/17/23 Violette Ray Clinical Motor Tester 12/07/24 02/04/25 documented as of this encounter
--- OUTSIDE RECORDS SUMMARY | 2025-02-25 12:28 | XMS_ITS | Encounter Summary ---
Author Organization [facility] Address [address] [place] [address] Care Team Providers Care Probation Supervisor Name Role Phone Mali Rivera ERIC Primary Care Provider +1 [phone] Cindi Shepherd RN Unavailable Unavailab Gema Lee RN Unavailable Unavailable Shraddha Paulson APRN Unavailable [phone] Shannan Oropeza RN Unavailable Unavailable Anibal Leahy MD Unavailable Harry Logan MD Unavailable [phone] Slime Clark RN Unavailable Unavailable Violette Ray Unavailable Unavailabl e Reason for Visit * Reason Onset Date Comments Medication Therapy Management 01/13/2025 Encounter Details Date Type Department Care Team (Late st Contact Info) Description 01/13/2025 Telephone [facility] [address] [place] [address] Ruma Monroy, PharmD [place] [address] Medication Therapy Management Social History Tobacco Use [...] often do you attend chur ch or hoahaoism services? More than 4 times [...] Recorded Patient Health Questionnaire-2 Score 6 12/15/2024 [facility] of Occupat ional Health - Occupational [...] time in the past 12 m [facility], were you homeless or living in a detention (including now)? No 12/15/2024 [facility] Utilities Answer Date Recorded In the past [...] as of this encounter Miscellaneous Notes * Clinician Note - Ruma Monroy PharmD - 01/13/2025 12:45 PM EDT Patient reached by Medication Therapy Management team. MTM Platform: [employer] website Successful Intervention(s): Patient filled medication(s): Atorvastatin Additional information: 01/11 90 days Ruma Monroy PharmD [facility] MTM Team documented in this encounter Plan of Treatment [...] documented as of this encounter Care Teams Probation Supervisor Relationship Specialty Start Date End Date Mali Rivera APRN [address] [place] [phone] PCP - General 09/01/20 Cindi Shepherd RN [facility] Registered Nurse Cardiology 11/05/21 Gema Walter RN [facility] Registered Nurse Cardiology 11/21/21 Shraddha Paulson APRN [address] [place] [phone] Nurse Practitioner Internal Medicine 11/21/21 Shannan Oropeza RN [facility] Registered Nurse 01/14/22 Anibal Leahy MD [address] [place] [address] Consulting Physician Pediatric Cardiology 02/21/22 Harry Logan MD [address] [place] [address] Consulting Physician Cardiology 07/02/22 [place] [address] Registered Nurse Cardiology 04/17/23 Violette Ray Clinical Tombstone Polisher 12/07/24 02/04/25 documented as of this encounter
--- OUTSIDE RECORDS SUMMARY | 2025-02-25 12:28 | XMS_ITS | Encounter Summary ---
Author Organization [facility] Address [address] [place] [address] Care Team Providers Care Occupational Health Rn Name Role Phone Mali Rivera Liz REYES Primary Care Provider +1 [phone] Cindi Shepherd RN Unavailable Unavailab Gema Lee RN Unavailable Unavailable Shraddha Paulson APRN Unavailable [phone] Shannan Oropeza RN Unavailable Unavailable Anibal Leahy MD Unavailable aHrry Logan MD Unavailable [phone] Slime Clark RN Unavailable Unavailable Reason for Visit * Reason Comments Med Refill Encounter Details Date Type Department Care Team (Late st Contact Info) Description 02/24/2025 Refill [facility] [place] [address] [facility]. [address] [place] [address] Harry Villar MD [address] [place] [phone] Social History Tobacco Use Types Packs/Day Years [...] How often do you attend chur or methodist services? More than 4 times per year 11/10/2023 Do you belong to any clubs o r organizations such as mosque groups, unions, fraternal or athletic groups, or [...] Recorded Patient Health Questionnaire-2 Score 0 02/15/2025 [facility] of Occupat ional [facility] - Occupational Stress Questionnaire Answer Date Recorded [...] any time in the past 12 m [facility], were you homeless or living in a correction (including now)? No 02/15/2025 [facility] Utilities Answer Date Recorded In the past 12 months has e electric, gas, oil, or water company [...] encounter Miscellaneous Notes * Telephone Encounter - Lorin Hyde - 02/24/2025 4:01 PM EST Med filled documented in this encounter Plan of Treatment [...] documented as of this encounter Care Teams Occupational Health Rn Relationship Specialty Start Date End Date Mali Rivera APRN [address] [place] [phone] PCP - General 09/01/20 Cindi Shepherd, RN [facility] Registered Nurse Cardiology 11/05/21 Gema Walter, RN [facility] Registered Nurse Cardiology 11/21/21 Shraddha Paulson APRN [address] [place] [address] Nurse Practitioner Internal Medicine 11/21/21 Shannan Oropeza RN [facility] Registered Nurse 01/14/22 Anibal Leahy MD [address] [place] [address] Consulting Physician Pediatric Cardiology 02/21/22 Harry Logan MD [address] [place] [address] Consulting Physician Cardiology 07/02/22 Slime Clark, [place] [address] Registered Nurse Cardiology 04/17/23 documented as of this encounter
--- OUTSIDE RECORDS SUMMARY | 2025-02-25 12:28 | XMS_ITS | Encounter Summary ---
Author Organization [facility] Address [address] [place] [address] Care Team Providers Care Underwriting Analyst Name Role Phone Mali Rivera HOTEL DESK CLERK Primary Care Provider [phone] Cindi Shepherd RN Unavailable Unavailab Gema Lee RN Unavailable Unavailable Shraddha Paulson APRN Unavailable [phone] Shannan Oropeza RN Unavailable Unavailable Anibal Leahy MD Unavailable Harry Logan MD Unavailable [phone] Slime Clark RN Unavailable Unavailable Mellisa Byrnes LPN Unavailable Unavailab Violette Caraballo Unavailable Unavailabl e Reason for Visit * Reason Comments Med Refill Encounter Details Date Type Department Care Team (Late st Contact Info) Description 09/12/2021 [facility]ill [facility] [place] [address] [facility]. [address] [place] [address] Enio Mohr MD [address] [place] [address] Social History Tobacco Use Types Packs/Day Years [...] documented as of this encounter Care Teams Underwriting Analyst Relationship Specialty Start Date End Date Mali Rivera APRN [address] [place] [phone] PCP - General 09/01/20 Cindi Shepherd RN [facility] Registered Nurse Cardiology 11/05/21 Gema Walter, RN [facility] Registered Nurse Cardiology 11/21/21 Shraddha Paulson APRN [address] [place] [address] Nurse Practitioner Internal Medicine 11/21/21 Shannan Oropeza, RN [facility] Registered Nurse 01/14/22 Anibal Leahy MD [address] [place] [address] Consulting Physician Pediatric Cardiology 02/21/22 Harry Logan MD [address] [place] [address] Consulting Physician Cardiology 07/02/22 Slime Clark, [place] [address] Registered Nurse Cardiology 04/17/23 Mellisa Byrnes, VI VALUE-BASED TRANSFORMATION PROGRAM Licensed Practical Nurse 11/03/23 12/12/23 Violette Ray Clinical Jewelry Dipper 12/07/24 02/04/25 documented as of this encounter
--- OUTSIDE RECORDS SUMMARY | 2025-02-25 12:28 | XMS_ITS | Encounter Summary ---
Author Organization [facility] Address [address] [place] [address] Care Team Providers Care Liner Machine Operator Name Role Phone Mali Rivera HALL SUPERVISOR Primary Care Provider [phone] Cindi Shepherd RN Unavailable Unavailab Gema Lee RN Unavailable Unavailable Shraddha Paulson HALL SUPERVISOR Unavailable [phone] Shannan Oropeza RN Unavailable Unavailable Anibal Leahy MD Unavailable Harry Logan MD Unavailable [phone] Slime Clark RN Unavailable Unavailable Mellisa Byrnes LPN Unavailable Unavailab Violette Caraballo Unavailable Unavailabl e Reason for Visit * Reason Comments Med Refill Encounter Details Date Type Department Care Team (Late st Contact Info) Description 12/29/2020 Refill [facility] [place] [address] [facility]. [address] [place] [address] Shraddha Paulson, HALL SUPERVISOR [address] [place] [address] Social History Tobacco Use Types Packs/Day Years [...] 03/26/2021 5:53 PM EST COVID 19 (Confirmed) Comment:[facility] has contacted the patient regarding their positive COVID-19 test. Patient instructed that the local Health Dept. will be contacting them with a quarantine notice and to discuss contact tracing and should remain at home/isolated until notified. Patient was educated that if symptoms progress and they become short of air to proceed to the nearest ED. [facility] Telephone Sterilizer: Chikis Thomas 03/26/2021 03/26/2021 04/16/20 5:23 AM EST COVID-19 Rule-Out 06/06/2022 06/06/2022 06/06/2022 10:02 PM EST Assessment Noted Time A fall risk assessment has been complete d for the patient 10/10/2020 4:21 PM EDT documented as of this encounter Care Teams Liner Machine Operator Relationship Specialty Start Date End Date Mali Rivera APRN [address] [place] [phone] PCP - General 09/01/20 Cindi Shepherd [facility] Registered Nurse Cardiology 11/05/21 Gema Walter RN [facility] Registered Nurse Cardiology 11/21/21 Shraddha Paulson, ERIC [address] [place] [address] Nurse Practitioner Internal Medicine 11/21/21 Shannan Oropeza RN [facility] Registered Nurse 01/14/22 Anibal Leahy MD [address] [place] [phone] Consulting Physician Pediatric Cardiology 02/21/22 Harry Logan MD [address] [place] [address] Consulting Physician Cardiology 07/02/22 Slime Clark, PHYSICIAN [place] [address] Registered Nurse Cardiology 04/17/23 Mellisa Byrnes LPN VALUE-BASED TRANSFORMATION PROGRAM Licensed Practical Nurse 11/03/23 12/12/23 Violette Ray Clinical Sandwich Peddler 12/07/24 02/04/25 documented as of this encounter
--- OUTSIDE RECORDS SUMMARY | 2025-02-25 12:28 | XMS_ITS ---
Author Organization [facility] Address [address] [place] [address] Care Team Providers Care Childbirth And Infant Care Teacher Name Role Phone Mali Rivera TELEGRAPH SERVICE CLERK Primary Care Provider [phone] Cindi Shepherd RN Unavailable Unavailab Gema Lee RN Unavailable Unavailable Shraddha Paulson APRN Unavailable [phone] Shannan Oropeza RN Unavailable Unavailable Anibal Leahy MD Unavailable Harry Logan MD Unavailable [phone] Slime Clark RN Unavailable Unavailable Clinical Internal Communications Specialist Program Status:Closed (Closed) Start date:12/07/2024 Enrollment date:12/07/2024 Enrollment reason:Identified using referral data End date:02/04/2025 Close reason:Patient graduated Overview This episode type is for outpatient Clinical Internal Communications Specialist enrolling patients in their program. Continued Care and Services Coordination
--- OUTSIDE RECORDS SUMMARY | 2025-02-25 12:28 | XMS_ITS | Clinical Summary ---
Author Organization [facility] Address [address] [place] [address] Care Team Providers Care Dictionary Editor Name Role Phone Mali Rivera APRN Primary [...] COLONOSCOPY 04/06/2024 04/06/2014 COLORECTAL CANCER SCREENING 04/06/2024 INFLUENZA VACCINE 11/19/2024 Insurance [facility] [place] [address] Care Teams Dictionary Editor Relationship Specialty Start Date End Date Mali Rivera APRN [address] [place] [address] PCP - General 06/16/15
--- OUTSIDE RECORDS SUMMARY | 2025-02-25 12:28 | XMS_ITS | Encounter Summary ---
Author Organization [facility] Address [address] [place] [address] Care Team Providers Care Field Service Coordinator Name Role Phone Mali Rivera ERIC Primary Care Provider +[phone] Cindi Shepherd RN Unavailable Unavailab Gema Lee RN Unavailable Unavailable Shraddha Paulson APRN Unavailable [phone] Shannan Oropeza RN Unavailable Unavailable Anibal Leahy MD Unavailable Harry Logan MD Unavailable [phone] Slime Clark RN Unavailable Unavailable Violette Ray Unavailable Unavailabl e Reason for Visit * Reason Onset Date Comments Medication Therapy Management 12/23/2024 Encounter Details Date Type Department Care Team (Late st Contact Info) Description 12/23/2024 Telephone [facility] [address] [place] [address] Lissette Fay, [place] [address] Medication Therapy Management Social History [...] How often do you attend chur or muslim services? More than 4 times per year 11/10/2023 Do you belong to any clubs o r organizations such as mormon groups, unions, fraternal or athletic groups, or [...] Recorded Patient Health Questionnaire-2 Score 6 12/15/2024 [facility] of Occupat ional Health - Occupational [...] any time in the past 12 m [facility], were you homeless or living in a long term (including now)? No 12/15/2024 [facility] Utilities Answer Date Recorded In the past [...] reach patient after 3 attempts MT Platform: [place] Adherence documented in this encounter Plan of [...] documented as of this encounter Care Teams Field Service Coordinator Relationship Specialty Start Date End Date Mali Rivera APRN [address] [place] [phone] PCP - General 09/01/20 Cindi Shepherd RN [facility] Registered Nurse Cardiology 11/05/21 Gema Walter, RN [facility] Registered Nurse Cardiology 11/21/21 Shraddha Paulson APRN [address] [place] [phone] Nurse Practitioner Internal Medicine 11/21/21 Shannan Oropeza RN [facility] Registered Nurse 01/14/22 Anibal Leahy MD [address] [place] [address] Consulting Physician Pediatric Cardiology 02/21/22 Harry Logan MD [address] [place] [address] Consulting Physician Cardiology 07/02/22 Slime Clark, [place] [address] Registered Nurse Cardiology 04/17/23 Violette Ray Clinical Track Grinder Operator 12/07/24 02/04/25 documented as of this encounter
--- OUTSIDE RECORDS SUMMARY | 2025-02-25 12:28 | XMS_ITS | Encounter Summary ---
Author Organization [facility] Address [address] [place] [address] Care Team Providers Care Can Crimper Name Role Phone Mali Rivera Liz REYES Primary Care Provider +[phone] Cindi Shepherd RN Unavailable Unavailab Gema Lee RN Unavailable Unavailable Shraddha Paulson APRN Unavailable [phone] Shannan Oropeza RN Unavailable Unavailable Anibal Leahy MD Unavailable Harry Logan MD Unavailable [phone] Slime Clark RN Unavailable Unavailable Encounter Details Date Type Department Care Team (Latest Contact Info) Description 02/15/2025 Travel Social History Tobacco Use Types Packs/Day [...] How often do you attend chur or mu-ism services? More than 4 times per year 11/10/2023 Do you belong to any clubs o r organizations such as rastafarian groups, unions, fraternal or athletic groups, or [...] Recorded Patient Health Questionnaire-2 Score 0 02/15/2025 [facility] - Occupational Stress Questionnaire Answer Date [...] were you homeless or living in a longterm (including now)? No 02/15/2025 [facility] Utilities Answer Date Recorded In the [...] Simran Haley 6. Suicidal Behavior (Lifetime) No 5 9:08 AM EDT Simran Haley documented as [...] documented as of this encounter Care Teams Can Crimper Relationship Specialty Start Date End Date Mali Rivera APRN [address] [place] [phone] PCP - General 09/01/20 Cindi Shepherd RN [facility] Registered Nurse Cardiology 11/05/21 Gema Walter RN [facility] Registered Nurse Cardiology 11/21/21 Shraddha Paulson APRN [address] [place] [address] Nurse Practitioner Internal Medicine 11/21/21 Shannan Oropeza, RN [facility] Registered Nurse 01/14/22 Anibal Leahy MD [address] [place] [address] Consulting Physician Pediatric Cardiology 02/21/22 Harry Logan MD [address] [place] [address] Consulting Physician Cardiology 07/02/22 Slime Clark, TRANSPORTATION SERVICES [place] [address] Registered Nurse Cardiology 04/17/23 documented as of this encounter
--- OUTSIDE RECORDS SUMMARY | 2025-02-25 12:28 | XMS_ITS | Encounter Summary ---
Author Organization [facility] Address [address] [place] [address] Care Team Providers Care Trailer Steerer Name Role Phone Mali Rivera APRN Primary Care Provider [phone] Cindi Shepherd RN Unavailable Unavailab Gema Lee RN Unavailable Unavailable Shraddha Paulson RAILROAD SIGNAL TECHNICIAN Unavailable [phone] Shannan Oropeza RN Unavailable Unavailable Anibal Leahy MD Unavailable Harry Logan MD Unavailable [phone] Slime Clark RN Unavailable Unavailable Mellisa Byrnes LPN Unavailable Unavailab Violette Caraballo Unavailable Unavaillucero e Encounter Details Date Type Department Care Team (Late st Contact Info) Description 09/11/2021 Outside Procedure External Location [address] [place] [address] Mali Rivera, RAILROAD SIGNAL TECHNICIAN [address] [place] [address] Social History Tobacco Use Types [...] on file documented as of this encounter Procedures Procedure Name Priority Date/Time Associated Diagnosis Comments XR KNEE LEFT 1 OR 2 VIEWS 09/11/2021 3:06 PM EDT documented in this encounter Results * XR Knee Left 1 or 2 Views (09/11/2021 3:06 PM EDT) Anatomical Region Laterality Modality Lower Extremities, Knee Left Radiogra phic Imaging 09/11/2021 3:06 PM EDT Narrative 09/11/2021 4:30 [place] [address] Name: MAYTE SCHMITT Exam Date: 09/11/2021 : 1965 Age 55 Gender: F Physician: MALI RIVERA Facility: [facility] Facility HSV: Outpatient Exam: [email or web address] [...] Thank you for referring MAYTE SCHMITT to [facility]. Legally authenticated by LAUREEN COX 2021-09-11 16:18:20 Procedure Note Provider, Generic [place] - 09/11/2021 [facility] [address] [place] [address] Name: MAYTE SCHMITT Exam Date: 09/11/2021 : 1965 Age 55 Gender: F Physician: MALI RIVERA Facility: [facility] Facility HSV: Outpatient Exam: KNEE [...] Thank you for referring MAYTE SCHMITT to [facility]. Legally authenticated by LAUREEN COX 2021-09-11 16:18:20 us Mali Rivera APRN IMG XR PROCEDURES Final Res ult documented [...] documented as of this encounter Care Teams Trailer Steerer Relationship Specialty Start Date End Date Mali Rivera APRN [address] [place] [address] PCP - General 09/01/20 Cindi Shepherd, RN [facility] Registered Nurse Cardiology 11/05/21 Gema Walter, RN [facility] Registered Nurse Cardiology 11/21/21 Shraddha Paulson APRN [address] [place] [address] Nurse Practitioner Internal Medicine 11/21/21 Shannan Oropeza, RN [facility] Registered Nurse 01/14/22 Anibal Leahy MD [address] [place] [address] Consulting Physician Pediatric Cardiology 02/21/22 Harry Logan MD [address] [place] [address] Consulting Physician Cardiology 07/02/22 Slime Clark, [place] [address] Registered Nurse Cardiology 04/17/23 Mellisa Byrnes, VI VALUE-BASED TRANSFORMATION PROGRAM Licensed Practical Nurse 11/03/23 12/12/23 Violette Ray Clinical Marketing Database Analyst 12/07/24 02/04/25 documented as of this encounter
--- OUTSIDE RECORDS SUMMARY | 2025-02-25 12:28 | XMS_ITS | Encounter Summary ---
Author Organization [facility] Address [address] [place] [address] Care Team Providers Care Risk Intern Name Role Phone Mali Rivera POLISHING PAD MOUNTER Primary Care Provider +[phone] Cidni Shepherd RN Unavailable Unavailab Gema Lee RN Unavailable Unavailable Shraddha Paulson POLISHING PAD MOUNTER Unavailable [phone] Shannan Oropeza RN Unavailable Unavailable Anibal Leahy MD Unavailable Harry Logan MD Unavailable [phone] Slime Clark RN Unavailable Unavailable Mellisa Byrnes LPN Unavailable Unavailab Violette Caraballo Unavailable Unavaillucero sparks Reason for Visit * Reason Comments Med Refill Encounter Details Date Type Department Care Team (Late st Contact Info) Description 06/13/2021 Refill [facility] [address] [place] [address] Mali Rivera, POLISHING PAD MOUNTER [address] [place] [address] Candidiasis Social History Tobacco Use [...] Themedication refill request(s) has been sent to [facility]. documented in this encounter Plan of [...] documented as of this encounter Care Teams Risk Intern Relationship Specialty Start Date End Date Mali Rivera APRN [address] [place] [address] PCP - General 09/01/20 Cindi Shepherd RN [facility] Registered Nurse Cardiology 11/05/21 Gema Walter [facility] Registered Nurse Cardiology 11/21/21 Shraddha Paulson APRN [address] [place] [phone] Nurse Practitioner Internal Medicine 11/21/21 Shannan Oropeza, RN [facility] Registered Nurse 01/14/22 Anibal Leahy MD [address] [place] [address] Consulting Physician Pediatric Cardiology 02/21/22 Harry Logan MD [address] [place] [address] Consulting Physician Cardiology 07/02/22 Slime Clark, [place] [address] Registered Nurse Cardiology 04/17/23 Mellisa Byrnes LPN VALUE-BASED TRANSFORMATION PROGRAM Licensed Practical Nurse 11/03/23 12/12/23 Violette Ray Clinical Technical Expert 12/07/24 02/04/25 documented as of this encounter
--- OUTSIDE RECORDS SUMMARY | 2025-02-25 12:28 | XMS_ITS | Encounter Summary ---
Author Organization [facility] Address [address] [place] [address] Care Team Providers Care Sports Athletic Trainer Name Role Phone Mali Rivera CALF SKINNER Primary Care Provider [phone] Cindi Shepherd RN Unavailable Unavailab Gema Lee RN Unavailable Unavailable Shraddha Paulson CALF SKINNER Unavailable [phone] Shannan Oropeza RN Unavailable Unavailable Anibal Leahy MD Unavailable Harry Logan MD Unavailable [phone] Slime Clark RN Unavailable Unavailable Violette Ray Unavailable Unavaillucero e Reason for Visit * Reason Comments Med Refill Encounter Details Date Type Department Care Team (Late st Contact Info) Description 01/13/2025 Refill [facility] [address] [place] [address] Mali Rivera, CALF SKINNER [address] [place] [address] Social History Tobacco Use Types [...] any clubs o r organizations such as buddhism groups, unions, fraternal or athletic groups, or [...] Recorded Patient Health Questionnaire-2 Score 6 12/15/2024 [facility] - [...] any time in the past 12 m [facility], were you homeless or living in a fdc (including now)? No 12/15/2024 [facility] Utilities Answer Date Recorded [...] encounter Miscellaneous Notes * Telephone Encounter - Kim Finn, PharmD - 01/18/2025 8:39 AM EDT 1 medication(s) has been approved [...] documented as of this encounter Care Teams Sports Athletic Trainer Relationship Specialty Start Date End Date Mali Rivera APRN [address] [place] [address] PCP - General 09/01/20 Cindi Shepherd, RN [facility] Registered Nurse Cardiology 11/05/21 Gema Walter, RN [facility] Registered Nurse Cardiology 11/21/21 Shraddha Paulson APRN [address] [place] [address] Nurse Practitioner Internal Medicine 11/21/21 Shannan Oropeza RN [facility] Registered Nurse 01/14/22 Anibal Leahy MD [address] [place] [address] Consulting Physician Pediatric Cardiology 02/21/22 Harry Logan MD [address] [place] [address] Consulting Physician Cardiology 07/02/22 Slime Clark, [place] [address] Registered Nurse Cardiology 04/17/23 Violette Ray Clinical College Scouting Coordinator 12/07/24 02/04/25 documented as of this encounter
--- OUTSIDE RECORDS SUMMARY | 2025-02-25 12:28 | XMS_ITS | Encounter Summary ---
Author Organization [facility] Address [address] [place] [address] Care Team Providers Care Box Toe Cementer Name Role Phone Mali Rivera AFTER SCHOOL PROGRAM ASSISTANT Primary Care Provider [phone] Cindi Shepherd RN Unavailable Unavailab Gema Lee RN Unavailable Unavailable Shraddha Paulson AFTER SCHOOL PROGRAM ASSISTANT Unavailable [phone] Shannan Oropeza RN Unavailable Unavailable Anibal Leahy MD Unavailable Harry Logan MD Unavailable [phone] Slime Clark RN Unavailable Unavailable Mellisa Byrnes LPN Unavailable Unavailab Violette Caraballo Unavailable Unavailabl e Reason for Visit * Reason Comments Med Refill Encounter Details Date Type Department Care Team (Late st Contact Info) Description 12/07/2020 Refill [facility] [address] [facility]. [address] [place] [address] Shraddha Paulson, AFTER SCHOOL PROGRAM ASSISTANT [address] [place] [address] Social History Tobacco Use Types Packs/Day Years [...] 03/26/2021 5:53 PM EST COVID 19 (Confirmed) Comment:[facility] has contacted the patient regarding their positive COVID-19 test. Patient instructed that the local Health Dept. will be contacting them with a quarantine notice and to discuss contact tracing and should remain at home/isolated until notified. Patient was educated that if symptoms progress and they become short of air to proceed to the nearest ED. [facility] Brick Picker: Chikis Thomas 03/26/2021 03/26/2021 04/16/20 5:23 AM EST COVID-19 Rule-Out 06/06/2022 06/06/2022 06/06/2022 10:02 PM EST Assessment Noted Time A fall risk assessment has been complete d for the patient 10/10/2020 4:21 PM EDT documented as of this encounter Care Teams Box Toe Cementer Relationship Specialty Start Date End Date Mali Rivera APRN [address] [place] [address] PCP - General 09/01/20 Cindi Shepherd, RN [facility] Registered Nurse Cardiology 11/05/21 Gema Walter, RN [facility] Registered Nurse Cardiology 11/21/21 Sharddha Paulson APRN [address] [place] [address] Nurse Practitioner Internal Medicine 11/21/21 Shannan Oropeza RN [facility] Registered Nurse 01/14/22 Anibal Leahy MD [address] [place] [address] Consulting Physician Pediatric Cardiology 02/21/22 Harry Logan MD [address] [place] [address] Consulting Physician Cardiology 07/02/22 Slime Clark, [place] [address] Registered Nurse Cardiology 04/17/23 Mellisa Byrnes LPN VALUE-BASED TRANSFORMATION PROGRAM Licensed Practical Nurse 11/03/23 12/12/23 Violette Ray Clinical Ultrasonic Solderer 12/07/24 02/04/25 documented as of this encounter
--- OUTSIDE RECORDS SUMMARY | 2025-02-25 12:28 | XMS_ITS | Encounter Summary ---
Author Organization [facility] Address [address] [place] [address] Care Team Providers Care Drapery Estimator Name Role Phone Mali Rivera Liz REYES Primary Care Provider [phone] Cindi Shepherd RN Unavailable Unavailab Gema Lee RN Unavailable Unavailable Shraddha Paulson APRN Unavailable [phone] Shannan Oropeza RN Unavailable Unavailable Anibal Leahy MD Unavailable Harry Logan MD Unavailable [phone] Slime Clark RN Unavailable Unavailable Encounter Details Date Type Department Care Team (Latest Contact Info) Description 02/10/2025 Travel Social History Tobacco Use Types Packs/Day [...] How often do you attend chur or lutheran services? More than 4 times per year 11/10/2023 Do you belong to any clubs o r organizations such as yarsanism groups, unions, fraternal or athletic groups, or [...] Recorded Patient Health Questionnaire-2 Score 0 02/10/2025 [facility] - Occupational Stress Questionnaire Answer [...] any time in the past 12 m [facility], were you homeless or living in a mcfp (including now)? No 12/15/[address] [facility] Utilities Answer Date Recorded In the [...] Raegan Hyde 6. Suicidal Behavior (Lifetime) No 3:34 PM EDT Lorin Hyde documented as of this encounter Plan of Treatment Not on file documented as of this encounter Visit Diagnoses Not on filedocumented in this encounter Additional Health Concerns Assessment Noted Time PHQ-9 Depression Total Score: 18 12/15/ 025 3:01 PM EDT A fall risk assessment has been complete d for the patient 02/10/2025 3:34 PM EDT A Body Mass Index follow-up plan has been documented for the patient 02/10/2025 4:10 PM EDT documented as of this encounter Care Teams Drapery Estimator Relationship Specialty Start Date End Date Mali Rivera APRN [address] [place] [phone] PCP - General 09/01/20 Cindi Shepherd [facility] Registered Nurse Cardiology 11/05/21 Gema Walter RN [facility] Registered Nurse Cardiology 11/21/21 Shraddha Paulson APRN [address] [place] [address] Nurse Practitioner Internal Medicine 11/21/21 Shannan Oropeza RN [facility] Registered Nurse 01/14/22 Anibal Leahy MD [address] [place] [address] Consulting Physician Pediatric Cardiology 02/21/22 Harry Logan MD [address] [place] [address] Consulting Physician Cardiology 07/02/22 [place] [address] Registered Nurse Cardiology 04/17/23 documented as of this encounter
[2025-02-25] MEDS: IPRATROPIUM/ALBUTEROL 3 ML NEB 9 ML IH (12:29)
--- OUTSIDE RECORDS SUMMARY | 2025-02-25 12:29 | XMS_ITS | Encounter Summary ---
Author Organization [facility] Address [address] [place] [address] Care Team Providers Care Senior Instructional Designer Name Role Phone Mali Rivera SAND TESTER Primary Care Provider [phone] Cindi Shepherd RN Unavailable Unavailab Gema Lee RN Unavailable Unavailable Shraddha Paulson SAND TESTER Unavailable [phone] Shannan Oropeza RN Unavailable Unavailable Anibal Leahy MD Unavailable Harry Logan MD Unavailable [phone] Slime Clark RN Unavailable Unavailable Mellisa Byrnes LPN Unavailable Unavailab Violette Caraballo Unavailable Unavailabl e Reason for Visit * Reason Comments Med Refill Encounter Details Date Type Department Care Team (Late st Contact Info) Description 02/05/2023 Refill [facility] [address] [facility]. [address] [place] [address] Harry Villar MD [address] [place] [phone] Hyperlipidemia, unspecified hyperlipidemia type Social History Tobacco [...] as of this encounter Care Teams Senior Instructional Designer Relationship Specialty Start Date End Date Mali Rivera, SAND TESTER [address] [place] [address] PCP - General 09/01/20 Cindi Shepherd RN [facility] Registered Nurse Cardiology 11/05/21 Gema Walter RN [facility] Registered Nurse Cardiology 11/21/21 Shraddha Paulson, SAND TESTER [address] [place] [address] Nurse Practitioner Internal Medicine 11/21/21 Shannan Oropeza RN [facility] Registered Nurse 01/14/22 Anibal Leahy MD [address] [place] [address] Consulting Physician Pediatric Cardiology 02/21/22 Harry Logan MD [address] [place] [address] Consulting Physician Cardiology 07/02/22 Slime Clark, [place] [address] Registered Nurse Cardiology 04/17/23 Mellisa Byrnes LPN VALUE-BASED TRANSFORMATION PROGRAM Licensed Practical Nurse 11/03/23 12/12/23 Violette Ray Clinical Shellfish Harvester 12/07/24 02/04/25 documented as of this encounter
--- OUTSIDE RECORDS SUMMARY | 2025-02-25 12:29 | XMS_ITS | Encounter Summary ---
Author Organization [facility] Address [address] [place] [address] Care Team Providers Care Resident Services Coordinator Name Role Phone Mali Rivera MANAGER PSYCHIATRY Primary Care Provider [phone] Cindi Shepherd RN Unavailable Unavailab Gema Lee RN Unavailable Unavailable Shraddha Paulson MANAGER PSYCHIATRY Unavailable [phone] Shannan Oropeza RN Unavailable Unavailable Anibal Leahy MD Unavailable Harry Logan MD Unavailable [phone] Slime Clark RN Unavailable Unavailable Mellisa Byrnes LPN Unavailable Unavailab Violette Caraballo Unavailable Unavailabl e Reason for Visit * Reason Comments Med Refill Encounter Details Date Type Department Care Team (Late st Contact Info) Description 02/18/2022 Refill [facility] [address] [address] Evangelina Bello, MANAGER PSYCHIATRY [address] [address] Depression, unspecified depression type (Primary Dx) [...] documented as of this encounter Care Teams Resident Services Coordinator Relationship Specialty Start Date End Date Mali Rivera, MANAGER PSYCHIATRY [address] [place] [address] PCP - General 09/01/20 Cindi Shepherd, RN [facility] Registered Nurse Cardiology 11/05/21 Gema Walter RN [facility] Registered Nurse Cardiology 11/21/21 Shraddha Paulson, MANAGER PSYCHIATRY [address] [place] [address] Nurse Practitioner Internal Medicine 11/21/21 Shannan Oropeza RN [facility] Registered Nurse 01/14/22 Anibal Leahy MD [address] [place] [address] Consulting Physician Pediatric Cardiology 02/21/22 Harry Logan MD [address] [place] [address] Consulting Physician Cardiology 07/02/22 [place] [address] Registered Nurse Cardiology 04/17/23 Byrnes, Mellisa G, WAREHOUSE SHIPPING RECEIVING CLERK VALUE-BASED TRANSFORMATION PROGRAM Licensed Practical Nurse 11/03/23 12/12/23 Violette Ray Clinical Asphalt Tamping Machine Operator 12/07/24 02/04/25 documented as of this encounter
--- OUTSIDE RECORDS SUMMARY | 2025-02-25 12:29 | XMS_ITS | Encounter Summary ---
Author Organization [facility] Address [address] [place] [address] Care Team Providers Care Telehealth Director Name Role Phone Mali Rivera TOPOLOGY PROFESSOR Primary Care Provider [phone] Cindi Shepherd RN Unavailable Unavailab Gema Lee RN Unavailable Unavailable Shraddha Paulson APRN Unavailable [phone] Shannan Oropeza RN Unavailable Unavailable Anibal Leahy MD Unavailable Harry Logan MD Unavailable [phone] Slime Clark RN Unavailable Unavailable Violette Ray Unavailable Unavailabl e Reason for Referral * Medications - Authorized Specialty Diagnoses / Procedures Referred By Jose t Referred To Contact Diagnoses Pulmonary hypertension (CMS/HCC) Harry Villar MD [address] [place] [address] Phone: tel: fax: Referral ID Status Reason Start Date Expiration Date V isits Requested Visits Authorized [id number] Authorized 04/21/2024 04/20/2026 1 1 Reason for Visit * Reason Comments Med Refill Encounter Details Date Type Department Care Team (Late st Contact Info) Description 01/21/2025 Refill [facility] [address] [facility]. [address] [place] [address] Harry Villar MD [address] [place] [address] Pulmonary hypertension (CMS/HCC) (Primary Dx) Social History Tobacco Use Types [...] often do you attend chur ch or tenriism services? More than 4 times per year 11/10/2023 Do you belong to any clubs o r organizations such as samaritan groups, unions, fraternal or athletic groups, or [...] Recorded Patient Health Questionnaire-2 Score 0 02/10/2025 [facility] - Occupational Stress [...] in the past 12 m [facility], were you homeless or living in a chcf (including now)? No 12/15/2024 [facility] Utilities Answer Date Recorded In the past 12 months has [facility] electric, gas, oil, or water company threatened [...] * Telephone Encounter - Samantha Cordova - 02/07/2025 10:30 AM EDT Patient is coming in on and she is ok with waiting until her appt for refills. documented in this encounter Plan of Treatment Not on file documented as of this encounter Visit Diagnoses Diagnosis Pulmonary hypertension (CMS/HCC)- Primary Other chronic pulmonary heart diseases documented in this encounter Additional Health Concerns Assessment Noted Time PHQ-9 Depression Total Score: 18 025 3:01 PM EDT A fall risk assessment has been complete d for the patient 11/11/2023 10:52 AM EDT A Body Mass Index follow-up plan has been documented for the patient 12/15/2024 3:16 PM EDT documented as of this encounter Care Teams Telehealth Director Relationship Specialty Start Date End Date Mali Rivera APRN [facility] [place] [address] PCP - General 09/01/20 Cindi Shepherd, RN [facility] Registered Nurse Cardiology 11/05/21 Gema Walter, RN [facility] Registered Nurse Cardiology 11/21/21 Shraddha Paulson APRN [address] [place] [address] Nurse Practitioner Internal Medicine 11/21/21 Shannan Oropeza RN [facility] Registered Nurse 01/14/22 Anibal Leahy MD [address] [place] [address] Consulting Physician Pediatric Cardiology 02/21/22 Harry Logan MD [address] [place] [address] Consulting Physician Cardiology 07/02/22 Slime Clark, [place] [address] Registered Nurse Cardiology 04/17/23 Violette Ray Clinical Manager Perioperative 12/07/24 02/04/25 documented as of this encounter
--- OUTSIDE RECORDS SUMMARY | 2025-02-25 12:29 | XMS_ITS | Encounter Summary ---
Author Organization [facility] Address [address] [place] [address] Care Team Providers Care Manager Farm Name Role Phone Mali Rivera CREDIT COLLECTIONS MANAGER Primary Care Provider [phone] Cindi Shepherd RN Unavailable Unavailab Gema Lee RN Unavailable Unavailable Shraddha Paulson APRN Unavailable [phone] Shannan Oropeza RN Unavailable Unavailable Anibal Leahy MD Unavailable Harry Logan MD Unavailable [phone] Slime Clark RN Unavailable Unavailable Mellisa Byrnes LPN Unavailable Unavailab Violette Caraballo Unavailable Unavailabl e Reason for Visit * Reason Comments Med Refill Encounter Details Date Type Department Care Team (Late st Contact Info) Description 01/09/2022 Refill [facility] [address] [facility]. [address] [place] [address] Enio Mohr MD [address] [place] [address] Social History Tobacco Use Types Packs/Day Years [...] as of this encounter Care Teams Manager Farm Relationship Specialty Start Date End Date Mali Rivera, CREDIT COLLECTIONS MANAGER [address] [place] [phone] PCP - General 09/01/20 Cindi Shepherd, RN [facility] Registered Nurse Cardiology 11/05/21 Gema Walter, RN [facility] Registered Nurse Cardiology 11/21/21 Shraddha Paulson, CREDIT COLLECTIONS MANAGER [address] [place] [address] Nurse Practitioner Internal Medicine 11/21/21 Shannan Oropeza RN [facility] Registered Nurse 01/14/22 Anibal Leahy MD [address] [place] [address] Consulting Physician Pediatric Cardiology 02/21/22 Harry Logan MD [address] [place] [address] Consulting Physician Cardiology 07/02/22 Slime Clark, [place] [address] Registered Nurse Cardiology 04/17/23 Mellisa Byrnes, VI VALUE-BASED TRANSFORMATION PROGRAM Licensed Practical Nurse 11/03/23 12/12/23 Violette Ray Clinical Clin Nurse Spec 12/07/24 02/04/25 documented as of this encounter
--- OUTSIDE RECORDS SUMMARY | 2025-02-25 12:29 | XMS_ITS | Clinical Summary ---
Author Organization [facility] Address [address] [place] [address] Care Team Providers Care Straightener And Aligner Name Role Phone Mali Rivera WATER/WASTEWATER ENGINEER Primary Care Provider [phone] Cindi Shepherd RN Unavailable Unavailab Gema Lee RN Unavailable Unavailable Shraddha Paulson APRN Unavailable [phone] Shannan Oropeza RN Unavailable Unavailable Anibal Leahy MD Unavailable Harry Logan MD Unavailable [phone] Slime Clark RN Unavailable Unavailable Allergies Active Allergy Reactions Criticality Noted Date Comments Oxycodone-Acetaminoph en Unknown - Patient states they do not know rxn details Low 11/07/2020 Vomiting per pt Medications Blood Glucose Monitoring Suppl (Blood Glucose Monitor System) w/Device kit USE DIRECTED DX Code E 11.9 for testing 3 times a day 020 Active Lancets Thin misc 3 per day Dx E 11.9 020 Active Blood Glucose Monitoring Suppl (Blood Glucose Monitor System) w/Device kitIndications:Ty pe 2 diabetes mellitus with diabetic polyneuropathy, with long-term current use of insulin Use as directed twice daily 1 kit 021 Active fluticasone (Flonase) 50 MCG/ACT nasal sprayIndications: Allergic rhinitis, unspecified seasonality, unspecified trigger Administer 1 spray into each nostril 1 (one) time each day. Shake gently. Before first use, prime pump. After use, clean tip and replace cap. 16 g 12 023 Active spironolactone (Aldactone) 50 MG tablet TAKE 1 TABLET EVERY DAY 90 tablet 3 024 Active Eliquis 5 MG tablet TAKE 1 TABLET TWICE DAILY 180 tablet 3 Active metFORMIN (Glucophage) 500 MG tabletIndications :Type 2 diabetes mellitus with diabetic polyneuropathy, with long-term current use of insulin Take 1 tablet (500 mg) by mouth 2 (two) times a day with meals. TAKE 1 TABLET TWICE DAILY PATIENT NEEDS TO SCHEDULE AN APPOINTMENT TO RECEIVE FURTHER REFILLS 180 tablet Active Additional Information Patient not taking.Reported on 02/15/2025 glucose blood (Accu-Chek Erika Plus) test stripIndications: Type 2 diabetes mellitus with diabetic polyneuropathy, with long-term current use of insulin TEST BLOOD SUGAR THREE TIMES DAILY 300 strip Active buPROPion XL (Wellbutrin XL) 300 MG [...] tablets by mouth daily. 90 tablet 3 025 Active potassium chloride CR (Klor-Con M20) 20 MEQ ER tablet TAKE 3 TABLETS THREE TIMES DAILY. DO NOT CRUSH OR CHEW OR SPLIT. 810 tablet 2 025 Active insulin NPH-insulin regular (INSULIN NPH ISOPHANE & REGULAR HUMAN INJ) (70-30) 100 UNIT/ML SC injection vialIndications:T ype 2 diabetes mellitus with diabetic polyneuropathy, with long-term current use of insulin INJECT 32 UNITS UNDER THE SKIN BEFORE BREAKFAST AND 32 UNITS BEFORE DINNER (NEEDS TO ATTEND 12/14/24 APPOINTMENT FOR REFILLS) 30 mL Active Droplet Insulin Syringe 31G X 5/16 1 ML miscIndications:T ype 2 diabetes mellitus with diabetic polyneuropathy, with long-term current use of insulin USE DIRECTED TWICE DAILY 100 each Active levothyroxine (Synthroid, Levoxyl) 125 MCG tabletIndications :Type 2 diabetes mellitus with diabetic polyneuropathy, with long-term current use of insulin TAKE 1 TABLET EVERY DAY BEFORE BREAKFAST [...] times a day. 180 tablet 3 Active fexofenadine (Julieta) 180 MG tablet Take 1 tablet by mouth daily as needed (allergies). 90 tablet 3 025 2025 Active atorvastatin (Lipitor) 20 MG tablet TAKE 1 TABLET AT BEDTIME 90 tablet 3 Active sildenafil (Revatio) 20 MG tabletIndications :Pulmonary hypertension (CMS/HCC) TAKE 3 TABLETS THREE TIMES DAILY 810 tablet 3 Active amitriptyline (Elavil) 10 MG tabletIndications :Depression, unspecified depression type Take 1 tablet by mouth nightly. 90 tablet 1 Active lisinopril 10 MG tablet Take 1 tablet by mouth nightly. Active Ozempic, 0.25 or 0.5 MG/DOSE, 2 MG/3ML solution pen-injector 0.25 mg 1 time per week. Active Cholecalciferol (VITAMIN D-3 PO) Take 1,250 mcg by mouth daily. Active macitentan (Opsumit) 10 MG tabletIndications :Pulmonary hypertension (CMS/HCC) Take 1 tablet by mouth daily. 30 tablet 11 Active bumetanide (Bumex) 2 MG tabletIndications :Hyperlipidemia, unspecified hyperlipidemia type 2 mg in the morning and 1 mg in the afternoon 45 tablet 11 Active metFORMIN (Glucophage) 1000 MG tablet Take 1 tablet by mouth 2 times a day with meals. Active omeprazole (PriLOSEC) [address] capsuleIndication s:Gastroesophagea l reflux disease with esophagitis without hemorrhage TAKE 1 CAPSULE ONE TIME DAILY DO NOT CRUSH OR CHEW 90 capsule 3 Active glucosamine-chond roitin (Glucosamine-Maurice droitin DS) 500-400 MG tablet Take 1 tablet by mouth 2 times a day. 180 tablet 2 Active dilTIAZem CD (Cardizem CD) 120 MG 24 hr capsule Take 1 capsule by mouth daily. 90 capsule 2 Active FLUoxetine (PROzac) 40 MG capsule Take 1 capsule by mouth daily. 90 capsule 3 Active metOLazone (Zaroxolyn) 2.5 MG tablet TAKE 1 TABLET ONE TIME DAILY IF NEEDED FOR WEIGHT GAIN 30 tablet 11 Active pregabalin (Lyrica) 150 MG capsule Take 1 capsule (150 mg) by mouth 2 (two) times a day. 018 2024 Discontinued(P er Patient Report) omeprazole (PriLOSEC) [address] capsuleIndication s:Gastroesophagea l reflux disease with esophagitis without hemorrhage TAKE 1 CAPSULE ONE TIME DAILY. DO NOT CRUSH OR CHEW 90 capsule 3 024 2024 Discontinued(R eorder) FLUoxetine (PROzac) 40 MG capsule TAKE 1 CAPSULE EVERY DAY 90 capsule 3 024 2024 Discontinued(R eorder) sildenafil (Revatio) 20 MG tablet TAKE 3 TABLETS THREE TIMES DAILY 810 tablet 3 024 2024 Discontinued ketoconazole (NIZOral) 2 % shampooIndication s:Seborrheic dermatitis of scalp Apply shampoo 2x/week x 8 weeks then prn. 120 mL 2 024 2024 Discontinued(P er Patient Report) metOLazone (Zaroxolyn) 2.5 MG tablet TAKE 1 TABLET ONE TIME DAILY IF NEEDED FOR WEIGHT GAIN 30 tablet 11 024 2024 Discontinued ammonium lactate (Amlactin) 12 % cream Apply topically 2 (two) times a day. 2024 Discontinued(P er Patient Report) ondansetron ODT (Zofran-ODT) 4 MG disintegrating tabletIndications :Nausea and vomiting, unspecified vomiting type Take 1 tablet (4 mg) by mouth every 8 (eight) hours if needed for nausea or vomiting. 20 tablet 2024 Discontinued(P er Patient Report) Opsumit 10 MG tablet TAKE 1 TABLET (10MG) BY MOUTH ONCE DAILY 30 tablet 2 2024 Discontinued(R eorder) dilTIAZem CD (Cardizem CD) 120 MG 24 hr capsule Take 1 capsule by mouth daily. 90 capsule 2 2024 Discontinued(R eorder) bumetanide (Bumex) 2 MG tabletIndications :Hyperlipidemia, unspecified hyperlipidemia type Take 1 tablet by mouth 2 times a day. Patient must be seen for further refills. 60 tablet 2024 Discontinued(R eorder) glucosamine-chond roitin (Glucosamine-Maurice droitin DS) 500-400 MG tablet TAKE 1 TABLET TWICE DAILY 180 tablet 2 2024 Discontinued(R eorder) metOLazone (Zaroxolyn) 2.5 MG tablet TAKE 1 TABLET ONE TIME DAILY IF NEEDED FOR WEIGHT GAIN 30 tablet 2024 Discontinued Active Problems Problem Noted Date Diagnosed Date Daytime sleepiness 04/29/2022 Class 3 severe obesity due t o excess calories with serious comorbidity and body mass index (BMI) of 45.0 to 49.9 in adult 04/29/2022 Morbid obesity with body mass index (BMI) of 40. 0 or higher 09/11/2021 Candidiasis 03/14/2020 GERD (gastroesophageal reflux disease) 0 Function kidney decreased 01/20/2020 Hypokalemia 01/19/2020 Bilateral low back pain with right-sided sciatic a 12/09/2019 Cervical radicular pain 12/09/2019 Generalized anxiety disorder 12/09/2019 Constipation, chronic 06/11/2019 ASD (atrial septal defect) 02/09/2018 Pulmonary hypertension 12/23/2017 Controlled type 2 diabetes mellitus without comp lication 03/26/2017 Fibromyalgia syndrome 12/05/2015 Asthma, moderate persistent 01/02/2015 Depression 01/02/2015 Hypothyroidism 01/02/2015 HTN (hypertension) 09/23/2014 Hyperlipidemia 09/23/2014 Obesity 09/23/2014 Eosinophilic syndrome 09/07/2014 Peripheral neuropathy 07/16/2014 Sleep apnea 07/16/2014 Resolved Problems Problem Noted Date Diagnosed Date Resolved Date Acute bronchitis 03/14/2020 01/09/2025 Right ventricular dilation 07/10/2018 0 01/09/2025 Encounters Date Type Department Care Team Description 02/24/2025 Refill [facility] [address] [place] [phone] Harry Villar MD 02/15/2025 9:00 AM EDT Office Visit [address] [address] Mali Rivera APRN Depression, unspecified depression type (Primary Dx); Screening mammogram for breast cancer; Gastroesophageal reflux disease with esophagitis without hemorrhage 02/15/2025 Travel 02/14/2025 Results Follow-Up [facility] [address] [facility] [address] Savannah Villaseñor APRN, DNP 02/10/2025 3:00 PM EDT Office Visit [facility] [address] [phone] Harry Villar MD Pulmonary hypertension (CMS/HCC) (Primary Dx); TARIQ (dyspnea on exertion); Hyperlipidemia, unspecified hyperlipidemia type; Class 3 severe obesity due to excess calories with serious comorbidity and body mass index (BMI) of 45.0 to 49.9 in adult; SIM (obstructive sleep apnea) 02/10/2025 Travel 02/01/2025 Refill [facility] [address] [place] [address] Harry Villar MD 01/27/2025 Patient Outreach [facility] [address], [address] [place] [address] Violette Ray [facility]. 01/21/2025 Refill [facility] [address] [place] [address] Mali Rivera, WATER/WASTEWATER ENGINEER Depression, unspecified depression type 01/21/2025 Refill [facility] [address] [place] [address] Harry Villar MD Pulmonary hypertension ([facility]) (Primary Dx) 01/13/2025 Refill [facility] [address] [place] [address] Mali Rivera, WATER/WASTEWATER ENGINEER 01/13/2025 Telephone [facility] [address] [place] [phone] Ruma Monroy, PharmD Medication Therapy Management 01/13/2025 Refill [facility] [address] [place] [address] Harry Villar MD Hyperlipidemia, unspecified hyperlipidemia type 01/08/2025 Refill [facility] [address] [place] [address] Mali Rivera, WATER/WASTEWATER ENGINEER 01/01/2025 Refill [facility] [address] [place] [address] Gisselle Carmona MD Type 2 diabetes mellitus with diabetic polyneuropathy, with long-term current use of insulin ([facility]) 12/30/2024 Refill [facility] [address] [place] [address] Gisselle Carmona MD Type 2 diabetes mellitus with diabetic polyneuropathy, with long-term current use of insulin ([facility]) 12/25/2024 Refill [facility] [address] [place] [address] Mali Rivera APRN 12/23/2024 Telephone [facility] [address] [place] [address] Lissette Fay, PharmD Medication Therapy Management 12/22/2024 Patient Outreach [facility] [address] [facility] [address] [place] [address] Violette Ray [facility]. (Care Gaps) 12/21/2024 Refill [facility] [address] [place] [address] Harry Villar MD Hyperlipidemia, unspecified hyperlipidemia type 12/19/[address] [address] Sherri Means APRN, DNP Gastroesophageal reflux disease without esophagitis 12/15/2024 3:00 PM EDT Office Visit [address] [address] Mali Rivera APRN Severe episode of recurrent major depressive disorder, without psychotic features (CMS/HCC) (Primary Dx); Drug-induced insomnia (CMS/HCC) 12/15/2024 Travel 12/13/2024 Patient Outreach [facility] [address] [place] [address], [facility] [address] [place] [address] Violette Ray [facility]. (Care Gaps) 12/07/2024 Telephone [facility] [address] [place] [phone] Gisselle Carmona MD 12/07/2024 Patient Outreach [facility] [address] [place], [place] [address], [facility] [address] [place] [address] Violette Ray [facility]. (Care Gaps) 12/07/2024 Orders Only [address] [address] Mali Rivera APRN Controlled type 2 diabetes mellitus without complication, with long-term current use of insulin (Primary Dx) 12/06/2024 Telephone [facility] [address] [place] [address] Gisselle Carmona MD 12/06/2024 Telephone [facility] [address] [place] [address] Mali Rivera APRN HCN Clinical Concern/Question 12/05/2024 Refill [facility] [address] [place] [address] Gisselle Carmona MD Type 2 diabetes mellitus with diabetic polyneuropathy, with long-term current use of insulin ([facility]) 12/03/2024 Refill [facility] [address] [place] [address] Mali Rivera APRN 11/30/2024 Refill [facility] [address] [place] [address] Harry Villar MD 11/25/2024 Refill [facility] [address] [place] [address] Harry Villar MD Hyperlipidemia, unspecified hyperlipidemia type from Last 3 Months Immunizations Immunization Administration [...] often do you attend chur ch or jewish services? More than 4 times per year [...] Recorded Patient Health Questionnaire-2 Score 0 02/15/2025 [facility] - Occupational Stress Questionnaire Answer [...] in the past 12 m [facility], were you homeless or living in a fpc (including now)? No 02/15/2025 [facility] Utilities [...] Pressure 110/60 02/15/2025 9:03 AM EDT Pulse 86 02/10/2025 3:18 PM EDT Temperature 36.8 C (98.2 F) 02/15/2025 9:03 AM EDT Respiratory Rate 16 02/15/2025 9:03 AM EDT Oxygen Saturation 96% 02/10/2025 3:18 PM EDT RA Inhaled Oxygen Concentration - - Weight 132 kg (291 lb) 02/15/2025 9:03 AM EDT Height 165.1 cm (5' 5 ) 02/15/2025 9:03 AM EDT Body Mass Index 48.42 02/15/2025 9:03 AM EDT Plan of Treatment Health Maintenance Due Date Last Done Comments [facility]-HIV Screening 1965 [facility]-Hepatitis C Screening 1965 [id number] Vaccine (#1) 11/30/1971 Diabetes: Dental Exam 1976 [...] 05/10/2024 11/11/2023, 05/21/2023, 12/11/2022, Additional history exists [facility]-Infant/Child/Adol SDOH Screenings 09/29/2024 03/31/2024 [facility]-Medicare Annual Wellness (AWV) 11/10/2024 11/11/2023 [facility]-Influenza Vaccine (#1) 2024 [facility]-Zoster Vaccines (1 of 2) 03/31/2025 Postponed from 2016 (Patient Refused) [facility]- SDOH Screenings 08/16/2025 [facility]-Adult SDOH Screenings 08/16/2025 02/15/2025 [facility]-Depression Screening 02/15/2026 02/15/2025, 01/20 [facility]-DTaP,Tdap,and Td Vaccines (2 - Td or Tdap) 07/20/2033 07/21/2023 [facility]-Obesity Intervention Completed 025, 02/10/2025, 12/15/2024, Additional history exists HPV Vaccines Aged Out [...] Pulmonary hypertension (CMS/HCC) TARIQ (dyspnea on exertion) HEMOGLOBIN A1C Routine 11/11/2023 11:30 AM EDT Controlled type 2 diabetes mellitus without complication, with long-term current use of insulin (CMS/HCC) MAMMOGRAPHY EXTERNAL RESULTS 11/27/2018 COLONOSCOPY Routine 04/06/2014 Encounter for screening for malignant neoplasm of colon from Last 3 Months or Most Recently Relevant to Health Maintenance Results * N-Terminal Probnp (02/10/2025 4:05 PM EDT) N-Terminal, PROBNP, Plasma 150 0 - 899 pg/mL 02/10/2025 4:52 PM EDT [facility] Blood Venous blood specimen / Unknown Venipuncture / Unknown 02/10/2025 4:05 PM EDT 02/10/2025 4:23 PM EDT Savannah Villaseñor WATER/WASTEWATER ENGINEER, DNP LAB BLOOD ORDERABLES Final Result Performing Organization Address City/[facility]/ZIP Co de Phone Number [facility] [address] [place] [phone] * (ABNORMAL) Hemoglobin A1c (11/11/2023 11:30 AM EDT) Hemoglobin A1c 6.3(H) <5.7 % 11/11/2023 8:31 PM EDT [facility] Blood Venous blood specimen / Unknown Venipuncture / Unknown 11/11/2023 11:30 AM EDT 11/11/2023 11:30 AM EDT Narrative [facility] - 11/11/2023 8:31 PM EDT HA1C Interpretive Data: Diagnosis of Diabetes: Diabetic > or = 6.5% Pre-diabetic 5.7 to 6.4% Non-diabetic < or = 5.6% Glycemic Targets for Type I and Type II Diabetics: Non- Adults <7.0% Adults <6.0% Children and Adolescents <7.5% Source: [place] [employer]. Standards of medical care in diabetes,2017. Diabetes Care.2017:40 (suppl 1):S1-S135. HbA1c assay performed by an ion-exchange chromatography method that is certified traceable to the DCCT. us Mali Rivera APRN LAB BLOOD ORDERABLES Final Result Performing Organization Address City/[facility]/ZIP Co de Phone Number [facility] [address] [place] [phone] * MAMMOGRAPHY EXTERNAL RESULTS (11/27/2018) Anatomical Region Laterality Modality Mammography Narrative 11/27/2018 Ordered by an unspecified provider. us External Provider IMG BI PROCEDURES Final Result * Colonoscopy (04/06/2014) Anatomical Region Laterality Modality Endoscopy 04/06/2014 Impressions 11/30/2020 3:07 PM EDT Outside records from [facility] dated 04/06/2014. Diagnosis: A. Duodenum Biopsy - [...] Most Recently Relevant to Health Maintenance Insurance [facility] MEDIC[facility] Care Teams Straightener And Aligner Relationship Specialty Start Date End Date Mali Rivera APRN [address] [place] [address] PCP - General 09/01/20 Cindi Shepherd RN [facility] Registered Nurse Cardiology 11/05/21 Gema Walter [facility] Registered Nurse Cardiology 11/21/21 Shraddha Paulson APRN [address] [place] [address] Nurse Practitioner Internal Medicine 11/21/21 Shannan Oropeza, RN [facility] Registered Nurse 01/14/22 Anibal Leahy MD [address] [place] [address] Consulting Physician Pediatric Cardiology 02/21/22 Harry Logan MD [address] [place] [address] Consulting Physician Cardiology 07/02/22 Slime Clark, [place] [address] Registered Nurse Cardiology 04/17/23
--- OUTSIDE RECORDS SUMMARY | 2025-02-25 12:29 | XMS_ITS | Encounter Summary ---
Author Organization [facility] Address [address] [place] [address] Care Team Providers Care Vc++ Developer Name Role Phone Mali Rivera INTERNATIONAL TRADE ANALYST Primary Care Provider [phone] Cindi Shepherd RN Unavailable Unavailab Gema Lee RN Unavailable Unavailable Shraddha Paulson INTERNATIONAL TRADE ANALYST Unavailable [phone] Shannan Oropeza RN Unavailable Unavailable Anibal Leahy MD Unavailable Harry Logan MD Unavailable [phone] Slime Clark RN Unavailable Unavailable Mellisa Byrnes LPN Unavailable Unavailab Violette Caraballo Unavailable Unavailabl e Encounter Details Date Type Department Care Team (Late st Contact Info) Description 11/21/2021 Outside Procedure External Location [address] [place] [address] Gokul Milligan, INTERNATIONAL TRADE ANALYST [address] [place] [address] Social History Tobacco Use Types [...] PM EDT Narrative 11/21/2021 2:19 [place] [address] Name: MAYTE SCHMITT Exam Date: 11/21/2021 : 1965 Age 55 Gender: F Physician: GOKUL MILLIGAN Facility: [facility] Facility HSV: Outpatient Exam: CT BRAIN W/O [...] Thank you for referring MAYTE SCHMITT to [facility]. Legally authenticated by CIRILO SAUNDERS 2021-11-21 14:07:55 Procedure Note Provider, Generic [place] - 11/21/2021 [id number] [place] [address] Name: MAYTE SCHMITT Exam Date: 11/21/2021 : 1965 Age 55 Gender: F Physician: GOKUL MILLIGAN Facility: [facility] Facility HSV: Outpatient Exam: CT BRAIN W/O [...] Thank you for referring MAYTE SCHMITT to [facility]. Legally authenticated by CIRILO SAUNDERS 2021-11-21 14:07:55 Gokul Milligan INTERNATIONAL TRADE ANALYST IMG CT PROCEDURES Final Result documented [...] documented as of this encounter Care Teams Vc++ Developer Relationship Specialty Start Date End Date Mali Rivera APRN [address] [place] [address] PCP - General 09/01/20 Cindi Shepherd, RN [facility] Registered Nurse Cardiology 11/05/21 Gema Walter, RN [facility] Registered Nurse Cardiology 11/21/21 Shraddha Paulson, INTERNATIONAL TRADE ANALYST [address] [place] [address] Nurse Practitioner Internal Medicine 11/21/21 Shannan Oropeza RN [facility] Registered Nurse 01/14/22 Anibal Leahy MD [address] [place] [address] Consulting Physician Pediatric Cardiology 02/21/22 Harry Logan MD [address] [place] [address] Consulting Physician Cardiology 07/02/22 Slime Clark, [place] [address] Registered Nurse Cardiology 04/17/23 Mellisa Byrnes LPN VALUE-BASED TRANSFORMATION PROGRAM Licensed Practical Nurse 11/03/23 12/12/23 Violette Ray Clinical Community Health Advocate 12/07/24 02/04/25 documented as of this encounter
--- OUTSIDE RECORDS SUMMARY | 2025-02-25 12:29 | XMS_ITS | Encounter Summary ---
Author Organization [facility] Address [address] [place] [address] Care Team Providers Care Erisa Attorney Name Role Phone Mali Rivera SHIPYARD LABORER Primary Care Provider [phone] Cindi Shepherd RN Unavailable Unavailab Gema Lee RN Unavailable Unavailable Shraddha Paulson SHIPYARD LABORER Unavailable [phone] Shannan Oropeza RN Unavailable Unavailable Anibal Leahy MD Unavailable Harry Logan MD Unavailable [phone] Slime Clark RN Unavailable Unavailable Violette Ray Unavailable Unavailabl e Reason for Visit * Reason Comments Med Refill Encounter Details Date Type Department Care Team (Late st Contact Info) Description 08/17/2024 Refill [facility] [address] [place] [address] Mali Rivera, SHIPYARD LABORER [address] [place] [address] Depression, unspecified depression type Social [...] week 11/10/2023 How often do you attend [facility] or confucianist services? More than 4 times per year 11/10/2023 Do you belong to any clubs o r organizations such as anabaptism groups, unions, fraternal or athletic groups, or [...] Recorded Patient Health Questionnaire-2 Score 0 03/31/2024 [facility] - Occupational Stress Questionnaire Answer [...] place to sleep or slept in a half-way (including now)? No 11/10/2023 PHQ-9 Answer Date [...] time in the past [address] [facility], were you homeless or living in a half-way (including now)? No 03/31/2024 Safety and Environment [...] documented as of this encounter Care Teams Erisa Attorney Relationship Specialty Start Date End Date Mali Rivera APRN [address] [place] [address] PCP - General 09/01/20 Cindi Shepherd, RN [facility] Registered Nurse Cardiology 11/05/21 Gema Walter RN [facility] Registered Nurse Cardiology 11/21/21 Shraddha Paulson APRN [address] [place] [address] Nurse Practitioner Internal Medicine 11/21/21 Shannan Oropeza, RN [facility] Registered Nurse 01/14/22 Anibal Leahy MD [address] [place] [address] Consulting Physician Pediatric Cardiology 02/21/22 Harry Logan MD [address] [place] [address] Consulting Physician Cardiology 07/02/22 [place] [address] Registered Nurse Cardiology 04/17/23 Violette Ray Clinical Intermodal Truck Driver 12/07/24 02/04/25 documented as of this encounter
--- OUTSIDE RECORDS SUMMARY | 2025-02-25 12:29 | XMS_ITS | Encounter Summary ---
Author Organization [facility] Address [address] [place] [address] Care Team Providers Care Castings Drafter Name Role Phone Mali Rivera METAL MACHINE SETTER Primary Care Provider [phone] Cindi Shepherd RN Unavailable Unavailab Gema Lee RN Unavailable Unavailable Shraddha Paulson METAL MACHINE SETTER Unavailable [phone] Shannan Oropeza RN Unavailable Unavailable Anibal Leahy MD Unavailable Harry Logan MD Unavailable [phone] lSime Clark RN Unavailable Unavailable Violette Ray Unavailable Unavaillucero e Reason for Visit * Reason Comments Med Refill Encounter Details Date Type Department Care Team (Late st Contact Info) Description 01/21/2025 Refill [facility] [address] [place] [address] Mali Rivera, METAL MACHINE SETTER [address] [place] [address] Depression, unspecified depression type Social [...] any clubs o r organizations such as roman catholic groups, unions, fraternal or athletic groups, [...] Patient Health Questionnaire-2 Score 6 12/15/2024 [facility] - Occupational Stress Questionnaire Answer [...] in a chcf (including now)? No 12/15/2024 [facility] Utilities Answer Date Recorded In [...] Notes * Telephone Encounter - Marce Gonzalez RPh - 01/25/2025 11:37 AM EDT 1 medication(s) has been approved [...] documented as of this encounter Care Teams Castings Drafter Relationship Specialty Start Date End Date Mali Rivera APRN [address] [place] [address] PCP - General 09/01/20 Cindi Shepherd, RN [facility] Registered Nurse Cardiology 11/05/21 Gema Walter, RN [facility] Registered Nurse Cardiology 11/21/21 Shraddha Paulson APRN [address] [place] [address] Nurse Practitioner Internal Medicine 11/21/21 Shannan Oropeza RN [facility] Registered Nurse 01/14/22 Anibal Leahy MD [address] [place] [address] Consulting Physician Pediatric Cardiology 02/21/22 Harry Logan MD [address] [place] [address] Consulting Physician Cardiology 07/02/22 Slime Clark, [place] [address] Registered Nurse Cardiology 04/17/23 Violette Ray Clinical Pourer Crane Ladle 12/07/24 02/04/25 documented as of this encounter
--- OUTSIDE RECORDS SUMMARY | 2025-02-25 12:29 | XMS_ITS | Encounter Summary ---
Author Organization [facility] Address [address] [place] [address] Care Team Providers Care Supervisor Polishing Name Role Phone Mali Rivera RUBY ON RAILS SOFTWARE DEVELOPER Primary Care Provider [phone] Cindi Shehperd RN Unavailable Unavailab Gema Lee RN Unavailable Unavailable Shraddha Paulson RUBY ON RAILS SOFTWARE DEVELOPER Unavailable [phone] Shannan Oropeza RN Unavailable Unavailable Anibal Leahy MD Unavailable Harry Logan MD Unavailable [phone] Slime Clark RN Unavailable Unavailable Violette Ray Unavailable Unavailabl e Reason for Visit * Reason Comments Med Refill Encounter Details Date Type Department Care Team (Late st Contact Info) Description 08/17/2024 Refill [facility] [address] [place] [address] Evangelina Bello, RUBY ON RAILS SOFTWARE DEVELOPER [address] [place] [address] Social History Tobacco Use Types [...] How often do you attend chur or yazdanism services? More than 4 times per year [...] Recorded Patient Health Questionnaire-2 Score 0 03/31/2024 [facility]at ional [facility] [...] any time in the past 12 m [facility], were you homeless or living in [...] documented as of this encounter Care Teams Supervisor Polishing Relationship Specialty Start Date End Date Mali Rivera APRN [address] [place] [phone] PCP - General 09/01/20 Cindi Shepherd RN [facility] Registered Nurse Cardiology 11/05/21 Gema Walter RN [facility] Registered Nurse Cardiology 11/21/21 Shraddha Paulson, ERIC [address] [place] [address] Nurse Practitioner Internal Medicine 11/21/21 Shannan Oropeza RN [facility] Registered Nurse 01/14/22 Anibal Leahy MD [address] [place] [address] Consulting Physician Pediatric Cardiology 02/21/22 Harry Logan MD [address] [place] [address] Consulting Physician Cardiology 07/02/22 Slime Clark, [place] [address] Registered Nurse Cardiology 04/17/23 Violette Ray Clinical Sheet Metal Worker Supervisor 12/07/24 02/04/25 documented as of this encounter
--- OUTSIDE RECORDS SUMMARY | 2025-02-25 12:29 | XMS_ITS | Encounter Summary ---
Author Organization [facility] Address [address] [place] [address] Care Team Providers Care Blurb Writer Name Role Phone Mali Rivera ERIC Primary Care Provider [phone] Cindi Shepherd RN Unavailable Unavailab Gema Lee RN Unavailable Unavailable Shraddha Paulson APRN Unavailable [phone] Shannan Oropeza RN Unavailable Unavailable Anibal Leahy MD Unavailable Harry Logan MD Unavailable [phone] Slime Clark RN Unavailable Unavailable Violette Ray Unavailable Unavailabl e Encounter Details Date Type Department Care Team (Late st Contact Info) Description 12/06/2024 [facility]phone [facility] [address] [place] [address] Gisselle Carmona MD [address] [place] [address] Social History Tobacco Use Types [...] How often do you attend chur or latter day services? More than 4 times per year 11/10/2023 Do you belong to any clubs o r organizations such as shinto groups, unions, fraternal or athletic groups, or [...] Questionnaire-2 Score 6 12/15/2024 [facility] of Occupat ional Health - [...] time in the past 12 m [facility], were you homeless or living in a detention (including now)? No 12/15/2024 [facility] Utilities Answer Date Recorded In the [...] family down Several days 12/15/2024 3:01 PM KASIAT Simran Haley Trouble concentrating on things, such as reading [...] 18 12/15/2024 3:01 PM Simran Han * How difficult have these problems made it for you to do your work, take care of things at home, or get along with other people? Answer Date of Assessment Author Somewhat difficult 12/15/2024 3:01 PM [place]ran [place] * How difficult have these problems made [...] Paperwork/Documentation Request Patient Name: Shannon Dale Type: [facility] Authorization for Release of Medical Records Due Date: 12/06/24 Send To: [place] [address] Best contact number: [phone] (home) Optimal time of day to reach caller: ANYTIME Additional comments/information from caller: Pt will not be able to continue to come to [place] for care and is needing to get her records so she can go to an shank inspector closer to home. Pleasenot that she is [...] documented as of this encounter Care Teams Blurb Writer Relationship Specialty Start Date End Date Mali Rivera APRN [address] [place] [address] PCP - General 09/01/20 Cindi Shepherd, RN [facility] Registered Nurse Cardiology 11/05/21 Gema Walter, RN [facility] Registered Nurse Cardiology 11/21/21 Shraddha Paulson, ERIC [address] [place] [address] Nurse Practitioner Internal Medicine 11/21/21 Shannan Oropeza, RN [facility] Registered Nurse 01/14/22 Anibal Leahy MD [address] [place] [address] Consulting Physician Pediatric Cardiology 02/21/22 Harry Logan MD [address] [place] [address] Consulting Physician Cardiology 07/02/22 Slime Clark, [place] [address] Registered Nurse Cardiology 04/17/23 Violtete Ray Clinical Cruise Staff Member 12/07/24 02/04/25 documented as of this encounter
--- OUTSIDE RECORDS SUMMARY | 2025-02-25 12:29 | XMS_ITS | Encounter Summary ---
Author Organization [facility] Address [address] [place] [address] Care Team Providers Care Vehicle Controls Engineer Name Role Phone Mali Rivera HUMAN RESOURCES RECORDS CLERK Primary Care Provider [phone] Cindi Shepherd RN Unavailable Unavailab Gema Lee RN Unavailable Unavailable Shraddha Paulson HUMAN RESOURCES RECORDS CLERK Unavailable [phone] Shannan Oropeza RN Unavailable Unavailable Anibal Leahy MD Unavailable Harry Logan MD Unavailable [phone] Slime Clark RN Unavailable Unavailable Mellisa Byrnes LPN Unavailable Unavailab Violette Caraballo Unavailable Unavailabl e Reason for Visit * Reason Comments Med Refill Encounter Details Date Type Department Care Team (Late st Contact Info) Description 03/17/2022 [facility] [address] [place] [address] Edwige Mitchell, HUMAN RESOURCES RECORDS CLERK [address] [place] [address] [place] [address] Type 2 diabetes mellitus with diabetic polyneuropathy, with long-term current use of insulin ([facility]) Social History Tobacco Use Types Packs/Day Years [...] polyneuropathy, with long-term current use of insulin documented in this encounter Additional Health Concerns Infection Onset Date Last Indicated Resolved Time COVID-19 Rule-Out 06/06/2022 06/06/2022 06/06/2022 10:02 PM EST Assessment Noted Time PHQ-9 Depression Total Score: 0 03/26/20 8:58 AM EST A fall risk assessment has been complete d for the patient 10/10/2021 11:34 AM EDT documented as of this encounter Care Teams Vehicle Controls Engineer Relationship Specialty Start Date End Date Mali Rivera, HUMAN RESOURCES RECORDS CLERK [address] [place] [address] PCP - General 09/01/20 Cindi Shepherd RN [facility] Registered Nurse Cardiology 11/05/21 Gema Walter, RN [facility] Registered Nurse Cardiology 11/21/21 Shraddha Paulson, HUMAN RESOURCES RECORDS CLERK [address] [place] [address] Nurse Practitioner Internal Medicine 11/21/21 Shannan Oropeza, RN [facility] Registered Nurse 01/14/22 Anibal Leahy MD [address] [place] [address] Consulting Physician Pediatric Cardiology 02/21/22 Harry Logan MD [address] [place] [address] Consulting Physician Cardiology 07/02/22 Slime Clark, MARKETING [place] [address] Registered Nurse Cardiology 04/17/23 Mellisa Byrnes LPN VALUE-BASED TRANSFORMATION PROGRAM Licensed Practical Nurse 11/03/23 12/12/23 Violette Ray Clinical Instructor Bridge 12/07/24 02/04/25 documented as of this encounter
--- OUTSIDE RECORDS SUMMARY | 2025-02-25 12:29 | XMS_ITS | Encounter Summary ---
Author Organization [facility] Address [address] [place] [address] Care Team Providers Care Wooden Fence Erector Name Role Phone Mali Rivera INFORMATION TECHNOLOGY PROGRAM MANAGER Primary Care Provider [phone] Cindi Shepherd RN Unavailable Unavailab Gema Lee RN Unavailable Unavailable Shraddha Paulson INFORMATION TECHNOLOGY PROGRAM MANAGER Unavailable [phone] Shannan Oropeza RN Unavailable Unavailable Anibal Leahy MD Unavailable Harry Logan MD Unavailable [phone] Slime Clark RN Unavailable Unavailable Mellisa Byrnes LPN Unavailable Unavailab Violette Caraballo Unavailable Unavailabl e Reason for Visit * Reason Comments Med Refill Encounter Details Date Type Department Care Team (Late st Contact Info) Description 04/12/2022 Refill [facility] [place] [address] [facility]. [address] [place] [address] Harry Villar MD [address] [place] [phone] Social History Tobacco Use Types Packs/Day Years [...] documented as of this encounter Care Teams Wooden Fence Erector Relationship Specialty Start Date End Date Mali Rivera APRN [address] [place] [phone] PCP - General 09/01/20 Cindi Shepherd RN [facility] Registered Nurse Cardiology 11/05/21 Gema Walter RN [facility] Registered Nurse Cardiology 11/21/21 Shraddha Paulson APRN [address] [place] [address] Nurse Practitioner Internal Medicine 11/21/21 Shannan Oropeza RN [facility] Registered Nurse 01/14/22 Anibal Leahy MD [address] [place] [address] Consulting Physician Pediatric Cardiology 02/21/22 Harry Logan MD [address] [place] [address] Consulting Physician Cardiology 07/02/22 Slime Clark, [place] [address] Registered Nurse Cardiology 04/17/23 Mellisa Byrnes, VI VALUE-BASED TRANSFORMATION PROGRAM Licensed Practical Nurse 11/03/23 12/12/23 Violette Ray Clinical Airport Operations Duty Manager 12/07/24 02/04/25 documented as of this encounter
--- OUTSIDE RECORDS SUMMARY | 2025-02-25 12:29 | XMS_ITS | Encounter Summary ---
Author Organization [facility] Address [address] [place] [address] Care Team Providers Care Ic Engineer Name Role Phone Mali Rivera ERIC Primary Care Provider [phone] Cindi Shepherd RN Unavailable Unavailab Gema Lee RN Unavailable Unavailable Shraddha Paulson APRN Unavailable [phone] Shannan Oropeza RN Unavailable Unavailable Anibal Leahy MD Unavailable Harry Logna MD Unavailable [phone] Slime Clark RN Unavailable Unavailable Mellisa Byrnes LPN Unavailable Unavailab Violette Caraballo Unavailable Unavailabl e Reason for Visit * Reason Comments Med Refill Encounter Details Date Type Department Care Team (Late st Contact Info) Description 10/01/2022 Refill [facility] [address] [place] [address] Arnia Juarez MD [address] [place] [address] Social History Tobacco Use Types [...] documented as of this encounter Care Teams Ic Engineer Relationship Specialty Start Date End Date Mali Rivera APRN [address] [place] [address] PCP - General 09/01/20 iCndi Shepherd RN [facility] Registered Nurse Cardiology 11/05/21 Gema Walter RN [facility] Registered Nurse Cardiology 11/21/21 Shraddha Paulson, ERIC [address] [place] [address] Nurse Practitioner Internal Medicine 11/21/21 Shannan Oropeza, RN [facility] Registered Nurse 01/14/22 Anibal Leahy MD [address] [place] [address] Consulting Physician Pediatric Cardiology 02/21/22 Harry Logan MD [address] [place] [address] Consulting Physician Cardiology 07/02/22 Slime Clark, [place] [address] Registered Nurse Cardiology 04/17/23 Mellisa Byrnes LPN VALUE-BASED TRANSFORMATION PROGRAM Licensed Practical Nurse 11/03/23 12/12/23 Violette Ray Clinical Banner Painter 12/07/24 02/04/25 documented as of this encounter
--- OUTSIDE RECORDS SUMMARY | 2025-02-25 12:29 | XMS_ITS | Encounter Summary ---
Author Organization [facility] Address [address] [place] [address] Care Team Providers Care Insurance Verification Representative Name Role Phone Mali Rivera ERIC Primary Care Provider +[phone] Cindi Shepherd RN Unavailable Unavailab Gema Lee RN Unavailable Unavailable Shraddha Paulson APRN Unavailable [phone] Shannan Oropeza RN Unavailable Unavailable Anibal Leahy MD Unavailable Harry Logan MD Unavailable [phone] Slime Clark RN Unavailable Unavailable Violette Ray Unavailable Unavailabl e Reason for Visit * Reason Comments Med Refill Encounter Details Date Type Department Care Team (Late st Contact Info) Description 12/30/2024 Refill [facility] Endocrinology [address] [place] [address] Gisselle Carmona MD [address] [place] [address] Type 2 diabetes mellitus with diabetic polyneuropathy, with long-term current use of insulin ([facility]) Social History Tobacco Use Types Packs/Day [...] How often do you attend chur or voodoo services? More than 4 times per year [...] Recorded Patient Health Questionnaire-2 Score 6 12/15/2024 [facility] - Occupational Stress Questionnaire Answer Date [...] any time in the past 12 m [facility], were you homeless or living in a snf (including now)? No 12/15/2024 [facility] Utilities Answer Date Recorded In the past [...] documented as of this encounter Care Teams Insurance Verification Representative Relationship Specialty Start Date End Date Mali Rivera APRN [address] [place] [phone] PCP - General 09/01/20 Cindi Shepherd RN [facility] Registered Nurse Cardiology 11/05/21 Gema Walter RN [facility] Registered Nurse Cardiology 11/21/21 Shraddha Paulson APRN [address] [place] [address] Nurse Practitioner Internal Medicine 11/21/21 Shannan Oropeza RN [facility] Registered Nurse 01/14/22 Anibal Leahy MD [address] [place] [address] Consulting Physician Pediatric Cardiology 02/21/22 Harry Logan MD [address] [place] [phone] Consulting Physician Cardiology 07/02/22 Slime Clark, [place] [address] Registered Nurse Cardiology 04/17/23 Violette Ray Clinical Piece Jobber 12/07/24 02/04/25 documented as of this encounter
--- OUTSIDE RECORDS SUMMARY | 2025-02-25 12:29 | XMS_ITS | Encounter Summary ---
Author Organization [facility] Address [address] [place] [address] Care Team Providers Care Clinical Data Coordinator Name Role Phone Mali Rivera ERIC Primary Care Provider [phone] Cindi Shepherd RN Unavailable Unavailab Gema Lee RN Unavailable Unavailable Shraddha Paulson APRN Unavailable [phone] Shannan Oropeza RN Unavailable Unavailable Anibal Leahy MD Unavailable Harry Logan MD Unavailable [phone] Slime Clark RN Unavailable Unavailable Violette Ray Unavailable Unavailabl e Reason for Visit * Reason Comments Med Refill Encounter Details Date Type Department Care Team (Late st Contact Info) Description 11/04/2024 Refill [facility] Diabetes Education [address] [place] [address] Gisselle Carmona MD [address] [place] [address] Social History Tobacco Use Types [...] How often do you attend chur or advent services? More than 4 times per year 11/10/2023 Do you belong to any clubs o r organizations such as taoism groups, unions, fraternal or athletic groups, or [...] Recorded Patient Health Questionnaire-2 Score 0 03/31/2024 [facility] of Occupat ional Health - Occupational [...] in the past 12 m [facility], were you homeless or living in a [...] documented as of this encounter Care Teams Clinical Data Coordinator Relationship Specialty Start Date End Date Mali Rivera APRN [address] [place] [address] PCP - General 09/01/20 Cindi Shepherd RN [facility] Registered Nurse Cardiology 11/05/21 Gema Walter RN [facility] Registered Nurse Cardiology 11/21/21 Shraddha Paulson APRN [address] [place] [address] Nurse Practitioner Internal Medicine 11/21/21 Shannan Oropeza RN [facility] Registered Nurse 01/14/22 Anibal Leahy MD [address] [place] [address] Consulting Physician Pediatric Cardiology 02/21/22 Harry Logan MD [address] [place] [phone] Consulting Physician Cardiology 07/02/22 Slime Clark, [place] [address] Registered Nurse Cardiology 04/17/23 Violette Ray Clinical Bundle Tier 12/07/24 02/04/25 documented as of this encounter
--- OUTSIDE RECORDS SUMMARY | 2025-02-25 12:29 | XMS_ITS | Encounter Summary ---
Author Organization [facility] Address [address] [place] [address] Care Team Providers Care Corporate Lawyer Name Role Phone Mali Rivera ERIC Primary Care Provider [phone] Cindi Shepherd RN Unavailable Unavailab Gema Lee RN Unavailable Unavailable Shraddha Paulson APRN Unavailable [phone] Shannan Oropeza RN Unavailable Unavailable Anibal Leahy MD Unavailable Harry Logan MD Unavailable [phone] Slime Clark RN Unavailable Unavailable Violette Ray Unavailable Unavailabl e Encounter Details Date Type Department Care Team (Late st Contact Info) Description 12/07/2024 Telephone [facility] [address] [place] [address] Gisselle Carmona MD [address] [place] [address] Social History Tobacco Use Types [...] How often do you attend chur or congregation services? More than 4 times per year [...] Recorded Patient Health Questionnaire-2 Score 6 12/15/2024 [facility] of Occupat ional Health - Occupational Stress [...] any time in the past 12 m [facility], were you homeless or living in a fdc (including now)? No 12/15/2024 [facility] Utilities Answer Date Recorded In [...] family down Several days 12/15/2024 3:01 PM EDT Simran Haley Trouble concentrating on things, such as reading the newspaper or watching television More than half the days 12/15/2024 3:01 PM Simran Han Moving or speaking so slowly that other people could have noticed? Or the opposite - being so fidgety or restless that you have been moving around a lot more than usual. Several days 12/15/2024 3:01 PM KASIAT Simran Haley Thoughts that you would be better off or hurting yourself in some way Not at all 12/15/2024 3:01 PM KASIAT Simran Haley Patient Health Questionnaire-9 Score 18 12/15/2024 3:01 PM KAISAT Simran Haley * How difficult have these problems [...] encounter Miscellaneous Notes * Telephone Encounter - Tenea Daniels - 12/07/2024 4:31 PM EDT Paperwork/Documentation Request Patient Name: Shannon Dale Type: Office note from 05/21/23 OV and most recents lab report Due Date: 12/07/24 Send To: Darci [phone] atn: Anna Villalobos contact number: [phone] Optimal time of day to reach caller: ANYTIME Additional comments/information from caller: [facility] Endocrinology is requesting the records and is faxing a release of info. Note: Please do not reply to this message. Follow-up communication and further actions as a result of this message need to be communicated with the patient directly, if the patient is not active onMyChart. If the patient is active on MyChart, they will receive notification of the communication/outcome via Hactus. documented in this encounter Plan of Treatment [...] documented as of this encounter Care Teams Corporate Lawyer Relationship Specialty Start Date End Date Mali Rivera, INTERNAL SECURITY MANAGER [address] [place] [phone] PCP - General 09/01/20 Cindi Shepherd, RN [facility] Registered Nurse Cardiology 11/05/21 Gema Walter, RN [facility] Registered Nurse Cardiology 11/21/21 Shraddha Paulson, INTERNAL SECURITY MANAGER [address] [place] [address] Nurse Practitioner Internal Medicine 11/21/21 Shannan Oropeza, RN [facility] Registered Nurse 01/14/22 Anibal Leahy MD [address] [place] [address] Consulting Physician Pediatric Cardiology 02/21/22 Harry Logan MD [address] [place] [address] Consulting Physician Cardiology 07/02/22 Slime Clark, [place] [address] Registered Nurse Cardiology 04/17/23 Violette Ray Clinical Basting Cleaner 12/07/24 02/04/25 documented as of this encounter
--- OUTSIDE RECORDS SUMMARY | 2025-02-25 12:29 | XMS_ITS | Encounter Summary ---
Author Organization [facility] Address [address] [place] [address] Care Team Providers Care Automobile Mechanic Name Role Phone Mali Rivera ERIC Primary Care Provider +[phone] Cindi Shepherd RN Unavailable Unavailab Gema Lee RN Unavailable Unavailable Shraddha Paulson APRN Unavailable [phone] Shannan Oropeza RN Unavailable Unavailable Anibal Leahy MD Unavailable Harry Logan MD Unavailable [phone] Slime Clark RN Unavailable Unavailable Violette Ray Unavailable Unavailabl e Reason for Visit * Reason Comments Med Refill Encounter Details Date Type Department Care Team (Late st Contact Info) Description 01/01/2025 Refill [facility] Endocrinology [address] [place] [address] Gisselle Carmona MD [address] [place] [address] Type 2 diabetes mellitus with diabetic polyneuropathy, with long-term current use of insulin ([facility]) Social History Tobacco Use [...] How often do you attend chur or baptism services? More than 4 times per year [...] Recorded Patient Health Questionnaire-2 Score 6 12/15/2024 [facility] - Occupational Stress Questionnaire Answer Date [...] in the past 12 m [facility], were you homeless or living in a care home (including now)? No 12/15/2024 [facility] Utilities Answer Date Recorded In the [...] documented as of this encounter Care Teams Automobile Mechanic Relationship Specialty Start Date End Date Mali Rivera APRN [address] [place] [phone] PCP - General 09/01/20 Cindi Shepherd RN [facility] Registered Nurse Cardiology 11/05/21 Gema Walter RN [facility] Registered Nurse Cardiology 11/21/21 Shraddha Paulson APRN [address] [place] [address] Nurse Practitioner Internal Medicine 11/21/21 Shannan Oropeza RN [facility] Registered Nurse 01/14/22 Anibal Leahy MD [address] [place] [address] Consulting Physician Pediatric Cardiology 02/21/22 Harry Logan MD [address] [place] [phone] Consulting Physician Cardiology 07/02/22 Slime Clark, [place] [address] Registered Nurse Cardiology 04/17/23 Violette Ray Clinical Handstitching Machine Collar Feller 12/07/24 02/04/25 documented as of this encounter
--- OUTSIDE RECORDS SUMMARY | 2025-02-25 12:29 | XMS_ITS | Encounter Summary ---
Author Organization [facility] Address [address] [place] [address] Care Team Providers Care Information Services Manager Name Role Phone Mali Rivera TERRITORY SALES PROFESSIONAL Primary Care Provider [phone] Cindi Shepherd RN Unavailable Unavailab Gema Lee RN Unavailable Unavailable Shraddha Paulson TERRITORY SALES PROFESSIONAL Unavailable [phone] Shannan Oropeza RN Unavailable Unavailable Anibal Leahy MD Unavailable Harry Logan MD Unavailable [phone] Slime Clark RN Unavailable Unavailable Violette Ray Unavailable Unavaillucero e Reason for Visit * Reason Onset Date Comments HCN Clinical Concern/Question 12/06/2024 Encounter Details Date Type Department Care Team (Late st Contact Info) Description 12/06/2024 Telephone [facility] Medicine [address] [place] [address] Mali Rivera, TERRITORY SALES PROFESSIONAL [address] [place] [address] HCN Clinical Concern/Question Social History [...] often do you attend chur ch or latter-day services? More than 4 times per year [...] Recorded Patient Health Questionnaire-2 Score 6 12/15/2024 [facility] of Occupat ional Health - Occupational [...] time in the past 12 m [facility], were you homeless or living in a jail (including now)? No 12/15/2024 [facility] Utilities Answer Date Recorded In the [...] than half the days 12/15/2024 3:01 PM KASIAT Simran Haley Moving or speaking so slowly that other [...] 12/15/2024 3:01 PM EDT Simran Haley * How difficult have these problems made it for you to do your work, take care of things at home, or get along with other people? 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 Pt would like to see in [place]. . Thanks Best contact number: [phone] (home) Optimal time of day to reach [...] as of this encounter Care Teams Information Services Manager Relationship Specialty Start Date End Date Mali Rivera APRN [address] [place] [phone] PCP - General 09/01/20 Cindi Shepherd RN [facility] Registered Nurse Cardiology 11/05/21 Gema Walter, RN [facility] Registered Nurse Cardiology 11/21/21 Shraddha Paulson APRN [address] [place] [address] Nurse Practitioner Internal Medicine 11/21/21 Shannan Oropeza RN [facility] Registered Nurse 01/14/22 Anibal Leahy MD [address] [place] [address] Consulting Physician Pediatric Cardiology 02/21/22 Harry Logan MD [address] [place] [address] Consulting Physician Cardiology 07/02/22 Slime Clark, [place] [address] Registered Nurse Cardiology 04/17/23 Violette Ray Clinical Procurement Intern 12/07/24 02/04/25 documented as of this encounter
--- OUTSIDE RECORDS SUMMARY | 2025-02-25 12:29 | XMS_ITS | Encounter Summary ---
Author Organization [facility] Address [address] [place] [address] Care Team Providers Care Crewman Armoured Personnel Carrier M113 Name Role Phone Mali Rivera MANAGER LOAN Primary Care Provider [phone] Cindi Shepherd RN Unavailable Unavailab Gema Lee RN Unavailable Unavailable Shraddha Paulson MANAGER LOAN Unavailable [phone] Shannan Oropeza RN Unavailable Unavailable Anibal Leahy MD Unavailable Harry Logan MD Unavailable [phone] Slime Clark RN Unavailable Unavailable Violette Ray Unavailable Unavaillucero e Reason for Visit * Reason Comments Med Refill Encounter Details Date Type Department Care Team (Late st Contact Info) Description 01/08/2025 Refill [facility] Medicine [address] [place] [address] Mali Rivera, MANAGER LOAN [address] [place] [address] Social History Tobacco Use Types [...] How often do you attend chur or confucianism services? More than 4 times per year 11/10/2023 Do you belong to any clubs o r organizations such as denominational groups, unions, fraternal or athletic groups, or [...] Score 6 12/15/2024 [facility] of Occupat ional Health - Occupational [...] living in a retirement (including now)? No 12/15/2024 [facility] Utilities Answer Date Recorded In [...] encounter Miscellaneous Notes * Telephone Encounter - Britta Sher PharmD - 01/11/2025 1:58 PM EDT 1 medication(s) has been approved [...] documented as of this encounter Care Teams Crewman Armoured Personnel Carrier M113 Relationship Specialty Start Date End Date Mali Rivera APRN [address] [place] [address] PCP - General 09/01/20 Cindi Shepherd RN [facility] Registered Nurse Cardiology 11/05/21 Gema Walter RN [facility] Registered Nurse Cardiology 11/21/21 Shraddha Paulson APRN [address] [place] [phone] Nurse Practitioner Internal Medicine 11/21/21 Shannan Oropeza RN [facility] Registered Nurse 01/14/22 Anibal Leahy MD [address] [place] [address] Consulting Physician Pediatric Cardiology 02/21/22 Harry Logan MD [address] [place] [address] Consulting Physician Cardiology 07/02/22 Slime Clark, [place] [address] Registered Nurse Cardiology 04/17/23 Violette Ray Clinical Manager Game 12/07/24 02/04/25 documented as of this encounter
--- OUTSIDE RECORDS SUMMARY | 2025-02-25 12:29 | XMS_ITS | Encounter Summary ---
Author Organization [facility] Address [address] [place] [address] Care Team Providers Care Safety Intern Name Role Phone Mali Rivera PETROLEUM PRODUCTION ENGINEER Primary Care Provider [phone] Cindi Shepherd RN Unavailable Unavailab Gema Lee RN Unavailable Unavailable Shraddha Paulson APRN Unavailable [phone] Shannan Oropeza RN Unavailable Unavailable Anibal Leahy MD Unavailable Harry Logan MD Unavailable [phone] Slime Clark RN Unavailable Unavailable Mellisa Byrnes LPN Unavailable Unavailab Violette Caraballo Unavailable Unavailabl e Reason for Visit * Reason Comments Med Refill Encounter Details Date Type Department Care Team (Late st Contact Info) Description 03/12/2022 Refill [facility] [place] [address] [facility]. [address] [place] [address] Enio Mohr MD [address] [place] [address] Social History Tobacco Use Types Packs/Day Years [...] documented as of this encounter Care Teams Safety Intern Relationship Specialty Start Date End Date Mali Rivera, PETROLEUM PRODUCTION ENGINEER [address] [place] [phone] PCP - General 09/01/20 Cindi Shepherd, RN [facility] Registered Nurse Cardiology 11/05/21 Gema Walter, RN [facility] Registered Nurse Cardiology 11/21/21 Shraddha Paulson, PETROLEUM PRODUCTION ENGINEER [address] [place] [address] Nurse Practitioner Internal Medicine 11/21/21 Shannan Oropeza RN [facility] Registered Nurse 01/14/22 Anibal Leahy MD [address] [place] [address] Consulting Physician Pediatric Cardiology 02/21/22 Harry [place] MD [address] [place] [address] Consulting Physician Cardiology 07/02/22 Slime Clark, [place] [address] Registered Nurse Cardiology 04/17/23 Mellisa Byrnes, VI VALUE-BASED TRANSFORMATION PROGRAM Licensed Practical Nurse 11/03/23 12/12/23 Violette Ray Clinical Utilities Service Investigator 12/07/24 02/04/25 documented as of this encounter
--- OUTSIDE RECORDS SUMMARY | 2025-02-25 12:29 | XMS_ITS | Encounter Summary ---
Author Organization [facility] Address [address] [place] [address] Care Team Providers Care Shade Bander Name Role Phone Mali Rivera CASHIER AND SALESPERSON Primary Care Provider [phone] Cindi Shepherd RN Unavailable Unavailab Gema Lee RN Unavailable Unavailable Shraddha Paulson CASHIER AND SALESPERSON Unavailable [phone] Shannan Oropeza RN Unavailable Unavailable Anibal Leahy MD Unavailable Harry Logan MD Unavailable [phone] Slime Clark RN Unavailable Unavailable Mellisa Byrnes LPN Unavailable Unavailab Violette Caraballo Unavailable Unavaillucero e Reason for Visit * Reason Comments Med Refill Encounter Details Date Type Department Care Team (Late st Contact Info) Description 02/12/2022 Refill [facility] [address] [place] [address] Mali Rivera, CASHIER AND SALESPERSON [address] [place] [address] Acute bronchitis, unspecified organism Social [...] medication refill request(s) has been sent to [facility] pharmacy. Per protocol, 1 medication(s), Diltiazem, [...] documented as of this encounter Care Teams Shade Bander Relationship Specialty Start Date End Date Mali Rivera APRN [address] [place] [address] PCP - General 09/01/20 Cindi Shepherd RN [facility] Registered Nurse Cardiology 11/05/21 Gema Walter RN [facility] Registered Nurse Cardiology 11/21/21 Shraddha Paulson APRN [address] [place] [phone] Nurse Practitioner Internal Medicine 11/21/21 Shannan Oropeza RN [facility] Registered Nurse 01/14/22 Anibal Leahy MD [address] [place] [address] Consulting Physician Pediatric Cardiology 02/21/22 Harry [place] MD [address] [place] [address] Consulting Physician Cardiology 07/02/22 Slime Clark, [place] [address] Registered Nurse Cardiology 04/17/23 Mellisa Byrnes LPN VALUE-BASED TRANSFORMATION PROGRAM Licensed Practical Nurse 11/03/23 12/12/23 Violette Ray Clinical Information Engineer 12/07/24 02/04/25 documented as of this encounter
--- OUTSIDE RECORDS SUMMARY | 2025-02-25 12:29 | XMS_ITS | Encounter Summary ---
Author Organization [facility] Address [address] [place] [address] Care Team Providers Care Sales Trainee Name Role Phone Mali Rivera BORING MILL OPERATOR FOR METAL Primary Care Provider [phone] Cindi Shepherd RN Unavailable Unavailab Gema Lee RN Unavailable Unavailable Shraddha Paulson APRN Unavailable [phone] Shannan Oropeza RN Unavailable Unavailable Anibal Leahy MD Unavailable Harry Logan MD Unavailable [phone] Slime Clark RN Unavailable Unavailable Mellisa Byrnes LPN Unavailable Unavailab Violette Caraballo Unavailable Unavailabl e Encounter Details Date Type Department Care Team (Late st Contact Info) Description 06/05/2023 [facility] [address] [place] [address] Susie Ray MD [address] [place] [address] Social History Tobacco Use Types Packs/Day Years [...] as of this encounter Care Teams Sales Trainee Relationship Specialty Start Date End Date Mali Rivera APRN [address] [place] [phone] PCP - General 09/01/20 Cindi Shepherd RN [facility] Registered Nurse Cardiology 11/05/21 Gema Walter RN [facility] Registered Nurse Cardiology 11/21/21 Shraddha Paulson APRN [address] [place] [address] Nurse Practitioner Internal Medicine 11/21/21 Shannan Oropeza RN [facility] Registered Nurse 01/14/22 Anibal Leahy MD [address] [place] [address] Consulting Physician Pediatric Cardiology 02/21/22 Harry [place] MD [address] [place] [address] Consulting Physician Cardiology 07/02/22 [place] [address] Registered Nurse Cardiology 04/17/23 Mellisa Byrnes LPN VALUE-BASED TRANSFORMATION PROGRAM Licensed Practical Nurse 11/03/23 12/12/23 Violette Ray Clinical Ostomy Nurse 12/07/24 02/04/25 documented as of this encounter
--- OUTSIDE RECORDS SUMMARY | 2025-02-25 12:29 | XMS_ITS | Encounter Summary ---
Author Organization [facility] Address [address] [place] [address] Care Team Providers Care Front Load Trash Truck Driver Name Role Phone Mali Rivera ERIC Primary Care Provider [phone] Cindi Shepherd RN Unavailable Unavailab Gema Lee RN Unavailable Unavailable Shraddha Paulson APRN Unavailable [phone] Shannan Oropeza RN Unavailable Unavailable Anibal Leahy MD Unavailable Harry Logan MD Unavailable [phone] Slime Clark RN Unavailable Unavailable Violette Ray Unavailable Unavailabl e Reason for Visit * Reason Comments Med Refill Encounter Details Date Type Department Care Team (Late st Contact Info) Description 02/01/2025 Refill [facility] [address] [facility]. [address] [place] [address] Harry Villar MD [address] [place] [phone] Social History Tobacco Use Types Packs/Day Years [...] How often do you attend chur or tenriism services? More than 4 times [...] any time in the past 12 m [facility], were you homeless or living in a snf (including now)? No 12/15/2024 [facility] Utilities Answer Date Recorded In [...] * Telephone Encounter - Samantha Cordova - 02/02/2025 8:17 AM EDT Patient has not been seen since 05/29/23; please advise. documented in this encounter Plan of Treatment [...] documented as of this encounter Care Teams Front Load Trash Truck Driver Relationship Specialty Start Date End Date Mali Rivera APRN [address] [place] [address] PCP - General 09/01/20 Cindi Shepherd RN [facility] Registered Nurse Cardiology 11/05/21 Gema Walter RN [facility] Registered Nurse Cardiology 11/21/21 Shraddha Paulson APRN [address] [place] [phone] Nurse Practitioner Internal Medicine 11/21/21 Shannan Oropeza RN [facility] Registered Nurse 01/14/22 Anibal Leayh MD [address] [place] [address] Consulting Physician Pediatric Cardiology 02/21/22 Harry [place] MD [address] [place] [address] Consulting Physician Cardiology 07/02/22 Slime Clark, [place] [address] Registered Nurse Cardiology 04/17/23 Violette Ray Clinical Research Recruiter 12/07/24 02/04/25 documented as of this encounter
--- OUTSIDE RECORDS SUMMARY | 2025-02-25 12:29 | XMS_ITS | Encounter Summary ---
Author Organization [facility] Address [address] [place] [address] Care Team Providers Care Automatic Pinsetter Adjuster Name Role Phone Mali Rivera ERIC Primary Care Provider [phone] Cindi Shepherd RN Unavailable Unavailab Gema Lee RN Unavailable Unavailable Shraddha Paulson APRN Unavailable [phone] Shannan Oropeza RN Unavailable Unavailable Anibal Leahy MD Unavailable Harry Logan MD Unavailable [phone] Slime Clark RN Unavailable Unavailable Violette Ray Unavailable Unavailabl e Reason for Visit * Reason Comments Health Maint. Encounter Details Date Type Department Care Team (Late st Contact Info) Description 01/27/2025 Patient Outreach POPULATION HEALTH [address], [address] [place] [address] Violette Ray Health Maint. Social History Tobacco Use Types Packs/Day Years [...] How often do you attend chur or synagogue services? More than 4 times per year 11/10/2023 Do you belong to any clubs o r organizations such as yazidism groups, unions, fraternal or athletic groups, or [...] Recorded Patient Health Questionnaire-2 Score 6 [facility] Occupational Stress Questionnaire Answer Date [...] any time in the past 12 m [facility], were you homeless or living in a halfway (including now)? No 12/15/2024 [facility] Utilities Answer Date Recorded In the [...] * Progress Notes - Violette Ray - 01/27/2025 9:17 AM EDT Care Gap Outreach Chart reviewed on 01/27/2025 Shannon Dale is due/overdue for the following preventive services: Colorectal Cancer, Mammography Screening. Security Flex Utility Officer Needed: No Security Flex Utility Officer ID: [Insert] Action Plan Outreach completed: Follow-up Outcome: Postponed for 90 days Contact again in 1 - 3 months Additional information: Colorectal testing due. No order in place. Not completed. Cologuard Eligible Mammography testing due. No order in place. Not completed. Follow-up scheduled for 04/29/2025 For transportation questions, concerns, and/or assistance, please contact our main Population Health line at [phone]. Completed by: Violette Ray [facility] Population [facility] [address] [place] [address], [address] [place] [address] documented in this encounter Plan of Treatment [...] documented as of this encounter Care Teams Automatic Pinsetter Adjuster Relationship Specialty Start Date End Date Mali Rivera APRN [address] [place] [address] PCP - General 09/01/20 Cindi Shepherd, RN [facility] Registered Nurse Cardiology 11/05/21 Gema Walter, RN [facility] Registered Nurse Cardiology 11/21/21 Shraddha Paulson APRN [address] [place] [address] Nurse Practitioner Internal Medicine 11/21/21 Shannan Oropeza, RN [facility] Registered Nurse 01/14/22 Anibal Leahy MD [address] [place] [address] Consulting Physician Pediatric Cardiology 02/21/22 Harry Logan MD [address] [place] [address] Consulting Physician Cardiology 07/02/22 Slime Clark, [place] [address] Registered Nurse Cardiology 04/17/23 Violette Ray Clinical Waiter/Waitress Room Service 12/07/24 02/04/25 documented as of this encounter
[2025-02-25 12:31] LABS: Hematocrit 34.9 % (37.0-47.0); Hemoglobin 10.7 g/dL (12.2-16.2); Immature Granulocytes % 0.3 %; Mean Corpuscular HGB Conc 30.7 g/dL (31.8-35.4); Mean Corpuscular Hemoglobin 25.6 pg (27.0-31.2); Mean Corpuscular Volume 83.5 fl (81-99); Nucleated Red Blood Cells % 0 %; Platelet Count 289 K/mm3 (142-424); Red Blood Count 4.18 M/mm3 (4.20-5.40); Red Cell Distribution Width-SD 59.6 fL; White Blood Count 10.0 K/mm3 (4.8-10.8)
[2025-02-25 12:38] LABS: Alanine Aminotransferase 12 U/L (12-78); Albumin Level 3.9 g/dl (3.5-5.0); Albumin/Globulin Ratio 1.4 (1.1-1.8); Alkaline Phosphatase 118 U/L (38-126); Anion Gap 10.7 mEq/L (5-15); Aspartate Amino Transferase 18 U/L (14-36); Bilirubin,Total 0.6 mg/dl (0.2-1.3); Blood Urea Nitrogen 23 mg/dl (7-17); Calcium 9.2 mg/dl (8.4-10.2); Carbon Dioxide 28 mmol/L (22.0-30.0); Chloride 99 mmol/L (98-107); Creatinine Clearance Estimated 37 mL/min (50-200); Creatinine,Serum 1.50 mg/dl (0.52-1.04); Estimated Glomerular Filt Rate 36 ml/min (>60); GFR (African American) 43 ML/MIN (>60); Globulin 2.7 g/dL (1.3-3.2); Glucose 105 mg/dl (74-100); Lipase 201 U/L (23-300); Magnesium 1.7 mg/dl (1.6-2.3); Potassium 4.7 mmoL/L (3.5-5.1); Sodium 133 mmol/L (136-145); Total Protein,Serum 6.6 g/dl (6.3-8.2)
[2025-02-25 13:05] LABS: RBC Morphology Normal; Total Cells Counted 100
[2025-02-25 13:40] LABS: Troponin I < 0.01 ng/ml (0.00-0.034)
[2025-02-25 14:16] LABS: Lactate Venous 1.7 mmol/L (0.4-2.0); VBG HCO3 27.1 mmol/L (23-30); VBG PCO2 49.7 mmol/L (35-51); VBG PH 7.35 mmol/L (7.31-7.41); VBG PO2 47.8 mmol/L (28-40)
--- NOTE | 2025-02-25 14:27 | PC.NURSE ---
report given to FABIENNE Ford for room 213
[2025-02-25 14:36] LABS: NT Pro Brain Natriuretic Pep. 193 pg/mL (0-125)
--- NOTE | 2025-02-25 15:05 | HMH.PHAINT1 ---
Pharmacy Intervention Comments: MEDICATION RECONCILIATION COMPLETED ON PATIENT USING EXTERNAL FILL HISTORY FROM PHARMACY. -CHLOÉ SMART, TANYAD
--- NOTE | 2025-02-25 15:13 | EXP.HP ---
History of Present Illness *Admission Date: 02/25/25 *Reason for visit:: Shortness of breath, productive cough *History of present illness: Shannon Dale is a 59-year-old female with a medical history significant for presumed COPD on room air, former smoker, pulmonary hypertension, SIM, HFpEF, hypertension, type 2 diabetes, anxiety/depression, obesity who was sent by urgent care clinic for shortness of breath, hypoxia in the 80s. Patient states she has been having progressive shortness of breath, yellow productive cough over the past 4 days. Denies chest pain, fever/chills, abdominal pain. She states she has never been diagnosed with obstructive disease include COPD, but she has smoked in the past for many years. She does see for pulmonary hypertension, and has obstructive sleep apnea but she cannot tolerate wearing CPAP at home. On arrival, patient was saturating in the high 80s with improvement on 2 L. Workup in the ED significant for creatinine 1.5 (baseline 1.0), BNP 193, CXR without acute process, and negative for COVID-19 and influenza. She was given Solu-Medrol 125 mg, magnesium, DuoNebs, ceftriaxone but continued to have increased work of breathing on 2 L. Given this presentation, ED provider discussed case with me and decided to admit patient for acute hypoxic respiratory failure secondary to COPD exacerbation. [facility] Disclaimer: The information contained in this section may have been updated after the patient was seen, as this information can be updated by other users. Medical History Thyroid disease UTI (urinary tract infection) Depression Asthma History of heart attack Hyperlipidemia Hypertension Surgical History History of section History of hysterectomy History of tubal ligation History of cardiac cath Family History Other Unknown family medical history Social History (Updated 02/25/25 @ 15:53 by Jeanette Dorsey RN) Smoking Status: Former smoker second hand exposure: No alcohol intake: never substance use type: denies use current occupational status: other Travel in the last 8 weeks?: None household members: family housing: house caffeine: Yes Have you lived/traveled outside US in past 30 days?: No Contact w/someone who lives/traveled outside US past 30 days?: No Exposure to someone with infectious disease in past 14 days?: No Do you have a fever (greater than 100.4 F or 38 C)?: No Have you tested positive for COVID-19?: No Exposed to someone with COVID-19 in past 14 days?: No Do you have a sore throat?: No Do you have a cough?: No Do you have any weakness?: No Do you have any diarrhea?: No Are you experiencing any unusual bleeding?: No Do you have any muscle aches/pain?: No Do you have any abdominal pain?: No Are you experiencing loss of taste or smell?: No Other Medical History Have you received the Flu Vaccine for this season: No Have you received the Pneumonia Vaccine: No Meds Home Medications and Allergies Home Medications ?Medication ?Instructions ?Recorded ?Confirmed ?Type amitriptyline 10 mg tablet 10 mg PO DAILY 03/24/24 02/25/25 History atorvastatin 20 mg tablet 20 mg PO DAILY 03/24/24 02/25/25 History bumetanide 2 mg tablet 3 mg PO DAILY 03/24/24 02/25/25 History diltiazem HCl 120 mg 120 mg PO DAILY 03/24/24 02/25/25 History capsule,extended release 24 hr fexofenadine 180 mg tablet 180 mg PO DAILY 03/24/24 02/25/25 History fluoxetine 40 mg capsule 40 mg PO DAILY 03/24/24 02/25/25 History metolazone 2.5 mg tablet 2.5 mg PO DAILY 03/24/24 02/25/25 History omeprazole 40 mg capsule,delayed 40 mg PO DAILY 03/24/24 02/25/25 History release potassium chloride 20 mEq 60 meq PO TID 03/24/24 02/25/25 History tablet,extended release(part/cryst) sildenafil (pulm.hypertension) 20 60 mg PO TID 03/24/24 02/25/25 History mg tablet aripiprazole 5 mg tablet 10 mg PO DAILY 01/04/25 02/25/25 History blood-glucose sensor ([employer] G7 #1 ea 01/04/25 02/25/25 Rx Sensor device) blood-glucose,corrosion engineer,cont #1 ea 01/04/25 02/25/25 Rx ([employer] G7 Garnisher) bupropion HCl 300 mg 24 hr tablet, 300 mg PO DAILY 01/04/25 02/25/25 History extended release cyanocobalamin (vitamin B-12) 1,000 mcg PO DAILY 01/04/25 02/25/25 History 1,000 mcg tablet famotidine 20 mg tablet 20 mg PO BID 01/04/25 02/25/25 History folic acid 1 mg tablet 1 mg PO DAILY 01/04/25 02/25/25 History insulin human U-100 NPH-regulr 32 unit SQ BID 01/04/25 02/25/25 History 70-30 mix 100 unit/mL subcutaneous susp (Novolin 70/30 U-100 Insulin) trazodone 50 mg tablet 50 mg PO HS 01/04/25 02/25/25 History blood-glucose sensor ([employer] G7 #3 ea 01/18/25 02/25/25 Rx Sensor device) cholecalciferol (vitamin D3) 1,250 50,000 unit PO WEEKLY #5 caps 01/18/25 02/25/25 Rx mcg (50,000 unit) capsule lisinopril 10 mg tablet 10 mg PO DAILY #90 tabs 01/18/25 02/25/25 Rx metformin 1,000 mg tablet 1,000 mg PO BID #60 tabs 01/18/25 02/25/25 Rx macitentan 10 mg tablet (Opsumit) 10 mg PO DAILY 02/25/25 02/25/25 History semaglutide 0.25 mg or 0.5 mg (2 0.5 mg SQ WEEKLY 02/25/25 02/25/25 History mg/3 mL) subcutaneous pen injector (Ozempic) New Prescriptions to Start Prescriptions: Allergies Allergy/AdvReac Type Severity Reaction Status Date / Time No Known Allergies Allergy Verified 02/25/25 11:50 Exam Data for Last 24 hours Vital signs and Labs for Last 24 Hours: Temp Pulse Resp BP Pulse Ox O2 Del Method O2 Flow Rate 98.6 F 90 16 120/57 L 94 L Nasal Cannula 2 02/25/25 14:54 02/25/25 14:54 02/25/25 14:54 02/25/25 14:54 02/25/25 14:54 02/25/25 14:54 02/25/25 14:54 Laboratory Results - last 24 hr 02/25/25 12:15: WBC 10.0, RBC 4.18 L, Hgb 10.7 L, Hct 34.9 L, MCV 83.5, MCH 25.6 L, MCHC 30.7 L, RDW 19.7 H, Plt Count 289, MPV 9.1, Neut % (Auto) 39.1, Lymph % (Auto) 12.6, [place] % (Auto) 5.8, Eos % (Auto) 41.9 H, Baso % (Auto) 0.3, Neut # (Auto) 3.9, Lymph # (Auto) 1.3, [place] # (Auto) 0.6, Eos # (Auto) 4.2 H, Baso # (Auto) 0.0, Total Counted 100, Neutrophils % (Manual) 41 L, Lymphocytes % (Manual) 10, Monocytes % (Manual) 3, Eosinophils % (Manual) 46 H, Platelet Estimate Normal, RBC Morphology Normal, Sodium 133 L, Potassium 4.7, Chloride 99, Carbon Dioxide 28, Anion Gap 10.7, BUN 23 H, Creatinine 1.50 H, Estimated Creat Clear 37, Estimated GFR 36 L, Est GFR ( Amer) 43 L, Glucose 105 H, Calcium 9.2, Magnesium 1.7, Total Bilirubin 0.6, AST 18, ALT 12, Alkaline Phosphatase 118, Troponin I < 0.01, NT-Pro-B Natriuret Pep 193 H, Total Protein 6.6, Albumin 3.9, Globulin 2.7, Albumin/Globulin Ratio 1.4, Lipase 201 02/25/25 12:19: SARS-CoV-2 (PCR) Not detected, Influenza A Untype (PCR) Not detected, Influenza Type B (PCR) Not detected 02/25/25 14:07: VBG pH 7.35, VBG pCO2 49.7, VBG pO2 47.8 H, VBG HCO3 27.1, VBG Total CO2 28.6 H, VBG O2 Saturation 80.2 H, VBG Base Excess 1.5, VBG Lactic Acid 1.7 I & O for Last 24 hours: Intake & Output 02/22/25 02/23/25 02/24/25 02/25/25 23:59 23:59 23:59 23:59 Intake Total 150 / 150 Balance 150 / 150 Weight 123.831 kg Constitutional Constitutional: no acute distress and obese *Routine HEENT Exam Head: Present normocephalic Eye: Present EOMI and PERRL ENT: Present mucous membranes moist *Routine Neck Exam Neck: Present supple; Absent lymphadenopathy *Routine Respiratory Exam Respiratory: Present CTA bilaterally *Routine Cardiovascular Exam Cardiovascular: Present RRR *Routine Abdominal Exam Abdominal: Present soft and normoactive bowel sounds; Absent tenderness *Routine Rectal Exam Rectal:: deferred *Routine Genitalia Exam Genitalia:: deferred *Routine Extremities Exam Extremities: Absent cyanosis, clubbing or edema *Routine Skin Exam Skin: Present warm; Absent rash *Routine Neurological Exam Neurological: Present alert and oriented X3 Assessment and Plan *Assessment and plan (1) Pulmonary hypertension: Status: Acute Category: Medical Code(s): I27.20 - Pulmonary hypertension, unspecified (2) Hypoxia: Status: Acute Category: Medical Code(s): R09.02 - Hypoxemia Plan Shannon Dale is a 59-year-old female with a medical history significant for presumed COPD on room air, former smoker, pulmonary hypertension, SIM, HFpEF, hypertension, type 2 diabetes, anxiety/depression, obesity who was sent by urgent care clinic for shortness of breath, hypoxia in the 80s. Patient states she has been having progressive shortness of breath, yellow productive cough over the past 4 days. Denies chest pain, fever/chills, abdominal pain. She states she has never been diagnosed with obstructive disease include COPD, but she has smoked in the past for many years. She does see for pulmonary hypertension, and has obstructive sleep apnea but she cannot tolerate wearing CPAP at home. On arrival, patient was saturating in the high 80s with improvement on 2 L. Workup in the ED significant for creatinine 1.5 (baseline 1.0), BNP 193, CXR without acute process, and negative for COVID-19 and influenza. She was given Solu-Medrol 125 mg, magnesium, DuoNebs, ceftriaxone but continued to have increased work of breathing on 2 L. Given this presentation, ED provider discussed case with me and decided to admit patient for acute hypoxic respiratory failure secondary to COPD exacerbation. #Acute hypoxic respiratory failure #Suspected COPD exacerbation ? Patient presented with progressive shortness of breath, yellow productive sputum. CXR without acute process, initial WBC normal. ? Patient does not have an official diagnosis for COPD, but was a longtime smoker. Denies fever/chills, chest pain. ? Upon arrival to the floor, patient states she feels significantly better. On 2 L nasal cannula. ? Started DuoNebs every 6 hours, Pulmicort twice daily. ? Started prednisone 40 mg day 2/5 tomorrow. ? Started doxycycline 100 mg twice daily. ? Follow-up morning VBG. ? Plan to refer to pulmonology for PFTs. #Pulmonary hypertension #Obstructive sleep apnea ? Patient states that she is not able to tolerate CPAP at home. Has not been wearing it. ? Follows [facility] for pulmonary hypertension. Continue sildenafil 60 mg 3 times daily. Hold macitentan 10 mg for now, patient states it makes her blood pressures soft. #HFpEF ? Euvolemic, BNP 193. ? Continue home Bumex 3 mg daily, hold home metolazone for now. #Hypertension ? Hold home lisinopril, metolazone for now. BP stable. #Type 2 diabetes ? Hemoglobin A1c 8.3% in December 2024. ? Started Lantus 15 units nightly. LDSSI, ACHS glucose checks. #Anxiety/depression ? Continue home trazodone 50 mg nightly, fluoxetine 40 mg, bupropion 300 mg, hold aripiprazole 10 mg, amitriptyline 10 mg. QTc 441. #GERD ? Continue home PPI. #Obesity ? BMI 45. Complicates all aspects of care. On Ozempic at home. Full code DVT prophylaxis: Lovenox 40 mg Home medications: Restarted, held few as above.
[2025-02-25 16:14] LABS: Troponin I < 0.01 ng/ml (0.00-0.034)
[2025-02-25 16:54] LABS: POC Glucose,Bedside 237 gm/dL (70-110)
[2025-02-25] MEDS: humaLOG 100 UNITS/ML 10ML VIAL (SSI) SUBCUT ×2 (16:58→20:48)
[2025-02-25 17:52] LABS: Adenovirus,PCR Not Detected (NotDetected); Chlamydophila Pneumoniae, PCR Not Detected (NotDetected); Coronavirus 19, PCR Not Detected (NotDetected); Coronovirus HKU1,PCR Not Detected (NotDetected); Influenza A, PCR Not Detected (NotDetected); Influenza AH1, 2009 Not Detected (NotDetected); Influenza AH1, PCR Not Detected (NotDetected); Influenza AH3,PCR Not Detected (NotDetected); Influenza B, PCR Not Detected (NotDetected); Mycoplasma Pneumoniae, PCR Not Detected (NotDetected); Parainfluenza 1, PCR Not Detected (NotDetected); Parainfluenza 2, PCR Not Detected (NotDetected); Parainfluenza 3, PCR Not Detected (NotDetected); Parainfluenza 4, PCR Not Detected (NotDetected)
[2025-02-25 19:58] LABS: POC Glucose,Bedside 242 gm/dL (70-110)
[2025-02-25] MEDS: PANTOPRAZOLE 40MG TABLET 40 MG PO (20:48)
[2025-02-25] MEDS: FAMOTIDINE 20MG TABLET 20 MG PO (20:48)
[2025-02-25] MEDS: TRAZODONE 50MG TABLET 50 MG PO (20:48)
[2025-02-26] VITALS: BP 136/68; PULSE 84; RESP 16; TEMP 36.7; O2SAT 93
--- NOTE | 2025-02-26 02:55 | PC.NURSE ---
Pt AOx4, pleasant. No significant changes this shift. VSS. On 2L O2, tolerating well. Currently resting in bed with eyes closed. Respirations even and unlabored. Bed is low, locked, and call light is in reach.
[2025-02-26 04:00] VITALS: BP 147/98; PULSE 79; RESP 14; TEMP 36.8; O2SAT 95; BMI 47.8
[2025-02-26 05:29] LABS: POC Glucose,Bedside 190 gm/dL (70-110)
[2025-02-26] MEDS: humaLOG 100 UNITS/ML 10ML VIAL (SSI) SUBCUT (05:30)
[2025-02-26 07:44] LABS: Hematocrit 34.2 % (37.0-47.0); Hemoglobin 10.1 g/dL (12.2-16.2); Immature Granulocytes % 0.7 %; Mean Corpuscular HGB Conc 29.5 g/dL (31.8-35.4); Mean Corpuscular Hemoglobin 24.8 pg (27.0-31.2); Mean Corpuscular Volume 83.8 fl (81-99); Nucleated Red Blood Cells % 0 %; Platelet Count 306 K/mm3 (142-424); Red Blood Count 4.08 M/mm3 (4.20-5.40); Red Cell Distribution Width-SD 58.8 fL; White Blood Count 12.8 K/mm3 (4.8-10.8)
[2025-02-26 08:00] VITALS: BP 133/67; PULSE 86; RESP 12; TEMP 36.7; O2SAT 100; O2SAT 94
[2025-02-26 08:11] LABS: Alanine Aminotransferase 14 U/L (12-78); Albumin Level 4.0 g/dl (3.5-5.0); Albumin/Globulin Ratio 1.4 (1.1-1.8); Alkaline Phosphatase 101 U/L (38-126); Anion Gap 11.5 mEq/L (5-15); Aspartate Amino Transferase 16 U/L (14-36); Bilirubin,Total 0.4 mg/dl (0.2-1.3); Blood Urea Nitrogen 26 mg/dl (7-17); Calcium 9.3 mg/dl (8.4-10.2); Carbon Dioxide 27 mmol/L (22.0-30.0); Chloride 99 mmol/L (98-107); Creatinine Clearance Estimated 41 mL/min (50-200); Creatinine,Serum 1.30 mg/dl (0.52-1.04); Estimated Glomerular Filt Rate 42 ml/min (>60); GFR (African American) 51 ML/MIN (>60); Globulin 2.8 g/dL (1.3-3.2); Glucose 145 mg/dl (74-100); Potassium 4.5 mmoL/L (3.5-5.1); Sodium 133 mmol/L (136-145); Total Protein,Serum 6.8 g/dl (6.3-8.2)
[2025-02-26 08:38] LABS: Thyroid Stimulating Hormone 1.43 uIU/mL (0.465-4.68)
[2025-02-26] MEDS: FLUOXETINE 20MG CAPSULE 40 MG PO (08:58)
[2025-02-26] MEDS: FAMOTIDINE 20MG TABLET 20 MG PO (08:58)
[2025-02-26] MEDS: dilTIAZem ER 120MG CAPSULE 120 MG PO (08:59)
[2025-02-26] MEDS: BUMETANIDE 1 MG TABLET 3 MG PO (08:59)
[2025-02-26 09:57] LABS: Hemoglobin A1C 6.5 % (4.0-6.0)
--- NOTE | 2025-02-26 10:59 | PC.NURSE ---
room air saturation 94% at rest
--- NOTE | 2025-02-26 11:33 | EXP.DC.SUM ---
General Admission date:: 02/25/25 HPI HPI HPI: Shannon Dale is a 59-year-old female with a medical history significant for presumed COPD on room air, former smoker, pulmonary hypertension, SIM, HFpEF, hypertension, type 2 diabetes, anxiety/depression, obesity who was sent by urgent care clinic for shortness of breath, hypoxia in the 80s. Patient states she has been having progressive shortness of breath, yellow productive cough over the past 4 days. Denies chest pain, fever/chills, abdominal pain. She states she has never been diagnosed with obstructive disease include COPD, but she has smoked in the past for many years. She does see for pulmonary hypertension, and has obstructive sleep apnea but she cannot tolerate wearing CPAP at home. On arrival, patient was saturating in the high 80s with improvement on 2 L. Workup in the ED significant for creatinine 1.5 (baseline 1.0), BNP 193, CXR without acute process, and negative for COVID-19 and influenza. She was given Solu-Medrol 125 mg, magnesium, DuoNebs, ceftriaxone but continued to have increased work of breathing on 2 L. Given this presentation, ED provider discussed case with me and decided to admit patient for acute hypoxic respiratory failure secondary to COPD exacerbation. Hospital Course Hospital Course Hospital Course: Shannon Dale is a 59-year-old female with a medical history significant for presumed COPD on room air, former smoker, pulmonary hypertension, SIM, HFpEF, hypertension, type 2 diabetes, anxiety/depression, obesity who was sent by urgent care clinic for shortness of breath, hypoxia in the 80s. Patient states she has been having progressive shortness of breath, yellow productive cough over the past 4 days. Denies chest pain, fever/chills, abdominal pain. She states she has never been diagnosed with obstructive disease include COPD, but she has smoked in the past for many years. She does see for pulmonary hypertension, and has obstructive sleep apnea but she cannot tolerate wearing CPAP at home. On arrival, patient was saturating in the high 80s with improvement on 2 L. Workup in the ED significant for creatinine 1.5 (baseline 1.0), BNP 193, CXR without acute process, and negative for COVID-19 and influenza. She was given Solu-Medrol 125 mg, magnesium, DuoNebs, ceftriaxone but continued to have increased work of breathing on 2 L. Given this presentation, ED provider discussed case with me and decided to admit patient for acute hypoxic respiratory failure secondary to COPD exacerbation. #Acute hypoxic respiratory failure #Suspected COPD exacerbation ? Patient presented with progressive shortness of breath, yellow productive sputum. CXR without acute process, initial WBC normal. ? Patient does not have an official diagnosis for COPD, but was a longtime smoker. Denies fever/chills, chest pain. ? Clinically improved with DuoNebs, Pulmicort, prednisone, doxycycline. Weaned back to room air. ? Discharged with Anoro Ellipta, prednisone 40 mg and doxycycline 100 mg twice daily for 3 more days. ? Will refer to pulmonology for PFTs and further management. #Pulmonary hypertension #Obstructive sleep apnea ? Patient states that she is not able to tolerate CPAP at home. Has not been wearing it. ? Follows [facility] for pulmonary hypertension. Continue sildenafil 60 mg 3 times daily, macitentan 10 mg. #HFpEF ? Euvolemic, BNP 193. ? Continue home Bumex 3 mg daily, metolazone. #Hypertension ? Continue home lisinopril. #Type 2 diabetes ? Hemoglobin A1c 8.3% in December 2024. Continue home 70/30 insulin 32 units twice daily, metformin 1000 mg twice daily, Ozempic 0.5 mg weekly. #Anxiety/depression ? Continue home trazodone 50 mg nightly, fluoxetine 40 mg, bupropion 300 mg, aripiprazole 10 mg, amitriptyline 10 mg. QTc 441. Consider weaning on an outpatient basis. #GERD ? Continue home PPI. #Obesity ? BMI 45. Complicates all aspects of care. On Ozempic at home. Exam Data for Last 24 hours Vital signs and Labs for Last 24 Hours: Temp Pulse Resp BP Pulse Ox O2 Del Method O2 Flow Rate 98.0 F 86 12 133/67 94 L Room Air 2.5 02/26/25 08:00 02/26/25 08:00 02/26/25 08:00 02/26/25 08:00 02/26/25 08:00 02/26/25 11:00 02/26/25 08:00 Laboratory Results - last 24 hr 02/25/25 12:15: WBC 10.0, RBC 4.18 L, Hgb 10.7 L, Hct 34.9 L, MCV 83.5, MCH 25.6 L, MCHC 30.7 L, RDW 19.7 H, Plt Count 289, MPV 9.1, Neut % (Auto) 39.1, Lymph % (Auto) 12.6, [place] % (Auto) 5.8, Eos % (Auto) 41.9 H, Baso % (Auto) 0.3, Neut # (Auto) 3.9, Lymph # (Auto) 1.3, [place] # (Auto) 0.6, Eos # (Auto) 4.2 H, Baso # (Auto) 0.0, Total Counted 100, Neutrophils % (Manual) 41 L, Lymphocytes % (Manual) 10, Monocytes % (Manual) 3, Eosinophils % (Manual) 46 H, Platelet Estimate Normal, RBC Morphology Normal, Sodium 133 L, Potassium 4.7, Chloride 99, Carbon Dioxide 28, Anion Gap 10.7, BUN 23 H, Creatinine 1.50 H, Estimated Creat Clear 37, Estimated GFR 36 L, Est GFR ( Amer) 43 L, Glucose 105 H, Calcium 9.2, Magnesium 1.7, Total Bilirubin 0.6, AST 18, ALT 12, Alkaline Phosphatase 118, Troponin I < 0.01, NT-Pro-B Natriuret Pep 193 H, Total Protein 6.6, Albumin 3.9, Globulin 2.7, Albumin/Globulin Ratio 1.4, Lipase 201 02/25/25 12:19: SARS-CoV-2 (PCR) Not detected, Influenza A Untype (PCR) Not detected, Influenza Type B (PCR) Not detected 02/25/25 14:07: VBG pH 7.35, VBG pCO2 49.7, VBG pO2 47.8 H, VBG HCO3 27.1, VBG Total CO2 28.6 H, VBG O2 Saturation 80.2 H, VBG Base Excess 1.5, VBG Lactic Acid 1.7 02/25/25 15:40: Troponin I < 0.01 02/25/25 16:47: POC Glucose 237 H 02/25/25 17:40: Chlamy pneumoniae PCR Not detected, Adenovirus (PCR) Not detected, B. pertussis DNA (PCR) Not detected, Coronavirus OC43 (PCR) Not detected, Coronavirus HKU1 (PCR) Not detected, Coronavirus 229E (PCR) Not detected, SARS-CoV-2 (PCR) Not detected, Coronavirus NL63 (PCR) Not detected, Human Metapneumovir PCR Not detected, Influenza A (H1) PCR Not detected, Influ A (H1N1/09) PCR Not detected, Influenza A (H3) PCR Not detected, Influenza Type A (PCR) Not detected, Influenza Type B (PCR) Not detected, M. pneumoniae (PCR) Not detected, Parainfluenza 1 (PCR) Not detected, Parainfluenza 2 (PCR) Not detected, Parainfluenza 3 (PCR) Not detected, Parainfluenza 4 (PCR) Not detected, RSV (PCR) Not detected, Entero/Rhino (PCR) Not detected 02/25/25 19:45: POC Glucose 242 H 02/26/25 05:18: POC Glucose 190 H 02/26/25 07:28: WBC 12.8 H D, RBC 4.08 L, Hgb 10.1 L, Hct 34.2 L, MCV 83.8, MCH 24.8 L, MCHC 29.5 L, RDW 19.5 H, Plt Count 306, MPV 9.3, Neut % (Auto) 86.6 H, Lymph % (Auto) 5.1 L, [place] % (Auto) 7.3, Eos % (Auto) 0.1, Baso % (Auto) 0.2, Neut # (Auto) 11.1 H, Lymph # (Auto) 0.7, [place] # (Auto) 0.9, Eos # (Auto) 0.0, Baso # (Auto) 0.0, Sodium 133 L, Potassium 4.5, Chloride 99, Carbon Dioxide 27, Anion Gap 11.5, BUN 26 H, Creatinine 1.30 H, Estimated Creat Clear 41, Estimated GFR 42 L, Est GFR ( Amer) 51 L, Glucose 145 H D, Hemoglobin A1c 6.5 H, Calcium 9.3, Total Bilirubin 0.4, AST 16, ALT 14, Alkaline Phosphatase 101, Total Protein 6.8, Albumin 4.0, Globulin 2.8, Albumin/Globulin Ratio 1.4, TSH 1.43 I & O for Last 24 hours: Intake & Output 02/23/25 02/24/25 02/25/25 02/26/25 23:59 23:59 23:59 23:59 Intake Total 400 / 880 840 / 840 Output Total 600 / 600 Balance 400 / 880 240 / 240 Weight 123.831 kg 130.266 kg Constitutional Constitutional: no acute distress and obese *Routine HEENT Exam Head: Present normocephalic Eye: Present EOMI and PERRL ENT: Present mucous membranes moist *Routine Neck Exam Neck: Present supple; Absent lymphadenopathy *Routine Respiratory Exam Respiratory: Present CTA bilaterally *Routine Cardiovascular Exam Cardiovascular: Present RRR *Routine Abdominal Exam Abdominal: Present soft and normoactive bowel sounds; Absent tenderness *Routine Extremities Exam Extremities: Absent cyanosis, clubbing or edema *Routine Skin Exam Skin: Present warm; Absent rash *Routine Neurological Exam Neurological: Present alert and oriented X3 Results Data Completed and Pending Labs on day of discharge: Labs from last 24 hours 02/26/25 02/26/25 02/25/25 07:28 05:18 19:45 WBC 12.8 H D RBC 4.08 L Hgb 10.1 L Hct 34.2 L MCV 83.8 MCH 24.8 L MCHC 29.5 L RDW 19.5 H Plt Count 306 MPV 9.3 Neut % (Auto) 86.6 H Lymph % (Auto) 5.1 L [place] % (Auto) 7.3 Eos % (Auto) 0.1 Baso % (Auto) 0.2 Neut # (Auto) 11.1 H Lymph # (Auto) 0.7 [place] # (Auto) 0.9 Eos # (Auto) 0.0 Baso # (Auto) 0.0 Total Counted Neutrophils % (Manual) Lymphocytes % (Manual) Monocytes % (Manual) Eosinophils % (Manual) Platelet Estimate RBC Morphology VBG pH VBG pCO2 VBG pO2 VBG HCO3 VBG Total CO2 VBG O2 Saturation VBG Base Excess VBG Lactic Acid Sodium 133 L Potassium 4.5 Chloride 99 Carbon Dioxide 27 Anion Gap 11.5 BUN 26 H Creatinine 1.30 H Estimated Creat Clear 41 Estimated GFR 42 L Est GFR ( Amer) 51 L Glucose 145 H D POC Glucose 190 H 242 H Hemoglobin A1c 6.5 H Calcium 9.3 Magnesium Total Bilirubin 0.4 AST 16 ALT 14 Alkaline Phosphatase 101 Troponin I NT-Pro-B Natriuret Pep Total Protein 6.8 Albumin 4.0 Globulin 2.8 Albumin/Globulin Ratio 1.4 Lipase TSH 1.43 Chlamy pneumoniae PCR Adenovirus (PCR) B. pertussis DNA (PCR) Coronavirus OC43 (PCR) Coronavirus HKU1 (PCR) Coronavirus 229E (PCR) SARS-CoV-2 (PCR) Coronavirus NL63 (PCR) Human Metapneumovir PCR Influenza A (H1) PCR Influ A (H1N1/) PCR Influenza A (H3) PCR Influenza Type A (PCR) Influenza A Untype (PCR) Influenza Type B (PCR) M. pneumoniae (PCR) Parainfluenza 1 (PCR) Parainfluenza 2 (PCR) Parainfluenza 3 (PCR) Parainfluenza 4 (PCR) RSV (PCR) Entero/Rhino (PCR) 02/25/25 02/25/25 02/25/25 17:40 16:47 15:40 WBC RBC Hgb Hct MCV MCH MCHC RDW Plt Count MPV Neut % (Auto) Lymph % (Auto) [place] % (Auto) Eos % (Auto) Baso % (Auto) Neut # (Auto) Lymph # (Auto) [place] # (Auto) Eos # (Auto) Baso # (Auto) Total Counted Neutrophils % (Manual) Lymphocytes % (Manual) Monocytes % (Manual) Eosinophils % (Manual) Platelet Estimate RBC Morphology VBG pH VBG pCO2 VBG pO2 VBG HCO3 VBG Total CO2 VBG O2 Saturation VBG Base Excess VBG Lactic Acid Sodium Potassium Chloride Carbon Dioxide Anion Gap BUN Creatinine Estimated Creat Clear Estimated GFR Est GFR ( Amer) Glucose POC Glucose 237 H Hemoglobin A1c Calcium Magnesium Total Bilirubin AST ALT Alkaline Phosphatase Troponin I < 0.01 NT-Pro-B Natriuret Pep Total Protein Albumin Globulin Albumin/Globulin Ratio Lipase TSH Chlamy pneumoniae PCR Not detected Adenovirus (PCR) Not detected B. pertussis DNA (PCR) Not detected Coronavirus OC43 (PCR) Not detected Coronavirus HKU1 (PCR) Not detected Coronavirus 229E (PCR) Not detected SARS-CoV-2 (PCR) Not detected Coronavirus NL63 (PCR) Not detected Human Metapneumovir PCR Not detected Influenza A (H1) PCR Not detected Influ A (H1N1/) PCR Not detected Influenza A (H3) PCR Not detected Influenza Type A (PCR) Not detected Influenza A Untype (PCR) Influenza Type B (PCR) Not detected M. pneumoniae (PCR) Not detected Parainfluenza 1 (PCR) Not detected Parainfluenza 2 (PCR) Not detected Parainfluenza 3 (PCR) Not detected Parainfluenza 4 (PCR) Not detected RSV (PCR) Not detected Entero/Rhino (PCR) Not detected 02/25/25 02/25/25 02/25/25 14:07 12:19 12:15 WBC 10.0 RBC 4.18 L Hgb 10.7 L Hct 34.9 L MCV 83.5 MCH 25.6 L MCHC 30.7 L RDW 19.7 H Plt Count 289 MPV 9.1 Neut % (Auto) 39.1 Lymph % (Auto) 12.6 [place] % (Auto) 5.8 Eos % (Auto) 41.9 H Baso % (Auto) 0.3 Neut # (Auto) 3.9 Lymph # (Auto) 1.3 [place] # (Auto) 0.6 Eos # (Auto) 4.2 H Baso # (Auto) 0.0 Total Counted 100 Neutrophils % (Manual) 41 L Lymphocytes % (Manual) 10 Monocytes % (Manual) 3 Eosinophils % (Manual) 46 H Platelet Estimate Normal RBC Morphology Normal VBG pH 7.35 VBG pCO2 49.7 VBG pO2 47.8 H VBG HCO3 27.1 VBG Total CO2 28.6 H VBG O2 Saturation 80.2 H VBG Base Excess 1.5 VBG Lactic Acid 1.7 Sodium 133 L Potassium 4.7 Chloride 99 Carbon Dioxide 28 Anion Gap 10.7 BUN 23 H Creatinine 1.50 H Estimated Creat Clear 37 Estimated GFR 36 L Est GFR ( Amer) 43 L Glucose 105 H POC Glucose Hemoglobin A1c Calcium 9.2 Magnesium 1.7 Total Bilirubin 0.6 AST 18 ALT 12 Alkaline Phosphatase 118 Troponin I < 0.01 NT-Pro-B Natriuret Pep 193 H Total Protein 6.6 Albumin 3.9 Globulin 2.7 Albumin/Globulin Ratio 1.4 Lipase 201 TSH Chlamy pneumoniae PCR Adenovirus (PCR) B. pertussis DNA (PCR) Coronavirus OC43 (PCR) Coronavirus HKU1 (PCR) Coronavirus 229E (PCR) SARS-CoV-2 (PCR) Not detected Coronavirus NL63 (PCR) Human Metapneumovir PCR Influenza A (H1) PCR Influ A (H1N1/09) PCR Influenza A (H3) PCR Influenza Type A (PCR) Influenza A Untype (PCR) Not detected Influenza Type B (PCR) Not detected M. pneumoniae (PCR) Parainfluenza 1 (PCR) Parainfluenza 2 (PCR) Parainfluenza 3 (PCR) Parainfluenza 4 (PCR) RSV (PCR) Entero/Rhino (PCR) DS: Diagnosis Discharge Diagnosis (1) Pulmonary hypertension: Status: Acute Code(s): I27.20 - Pulmonary hypertension, unspecified (2) Hypoxia: Status: Acute Code(s): R09.02 - Hypoxemia Meds Home Medications and Allergies Home Medications ?Medication ?Instructions ?Recorded ?Confirmed ?Type amitriptyline 10 mg tablet 10 mg PO DAILY 03/24/24 02/25/25 History atorvastatin 20 mg tablet 20 mg PO DAILY 03/24/24 02/25/25 History bumetanide 2 mg tablet 3 mg PO DAILY 03/24/24 02/25/25 History diltiazem HCl 120 mg 120 mg PO DAILY 03/24/24 02/25/25 History capsule,extended release 24 hr fexofenadine 180 mg tablet 180 mg PO DAILY 03/24/24 02/25/25 History fluoxetine 40 mg capsule 40 mg PO DAILY 03/24/24 02/25/25 History metolazone 2.5 mg tablet 2.5 mg PO DAILY 03/24/24 02/25/25 History omeprazole 40 mg capsule,delayed 40 mg PO DAILY 03/24/24 02/25/25 History release potassium chloride 20 mEq 60 meq PO TID 03/24/24 02/25/25 History tablet,extended release(part/cryst) sildenafil (pulm.hypertension) 20 60 mg PO TID 03/24/24 02/25/25 History mg tablet aripiprazole 5 mg tablet 10 mg PO DAILY 01/04/25 02/25/25 History blood-glucose sensor (Dexcom G7 #1 ea 01/04/25 02/25/25 Rx Sensor device) blood-glucose,computer equipment installer,cont #1 ea 01/04/25 02/25/25 Rx (Dexcom G7 Bond Underwriter) bupropion HCl 300 mg 24 hr tablet, 300 mg PO DAILY 01/04/25 02/25/25 History extended release cyanocobalamin (vitamin B-12) 1,000 mcg PO DAILY 01/04/25 02/25/25 History 1,000 mcg tablet famotidine 20 mg tablet 20 mg PO BID 01/04/25 02/25/25 History folic acid 1 mg tablet 1 mg PO DAILY 01/04/25 02/25/25 History insulin human U-100 NPH-regulr 32 unit SQ BID 01/04/25 02/25/25 History 70-30 mix 100 unit/mL subcutaneous susp (Novolin 70/30 U-100 Insulin) trazodone 50 mg tablet 50 mg PO HS 01/04/25 02/25/25 History blood-glucose sensor (Dexcom G7 #3 ea 01/18/25 02/25/25 Rx Sensor device) cholecalciferol (vitamin D3) 1,250 50,000 unit PO WEEKLY #5 caps 01/18/25 02/25/25 Rx mcg (50,000 unit) capsule lisinopril 10 mg tablet 10 mg PO DAILY #90 tabs 01/18/25 02/25/25 Rx metformin 1,000 mg tablet 1,000 mg PO BID #60 tabs 01/18/25 02/25/25 Rx macitentan 10 mg tablet (Opsumit) 10 mg PO DAILY 02/25/25 02/25/25 History semaglutide 0.25 mg or 0.5 mg (2 0.5 mg SQ WEEKLY 02/25/25 02/25/25 History mg/3 mL) subcutaneous pen injector (Ozempic) doxycycline hyclate 100 mg capsule 100 mg PO BID 3 days #6 caps 02/26/25 Rx prednisone 20 mg tablet 40 mg (2 x 20 mg) PO DAILY 3 days 02/26/25 Rx #6 tabs umeclidinium 62.5 mcg-vilanterol 1 inh inhalation DAILY 30 days #0 02/26/25 Rx 25 mcg/actuation powdr for ea inhalation (Anoro Ellipta) New Prescriptions to Start Prescriptions: doxycycline hyclate Cleveland Lamb prednisone Cleveland Lamb Allergies Allergy/AdvReac Type Severity Reaction Status Date / Time No Known Allergies Allergy Verified 02/25/25 11:50 Discharge Plan Disposition Patient Disposition: Home, Self-Care Condition: Fair Follow up Plan Follow up with: Mali Rivera [Primary Care Provider, Medical] - Enter time for follow up Greta Eldridge MD [Physician, Pulmonology] - 2 weeks Prescriptions/Medication Reconciliation: New umeclidinium-vilanterol [Anoro Ellipta] 62.5-25 mcg/actuation Blister With Device 1 inh inhalation DAILY 30 Days Qty: 0 0RF prednisone 20 mg tablet 40 mg PO DAILY 3 Days Qty: 6 0RF doxycycline hyclate 100 mg capsule 100 mg PO BID 3 Days Qty: 6 0RF Continued famotidine 20 mg tablet 20 mg PO BID Patient Comments: TAKE 1 TABLET BY MOUTH TWICE DAILY bupropion HCl 300 mg tablet extended release 24 hr 300 mg PO DAILY Patient Comments: TAKE 1 TABLET BY MOUTH ONCE DAILY DO NOT CRUSH,CHEW OR SPLIT trazodone 50 mg tablet 50 mg PO HS cyanocobalamin (vitamin B-12) 1,000 mcg tablet 1,000 mcg PO DAILY Patient Comments: TAKE 1 TABLET BY MOUTH ONCE DAILY folic acid 1 mg tablet 1 mg PO DAILY Patient Comments: TAKE 1 TABLET BY MOUTH ONCE DAILY (DME) Dexcom G7 Sensor Device See Rx Instructions miscellaneous .MEDSUPPLY Qty: 1 0RF Rx Instructions: As directed (DME) Dexcom G7 Bond Underwriter Misc See Rx Instructions miscellaneous .MEDSUPPLY Qty: 1 0RF Rx Instructions: As directed lisinopril 10 mg tablet 10 mg PO DAILY Qty: 90 3RF cholecalciferol (vitamin D3) 1,250 mcg (50,000 unit) capsule 50,000 unit PO WEEKLY Qty: 5 3RF metformin 1,000 mg tablet 1,000 mg PO BID Qty: 60 3RF (DME) Dexcom G7 Sensor Device See Rx Instructions .MEDSUPPLY Qty: 3 3RF Rx Instructions: Use 1 sensor for every 10 days fluoxetine 40 mg capsule 40 mg PO DAILY metolazone 2.5 mg tablet 2.5 mg PO DAILY atorvastatin 20 mg tablet 20 mg PO DAILY bumetanide 2 mg tablet 3 mg PO DAILY fexofenadine 180 mg tablet 180 mg PO DAILY omeprazole 40 mg capsule,delayed release(DR/EC) 40 mg PO DAILY potassium chloride 20 mEq tablet,ER particles/crystals 60 meq PO TID amitriptyline 10 mg tablet 10 mg PO DAILY diltiazem HCl 120 mg capsule,extended release 24hr 120 mg PO DAILY sildenafil (pulm.hypertension) 20 mg tablet 60 mg PO TID aripiprazole 5 mg tablet 10 mg PO DAILY Novolin 70/30 U-100 Insulin 100 unit/mL (70-30) suspension 32 unit SQ BID Opsumit 10 mg tablet 10 mg PO DAILY Ozempic 0.25 mg or 0.5 mg (2 mg/3 mL) pen injector 0.5 mg SQ WEEKLY Problem Reconciliation Problems Reviewed?: Yes Patient Discharge Instructions Patient Instructions: DI for Chronic Obstructive Pulmonary Disease, Stop Light COPD Print Language: Irish Providers Primary Care Provider: Mali Rivera Admit Provider: Cleveland Lamb Attending Provider: Cleveland Lamb
[2025-02-26] MEDS: UMECLIDINIUM/VILANTEROL 62.5/25MCG INHALER 1 PUFF IH (11:50)
[2025-02-26 11:55] LABS: POC Glucose,Bedside 132 gm/dL (70-110)
--- NOTE | 2025-02-28 10:49 | SW/DCPLANNER ---
Spoke with patient on the phone. patient stated that she is doing well. patient stated that she is going to call and schedule her follow up appointments today. Patient stated that she was able to apple picker her new medicine at [facility]. Patient stated that she has no concerns or questions at this time. Gregorio Israel
== END 2025-02-26 12:05 | disposition home or self-care (01) ==
LOC: ER 14:13 → 2ND 14:22
PROVIDERS: Nurse Practitioner; Admitting Provider Student in an Organized Health Care Education/Training Program; Emergency Provider Emergency Medicine; PCP Nurse Practitioner Family; Visit Provider Student in an Organized Health Care Education/Training Program
DX: J44.1 Chronic obstructive pulmonary disease with (acute) exacerbation (principal); J96.01 Acute respiratory failure with hypoxia; I27.20 Pulmonary hypertension, unspecified; G47.33 Obstructive sleep apnea (adult) (pediatric); E11.9 Type 2 diabetes mellitus without complications; I11.0 Hypertensive heart disease with heart failure; I50.30 Unspecified diastolic (congestive) heart failure; F41.9 Anxiety disorder, unspecified; F32.A Depression, unspecified; K21.9 Gastro-esophageal reflux disease without esophagitis; E66.9 Obesity, unspecified; I45.10 Unspecified right bundle-branch block; E07.9 Disorder of thyroid, unspecified; I25.2 Old myocardial infarction; Z87.891 Personal history of nicotine dependence; Z68.42 Body mass index [BMI] 45.0-49.9, adult; Z79.4 Long term (current) use of insulin; Z79.84 Long term (current) use of oral hypoglycemic drugs; Z79.85 Long-term (current) use of injectable non-insulin antidiabetic drugs; Z79.899 Other long term (current) drug therapy
CPT/HCPCS: 0223U; 36415; 71045; 80053; 82803; 82962; 83036; 83690; 83735; 83880; 84443; 84484; 85007; 85025; 87636; 93005; 96365; 96367; 96372; 96375; 99285; G0378; J0696; J1650; J2919; J3475